=== PATIENT | male | born 1970 | race Caucasian/White ===

== ENCOUNTER 2020-06-21 04:30 | Emergency (ER) | payer BC, OTHER ==
[2020-06-21 05:42] LABS: Absolute Lymphocytes (CBC) 1.5 K/uL (0.7-4.9); Basophils % 0.5 % (0-1.3); Lymphocytes % 28.3 % (15.3-44.8); MPV 9.2 fL (7.6-11.3); RBC Red Blood Cell Count 5.03 M/uL (4.33-5.43)
[2020-06-21 05:43] LABS: Protime INR 0.96
[2020-06-21] MEDS ORDERED: ALBUTEROL INHALER 60 PUFF/8 GM IH ONE (06:00)
[2020-06-21 06:02] LABS: ALT/SGPT 43 U/L (12-78); AST/SGOT 27 U/L (15-37); Albumin 3.6 g/dL (3.4-5.0); Alkaline Phosphatase 93 U/L (45-117); BUN Blood Urea Nitrogen 18 mg/dL (7-18); Bicarbonate 24 mmol/L (21-32); Bilirubin Direct < 0.1 mg/dL (0-0.2); Bilirubin Total 0.3 mg/dL (0.2-1.0); Glucose Level 102 mg/dL (74-106); NT PRO-BNP 8 pg/mL (<125); Potassium 3.9 mmol/L (3.5-5.1); Protein, Total 7.7 g/dL (6.4-8.2); Sodium Level 137 mmol/L (136-145); Troponin (Emerg Dept Use Only) < 0.02 ng/mL (0.0-0.045)
--- NOTE | 2020-06-21 07:05 | ER ---
Nurse's Notes [facility] Name: Josesito Reyna Age: 50 yrs Sex: Male : 1970 Arrival Date: 06/21/2020 Time: 04:31 Bed 6 Private MD: Diagnosis: COVID Pneumonia;Dyspnea Presentation: 06/21 04:34 Chief complaint: Patient states: Reports feeling increased shortness of breath; States lp1 diagnosed COVID + on 06/15/2020 at [facility], symptoms of cough, shortness of breath that began 06/07/20. Coronavirus screen: Client reports previous positive COVID test result. Date of collection: June 15, 2020. Ebola Screen: No symptoms or risks identified at this time. Initial Sepsis Screen: Does the patient meet any 2 criteria? No. Patient's initial sepsis screen is negative. Does the patient have a suspected source of infection? No. Patient's initial sepsis screen is negative. Risk Assessment: Do you want to hurt yourself or someone else? Patient reports no desire to harm self or others. Onset of symptoms was June 21, 2020. 04:34 Method Of Arrival: Ambulatory lp1 04:34 Acuity: ALISON 3 lp1 Triage Assessment: 04:52 General: Appears comfortable. Respiratory: Reports shortness of breath at rest Onset: rv The symptoms/episode began/occurred yesterday, the patient has mild shortness of breath. Historical: - Allergies: 04:42 PENICILLINS; lp1 - Home Meds: 04:42 None [Active]; lp1 - PMHx: 04:42 None; lp1 - PSHx: 04:42 Bladder sx; lp1 - Immunization history:: Adult Immunizations up to date. - Social history:: Smoking status: Patient denies any tobacco usage or history of. Screenin:42 Abuse screen: Denies threats or abuse. Denies injuries from another. Nutritional lp1 screening: No deficits noted. Tuberculosis screening: No symptoms or risk factors identified. Fall Risk None identified. Assessment: 04:51 General: Appears comfortable, Behavior is calm, cooperative. Pain: Denies pain. Neuro: rv Level of Consciousness is awake, alert, obeys commands, Oriented to person, place, time, situation. Cardiovascular: Patient's skin is warm and dry. Rhythm is regular. Respiratory: Airway is patent Respiratory effort is even, unlabored, Breath sounds are clear bilaterally. Derm: Skin is intact. 07:25 Reassessment: Patient appears in no apparent distress at this time. Patient and/or jl7 family updated on plan of care and expected duration. Pain level reassessed. Patient is alert, oriented x 3, equal unlabored respirations, skin warm/dry/pink. Patient states feeling better. Vital Signs: 04:34 BP 120 / 78; Pulse 80; Resp 18; Temp 97.2(TE); Pulse Ox 98% on R/A; Weight 97.52 kg lp1 (R); Height 6 ft. 0 in. (182.88 cm); Pain 0/10; 06:12 BP 106 / 71; Pulse 87; Resp 16; Pulse Ox 97% on R/A; rv 06:44 BP 112 / 82; Pulse 63; Resp 16; Temp 98; Pulse Ox 96% on R/A; rv 04:34 Body Mass Index 29.16 (97.52 kg, 182.88 cm) lp1 06:44 POST AMBULATION rv ED Course: 04:31 Patient arrived in ED. am2 04:37 Mook Francis, RN is Primary Nurse. rv 04:41 Triage completed. lp1 04:41 Arm band placed on. lp1 04:51 Patient has correct armband on for positive identification. conveyor monitor on. Pulse rv ox on. NIBP on. 04:53 Zoran Meier MD is Attending Physician. 7 05:17 Inserted saline lock: 20 gauge in right antecubital area, using aseptic technique. rv Blood collected. 05:17 Initial lab(s) drawn, by sd, sent to lab. rv 05:20 No provider procedures requiring assistance completed. rv 05:34 XRAY Chest (1 view) In Process Unspecified. EDMS 07:25 IV discontinued, intact, bleeding controlled, No redness/swelling at site. Pressure jl7 dressing applied. Administered Medications: 05:43 Not Given (Duplicate Order): Albuterol 1.25 mg Inhalation once rv 05:45 Drug: Albuterol HFA Inhaler 2 puffs Route: Inhalation; ea 06:45 Follow up: Response: No adverse reaction rv 07:24 Drug: predniSONE 60 mg Route: PO; jl7 07:25 Follow up: Response: No adverse reaction jl7 Outcome: 07:05 Discharge ordered by . lizette 07:25 Discharged to home ambulatory. jl7 07:25 Condition: stable 07:25 Discharge instructions given to patient, Instructed on discharge instructions, follow up and referral plans. medication usage, Demonstrated understanding of instructions, follow-up care, medications, Prescriptions given X 3. 07:26 Patient left the ED. jl7 Signatures: Dispatcher [employer] EDMS Adenike Moore RN RN lp1 [address] RN RN jl7 Marimar Cuellar Elena RN Mook Alex ea RN RN Zoarn Medrano MD MD 7
--- NOTE | 2020-06-21 07:06 | EDPHYS ---
Physician Documentation [facility] Name: Josesito Reyna Age: 50 yrs Sex: Male : 1970 Arrival Date: 06/21/2020 Time: 04:31 Bed 6 Private MD: ED Physician Zoran Meier HPI: 06/21 05:43 This 50 yrs old Male presents to ER via Ambulatory with complaints of mh7 Shortness Of Breath - COVID +. 05:43 The patient has shortness of breath at rest. mh7 05:44 Onset: The symptoms/episode began/occurred yesterday. Duration: The symptoms are mh7 intermittent, with no pattern. The patient's shortness of breath is aggravated by coughing, supine position, is alleviated by sitting up. Associated signs and symptoms: Pertinent positives: non-productive cough, Pertinent negatives: chest pain, productive cough, diaphoresis, dizziness, fever, hemoptysis, loss of consciousness, nausea, numbness in extremities, visual changes, vomiting. Severity of symptoms: At their worst the symptoms were moderate yesterday, in the emergency department the symptoms have improved moderately. States that he was diagnosed with COVID 19 on 06/15/20 but has had symptoms for 2 weeks.. Historical: - Allergies: 04:42 PENICILLINS; lp1 - Home Meds: 04:42 None [Active]; lp1 - PMHx: 04:42 None; lp1 - PSHx: 04:42 Bladder sx; lp1 - Immunization history:: Adult Immunizations up to date. - Social history:: Smoking status: Patient denies any tobacco usage or history of. ROS: 05:47 Constitutional: Negative for fever, chills, and weight loss, Eyes: Negative for injury, mh7 pain, redness, and discharge, ENT: Negative for injury, pain, and discharge, Neck: Negative for injury, pain, and swelling, Cardiovascular: Negative for chest pain, palpitations, and edema, Abdomen/GI: Negative for abdominal pain, nausea, vomiting, diarrhea, and constipation, Back: Negative for injury and pain, : Negative for injury, bleeding, discharge, and swelling, MS/Extremity: Negative for injury and deformity, Skin: Negative for injury, rash, and discoloration, Neuro: Negative for headache, weakness, numbness, tingling, and seizure, Psych: Negative for depression, anxiety, suicide ideation, homicidal ideation, and hallucinations, Allergy/Immunology: Negative for hives, rash, and allergies, Endocrine: Negative for neck swelling, polydipsia, polyuria, polyphagia, and marked weight changes, Hematologic/Lymphatic: Negative for swollen nodes, abnormal bleeding, and unusual bruising. Exam: 05:47 Constitutional: This is a well developed, well nourished patient who is awake, alert, mh7 and in no acute distress. Head/Face: Normocephalic, atraumatic. Eyes: Pupils equal round and reactive to light, extra-ocular motions intact. Lids and lashes normal. Conjunctiva and sclera are non-icteric and not injected. Cornea within normal limits. Periorbital areas with no swelling, redness, or edema. Neck: Trachea midline, no thyromegaly or masses palpated, and no cervical lymphadenopathy. Supple, full range of motion without nuchal rigidity, or vertebral point tenderness. No Meningismus. Chest/axilla: Normal chest wall appearance and motion. Nontender with no deformity. No lesions are appreciated. Cardiovascular: Regular rate and rhythm with a normal S1 and S2. No gallops, murmurs, or rubs. Normal PMI, no JVD. No pulse deficits. Respiratory: Lungs have equal breath sounds bilaterally, clear to auscultation and percussion. No rales, rhonchi or wheezes noted. No increased work of breathing, no retractions or nasal flaring. Abdomen/GI: Soft, non-tender, with normal bowel sounds. No distension or tympany. No guarding or rebound. No evidence of tenderness throughout. Back: No spinal tenderness. No costovertebral tenderness. Full range of motion. Skin: Warm, dry with normal turgor. Normal color with no rashes, no lesions, and no evidence of cellulitis. MS/ Extremity: Pulses equal, no cyanosis. Neurovascular intact. Full, normal range of motion. Neuro: Awake and alert, GCS 15, oriented to person, place, time, and situation. Cranial nerves II-XII grossly intact. Motor strength 5/5 in all extremities. Sensory grossly intact. Cerebellar exam normal. Normal gait. Psych: Awake, alert, with orientation to person, place and time. Behavior, mood, and affect are within normal limits. Vital Signs: 04:34 BP 120 / 78; Pulse 80; Resp 18; Temp 97.2(TE); Pulse Ox 98% on R/A; Weight 97.52 kg lp1 (R); Height 6 ft. 0 in. (182.88 cm); Pain 0/10; 06:12 BP 106 / 71; Pulse 87; Resp 16; Pulse Ox 97% on R/A; rv 06:44 BP 112 / 82; Pulse 63; Resp 16; Temp 98; Pulse Ox 96% on R/A; rv 04:34 Body Mass Index 29.16 (97.52 kg, 182.88 cm) lp1 06:44 POST AMBULATION rv MDM: 07:03 Differential diagnosis: Anemia Anxiety Reaction asthma, Bronchitis CHF exacerbation, 7 Chronic Obstructive Pulmonary Disease Myocardial Infarction pneumonia, pulmonary edema, reactive airway disease. Data reviewed: vital signs, nurses notes, lab test result(s), cardiac enzymes, CBC, electrolytes, urinalysis, EKG, radiologic studies, plain films. Data interpreted: Pulse oximetry: on room air is 96 %. Interpretation: normal. Counseling: I had a detailed discussion with the patient and/or guardian regarding: the historical points, exam findings, and any diagnostic results supporting the discharge/admit diagnosis, lab results, radiology results, the need for outpatient follow up, to return to the emergency department if symptoms worsen or persist or if there are any questions or concerns that arise at home. 07:05 Patient medically screened. 06/21 05:05 Order name: Basic Metabolic Panel; Complete Time: 06:06 [facility] 06/21 05:05 Order name: CBC with Diff; Complete Time: 05:49 06/21 05:05 Order name: LFT's; Complete Time: 06:06 [facility] 06/21 05:05 Order name: Magnesium; Complete Time: 06:06 [facility] 06/21 05:05 Order name: NT PRO-BNP; Complete Time: 06:06 06/21 05:05 Order name: PT-INR; Complete Time: 06:06 06/21 05:05 Order name: Troponin (emerg Dept Use Only); Complete Time: 06:06 [facility] 06/21 05:05 Order name: XRAY Chest (1 view) [facility] 06/21 05:05 Order name: EKG; Complete Time: 05:06 [facility] 06/21 05:05 Order name: Cardiac monitoring; Complete Time: 05:19 [facility] 06/21 05:39 Order name: DD; Complete Time: 06:40 06/21 05:05 Order name: EKG - Nurse/Tech; Complete Time: 05:20 [facility] 06/21 05:05 Order name: IV Saline Lock; Complete Time: 05:20 [facility] 06/21 05:05 Order name: Labs collected and sent; Complete Time: 05:20 [facility] 06/21 05:05 Order name: O2 Per Protocol; Complete Time: 05:20 7 06/21 05:05 Order name: O2 Sat Monitoring; Complete Time: 05:20 [facility] Administered Medications: 05:43 Not Given (Duplicate Order): Albuterol 1.25 mg Inhalation once rv 05:45 Drug: Albuterol HFA Inhaler 2 puffs Route: Inhalation; ea 06:45 Follow up: Response: No adverse reaction rv 07:24 Drug: predniSONE 60 mg Route: PO; [facility] 07:25 Follow up: Response: No adverse reaction 7 Disposition: 06/21/20 07:05 Discharged to Home. Impression: COVID Pneumonia, Dyspnea. - Condition is Stable. - Discharge Instructions: Shortness of Breath, [id number], Viral Respiratory Infection, [id number], COVID-19. - Prescriptions for Zithromax Z- Naren 250 mg Oral Tablet - take 1 tablet by ORAL route as directed for 5 days Day 1 - take two (2) tablets one time. Day 2, 3, 4 , 5 take one (1) tablet once daily.; 6 tablet. Prednisone 20 mg Oral Tablet - take 2 tablet by ORAL route once daily for 5 days; 10 tablet. Albuterol Sulfate 90 mcg/actuation - inhale 1-2 puff by INHALATION route every 4-6 hours; 1 Inhaler. - Medication Reconciliation Form, Thank You Letter, Antibiotic Education, Prescription Opioid Use form. - Follow up: Private Physician; When: 1 - 2 days; Reason: If symptoms return, Worsening of condition, Recheck today's complaints, Continuance of care, Re-evaluation by your physician. - Problem is an ongoing problem. - Symptoms have improved. Signatures: Dispatcher [facility]Le[facility] East Norwegian StreetAdenike Colón RN RN lp1 [address] RN RN jl7 Sherlyn Gardner, RN RN Mook Valentine RN Zoran Dubon MD MD 7 Corrections: (The following items were deleted from the chart) 07:26 07:05 06/21/2020 07:05 Discharged to Home. Impression: COVID Pneumonia; Dyspnea. jl7 Condition is Stable. Forms are Medication Reconciliation Form, Thank You Letter, Antibiotic Education, Prescription Opioid Use. Follow up: Private Physician; When: 1 - 2 days; Reason: If symptoms return, Worsening of condition, Recheck today's complaints, Continuance of care, Re-evaluation by your physician. Problem is an ongoing problem. Symptoms have improved. mh7
--- NOTE | 2020-06-21 07:24 | EKG ---
Test Date: 2020-06-21 Test Time: 05:10:36 Manager Client Service: RV MEASUREMENT RESULTS: Intervals: Rate: 73 NC: 142 QRSD: 78 QT: 378 QTc: 416 Hurst: P: 40 NC: 142 QRS: 22 T: 15 INTERPRETIVE STATEMENTS: Normal sinus rhythm Normal ECG Compared to ECG 11/04/2011 06:01:36 Sinus arrhythmia no longer present Electronically Signed On 06-21-20 07:23:51 ELECTRO WINNING OPERATOR by Will Hernández
[2020-06-21] MEDS ORDERED: predniSONE 20 MG TAB ONE (07:31)
[2020-06-21 07:33] VITALS: BP 112/82; TEMP 98; O2SAT 96
--- NOTE | 2020-06-21 12:13 | RAD REPORT ---
EXAM DESCRIPTION: RAD - Chest Single View - 06/21/2020 5:36 am CLINICAL HISTORY: SOB Chest pain. COMPARISON: CHEST SINGLE VIEW dated 11/04/2011 FINDINGS: Portable technique limits examination quality. Mild interstitial opacities are present bilaterally, greater on the right, suggesting viral pneumonia . The heart is normal in size. No displaced fractures.
== END 2020-06-21 07:26 | disposition home or self-care (01) ==
LOC: ER 04:30
DX: U07.1 COVID-19 (principal); J12.82 Pneumonia due to coronavirus disease 2019; Z88.0 Allergy status to penicillin
CPT/HCPCS: 36415; 71045; 80048; 80076; 83735; 83880; 84484; 85025; 85379; 85610; 93005; 99285; J7512

== ENCOUNTER 2021-03-21 20:27 | Emergency (ER) | payer BC ==
--- NOTE | 2021-03-21 22:41 | EDPHYS ---
Physician Documentation [facility] Name: Josesito Reyna Age: 50 yrs Sex: Male : 1970 Arrival Date: 03/21/2021 Time: 20:31 Bed 19 Private MD: ED Physician Vargas Olivera HPI: 03/21 21:00 This 50 yrs old Male presents to ER via Ambulatory with complaints of Pt cp states flu like symptoms. 21:00 The patient or guardian reports cough, that is intermittent, with productive sputum, cp flu symptoms, low-grade fever. Onset: The symptoms/episode began/occurred 2 day(s) ago. 21:00 Associated signs and symptoms: Pertinent positives: shortness of breath with exertion, cp Pertinent negatives: diarrhea, vomiting. Historical: - Allergies: 20:54 PENICILLINS; vg1 - Home Meds: 20:54 None [Active]; vg1 - PMHx: 20:54 None; vg1 - PSHx: 20:54 None; vg1 - Immunization history:: Adult Immunizations up to date, Client reports receiving the 2nd dose of the Covid vaccine. - Social history:: Smoking status: Patient denies any tobacco usage or history of. ROS: 21:05 Constitutional: Positive for body aches, Negative for fever, poor PO intake. cp 21:05 Eyes: Negative for injury, pain, redness, and discharge. cp 21:05 ENT: Negative for drainage from ear(s), ear pain, difficulty swallowing, difficulty handling secretions. 21:05 Cardiovascular: Negative for chest pain. 21:05 Respiratory: Positive for cough, shortness of breath, on exertion. Negative for wheezing. 21:05 Abdomen/GI: Negative for abdominal pain, nausea, vomiting, and diarrhea. 21:05 Skin: Negative for rash. 21:05 Neuro: Positive for headache, Negative for altered mental status, weakness. 21:05 All other systems are negative. Exam: 21:10 Constitutional: The patient appears in no acute distress, alert, awake, cp non-diaphoretic, non-toxic, well developed, well nourished. 21:10 Head/Face: Normocephalic, atraumatic. cp 21:10 Eyes: Periorbital structures: appear normal, Conjunctiva: normal, no exudate, no injection, Sclera: no appreciated abnormality, Lids and lashes: appear normal, bilaterally. 21:10 ENT: External ear(s): are unremarkable, Ear canal(s): are normal, clear, TM's: dullness, bilaterally, Nose: is normal, Mouth: Lips: moist, Oral mucosa: moist, Posterior pharynx: Airway: no evidence of obstruction, patent, Tonsils: no enlargement, no exudate, Uvula: midline, swelling, is not appreciated, erythema, that is mild, exudate, is not appreciated. 21:10 Neck: ROM/movement: is normal, is supple, without pain, no range of motions limitations, no meningismus, Lymph nodes: no appreciated lymphadenopathy. 21:10 Chest/axilla: Inspection: normal. 21:10 Cardiovascular: Rate: tachycardic, Rhythm: regular. 21:10 Respiratory: the patient does not display signs of respiratory distress, Respirations: normal, no use of accessory muscles, no retractions, labored breathing, is not present, Breath sounds: bronchial sounds, that are mild, are heard diffusely, decreased breath sounds, are not appreciated, stridor, is not appreciated, wheezing: is not appreciated. 21:10 Abdomen/GI: Exam negative for discomfort, distension, guarding, Inspection: abdomen appears normal. Vital Signs: 20:52 BP 118 / 90; Pulse 100; Resp 18; Temp 98.1; Pulse Ox 95% on R/A; Weight 97.52 kg; vg1 Height 6 ft. 0 in. (182.88 cm); Pain 0/10; 21:30 BP 124 / 92; Pulse 100; Resp 20; Temp 98.0; Pulse Ox 98% ; Pain 5/10; dc2 22:30 BP 136 / 79; Pulse 88; Resp 18; Temp 97.9; Pulse Ox 99% ; Pain 0/10; dc2 23:00 BP 125 / 80; Pulse 77; Resp 17; Pulse Ox 99% ; Pain 0/10; dc2 20:52 Body Mass Index 29.16 (97.52 kg, 182.88 cm) vg1 MDM: 21:00 Differential Diagnosis: Bronchitis Influenza Upper Respiratory Infection Sinusitis cp Pharyngitis Otitis Media Viral Syndrome Pneumonia. 21:02 Patient medically screened. 22:40 Data reviewed: vital signs, nurses notes, lab test result(s), radiologic studies, plain cp films. 22:40 Test interpretation: by ED physician or midlevel provider: chest xray negative for cp infiltrates. Counseling: I had a detailed discussion with the patient and/or guardian regarding: the historical points, exam findings, and any diagnostic results supporting the discharge/admit diagnosis, lab results, radiology results, to return to the emergency department if symptoms worsen or persist or if there are any questions or concerns that arise at home. ED course: VSS. Patient appears non-toxic and no signs of respiratory distress. Will discharge to home for continued monitoring. 03/21 20:56 Order name: COVID-19 : Document "Date of Symptom Onset" if Symptomatic. vg1 03/21 20:56 Order name: Flu vg1 03/21 20:57 Order name: Influenza Screen (A EDNM 03/21 21:20 Order name: Strep cp 03/21 21:34 Order name: SARS-COV-2 RT PCR EDNM 03/21 21:20 Order name: XRAY Chest Pa And Lat (2 Views) cp 03/21 22:21 Order name: Throat Culture EDNM Administered Medications: No medications were administered Disposition: 03/22 07:02 Co-signature as Attending Physician, Vargas Olivera MD I agree with the assessment and lucy plan of care. Disposition Summary: 03/21/21 22:40 Discharge Ordered Location: Home cp Problem: new cp Symptoms: have improved cp Condition: Stable cp Diagnosis - Acute bronchitis, unspecified cp Followup: cp - With: Private Physician - When: 2 - 3 days - Reason: Worsening of condition Discharge Instructions: - Discharge Summary Sheet cp - Acute Bronchitis, Adult cp Forms: - Medication Reconciliation Form cp - Thank You Letter cp - Antibiotic Education cp - Prescription Opioid Use cp - Work release form cc4 Prescriptions: - albuterol sulfate 90 mcg/actuation Inhalation HFA aerosol inhaler - inhale 1 puff by INHALATION route every 4-6 hours; 1 Inhaler; Refills: 0, cp Product Selection Permitted - Tessalon Perles 100 mg Oral Capsule - take 2 capsule by ORAL route every 8 hours As needed; 30 capsule; Refills: 0, cp Product Selection Permitted - Zithromax Z-Naren 250 mg Oral Tablet - take 1 tablet by ORAL route as directed for 5 days Day 1 - take two (2) tablets cp one time. Day 2, 3, 4 , 5 take one (1) tablet once daily.; 6 tablet; Refills: 0, Product Selection Permitted Signatures: Dispatcher [employer] EDNM Vargas Olivera MD MD cha Page, Corey PA PA Marielle Vazquez, RN RN vg1 Corrections: (The following items were deleted from the chart) 03/21 21:34 20:57 CORONAVIRUS ordered. [facility] 03/22 19:10 03/21 21:00 Associated signs and symptoms: Pertinent negatives: diarrhea, vomiting, cp cp 03/22 19:12 03/21 21:05 Neuro: Negative for altered mental status, headache, weakness, cp cp
--- NOTE | 2021-03-21 22:41 | ER ---
Nurse's Notes [facility] Name: Josesito Reyna Age: 50 yrs Sex: Male : 1970 Arrival Date: 03/21/2021 Time: 20:31 Bed 19 Private MD: Diagnosis: Acute bronchitis, unspecified Presentation: 03/21 20:52 Chief complaint: Patient states: Since Monday night 03/19/21, pt has been coughing, vg1 congested, fever and headache; states at times has difficulty breathing and shortness of breath upon exertion. Denies NV, denies loss of taste and smell. Coronavirus screen: Vaccine status: Patient reports receiving the 2nd dose of the covid vaccine. Client presents with at least one sign or symptom that may indicate coronavirus-19. Standard/surgical mask placed on the client. Ebola Screen: Patient negative for fever greater than or equal to 101.5 degrees Fahrenheit, and additional compatible Ebola Virus Disease symptoms. Initial Sepsis Screen: Does the patient meet any 2 criteria? No. Patient's initial sepsis screen is negative. Does the patient have a suspected source of infection? No. Patient's initial sepsis screen is negative. Risk Assessment: Do you want to hurt yourself or someone else? Patient reports no desire to harm self or others. Onset of symptoms was March 19, 2021. 20:52 Method Of Arrival: Ambulatory vg1 20:52 Acuity: ALISON 3 vg1 Triage Assessment: 20:54 General: Appears in no apparent distress. comfortable, Behavior is calm, cooperative. vg1 Pain: Denies pain. Historical: - Allergies: 20:54 PENICILLINS; vg1 - Home Meds: 20:54 None [Active]; vg1 - PMHx: 20:54 None; vg1 - PSHx: 20:54 None; vg1 - Immunization history:: Adult Immunizations up to date, Client reports receiving the 2nd dose of the Covid vaccine. - Social history:: Smoking status: Patient denies any tobacco usage or history of. Screenin:20 Abuse screen: Denies threats or abuse. Denies injuries from another. Nutritional dc2 screening: No deficits noted. Tuberculosis screening: No symptoms or risk factors identified. Never had TB. Possible symptoms: None Risk factors: None. Fall Risk None identified. No fall in past 12 months (0 pts). No secondary diagnosis (0 pts). No IV (0 pts). Gait- Normal/Bed Rest/Wheelchair (0 pts) Mental Status- Oriented to own ability (0 pts). Total Berrios Fall Scale indicates No Risk (0-24 pts). Assessment: 20:11 General: Appears in no apparent distress. uncomfortable, obese, well groomed, well dc2 developed. Pain: Complains of pain in generalized body aches and chest discomfort when coughing. Reports non productive cough. 20:11 Neuro: No deficits noted. Cardiovascular: No deficits noted. Denies chest pain, dc2 palpitations, shortness of breath. Respiratory: No deficits noted. Reports cough that is non-productive, dry, Breath sounds are clear bilaterally. GI: No signs and/or symptoms were reported involving the gastrointestinal system. : No signs and/or symptoms were reported regarding the genitourinary system. Musculoskeletal: No deficits noted. Vital Signs: 20:52 BP 118 / 90; Pulse 100; Resp 18; Temp 98.1; Pulse Ox 95% on R/A; Weight 97.52 kg; vg1 Height 6 ft. 0 in. (182.88 cm); Pain 0/10; 21:30 BP 124 / 92; Pulse 100; Resp 20; Temp 98.0; Pulse Ox 98% ; Pain 5/10; dc2 22:30 BP 136 / 79; Pulse 88; Resp 18; Temp 97.9; Pulse Ox 99% ; Pain 0/10; dc2 23:00 BP 125 / 80; Pulse 77; Resp 17; Pulse Ox 99% ; Pain 0/10; dc2 20:52 Body Mass Index 29.16 (97.52 kg, 182.88 cm) vg1 ED Course: 20:31 Patient arrived in ED. wm 20:54 Triage completed. vg1 20:54 Arm band placed on. vg1 20:59 COVID swab sent to lab. Flu and/or RSV swab sent to lab. vg1 21:00 Patient has correct armband on for positive identification. Bed in low position. Call dc2 light in reach. Side rails up X 1. equipment monitor phototypesetting on. Pulse ox on. NIBP on. Door closed. Lights dimmed. Warm blanket given. 21:01 Vargas Villalba PA is PHCP. cp 21:01 Vargas Olivera MD is Attending Physician. cp 21:19 Vicki Singh, RN is Primary Nurse. dc2 21:21 No provider procedures requiring assistance completed. dc2 21:29 Flu Sent. dc2 21:32 Patient moved to radiology via wheelchair. dc2 21:40 XRAY Chest Pa And Lat (2 Views) In Process Unspecified. EDMS 21:44 Strep Sent. oe 21:45 Patient moved back from radiology. dc2 22:30 Awaiting lab results, Awaiting disposition. dc2 22:53 Patient did not have IV access during this emergency room visit. dc2 23:00 Awaiting disposition. dc2 23:14 Primary Nurse role handed off by Vicki Singh, TREE dc2 Administered Medications: No medications were administered Outcome: 22:40 Discharge ordered by . cp 22:53 Discharged to home ambulatory. dc2 22:53 Condition: good 22:53 Discharge instructions given to patient, Instructed on discharge instructions, follow up and referral plans. medication usage, Demonstrated understanding of instructions, follow-up care, medications, Prescriptions given X 3. 23:13 Patient left the ED. dc2 23:19 Patient left the ED. dc2 Signatures: Dispatcher [employer] EDMS Vargas Villalba PA PA cp Meng Glaser Victoria, RN RN vg1 Tammy Vallejo Vicki Singh, TREE RN dc2 Corrections: (The following items were deleted from the chart) 21:31 21:26 General: Appears in no apparent distress. uncomfortable, well groomed, well dc2 developed, dc2 23:23 23:22 No apparent distress. Resting quietly. dc2 dc2
[2021-03-21 23:32] VITALS: BP 124/92; TEMP 98; O2SAT 98
--- NOTE | 2021-03-22 07:37 | RAD REPORT ---
EXAM DESCRIPTION: RAD - Chest Pa And Lat (2 Views) - 03/21/2021 9:40 pm CLINICAL HISTORY: Cough;Fever COMPARISON: Portable June 21 TECHNIQUE: Frontal and lateral views of the chest were obtained. FINDINGS: The lungs are clear. Interstitial pattern matches comparison. Heart size is normal and ce ntral vasculature is within normal limits. No pleural effusion or pneumothorax seen. No acute bony finding noted. No aortic abnormality. No significant change from comparison study. IMPRESSION: No acute cardiopulmonary process.
== END 2021-03-21 23:19 | disposition home or self-care (01) ==
LOC: ER 20:27
DX: J20.9 Acute bronchitis, unspecified (principal); Z88.0 Allergy status to penicillin; Z20.822 Contact with and (suspected) exposure to COVID-19
CPT/HCPCS: 87070; 87081; 87804 ×2; 71046; 99284; U0003

== ENCOUNTER 2022-08-08 05:29 | Observation (INO) | payer BC ==
--- OUTSIDE RECORDS SUMMARY | 2022-08-08 05:36 | XMS REPORT | Continuity of Care Document ---
:1970 Author Organization [facility] t Address [address] [place] [address] Care Team Providers Name Role Phone BACILIO HERNANDEZ Primary Care Physician Unavailable ADDIE PIEDRA Attending Clinician Unavailable TERRY LOPEZ Attending Clinician Unavailable MALISSA OCHOA Attending Clinician Unavailable LLUVIA, MARYCRUZ Attending Clinician Unavailable SIRENA JOSEPH Attending Clinician Unavailable IDRIS TAYLOR Attending Clinician Unavailable Davis Benítez Attending Clinician Unavailable BRAEDEN CORCORAN Attending Clinician Unavailable COVID-PFIZER [facility] Attending Clinician Unavaila TA Gustafson Attending Clinician Unavailable ROHAN PETERS Attending Clinician Unavailable MD KOBE Attending Clinician Unavailable [id number] Attending Clinician Unavailable ERNESTO Attending Clinician Unavailable CLIVE MOORE Attending Clinician Unavailable JOHANNA CRESPO Attending Clinician Unavailable Rohan Peters MD Attending Clinician FRAN, ROHAN REGONE Attending Clinician Unavailable SWAB, CK COVID SELF Attending Clinician Unavailable [id number] Attending Clinician Unavailable LAB53 Attending Clinician Unavailable TRED53 Attending Clinician Unavailable MARCOS PARKER Attending Clinician Unavailable TERRY TREVINO Attending Clinician Unavailable JOHANNA DAMON Attending Clinician Unavailable Johanna Damon MD Attending Clinician LAB39 Attending Clinician Unavailable Terry Lopez MD Attending Clinician LAB47 Attending Clinician Unavailable RICHIE PROCTOR Attending Clinician Unavailable Johanna Crespo PA-C Attending Clinician KAM ORDONEZ Attending Clinician Unavailable ESPERANZA AMAYA Attending Clinician Unavailable LINDA VASQUEZ Attending Clinician Unavailable PHUONG MCDANIELS Attending Clinician Unavailable Idris Taylor DO Attending Clinician Jenn Ruano Attending Clinician [phone] Linda Vasquez PA-C Attending Clinician [phone] Physician, Non Associated Attending Clinician Unavailable Amie Jones Attending Clinician Nikole Blunt Attending Clinician EDWIGE ANDRE Admitting Clinician Unavailable ROHAN PETERS Admitting Clinician Unavailable Payers Payer Name Policy Type Policy Number Effective Date Expiration Date [facility] [id number] 2019 [place] (ERS-BC[employer] 00:00:00 CAPITATED) [facility] [id number] 2015 00:00:00 Problems Condition Condition Condition Status Onset Resolution Last Treating Co mments Source Name Details Category Date Date Treatment Clinician Date Chronic Chronic Disease Active Shanna right-side right-side 4-13 Se jeffrey d low back d low back 00:00: - pain pain 00 Externa without without l sciatica sciatica Erectile Erectile Disease Active Kelse y dysfunctio dysfunctio 7-16 Se ybold n n 00:00: - following following 00 Exte rna urethral urethral l surgery surgery IPCS TEST IPCS TEST Diagnosis Active 2017-09-18 Memoria Active 06-12 13:24:00 l 06/12/2017 08:00: Kanu vazquez [facility] 00 [place] Urethral Urethral Disease Active 2015-06 [facility] 00:00: Medical 00 [place] DIZZINESS DIZZINESS Diagnosis Active 2015-08-24 Memoria Active 08-23 12:50:00 l 08/24/2015 00:00: Kanu vazquez 00 [facility] FINGER FINGER Diagnosis Active 2015-02-11 M emoria INJURY INJURY 02-11 19:05:00 l Active 00:00: [place] 02/11/2015 00 [facility] Mixed Mixed Disease Active Shanna hyperlipid hyperlipid 3- Se ybold emia emia 00:00: - 00 Externa l Polyvinyl Polyvinyl Problem Resolve 2018-01-25 Memoria chloride chloride d 13:43:45 l (substance (substance He rmann ) ) Resolved Problem 01/25/2018 [facility], [facility] [place] History of Past Illness Condition Condition Condition Status Onset Resolution Last Treating Co mments Source Name Details Category Date Date Treatment Clinician Date Discharge Discharge Problem 2015-08-27 2015-08-27 [facility] Diagnosis: Diagnosis: 08-23 03:28:02 03:28:02 l Palpitatio Palpitatio 05:00: Efraín salmeron ns ns 00 08/24/2015 08/27/2015 [facility] Discharge Discharge Problem 2015-02-14 2015-02-14 [facility] Diagnosis: Diagnosis: 02-11 11:22:47 11:22:47 l Hematoma, Hematoma, 05:00: Anup lee subungual, subungual, 00 finger finger 02/11/2015 5 [facility] Discharge Discharge Problem 2015-02-14 2015-02-14 [facility] Diagnosis: Diagnosis: 02-11 11:22:47 11:22:47 l Crushed Crushed 05:00: [place] finger finger 00 02/11/2015 5 [facility] Allergies, Adverse Reactions, Alerts Allergy Allergy Status Severity Reaction(s) Onset Inactive Treating Comm ents Source Name Type Date Date Clinician PENICILL Allergy Active Med [facility] 00 [place] Penicill Drug Active Other (See Unknown, [facility] Allergy Comments) 02-18 childhood [facility] 00:00: reaction Medical 00 Center Penicill DA Active MO RASH [facility] 4-26 [place] 00:[facility]: d 00 [facility] Penicill Propensi Active Childhood Dariusz sey ins ty to Reaction 3-21 Seybold adverse 00:00: reaction 00 s Penicill Propensi Active Childhood Dariusz sey ins ty to Reaction 3-21 Seybold adverse 00:00: - reaction 00 Externa s l penicill penicill Active Mem[facility] a ins ins l [place] Family History Family Member Diagnosis Comments Start Date Stop Date Source Natural father Hypertension [facility] Natural mother COPD [facility] Social History Social Habit Start Date Stop Date Quantity Comments Source History SDOH [facility] Frequency [facility] History SDOH [facility] Alcohol Std Drinks [facility] History SDOH [facility] Alcohol Binge Medical Angie ter Alcohol intake 2022-02-16 2022-02-16 .43 /d [facility]00 Medical Center History SDOH 2022-01-27 2022-01-[address] [facility] Alcohol Comment 00:00:00 00:00:00 Medical enter Tobacco use and 2016-02-19 2016-02-[address] [facility] exposure 00:00:00 00:00:00 Medical Center Sex Assigned At [address] [facility] 00:00[facility]00 00[facility]00 [facility] Center Smoking Status Start Date Stop Date Source Social History [facility] Medications Ordered Filled Start Stop Current Ordering Indication Dosage Frequency Signature Comments Components Source Medication Medication Date Date Medication? Clinician (SIG) Name Name ENT 2022- No 1{dose} 1 Dose by Tawny fishman COMPOUND 07-12 nasal Seybold MED 06:57: 00:00 route 2 - 59 :00 times Externa daily CA l Tobramycin 300 mg/5 ml via #56 vials-Empt y 1 vial (300 mg) into nasal irrigation system, add distilled water, irrigate-t wice dailyAND DISPENSECM PD Clindamyci n 100 mg-Budeson ahsan 1 mg cap (1900) #56-Empty 1 capsule into nasal irrigation system, add distilled water, [facility] Tizanidine 0 Yes [id number] TAKE 1 Shanna HCl 4 MG 31 TABLET BY Seybol d oral Tablet 00:00: MOUTH ONCE - 00 at bedtime Externa NEEDED l FOR MUSCLE SPASMS CAUTION SEDATION Naproxen 0 Yes [id number] TAKE 1 Ke lsey 500 MG oral -31 TABLET BY Sey bold Tablet 00:00: MOUTH - 00 TWICE Externa DAILY l NEEDED FOR BACK PAIN Tadalafil 0 Yes [id number] 5mg QD Take 1 K elsey (Cialis) 5 -11 tablet (5 Seyb old MG oral 00:00: mg total) - Tablet 00 by mouth Externa daily as l needed for erectile dysfunctio n Omeprazole 0 Yes [id number] 40mg Take 1 Shanna 40 MG oral -11 capsule Seybol d Delayed 00:00: (40 mg - Release 00 total) by Externa Capsule mouth l daily Gabapentin 0 Yes [id number] 300mg Take 1 Shanna 300 MG oral -11 capsule Seybo ld Capsule 00:00: (300 mg - 00 total) by Externa mouth l every night at bedtime Bupropion 0 2022- No [id number] 150mg Take 1 Shanna HCL XL 150 06-22 tablet Seybol d MG OR TB24 00:00: 00:00 (150 mg - 00 :00 total) by Externa mouth l daily methylPREDN 2021-06 Yes [id number] 1{jae} Take 1 jae Shanna ISolone 4 - by mouth Seybol d MG oral 00:00: See Admin - Tablet 00 Instructio Externa Therapy ns Use as l Pack directed methylPREDN 2021-06- No [id number] 1{jae} Take 1 jae Shanna ISolone 4 207-12 by mouth Seybo ld MG oral 00:00: 00:00 See Admin - Tablet 00 :00 Instructio Externa Therapy ns Use as l Pack directed Azithromyci 2021-06- Yes [id number] Take 2 Shanna n 250 MG 2- 12-15 tablets by Seyb old oral Tablet 00:00: 05:59 mouth on - 00 :00 day 1 then Externa 1 tablet l by mouth daily for 4 days thereafter . ENT 2021-06 Yes 1{dose} 1 Dose by Kelse y COMPOUND 1-23 nasal Seybold MED 08:32: route 2 - 20 times Externa daily CA l Tobramycin 300 mg/5 ml via #56 vials-Empt y 1 vial (300 mg) into nasal irrigation system, add distilled water, irrigate-t wice dailyAND DISPENSECM PD Clindamyci n 100 mg-Budeson ahsan 1 mg cap (1900) #56-Empty 1 capsule into nasal irrigation system, add distilled water, [facility] Bupropion 2021-06 Yes [id number] 150mg Take 1 K elsey HCL XL 150 1-16 tablet Seybold MG OR TB24 00:00: (150 mg - 00 total) by Externa mouth l daily Gabapentin 2021-06 Yes [id number] 300mg Take 1 Shanna 300 MG oral 1-15 capsule Seybo ld Capsule 00:00: (300 mg - 00 total) by Externa mouth l every night at bedtime Gabapentin 2021-06 Yes [id number] 300mg Take 1 Shanna 300 MG oral 1-09 capsule Seybo ld Capsule 00:00: (300 mg - 00 total) by Externa mouth l every night at bedtime Escitalopra 2021-06 Yes [id number] 10mg Take 1 Shanna m Oxalate 1-09 tablet (10 Seyb old 10 MG oral 00:00: mg total) - Tablet 00 by mouth Externa daily l Escitalopra 2021-06- No [id number] 10mg Take 1 Shanna m Oxalate 1-09 12-09 tablet (10 Sey bold 10 MG oral 00:00: 00:00 mg total) - Tablet 00 :00 by mouth Externa daily l Tadalafil 2021-06 Yes [id number] 5mg QD Take 1 K elsey (Cialis) 5 1-08 tablet (5 Seyb old MG oral 00:00: mg total) - Tablet 00 by mouth Externa daily as l needed for erectile dysfunctio n Tadalafil 2021-06 Yes [id number] 5mg QD Take 1 K elsey (Cialis) 5 1-08 tablet (5 Seyb old MG oral 00:00: mg total) - Tablet 00 by mouth Externa daily as l needed for erectile dysfunctio n Azithromyci 2021-06 Yes [id number] Take 2 Shanna n 250 MG 0-14 tablets by Seybo ld oral Tablet 00:00: mouth on - 00 day 1 then Externa 1 tablet l by mouth daily for 4 days thereafter . Azithromyci 2021-06- No [id number] Take 2 Shanna n 250 MG 0-14 12-09 tablets by Seyb old oral Tablet 00:00: 00:00 mouth on - 00 :00 day 1 then Externa 1 tablet l by mouth daily for 4 days thereafter . FLUTICASONE Yes 100ug Use 2 Tawny ey PROPIONATE, 9-29 sprays Seybol d NASAL, 00:00: (100 mcg - (Flonase) 00 total) in Exter na 50 MCG/ACT each l nasal nostril Suspension daily FLUTICASONE Yes 100ug Use 2 Tawny ey PROPIONATE, 9-29 sprays Seybol d NASAL, 00:00: (100 mcg - (Flonase) 00 total) in Exter na 50 MCG/ACT each l nasal nostril Suspension daily FLUTICASONE 2021- No 100ug Use 2 Dariusz sey PROPIONATE, 03-10 10-30 sprays Seybo ld NASAL, 00:00: 04:59 (100 mcg - (Flonase) 00 :00 total) in Exter na 50 MCG/ACT each l nasal nostril Suspension daily Gabapentin Yes [id number] 300mg Take 1 Shanna 300 MG oral 9-22 capsule Seybo ld Capsule 00:00: (300 mg - 00 total) by Externa mouth l every night at bedtime predniSONE Yes Start at Dariusz sey (DELTASONE) 9-15 30 mg qd Seyb old 10 MG oral 00:00: x3 days, - tablet 00 Then 20 mg Externa QD x3 l days, then 10 mg QD x3 days, then stop predniSONE Yes Start at Dariusz sey (DELTASONE) 9-15 30 mg qd Seyb old 10 MG oral 00:00: x3 days, - tablet 00 Then 20 mg Externa QD x3 l days, then 10 mg QD x3 days, then stop predniSONE Yes Start at [facility] juan (DELTASONE) 02-24 30 mg qd Seyb old 10 MG oral 00:00: x3 days, - tablet 00 Then 20 mg Externa QD x3 l days, then 10 mg QD x3 days, then stop predniSONE 2022- No Start at tressa (DELTASONE) 02-24 01-31 30 mg qd Sey bold 10 MG oral 00:00: 00:00 x3 days, - tablet 00 :00 Then 20 mg Externa QD x3 l days, then 10 mg QD x3 days, then stop azelastine Yes 1{spray Q.5D [address] [facility] (ASTELIN) 02-16 } Nasal [facility] 137 mcg 11:42: route 2 Medical (0.1 %) 58 (two) Center nasal spray times daily Use in each nostril as directed . tadalafiL Yes 5mg QD Take [address] (CIALIS) 5 02-16 by mouth [facility] MG tablet 11:42: daily. Medica l 58 Center fluticasone Yes 1{spray QD [address] propionate 02-16 } Nasal [facility] (FLONASE) 11:42: route Medical 50 58 daily. Center mcg/actuati on nasal spray TiZANidine Yes 4mg Q.[id number] Take [address] (ZANAFLEX) 02-16 [id number] by mouth 3 [facility] 4 MG 11:42: 3D (three) Medical capsule 58 times Center daily. gabapentin Yes 300mg Q.[id number] Take [address] (NEURONTIN) 02-16 [id number] mg by L ukes 300 MG 11:42: 3D mouth 3 Medical capsule 58 (three) Center times daily. omeprazole Yes 40mg QD Take [address] (PriLOSEC) 02-16 by mouth [facility] 40 MG 11:42: daily. Medical capsule 58 Center SUMAtriptan Yes 50mg Take [address] (IMITREX) 02-16 by mouth [facility] 50 MG 11:42: once as Medical tablet 58 needed for Center Headaches. Acetaminoph Yes 1{tbl} Q.25D Take 1 K elsey en-Codeine 9-07 tablet by Seyb old 300-30 MG 00:00: mouth - oral Tablet 00 every 6 Exter na hours as l needed for pain Acetaminoph Yes 1{tbl} Q.25D Take 1 K elsey en-Codeine 9-07 tablet by Seyb old 300-30 MG 00:00: mouth - oral Tablet 00 every 6 Exter na hours as l needed for pain Acetaminoph 0 Yes 1{tbl} Q.25D Take 1 K elsey en-Codeine 9-07 tablet by Seyb old 300-30 MG 00:00: mouth - oral Tablet 00 every 6 Exter na hours as l needed for pain Acetaminoph 0 2022- No 1{tbl} Q.25D Take 1 Shanna en-Codeine 9-07 01-31 tablet by Sey bold 300-30 MG 00:00: 00:00 mouth - oral Tablet 00 :00 every 6 Exter na hours as l needed for pain Tadalafil Yes [id number] 5mg QD Take 1 K elsey (Cialis) 5 8-29 tablet (5 Seyb old MG oral 00:00: mg total) - Tablet 00 by mouth Externa daily as l needed for erectile dysfunctio n Omeprazole Yes [id number] 40mg Take 1 Shanna 40 MG oral 8-29 capsule Seybol d Delayed 00:00: (40 mg - Release 00 total) by Externa Capsule mouth l daily Omeprazole 2021-0 Yes [id number] 40mg Take 1 Shanna 40 MG oral 8-29 capsule Seybol d Delayed 00:00: (40 mg - Release 00 total) by Externa Capsule mouth l daily Omeprazole 2021-0 Yes [id number] 40mg Take 1 Shanna 40 MG oral 8-29 capsule Seybol d Delayed 00:00: (40 mg - Release 00 total) by Externa Capsule mouth l daily Missing or 2021-0 2021- No [facility] Non-Formula 8-15 08-15 [facility] ry 15:04: 00:00 Medical Medication 57 :00 Center Missing or 2021-0 2021- No [facility] Non-Formula 8-15 -15 [facility] 15:04: 00:00 Medical Medication 51 :00 [place] Azelastine Yes 1{spray Use 1 Dariusz sey HCl 0.1 % 6-15 } spray in Seybol d nasal 00:00: each - Solution 00 nostril 2 Multiple Wire Sawyer a times l daily Azelastine Yes 1{spray Use 1 Dariusz sey HCl 0.1 % 6-15 } spray in Seybol d nasal 00:00: each - Solution 00 nostril 2 Multiple Wire Sawyer a times l daily Azelastine Yes 1{spray Use 1 Dariusz sey HCl 0.1 % 6-15 } spray in Seybol d nasal 00:00: each - Solution 00 nostril 2 Multiple Wire Sawyer a times l daily Azelastine Yes 1{spray Use 1 Dariusz sey HCl 0.1 % 6-15 } spray in Seybol d nasal 00:00: each - Solution 00 nostril 2 Multiple Wire Sawyer a times l daily Tadalafil Yes [id number] 5mg QD Take 1 K elsey (Cialis) 5 5-26 tablet (5 Seyb old MG oral 00:00: mg total) Tablet 00 by mouth daily as needed for erectile dysfunctio n methylPREDN Yes 1{jae} Take 1 jae Shanna ISolone 5-17 by mouth Seybold (Medrol) 4 00:00: See Admin MG oral 00 Instructio Tablet ns Use as Therapy directed. Pack TRIMETHOPRI 2021- No 1{tbl} Take 1 K elsey M-SULFAMETH 5-17 05-28 tablet by Se ybold OXAZOLE 00:00: 04:59 mouth in 800-160 MG 00 :00 the oral Tablet morning and 1 tablet in the evening. Do all this for 10 days. Azelastine Yes 1{spray Use 1 Dariusz sey HCl 0.1 % 5-04 } spray in Seybol d nasal 00:00: each Solution 00 nostril 2 times daily Azelastine Yes 1{spray Use 1 Dariusz sey HCl 0.1 % 5-04 } spray in Seybol d nasal 00:00: each Solution 00 nostril 2 times daily FLUTICASONE 0 2021- No [id number] 50ug Use 1 Shanna PROPIONATE, 4-27 -29 spray (50 Se ybold NASAL, 00:00: 00:00 mcg total) - (Flonase) 00 :00 in each Externa 50 MCG/ACT nostril l nasal daily Suspension FLUTICASONE 2- No [id number] 50ug Use 1 Shanna PROPIONATE, 4- 05-28 spray (50 Se ybold NASAL, 00:00: 04:59 mcg total) (Flonase) 00 :00 in each 50 MCG/ACT nostril nasal daily Suspension FLUTICASONE 2021- No [id number] 50ug Use 1 Shanna PROPIONATE, 4 05-28 spray (50 Se ybold NASAL, 00:00: 04:59 mcg total) (Flonase) 00 :00 in each 50 MCG/ACT nostril nasal daily Suspension Omeprazole Yes [id number] 40mg Take 1 Shanna 40 MG oral 4-26 capsule Seybol d Delayed 00:00: (40 mg Release 00 total) by Capsule mouth daily Gabapentin Yes [id number] gabapentin Shanna 300 MG oral 4-26 300 mg Seybol d Capsule 00:00: nightly 00 for three days then one by mouth twice a day for three days, then one AM and two at night until follow up with neurology. Tizanidine Yes [id number] TAKE 1 Shanna HCl 4 MG 4-26 TABLET BY Seybol d oral Tablet 00:00: MOUTH ONCE 00 at bedtime NEEDED FOR MUSCLE SPASMS CAUTION SEDATION Omeprazole Yes [id number] 40mg Take 1 Shanna 40 MG oral 4-26 capsule Seybol d Delayed 00:00: (40 mg Release 00 total) by Capsule mouth daily Gabapentin Yes [id number] gabapentin Shanna 300 MG oral 4-26 300 mg Seybol d Capsule 00:00: nightly 00 for three days then one by mouth twice a day for three days, then one AM and two at night until follow up with neurology. Tizanidine Yes [id number] TAKE 1 Shanna HCl 4 MG 4-26 TABLET BY Seybol d oral Tablet 00:00: MOUTH ONCE 00 at bedtime NEEDED FOR MUSCLE SPASMS CAUTION SEDATION Tizanidine Yes TAKE 1 Shanna HCl 4 MG 4-26 TABLET BY Seybol d oral Tablet 00:00: MOUTH ONCE - 00 at bedtime Externa NEEDED l FOR MUSCLE SPASMS CAUTION SEDATION Tizanidine Yes TAKE 1 Shanna HCl 4 MG 4-26 TABLET BY Seybol d oral Tablet 00:00: MOUTH ONCE - 00 at bedtime Externa NEEDED l FOR MUSCLE SPASMS CAUTION SEDATION Tizanidine Yes TAKE 1 Shanna HCl 4 MG 4-26 TABLET BY Seybol d oral Tablet 00:00: MOUTH ONCE - 00 at bedtime Externa NEEDED l FOR MUSCLE SPASMS CAUTION SEDATION Tizanidine 2022- No TAKE 1 Shanna HCl 4 MG 4-26 -31 TABLET BY Seybo ld oral Tablet 00:00: 00:00 MOUTH ONCE - 00 :00 at bedtime Externa NEEDED l FOR MUSCLE SPASMS CAUTION SEDATION methylPREDN Yes [id number] 1{jae} Take 1 jae Shanna ISolone 4 3-24 by mouth Seybol d MG oral 00:00: See Admin Tablet 00 Instructio Therapy ns Use as Pack directed Sumatriptan Yes [id number] Take one Shanna Succinate 3-21 tablet, if Seyb old 50 MG oral 00:00: still Tablet 00 having pain 2 hours later may take one more. No more than 2 pills in a 24 hours period. Sumatriptan Yes [id number] Take one Shanna Succinate 3-21 tablet, if Seyb old 50 MG oral 00:00: still Tablet 00 having pain 2 hours later may take one more. No more than 2 pills in a 24 hours period. Sumatriptan Yes [id number] Take one Shanna Succinate 3-21 tablet, if Seyb old 50 MG oral 00:00: still Tablet 00 having pain 2 hours later may take one more. No more than 2 pills in a 24 hours period. Sumatriptan 2021- No [id number] Take one Shanna Succinate 3-21 -29 tablet, if Sey bold 50 MG oral 00:00: 00:00 still - Tablet 00 :00 having Externa pain 2 l hours later may take one more. No more than 2 pills in a 24 hours period. methylPREDN 2021-0 Yes [id number] Take 1 jae Shanna ISolone 4 2-17 by mouth Seybol d MG oral 00:00: See Admin Tablet 00 Instructio Therapy ns Use as Pack directed FLUTICASONE 2021-0 Yes [id number] 50ug Use 1 K elsey PROPIONATE, 2-17 spray (50 Sey bold NASAL, 00:00: mcg total) (Flonase) 00 in each 50 MCG/ACT nostril nasal daily Suspension methylPREDN 2021-0 Yes [id number] Take 1 jae Shanna ISolone 4 2-17 by mouth Seybol d MG oral 00:00: See Admin Tablet 00 Instructio Therapy ns Use as Pack directed methylPREDN 2021-0 Yes [id number] Take 1 jae Shanna ISolone 4 2-17 by mouth Seybol d MG oral 00:00: See Admin Tablet 00 Instructio Therapy ns Use as Pack directed FLUTICASONE 2021-0 2021- No [id number] 50ug Use 1 Shanna PROPIONATE, 2-17 03-20 spray (50 Se ybold NASAL, 00:00: 04:59 mcg total) (Flonase) 00 :00 in each 50 MCG/ACT nostril nasal daily Suspension Azithromyci 2021-0 2021- No [id number] Take 2 Shanna n 250 MG 2-17 02-23 tablets by Seyb old oral Tablet 00:00: 05:59 mouth on 00 :00 day 1 then 1 tablet by mouth daily for 4 days thereafter . Omeprazole 2021-0 Yes [id number] 40mg Take 1 Shanna 40 MG oral 1-04 capsule Seybol d Delayed 00:00: (40 mg Release 00 total) by Capsule mouth daily Tizanidine 2021-0 Yes [id number] TAKE 1 Shanna HCl 4 MG 1-04 TABLET BY Seybol d oral Tablet 00:00: MOUTH ONCE 00 at bedtime NEEDED FOR MUSCLE SPASMS CAUTION SEDATION Omeprazole 2021-0 Yes [id number] 40mg Take 1 Shanna 40 MG oral 1-04 capsule Seybol d Delayed 00:00: (40 mg Release 00 total) by Capsule mouth daily Tizanidine 2021-0 Yes [id number] TAKE 1 Shanna HCl 4 MG 1-04 TABLET BY Seybol d oral Tablet 00:00: MOUTH ONCE 00 at bedtime NEEDED FOR MUSCLE SPASMS CAUTION SEDATION Omeprazole Yes [id number] 40mg Take 1 Shanna 40 MG oral 1-04 capsule Seybol d Delayed 00:00: (40 mg Release 00 total) by Capsule mouth daily Tizanidine Yes [id number] TAKE 1 Shanna HCl 4 MG 1-04 TABLET BY Seybol d oral Tablet 00:00: MOUTH ONCE 00 at bedtime NEEDED FOR MUSCLE SPASMS CAUTION SEDATION methylPREDN 2020-06 Yes [id number] 1{jae} Take 1 jae Shanna ISolone 4 1-18 by mouth Seybol d MG oral 00:00: See Admin Tablet 00 Instructio Therapy ns Use as Pack directed methylPREDN 2020-06 Yes [id number] 1{jae} Take 1 jae Shanna ISolone 4 1-18 by mouth Seybol d MG oral 00:00: See Admin Tablet 00 Instructio Therapy ns Use as Pack directed methylPREDN 2020-06- No [id number] 1{jae} Take 1 jae Shanna ISolone 4 1-18 02-17 by mouth Seybo ld MG oral 00:00: 00:00 See Admin Tablet 00 :00 Instructio Therapy ns Use as Pack directed Methylpredn 2020-06- No [id number] 40mg Shanna isolone 1-17 -17 Seybold Sodium 17:45: 17:43 (SOLU-MEDRO 00 :00 L) 40 mg Methylpredn 2020-06- No [id number] 40mg 40 mg, Shanna isolone 1-17 -17 intramuscu Seybo ld Sodium 17:45: 17:43 lar, ONCE, (SOLU-MEDRO 00 :00 On Mon) 40 mg 04/28/21 at 1145, For 1 dose Pseudoeph-B 2020-06 Yes [id number] 10mL Q.25D Take 10 mL Shanna romphen-DM 0-11 by mouth 4 Sey bold (Bromfed 00:00: times DM) 30-2-10 00 daily as MG/5ML oral needed Syrup Pseudoeph-B 2020-06 Yes [id number] 10mL Q.25D Take 10 mL Shanna romphen-DM 0-11 by mouth 4 Sey bold (Bromfed 00:00: times DM) 30-2-10 00 daily as MG/5ML oral needed Syrup Pseudoeph-B 2020-06 Yes [id number] 10mL Q.25D Take 10 mL Shanna romphen-DM 0-11 by mouth 4 Sey bold (Bromfed 00:00: times DM) daily as MG/5ML oral needed Syrup Pseudoeph-B 2020-06 Yes [id number] 10mL Q.25D Take 10 mL Shanna romphen-DM 0-11 by mouth 4 Sey bold (Bromfed :00: times DM) daily as MG/5ML oral needed Syrup Pseudoeph-B 2020-06 Yes [id number] 10mL Q.25D Take 10 mL Shanna romphen-DM 0-11 by mouth 4 Sey bold (Bromfed :00: times DM) daily as MG/5ML oral needed Syrup Pseudoeph-B 2020-06 Yes [id number] 10mL Q.25D Take 10 mL Shanna romphen-DM 0-11 by mouth 4 Sey bold (Bromfed :00: times DM) daily as MG/5ML oral needed Syrup Pseudoeph-B 2020-06 Yes [id number] 10mL Q.25D Take 10 mL Shanna romphen-DM 0-11 by mouth 4 Sey bold (Bromfed :00: times - DM) daily as Exte rna MG/5ML oral needed l Syrup Pseudoeph-B 2020-06 Yes [id number] 10mL Q.25D Take 10 mL Shanna romphen-DM 0-11 by mouth 4 Sey bold (Bromfed 00:00: times - DM) daily as Exte rna MG/5ML oral needed l Syrup Pseudoeph-B 2020-06 Yes [id number] 10mL Q.25D Take 10 mL Shanna romphen-DM 0-11 by mouth 4 Sey bold (Bromfed 00:00: times - DM) daily as Exte rna MG/5ML oral needed l Syrup Pseudoeph-B 2020-06 Yes [id number] 10mL Q.25D Take 10 mL Shanna romphen-DM 0-11 by mouth 4 Sey bold (Bromfed 00:00: times - DM) 30-2-10 00 daily as Exte rna MG/5ML oral needed l Syrup Pseudoeph-B 2020-06 Yes [id number] 10mL Q.25D Take 10 mL Shanna romphen-DM 0-11 by mouth 4 Sey bold (Bromfed 00:00: times DM) 30-2-10 00 daily as MG/5ML oral needed Syrup Azithromyci 2020-06- No [id number] Take 2 Shanna n 250 MG 0-11 10-17 tablets by Seyb old oral Tablet 00:00: 04:59 mouth on 00 :00 day 1 then 1 tablet by mouth daily for 4 days thereafter . Cetirizine 2020-06 Yes [id number] 10mg Take 1 Shanna (ZyrTEC 0-10 tablet (10 Seybol d Allergy) 10 00:00: mg total) MG oral 00 by mouth Tablet daily Benzonatate 2020-06 Yes [id number] 100mg Q.[id number] Take 1 Shanna (Tessalon 0-10 [id number] capsule S eybold Perles) 100 00:00: 3D (100 mg MG oral 00 total) by Capsule mouth 3 times daily as needed for cough Cetirizine 2020-06 Yes [id number] 10mg Take 1 Shanna (ZyrTEC 0-10 tablet (10 Seybol d Allergy) 10 00:00: mg total) MG oral 00 by mouth Tablet daily Benzonatate 2020-06 Yes [id number] 100mg Q.[id number] Take 1 Shanna (Tessalon 0-10 [id number] capsule S eybold Perles) 100 00:00: 3D (100 mg MG oral 00 total) by Capsule mouth 3 times daily as needed for cough Benzonatate 2020-06 Yes [id number] 100mg Q.[id number] Take 1 Shanna (Tessalon 0-10 [id number] capsule S eybold Perles) 100 00:00: 3D (100 mg MG oral 00 total) by Capsule mouth 3 times daily as needed for cough Benzonatate 2020-06 Yes [id number] 100mg Q.[id number] Take 1 Shanna (Tessalon 0-10 [id number] capsule S eybold Perles) 100 00:00: 3D (100 mg MG oral 00 total) by Capsule mouth 3 times daily as needed for cough Benzonatate 2020-06 Yes [id number] 100mg Q.[id number] Take 1 Shanna (Tessalon 0-10 [id number] capsule S eybold Perles) 100 00:00: 3D (100 mg MG oral 00 total) by Capsule mouth 3 times daily as needed for cough Benzonatate 2020-06 Yes [id number] 100mg Q.[id number] Take 1 Shanna (Tessalon 0-10 [id number] capsule S eybold Perles) 100 00:00: 3D (100 mg MG oral 00 total) by Capsule mouth 3 times daily as needed for cough Benzonatate 2020-06 Yes [id number] 100mg Q.[id number] Take 1 Shanna (Tessalon 0-10 [id number] capsule S eybold Perles) 100 00:00: 3D (100 mg - MG oral 00 total) by Externa Capsule mouth 3 l times daily as needed for cough Benzonatate 2020-06 Yes [id number] 100mg Q.[id number] Take 1 Shanna (Tessalon 0-10 [id number] capsule S eybold Perles) 100 00:00: 3D (100 mg - MG oral 00 total) by Externa Capsule mouth 3 l times daily as needed for cough Benzonatate 2020-06 Yes [id number] 100mg Q.[id number] Take 1 Shanna (Tessalon 0-10 [id number] capsule S eybold Perles) 100 00:00: 3D (100 mg - MG oral 00 total) by Externa Capsule mouth 3 l times daily as needed for cough Benzonatate 2020-06 Yes [id number] 100mg Q.[id number] Take 1 Shanna (Tessalon 0-10 [id number] capsule S eybold Perles) 100 00:00: 3D (100 mg - MG oral 00 total) by Externa Capsule mouth 3 l times daily as needed for cough Cetirizine 2020-06 Yes [id number] 10mg Take 1 Shanna (ZyrTEC 0-10 tablet (10 Seybol d Allergy) 10 00:00: mg total) MG oral 00 by mouth Tablet daily Benzonatate 2020-06 Yes [id number] 100mg Q.[id number] Take 1 Shanna (Tessalon 0-10 [id number] capsule S eybold Perles) 100 00:00: 3D (100 mg MG oral 00 total) by Capsule mouth 3 times daily as needed for cough Cetirizine 2020-06 Yes [id number] 10mg Take 1 Shanna (ZyrTEC 0-10 tablet (10 Seybol d Allergy) 10 00:00: mg total) MG oral 00 by mouth Tablet daily Benzonatate 2020-06 Yes [id number] 100mg Q.[id number] Take 1 Shanna (Tessalon 0-10 [id number] capsule S eybold Perles) 100 00:00: 3D (100 mg MG oral 00 total) by Capsule mouth 3 times daily as needed for cough Cetirizine 2020-06- No [id number] 10mg Take 1 Shanna (ZyrTEC 0-10 02-17 tablet (10 Seybo ld Allergy) 10 00:00: 00:00 mg total) MG oral 00 :00 by mouth Tablet daily FLUTICASONE 2020-06- No [id number] 100ug Use 2 Shanna PROPIONATE, 0-10 11-10 sprays Seybo ld NASAL, 00:00: 05:59 (100 mcg (Flonase) 00 :00 total) in 50 MCG/ACT each nasal nostril Suspension daily FLUTICASONE 2020-06- No [id number] 100ug Use 2 Shanna PROPIONATE, 0-10 11-10 sprays Seybo ld NASAL, 00:00: 05:59 (100 mcg (Flonase) 00 :00 total) in 50 MCG/ACT each nasal nostril Suspension daily Tizanidine Yes [id number] TAKE 1 Shanna HCl 4 MG 9-20 TABLET BY Seybol d oral Tablet 00:00: MOUTH ONCE 00 at bedtime NEEDED FOR MUSCLE SPASMS CAUTION SEDATION Albuterol Yes [id number] 2{puff} Q6H Inhale 2 Shanna HFA (PROAIR 9-20 [id number] puffs into Seybold HFA) 108 00:00: the lungs (90 Base) 00 every 6 MCG/ACT IN hours as AERS needed Albuterol 2020-0 Yes [id number] 2{puff} Q6H Inhale 2 Shanna HFA (PROAIR 9-20 [id number] puffs into Seybold HFA) 108 00:00: the lungs (90 Base) 00 every 6 MCG/ACT IN hours as AERS needed Albuterol 2020-0 Yes [id number] 2{puff} Q6H Inhale 2 Shanna HFA (PROAIR 9-20 [id number] puffs into Seybold HFA) 108 00:00: the lungs (90 Base) 00 every 6 MCG/ACT IN hours as AERS needed Albuterol 2020-0 Yes [id number] 2{puff} Q.25D Inhale 2 Shanna HFA (PROAIR 9-20 [id number] puffs into Seybold HFA) 108 00:00: the lungs (90 Base) 00 every 6 MCG/ACT IN hours as AERS needed Albuterol 2020-0 Yes [id number] 2{puff} Q.25D Inhale 2 Shanna HFA (PROAIR 9-20 [id number] puffs into Seybold HFA) 108 00:00: the lungs (90 Base) 00 every 6 MCG/ACT IN hours as AERS needed Albuterol 2020-0 Yes [id number] 2{puff} Q.25D Inhale 2 Shanna HFA (PROAIR 9-20 [id number] puffs into Seybold HFA) 108 00:00: the lungs (90 Base) 00 every 6 MCG/ACT IN hours as AERS needed Tizanidine 2020-0 Yes [id number] TAKE 1 Shanna HCl 4 MG 9-20 TABLET BY Seybol d oral Tablet 00:00: MOUTH ONCE 00 at bedtime NEEDED FOR MUSCLE SPASMS CAUTION SEDATION Albuterol 2020-0 Yes [id number] 2{puff} Q.25D Inhale 2 Shanna HFA (PROAIR 9-20 [id number] puffs into Seybold HFA) 108 00:00: the lungs - (90 Base) 00 every 6 Externa MCG/ACT IN hours as l AERS needed Albuterol 2020-0 Yes [id number] 2{puff} Q6H Inhale 2 Shanna HFA (PROAIR 9-20 [id number] puffs into Seybold HFA) 108 00:00: the lungs (90 Base) 00 every 6 MCG/ACT IN hours as AERS needed Albuterol 2020-0 Yes [id number] 2{puff} Q.25D Inhale 2 Shanna HFA (PROAIR 9-20 [id number] puffs into Seybold HFA) 108 00:00: the lungs - (90 Base) 00 every 6 Externa MCG/ACT IN hours as l AERS needed Albuterol 2020-0 Yes [id number] 2{puff} Q.25D Inhale 2 Shanna HFA (PROAIR 9-20 [id number] puffs into Seybold HFA) 108 00:00: the lungs - (90 Base) 00 every 6 Externa MCG/ACT IN hours as l AERS needed Albuterol 2020-0 Yes [id number] 2{puff} Q.25D Inhale 2 Shanna HFA (PROAIR 9-20 [id number] puffs into Seybold HFA) 108 00:00: the lungs - (90 Base) 00 every 6 Externa MCG/ACT IN hours as l AERS needed Tizanidine 2020-0 Yes [id number] TAKE 1 Shanna HCl 4 MG 9-20 TABLET BY Seybol d oral Tablet 00:00: MOUTH ONCE 00 at bedtime NEEDED FOR MUSCLE SPASMS CAUTION SEDATION Albuterol 2020-0 Yes [id number] 2{puff} Q6H Inhale 2 Shanna HFA (PROAIR 9-20 [id number] puffs into Seybold HFA) 108 00:00: the lungs (90 Base) 00 every 6 MCG/ACT IN hours as AERS needed Tizanidine 202-0 Yes [id number] TAKE 1 Shanna HCl 4 MG 9-20 TABLET BY Seybol d oral Tablet 00:00: MOUTH ONCE 00 at bedtime NEEDED FOR MUSCLE SPASMS CAUTION SEDATION Albuterol 2021-0 Yes [id number] 2{puff} Q6H Inhale 2 Shanna HFA (PROAIR 9-20 [id number] puffs into Seybold HFA) 108 00:00: the lungs (90 Base) 00 every 6 MCG/ACT IN hours as AERS needed Naproxen 2021-0 Yes [id number] TAKE 1 Ke lsey 500 MG oral 9-09 TABLET BY Sey bold Tablet 00:00: MOUTH 00 TWICE DAILY NEEDED FOR BACK PAIN Naproxen 2020-0 Yes [id number] TAKE 1 Ke lsey 500 MG oral 9-09 TABLET BY Sey bold Tablet 00:00: MOUTH 00 TWICE DAILY NEEDED FOR BACK PAIN Naproxen 2020-0 Yes [id number] TAKE 1 Ke lsey 500 MG oral 9-09 TABLET BY Sey bold Tablet 00:00: MOUTH 00 TWICE DAILY NEEDED FOR BACK PAIN Naproxen 2020-0 Yes [id number] TAKE 1 Ke lsey 500 MG oral 9-09 TABLET BY Sey bold Tablet 00:00: MOUTH 00 TWICE DAILY NEEDED FOR BACK PAIN Naproxen 2020-0 Yes [id number] TAKE 1 Ke lsey 500 MG oral 9-09 TABLET BY Sey bold Tablet 00:00: MOUTH 00 TWICE DAILY NEEDED FOR BACK PAIN Naproxen 2020-0 Yes [id number] TAKE 1 Ke lsey 500 MG oral 9-09 TABLET BY Sey bold Tablet 00:00: MOUTH 00 TWICE DAILY NEEDED FOR BACK PAIN Naproxen 2020-0 Yes [id number] TAKE 1 Ke lsey 500 MG oral 9-09 TABLET BY Sey bold Tablet 00:00: MOUTH 00 TWICE DAILY NEEDED FOR BACK PAIN Naproxen 2020-0 Yes [id number] TAKE 1 Ke lsey 500 MG oral 9-09 TABLET BY Sey bold Tablet 00:00: MOUTH - 00 TWICE Externa DAILY l NEEDED FOR BACK PAIN Naproxen 2020-0 Yes [id number] TAKE 1 Ke lsey 500 MG oral 9-09 TABLET BY Sey bold Tablet 00:00: MOUTH - 00 TWICE Externa DAILY l NEEDED FOR BACK PAIN Naproxen 2020-0 Yes [id number] TAKE 1 Ke lsey 500 MG oral 9-09 TABLET BY Sey bold Tablet 00:00: MOUTH - 00 TWICE Externa DAILY l NEEDED FOR BACK PAIN Naproxen 2020-0 Yes [id number] TAKE 1 Ke lsey 500 MG oral 9-09 TABLET BY Sey bold Tablet 00:00: MOUTH 00 TWICE DAILY NEEDED FOR BACK PAIN Naproxen 2020-0 Yes [id number] TAKE 1 Ke lsey 500 MG oral 9-09 TABLET BY Sey bold Tablet 00:00: MOUTH 00 TWICE DAILY NEEDED FOR BACK PAIN Naproxen 2022- No [id number] TAKE 1 K elsey 500 MG oral 02-18 TABLET BY Se ybold Tablet 00:00: 00:00 MOUTH - 00 :00 TWICE Externa DAILY l NEEDED FOR BACK PAIN Tizanidine 0 2020- No [id number] TAKE 1 Shanna HCl 4 MG 09-18 TABLET BY Seybo ld oral Tablet 00:00: 00:00 MOUTH ONCE 00 :00 at bedtime NEEDED FOR MUSCLE SPASMS CAUTION SEDATION Tadalafil 2020-0 Yes [id number] 5mg Q24H Take 1 K elsey (Cialis) 5 2-08 tablet (5 Seyb old MG oral Tab 00:00: mg total) 00 by mouth daily as needed for erectile dysfunctio n Tadalafil 2020- Yes [id number] 5mg Q24H Take 1 K elsey (Cialis) 5 2-08 tablet (5 Seyb old MG oral Tab 00:00: mg total) 00 by mouth daily as needed for erectile dysfunctio n Tadalafil 2020- Yes [id number] 5mg QD Take 1 K elsey (Cialis) 5 2-08 tablet (5 Seyb old MG oral Tab 00:00: mg total) 00 by mouth daily as needed for erectile dysfunctio n Tadalafil 2020- Yes [id number] 5mg QD Take 1 K elsey (Cialis) 5 2-08 tablet (5 Seyb old MG oral Tab 00:00: mg total) 00 by mouth daily as needed for erectile dysfunctio n Tadalafil 2020-0 Yes [id number] 5mg Q24H Take 1 K elsey (Cialis) 5 2-08 tablet (5 Seyb old MG oral Tab 00:00: mg total) 00 by mouth daily as needed for erectile dysfunctio n Tadalafil 2020-0 Yes [id number] 5mg Q24H Take 1 K elsey (Cialis) 5 2-08 tablet (5 Seyb old MG oral Tab 00:00: mg total) 00 by mouth daily as needed for erectile dysfunctio n Tadalafil 2021-0 Yes [id number] 5mg Q24H Take 1 K elsey (Cialis) 5 2-08 tablet (5 Seyb old MG oral Tab 00:00: mg total) 00 by mouth daily as needed for erectile dysfunctio n Tadalafil Yes [id number] 5mg Q24H Take 1 K elsey (Cialis) 5 2-08 tablet (5 Seyb old MG oral Tab 00:00: mg total) 00 by mouth daily as needed for erectile dysfunctio n Tadalafil 2021- No [id number] 5mg QD Take 1 Shanna (Cialis) 5 2-08 05-26 tablet (5 Sey bold MG oral Tab 00:00: 00:00 mg total) 00 :00 by mouth daily as needed for erectile dysfunctio n busPIRone 2020- No [id number] 10mg Take 1 K elsey HCl 10 MG 2-08 09-20 tablet (10 Sey bold oral Tab 00:00: 00:00 mg total) 00 :00 by mouth 2 times daily Albuterol 2019-06- No [id number] 2{puff} Q6H Inhale 2 Shanna HFA (PROAIR 2-28 09-20 puffs into S eybold HFA) 108 00:00: 00:00 the lungs (90 Base) 00 :00 every 6 MCG/ACT IN hours as AERS needed Omeprazole Yes [id number] 40mg Take 1 Shanna 40 MG oral 5-17 capsule Seybol d CAPSULE 00:00: (40 mg DELAYED 00 total) by RELEASE mouth daily Omeprazole 0 Yes [id number] 40mg Take 1 Shanna 40 MG oral 5-17 capsule Seybol d CAPSULE 00:00: (40 mg DELAYED 00 total) by RELEASE mouth daily Omeprazole 0 Yes [id number] 40mg Take 1 Shanna 40 MG oral 5-17 capsule Seybol d CAPSULE 00:00: (40 mg DELAYED 00 total) by RELEASE mouth daily Omeprazole Yes [id number] 40mg Take 1 Shanna 40 MG oral 5-17 capsule Seybol d CAPSULE 00:00: (40 mg DELAYED 00 total) by RELEASE mouth daily Saline No 10 mL, Memoria Flush 0.9% 3-14 Route: l 17:19: IVP, Drug Avella Form: INJ, Dosing Weight 102.273, kg, PRN, PRN Line Flush, Start date: 08/24/15 12:19:00, Duration: 30 day, Stop date: 09/23/15 12:18:00 Saline 2016-0 No 10 mL, Memoria Flush 0.9% 3-14 Route: l 17:19: IVP, Drug Avella Form: INJ, Dosing Weight 102.273, kg, PRN, PRN Line Flush, Start date: 08/24/15 12:19:00, Duration: 30 day, Stop date: 09/23/15 12:18:00 tramadol 2014-0 Yes 50 mg = 1 Nicholas olegario hydrochlori 9-03 tab, PO, l de 50 MG 01:04: Q4H, PRN Celia nn Oral Tablet 00 pain, X 5 [Ultram] day, # 30 tab, 0 Refill(s) tramadol 0 Yes 50 mg = 1 Nicholas olegario hydrochlori 9-03 tab, PO, l de 50 MG 01:04: Q4H, PRN Celia nn Oral Tablet 00 pain, X 5 [Ultram] day, # 30 tab, 0 Refill(s) Immunizations Ordered Immunization Filled Immunization Date Status Commen ts Source Name Name Influenza Virus 2022-03-25 Completed Shanna Se ybold Vaccine, age 6 00:00:00 - External months and up Influenza Virus 2022-03-25 Completed Shanna Se ybold Vaccine, age 6 00:00:00 - External months and up Influenza Virus 2022-03-25 Completed Shanna Se ybold Vaccine, age 6 00:00:00 - External months and up Influenza Virus 2021-03-01 Completed Shanna Se ybold Vaccine, age 6 00:00:00 months and up Influenza Virus 2021-03-01 Completed Shanna Se ybold Vaccine, age 6 00:00:00 months and up Influenza Virus 2021-03-01 Completed Shanna Se ybold Vaccine, age 6 00:00:00 months and up Influenza Virus 2021-03-01 Completed Shanna Se ybold Vaccine, age 6 00:00:00 months and up Influenza Virus 2021-03-01 Completed Shanna Se ybold Vaccine, age 6 00:00:00 months and up Influenza Virus 2021-03-01 Completed Shanna Se ybold Vaccine, age 6 00:00:00 months and up Influenza Virus 2021-03-01 Completed Shanna Se ybold Vaccine, age 6 00:00:00 - External months and up Influenza Virus 2021-03-01 Completed Shanna Se ybold Vaccine, age 6 00:00:00 - External months and up Influenza Virus 2021-03-01 Completed Shanna Se ybold Vaccine, age 6 00:00:00 - External months and up Influenza Virus 2021-03-01 Completed Shanna Se ybold Vaccine, age 6 00:00:00 months and up Influenza Virus 2021-03-01 Completed Shanna Se ybold Vaccine, age 6 00:00:00 - External months and up Influenza Virus 2021-03-01 Completed Shanna Se ybold Vaccine, age 6 00:00:00 months and up Influenza Virus 2021-03-01 Completed Shanna Se ybold Vaccine, age 6 00:00:00 months and up Covid-19 Vaccine 2020-09-08 Completed Shanna S eybold (Abhijeet) 00:00:00 Covid-19 Vaccine 2020-09-08 Completed Shanna S eybold (Abhijeet) 00:00:00 Covid-19 Vaccine 2020-09-08 Completed Shanna S eybold (Abhijeet) 00:00:00 Covid-19 Vaccine 2020-09-08 Completed Shanna S eybold (Abhijeet) 00:00:00 Covid-19 Vaccine 2020-09-08 Completed Shanna S eybold (Abhijeet) 00:00:00 Covid-19 Vaccine 2020-09-08 Completed Shanna S eybold (Abhijeet) 00:00:00 Covid-19 Vaccine 2020-09-08 Completed Shanna S eybold (Abhijeet) 00:00:00 - External Covid-19 Vaccine 2020-09-08 Completed Shanna S eybold (Abhijeet) 00:00:00 - External Covid-19 Vaccine 2020-09-08 Completed Shanna S eybold (Abhijeet) 00:00:00 Covid-19 Vaccine 2020-09-08 Completed Shanna S eybold (Abhijeet) 00:00:00 - External Covid-19 Vaccine 2020-09-08 Completed Shanna S eybold ([employer]) 00:00:00 - External Covid-19 Vaccine 2020-09-08 Completed Shanna S eybold ([employer]) 00:00:00 Covid-19 Vaccine 2020-09-08 Completed Shanna S eybold ([employer]) 00:00:00 Influenza Virus 2020-03-20 Completed Shanna Se ybold Vaccine, Unspecified 00:00:00 Formulation Influenza Virus 2020-03-20 Completed Shanna Se ybold Vaccine, Unspecified 00:00:00 Formulation Influenza Virus 2020-03-20 Completed Shanna Se ybold Vaccine, Unspecified 00:00:00 Formulation Influenza Virus 2020-03-20 Completed Shanna Se ybold Vaccine, Unspecified 00:00:00 Formulation Influenza Virus 2020-03-20 Completed Shanna Se ybold Vaccine, Unspecified 00:00:00 Formulation Influenza Virus 2020-03-20 Completed Shanna Se ybold Vaccine, Unspecified 00:00:00 Formulation Influenza Virus 2020-03-20 Completed Shanna Se ybold Vaccine, Unspecified 00:00:00 - Ex ternal Formulation Influenza Virus 2020-03-20 Completed Shanna Se ybold Vaccine, Unspecified 00:00:00 - Ex ternal Formulation Influenza Virus 2020-03-20 Completed Shanna Se ybold Vaccine, Unspecified 00:00:00 Formulation Influenza Virus 2020-03-20 Completed Shanna Se ybold Vaccine, Unspecified 00:00:00 - Ex ternal Formulation Influenza Virus 2020-03-20 Completed Shanna Se ybold Vaccine, Unspecified 00:00:00 - Ex ternal Formulation Influenza Virus 2020-03-20 Completed Shanna Se ybold Vaccine, Unspecified 00:00:00 Formulation Influenza Virus 2020-03-20 Completed Shanna Se ybold Vaccine, Unspecified 00:00:00 Formulation Influenza Virus 2019-05-06 Completed Shanna Se ybold Vaccine, Unspecified 00:00:00 Formulation Influenza Virus 2019-05-06 Completed Shanna Se ybold Vaccine, Unspecified 00:00:00 Formulation Influenza Virus 2019-05-06 Completed Shanna Se ybold Vaccine, Unspecified 00:00:00 Formulation Influenza Virus 2019-05-06 Completed Shanna Se ybold Vaccine, Unspecified 00:00:00 Formulation Influenza Virus 2019-05-06 Completed Shanna Se ybold Vaccine, Unspecified 00:00:00 Formulation Influenza Virus 2019-05-06 Completed Shanna Se ybold Vaccine, Unspecified 00:00:00 Formulation Influenza Virus 2019-05-06 Completed Shanna Se ybold Vaccine, Unspecified 00:00:00 - Ex ternal Formulation Influenza Virus 2019-05-06 Completed Shanna Se ybold Vaccine, Unspecified 00:00:00 - Ex ternal Formulation Influenza Virus 2019-05-06 Completed Shanna Se ybold Vaccine, Unspecified 00:00:00 Formulation Influenza Virus 2019-05-06 Completed Shanna Se ybold Vaccine, Unspecified 00:00:00 - Ex ternal Formulation Influenza Virus 2019-05-06 Completed Shanna Se ybold Vaccine, Unspecified 00:00:00 - Ex ternal Formulation Influenza Virus 2019-05-06 Completed Shanna Se ybold Vaccine, Unspecified 00:00:00 Formulation Influenza Virus 2019-05-06 Completed Shanna Se ybold Vaccine, Unspecified 00:00:00 Formulation Influenza Virus 2019-04-17 Completed Shanna Se ybold Vaccine, Quad, Egg 00:00:00 Free Influenza Virus 2019-04-17 Completed Shanna Se ybold Vaccine, Quad, Egg 00:00:00 Free Influenza Virus 2019-04-17 Completed Shanna Se ybold Vaccine, Quad, Egg 00:00:00 Free Influenza Virus 2019-04-17 Completed Shanna Se ybold Vaccine, Quad, Egg 00:00:00 Free Influenza Virus 2019-04-17 Completed Shanna Se ybold Vaccine, Quad, Egg 00:00:00 Free Influenza Virus 2019-04-17 Completed Shanna Se ybold Vaccine, Quad, Egg 00:00:00 Free Influenza Virus 2019-04-17 Completed Shanna Se ybold Vaccine, Quad, Egg 00:00:00 - Exte rnal Free Influenza Virus 2019-04-17 Completed Shanna Se ybold Vaccine, Quad, Egg 00:00:00 - Exte rnal Free Influenza Virus 2019-04-17 Completed Shanna Se ybold Vaccine, Quad, Egg 00:00:00 Free Influenza Virus 2019-04-17 Completed Shanna Se ybold Vaccine, Quad, Egg 00:00:00 - Exte rnal Free Influenza Virus 2019-04-17 Completed Shanna Se ybold Vaccine, Quad, Egg 00:00:00 - Exte rnal Free Influenza Virus 2019-04-17 Completed Shanna Se ybold Vaccine, Quad, Egg 00:00:00 Free Influenza Virus 2019-04-17 Completed Shanna Se ybold Vaccine, Quad, Egg 00:00:00 Free Influenza Virus 2017-02-20 Completed Shanna Se ybold Vaccine, age 6 00:00:00 months and up Influenza Virus 2017-02-20 Completed Shanna Se ybold Vaccine, age 6 00:00:00 months and up Influenza Virus 2017-02-20 Completed Shanna Se ybold Vaccine, age 6 00:00:00 months and up Influenza Virus 2017-02-20 Completed Shanna Se ybold Vaccine, age 6 00:00:00 months and up Influenza Virus 2017-02-20 Completed Shanna Se ybold Vaccine, age 6 00:00:00 months and up Influenza Virus 2017-02-20 Completed Shanna Se ybold Vaccine, age 6 00:00:00 months and up Influenza Virus 2017-02-20 Completed Shanna Se ybold Vaccine, age 6 00:00:00 - External months and up Influenza Virus 2017-02-20 Completed Shanna Se ybold Vaccine, age 6 00:00:00 months and up Influenza Virus 2017-02-20 Completed Shanna Se ybold Vaccine, age 6 00:00:00 - External months and up Influenza Virus 2017-02-20 Completed Shanna Se ybold Vaccine, age 6 00:00:00 - External months and up Influenza Virus 2017-02-20 Completed Shanna Se ybold Vaccine, age 6 00:00:00 - External months and up Influenza Virus 2017-02-20 Completed Shanna Se ybold Vaccine, age 6 00:00:00 months and up Influenza Virus 2017-02-20 Completed Shanna Se ybold Vaccine, age 6 00:00:00 months and up Influenza Virus 2016-03-18 Completed Shanna Se ybold Vaccine, age 6 00:00:00 months and up Influenza Virus 2016-03-18 Completed Shanna Se ybold Vaccine, age 6 00:00:00 months and up Influenza Virus 2016-03-18 Completed Shanna Se ybold Vaccine, age 6 00:00:00 months and up Influenza Virus 2016-03-18 Completed Shanna Se ybold Vaccine, age 6 00:00:00 months and up Influenza Virus 2016-03-18 Completed Shanna Se ybold Vaccine, age 6 00:00:00 months and up Influenza Virus 2016-03-18 Completed Shanna Se ybold Vaccine, age 6 00:00:00 months and up Influenza Virus 2016-03-18 Completed Shanna Se ybold Vaccine, age 6 00:00:00 - External months and up Influenza Virus 2016-03-18 Completed Shanna Se ybold Vaccine, age 6 00:00:00 - External months and up Influenza Virus 2016-03-18 Completed Shanna Se ybold Vaccine, age 6 00:00:00 months and up Influenza Virus 2016-03-18 Completed Shanna Se ybold Vaccine, age 6 00:00:00 - External months and up Influenza Virus 2016-03-18 Completed Shanna Se ybold Vaccine, age 6 00:00:00 - External months and up Influenza Virus 2016-03-18 Completed Shanna Se ybold Vaccine, age 6 00:00:00 months and up Influenza Virus 2016-03-18 Completed Shanna Se ybold Vaccine, age 6 00:00:00 months and up Influenza Three-TIV 2016-03-18 Completed NADYA Cop[place] PF 5+ YR 00:00:00 [facility] Influenza Virus 2015-03-20 Completed Shanna Se ybold Vaccine, age 6 00:00:00 months and up Influenza Virus 2015-03-20 Completed Shanna Se ybold Vaccine, age 6 00:00:00 months and up Influenza Virus 2015-03-20 Completed Shanna Se ybold Vaccine, age 6 00:00:00 months and up Influenza Virus 2015-03-20 Completed Shanna Se ybold Vaccine, age 6 00:00:00 months and up Influenza Virus 2015-03-20 Completed Shanna Se ybold Vaccine, age 6 00:00:00 months and up Influenza Virus 2015-03-20 Completed Shanna Se ybold Vaccine, age 6 00:00:00 months and up Influenza Virus 2015-03-20 Completed Shanna Se ybold Vaccine, age 6 00:00:00 - External months and up Influenza Virus 2015-03-20 Completed Shanna Se ybold Vaccine, age 6 00:00:00 months and up Influenza Virus 2015-03-20 Completed Shanna Se ybold Vaccine, age 6 00:00:00 - External months and up Influenza Virus 2015-03-20 Completed Shanna Se ybold Vaccine, age 6 00:00:00 - External months and up Influenza Virus 2015-03-20 Completed Shanna Se ybold Vaccine, age 6 00:00:00 - External months and up Influenza Virus 2015-03-20 Completed Shanna Se ybold Vaccine, age 6 00:00:00 months and up Influenza Virus 2015-03-20 Completed Shanna Se ybold Vaccine, age 6 00:00:00 months and up Influenza Virus 2014-03-14 Completed Shanna Se ybold Vaccine, age 6 00:00:00 months and up Influenza Virus 2014-03-14 Completed Shanna Se ybold Vaccine, age 6 00:00:00 months and up Influenza Virus 2014-03-14 Completed Shanna Se ybold Vaccine, age 6 00:00:00 months and up Influenza Virus 2014-03-14 Completed Shanna Se ybold Vaccine, age 6 00:00:00 months and up Influenza Virus 2014-03-14 Completed Shanna Se ybold Vaccine, age 6 00:00:00 months and up Influenza Virus 2014-03-14 Completed Shanna Se ybold Vaccine, age 6 00:00:00 months and up Influenza Virus 2014-03-14 Completed Shanna Se ybold Vaccine, age 6 00:00:00 - External months and up Influenza Virus 2014-03-14 Completed Shanna Se ybold Vaccine, age 6 00:00:00 months and up Influenza Virus 2014-03-14 Completed Shanna Se ybold Vaccine, age 6 00:00:00 - External months and up Influenza Virus 2014-03-14 Completed Shanna Se ybold Vaccine, age 6 00:00:00 - External months and up Influenza Virus 2014-03-14 Completed Shanna Se ybold Vaccine, age 6 00:00:00 - External months and up Influenza Virus 2014-03-14 Completed Shanna Se ybold Vaccine, age 6 00:00:00 months and up Influenza Virus 2014-03-14 Completed Shanna Se ybold Vaccine, age 6 00:00:00 months and up Tdap- (Boostrix, 2013-06-12 Completed Shanna S eybold Adacel) 00:00:00 Tdap- (Boostrix, 2013-06-12 Completed Shanna S eybold Adacel) 00:00:00 Tdap- (Boostrix, 2013-06-12 Completed Shanna S eybold Adacel) 00:00:00 Tdap- (Boostrix, 2013-06-12 Completed Shanna S eybold Adacel) 00:00:00 Tdap- (Boostrix, 2013-06-12 Completed Shanna Conroy eybold Adacel) 00:00:00 Tdap- (Boostrix, 2013-06-12 Completed Shanna Conroy eybold Adacel) 00:00:00 Tdap- (Boostrix, 2013-06-12 Completed Shanna Conroy eybold Adacel) 00:00:00 - External Tdap- (Boostrix, 2013-06-12 Completed Shanna Conroy eybold Adacel) 00:00:00 Tdap- (Boostrix, 2013-06-12 Completed Shanna S eybold Adacel) 00:00:00 - External Tdap- (Boostrix, 2013-06-12 Completed Shanna Conroy eybold Adacel) 00:00:00 - External Tdap- (Boostrix, 2013-06-12 Completed Shanna Conroy eybold Adacel) 00:00:00 - External Tdap- (Boostrix, 2013-06-12 Completed Shanna Conroy eybold Adacel) 00:00:00 Tdap- (Boostrix, 2013-06-12 Completed Shanna S eybold Adacel) 00:00:00 Vital Signs Vital Name Observation Time Observation Value Comments Source Systolic blood 2022-05-20 19:02:00 108 mm[Hg] Shanna Alexanderybold - pressure External Diastolic blood 2022-05-20 19:02:00 70 mm[Hg] Chris sawant Seybold - pressure External Heart rate 2022-05-20 19:02:00 64 /min Shanna montero - External Body temperature 2022-05-20 19:02:00 36.72 Josiane Tawny fishman Seybold - External Respiratory rate 2022-05-20 19:02:00 20 /min Tawny Gibbons - External Body height 2022-05-20 19:02:00 182.9 cm Shanna montero - External Body weight 2022-05-20 19:02:00 104.146 kg Shanna montero - External BMI 2022-05-20 19:02:00 31.14 kg/m2 Shanna montero - External Oxygen saturation in 2022-05-20 19:02:00 97 /min Shanna Gibbons - Arterial blood by External Pulse oximetry Body weight 2022-04-26 17:28:00 103.511 kg Shanna S eybold - External BMI 2022-04-26 17:28:00 30.11 kg/m2 Shanna S eybold - External Body weight 2022-03-10 14:46:00 102.059 kg Shanna S eybold - External BMI 2022-03-10 14:46:00 29.69 kg/m2 Shanna S eybold - External HEIGHT 2022-02-16 06:27:00 182.9 cm WEIGHT 2022-02-16 06:27:00 99.791 kg HEIGHT 2022-02-09 08:06:00 182.9 cm WEIGHT 2022-02-09 08:06:00 99.791 kg HEIGHT 2022-01-27 14:20:00 182.9 cm WEIGHT 2022-01-27 14:20:00 99.791 kg HEIGHT 2022-02-16 06:27:00 182.9 cm WEIGHT 2022-02-16 06:27:00 99.791 kg HEIGHT 2022-02-09 08:06:00 182.9 cm WEIGHT 2022-02-09 08:06:00 99.791 kg HEIGHT 2022-01-27 14:20:00 182.9 cm WEIGHT 2022-01-27 14:20:00 99.791 kg Systolic blood 2021-11-04 16:09:00 138 mm[Hg] Shanna Seybold pressure Diastolic blood 2021-11-04 16:09:00 74 mm[Hg] Kelse y Seybold pressure Heart rate 2021-11-04 16:09:00 74 /min Shanna S eybold Body temperature 2021-11-04 16:09:00 36.44 Josiane Tawny ey Seybold Respiratory rate 2021-11-04 16:09:00 18 /min Tawny ey Seybold Body height 2021-11-04 16:09:00 185.4 cm Shanna S eybold Body weight 2021-11-04 16:09:00 99.791 kg Shanna S eybold BMI 2021-11-04 16:09:00 29.03 kg/m2 Shanna S eybold Respiratory rate 2021-10-13 19:22:00 16 /min Tawny ey Seybold Body height 2021-10-13 19:22:00 182.9 cm Shanna S eybold Body weight 2021-10-13 19:22:00 99.791 kg Shanna S eybold BMI 2021-10-13 19:22:00 29.84 kg/m2 Shanna S eybold Systolic blood 2021-08-30 15:17:00 120 mm[Hg] Shanna Seybold pressure Diastolic blood 2021-08-30 15:17:00 80 mm[Hg] Kelse y Seybold pressure Heart rate 2021-08-30 15:17:00 80 /min Shanna S eybold Body temperature 2021-08-30 15:17:00 36.22 Josiane Tawny ey Seybold Respiratory rate 2021-08-30 15:17:00 18 /min Tawny ey Seybold Body height 2021-08-30 15:17:00 177.8 cm Shanna S eybold Body weight 2021-08-30 15:17:00 100.699 kg Shanna S eybold BMI 2021-08-30 15:17:00 31.85 kg/m2 Shanna S eybold Body temperature 2021-04-28 17:18:00 36.17 Josiane Tawny ey Seybold Body height 2021-04-28 17:18:00 177.8 cm Shanna S eybold Body weight 2021-04-28 17:18:00 99.338 kg Shanna S eybold BMI 2021-04-28 17:18:00 31.42 kg/m2 Shanna S eybold Systolic blood 2021-03-01 17:45:00 126 mm[Hg] Shanna Seybold pressure Diastolic blood 2021-03-01 17:45:00 68 mm[Hg] Kelse y Seybold pressure Heart rate 2021-03-01 17:45:00 74 /min Shanna S eybold Body temperature 2021-03-01 17:45:00 36.39 Josiane Tawny ey Seybold Respiratory rate 2021-03-01 17:45:00 15 /min Tawny ey Seybold Body weight 2021-03-01 17:45:00 97.523 kg Shanna S sravanthibold BMI 2021-03-01 17:45:00 30.85 kg/m2 Shanna S sravanthibold Oxygen saturation in 2021-03-01 17:45:00 98 /min Shanna Alexanderybold Arterial blood by Pulse oximetry Systolic blood 2021-03-01 17:45:00 126 mm[Hg] Shanna Seybold pressure Diastolic blood 2021-03-01 17:45:00 68 mm[Hg] Kelse y Seybold pressure Heart rate 2021-03-01 17:45:00 74 /min Sahnna S eybold Body temperature 2021-03-01 17:45:00 36.39 Josiane Tawny ey Seybold Respiratory rate 2021-03-01 17:45:00 15 /min Tawny ey Seybold Body weight 2021-03-01 17:45:00 97.523 kg Shanna S sravanthibold BMI 2021-03-01 17:45:00 30.85 kg/m2 Shanna S eybold Oxygen saturation in 2021-03-01 17:45:00 98 /min Shanna Seybold Arterial blood by Pulse oximetry Systolic blood 2022-02-16 11:10:00 136 mm[Hg] [facility] Diastolic blood 2022-02-16 11:10:00 71 mm[Hg] [facility] Heart rate 2022-02-16 11:10:00 98 /min [facility] Respiratory rate 2022-02-16 11:10:00 17 /min [facility] Oxygen saturation in 2022-02-16 11:10:00 96 /min [facility] Arterial blood by Medical Ce nter Pulse oximetry Body temperature 2022-02-16 10:28:00 36.11 Josiane [facility] Body height 2022-02-16 06:27:00 182.9 cm [facility] Body weight 2022-02-16 06:27:00 99.791 kg [facility] BMI 2022-02-16 06:27:00 29.84 kg/m2 [facility] Temperature Oral (F) 2015-08-24 18:13:00 98.2 F [facility] Systolic (mm Hg) 2015-08-24 18:13:00 [facility] Diastolic (mm Hg) 2015-08-24 18:13:00 [facility] Respitory Rate 2015-08-24 18:13:00 [facility] Heart Rate 2015-08-24 18:13:00 [facility] BMI Calculated 2015-08-24 17:17:00 [facility] Weight 2015-08-24 17:17:00 [facility] Height 2015-08-24 17:17:00 180.34 cm [facility] Temperature Oral (F) 2015-08-24 17:17:00 98.1 F [facility] Heart Rate 2015-08-24 17:17:00 [facility] Respitory Rate 2015-08-24 17:17:00 [facility] Systolic (mm Hg) 2015-08-24 17:17:00 [facility] Diastolic (mm Hg) 2015-08-24 17:17:00 [facility] Systolic (mm Hg) 2015-02-12 01:09:00 [facility] Diastolic (mm Hg) 2015-02-12 01:09:00 [facility] Heart Rate 2015-02-12 01:09:00 [facility] Respitory Rate 2015-02-12 01:09:00 [facility] Temperature Oral (F) 2015-02-12 01:09:00 98.5 F [facility] Diastolic (mm Hg) 2015-02-11 23:27:00 [facility] Weight 2015-02-11 23:27:00 [facility] BMI Calculated 2015-02-11 23:27:00 [facility] Height 2015-02-11 23:27:00 182.88 cm [facility] Temperature Oral (F) 2015-02-11 23:27:00 98.2 F [facility] Respitory Rate 2015-02-11 23:27:00 [facility] Heart Rate 2015-02-11 23:27:00 [facility] Systolic (mm Hg) 2015-02-11 23:27:00 [facility] Procedures Procedure Date / Time Performed Performing Clinician [facility] ENDOSCOPIC SINUS 2022-02-16 07:26:[address] [facility],SEPTOPLASTY Medical Cent er MAXILLARY ANTROSTOMY, 2022-02-16 07:26:00 Fran Rohan Steve [facility] ENDOSCOPIC [facility] Center ENDOSCOPIC SINUS 2022-02-16 07:26:00 Fran, Rohan Steve [facility] SUR[facility]ERY,ETHMOIDECTOMY Medical Ce nter ENDOSCOPY, PARANASAL 2022-02-16 07:26:00 Fran, [facility]an [facility], WITH SPHENOID Medical Angie ter SINUSOTOMY EXPLORATION, FRONTAL 2022-02-16 07:26:00 Fran, Rohan Steve [facility] SINUS, ENDOSCOPIC [facility] Center EXCISION, NASAL 2022-02-16 07:26:00 Fran, Rohan Steve [facility] TURBINATE [facility] Plan of Care Planned Activity Planned Date Details Comments Source Future Scheduled 2023-06-12 DTAP/TDAP/TD VACCINES [facility] 00:00:00 (2 - Td or Tdap) [code Medic al Center = DTAP/TDAP/TD VACCINES (2 - Td or Tdap)] Future Scheduled 2023-02-[address] [facility] Test 00:00:00 Counseling and Medical Cente r Screening (12+) [code = Tobacco Cessation Counseling and Screening (12+)] Future Scheduled 2022-06-[address] [facility] Test 00:00:00 (12+) [code = Medical Center DEPRESSION SCREENING (12+)] Future Scheduled 2022-02-10 INFLUENZA VACCINE (#1) [facility] 00:00:00 [code = INFLUENZA Medical nter VACCINE (#1)] Future Scheduled 2021 SHINGLES VACCINES ([address] [facility] Test 00:00:00 2) [code = SHINGLES [facility] VACCINES (1 of 2)] Future Scheduled 2020-11-03 COVID-19 VACCINE (2 - [facility] 00:00:00 Booster for [facility] series) [code = COVID-19 VACCINE (2 - Booster for Abhijeet series)] Future Scheduled 2006 Lipid panel (procedure) [facility] Test 00:00:00 [code = 97170961] Medical Ce nter Future Scheduled 1989 HEPATITIS C SCREENING [facility] 00:00:00 [code = HEPATITIS C Medical Center SCREENING] Future Scheduled 1971 CT Colonography (combo) [facility] Test 00:00:00 [code = CT Colonography [facility] (combo)] Future Scheduled 1971 Screening for malignant [facility] Test 00:00:00 neoplasm of colon Medical Ce nter (procedure) [code = 824176746] Future Scheduled 1971 Screening for malignant [facility] Test 00:00:00 neoplasm of colon Medical Ce nter (procedure) [code = 391404495] Future Scheduled 1971 Screening for malignant [facility] Test 00:00:00 neoplasm of colon Medical Ce nter (procedure) [code = 270570898] Future Scheduled 1971 Screening for malignant [facility] Test 00:00:00 neoplasm of colon Medical Ce nter (procedure) [code = 144168888] Future Scheduled 1971 Sigmoidoscopy [code = [facility] 00:[facility]00 Sigmoidoscopy] Medical Cente Encounters Start End Encounter Admission Attending Care Care Encounter Source Date/Time Date/Time Type Type Clinicians Facility Department ID 2022-08-11 2022-08-11 Outpatient SHANNA PIEDRA [id number] Shanna 10:20:00 10:20:00 ADDIE Seybo ld 2022-07-28 2022-07-28 Outpatient TERRY LOPEZ [id number] Shanna 00:00:00 00:00:00 Seybol d 2022-07-11 2022-07-11 Outpatient MALISSA OCHOA [id number] Shanna 21:25:00 21:25:00 Seybol d 2022-07-11 2022-07-11 Outpatient SHANNA TEIXEIRA [id number] Shanna 21:20:00 21:20:00 EVISIT Seybol d 2022-06-22 2022-06-22 Outpatient SHANNA JOSEPH [id number] Shanna 14:15:00 14:15:00 SIRENA Seybol d 2022-06-22 2022-06-22 Outpatient SHANNA TAYLOR [id number] Shanna 00:00:00 00:00:00 IDRIS Seybol d 2022-06-21 2022-06-21 Outpatient SAMSHANNA ROJAS [id number] Shanna 00:00:00 00:00:00 IDRIS Seybol d 2022-06-21 2022-06-21 Outpatient TERRY LOPEZ SHANNA ANRDE [id number] Shanna 00:00:00 00:00:00 Seybol d 2022-06-17 2022-06-17 Emergency EM Jeyson, HCAPM JAMAL [id number] [facility] 19:09:00 21:55:00 Davis 27 [facility] 2022-06-02 2022-06-02 Outpatient SHANNA CORCORAN [id number] Shanna 00:00:00 00:00:00 BRAEDEN Seybol d 2022-06-02 2022-06-02 Outpatient SHANNA TAYLOR [id number] Shanna 00:00:00 00:00:00 IDRIS Seybol d 2022-05-20 2022-05-20 Outpatient SHANNA CORCORAN [id number] Shanna 13:00:00 13:00:00 BRAEDEN Seybol d 2022-05-20 2022-05-20 Outpatient COVID-PFIZE SHANNA ANDRE [id number] Shanna 10:00:00 10:00:00 R MICHAEL Seybol rebecca URIOSTEGUI 2022-05-19 2022-05-19 Outpatient TA MCCRAY [id number] Shanna 10:15:00 10:15:00 Seybol d 2022-05-03 2022-05-03 Outpatient ROHAN PETERS [id number] Shanna 00:00:00 00:00:00 Seybol d 2022-04-28 2022-04-28 Outpatient DEMETRICE ANDRE [id number] Shanna 00:00:00 00:00:00 MD LUIS Seybol d 2022-04-27 2022-04-27 Outpatient ROHAN PETERS [id number] Shanna 00:00:00 00:00:00 Seybol d 2022-04-26 2022-04-26 Outpatient SBI44-UZI SHANNA ANDRE [id number] Shanna 15:05:00 15:05:00 Seybol d 2022-04-26 2022-04-26 Outpatient FRAN, ROHAN ANDRE [id number] Shanna 11:45:00 11:45:00 Seybol d 2022-04-25 2022-04-25 Outpatient FRAN ROHAN ANDRE [id number] Shanna 00:00:00 00:00:00 Seybol d 2022-04-13 2022-04-13 Outpatient DEMETRICE SHANNA ANDRE [id number] Shanna 00:00:00 00:00:00 MD LUIS Seybol d 2022-04-13 2022-04-13 Outpatient ERNESTO ANDRE [id number] Shanna 00:00:00 00:00:00 Seybol d 2022-04-06 2022-04-06 Outpatient SHANNA TAYLOR [id number] Shanna 00:00:00 00:00:00 IDRIS Seybol d 2022-03-25 2022-03-25 Outpatient SHANNA TAYLOR [id number] Shanna 14:00:00 14:00:00 IDRIS Seybol d 2022-03-25 2022-03-25 Outpatient FRAN, ROHAN ANDRE [id number] Shanna 13:30:00 13:30:00 Seybol d 2022-03-16 2022-03-16 Outpatient FRANROHAN Orozco [id number] Shanna 00:00:00 00:00:00 Seybol d 2022-03-14 2022-03-14 Outpatient MOORECLIVE Lombardo [id number] Shanna 16:45:00 16:45:00 Seybol d 2022-03-10 2022-03-10 Outpatient FRANROHAN Orozco [id number] Shanna 09:45:00 09:45:00 Seybol d 2022-03-10 2022-03-10 Outpatient SHANNA CRESPO [id number] Shanna 00:00:00 00:00:00 JOHANNA Seybol d 2022-02-26 2022-02-26 Outpatient REDFEARN, SHANNA ANDRE [id number] Shanna 00:00:00 00:00:00 IDRIS Seybol d 2022-02-25 2022-02-25 Outpatient FRAN, ROHAN ANDRE SHANNA [id number] Shanna 00:00:00 00:00:00 Seybol d 2022-02-24 2022-02-24 Outpatient FRAN, ROHAN SHANNA ANDRE [id number] Shanna 14:00:00 14:00:00 Seybol d 2022-02-16 2022-02-16 Outpatient FRAN, ROHAN SHANNA ANDRE [id number] Shanna 12:00:00 12:00:00 Seybol d 2022-02-16 2022-02-16 [facility] FranRohan [facility] [id number] 06:04:00 11:27:00 Encounter [facility] 2022-02-16 2022-02-16 Outpatient FRANROHAN [facility] [id number] [facility] 06:04:00 11:27:00 2022-02-16 2022-02-16 Surgery Fran [facility] [id number] 07:30:00 11:00:00 [facility] 2022-02-16 2022-02-16 Outpatient FRAN, ROHAN SHANNA ANDRE [id number] Shanna 00:00:00 00:00:00 Seybol d 2022-02-16 2022-02-16 [facility] [id number] [facility] 00[facility]00 [facility] 2022-02-11 2022-02-11 Outpatient SWAB, CK SHANNA ANDRE [id number] Shanna 16:10:00 16:10:00 Seybol d 2022-02-11 2022-02-11 Outpatient BFL94-PHQ SHANNA ANDRE [id number] Shanna 14:40:00 14:40:00 Seybol d 2022-02-11 2022-02-11 Outpatient LAB53 SHANNA ANDRE [id number] Shanna 14:15:00 14:15:00 Seybol d 2022-02-11 2022-02-11 Outpatient ADEOLA SHANNA ANDRE [id number] Shanna 13:45:00 13:45:00 Seybol d 2022-02-08 2022-02-08 Outpatient GABEADAMSaturnino ANDRE [id number] Shanna 00:00:00 00:00:00 MD LUIS Seybol d 2022-02-07 2022-02-07 Outpatient ROHAN PETERS [id number] Shanna 10:15:00 10:15:00 Seybol d 2022-02-06 2022-02-06 Outpatient ROHAN PETERS [id number] Shanna 00:00:00 00:00:00 Seybol d 2022-01-27 2022-01-27 [facility] [id number] [facility] 14:23:39 23:59:00 [facility] 2022-01-27 2022-01-27 Outpatient [facility] [id number] [facility] 14:23:39 23:59:00 2022-01-27 2022-01-27 Outpatient ROHAN PETERS [id number] Shanna 08:00:00 08:00:00 Seybol d 2021-12-29 2021-12-29 Outpatient SHANNA PARKER [id number] Shanna 10:15:00 10:15:00 MARCOS Seybol d 2021-12-08 2021-12-08 Outpatient DEMETRICE ANDRE [id number] Shanna 00:00:00 00:00:00 MD LUIS Seybol d 2021-12-07 2021-12-07 Outpatient ROHAN PETERS [id number] Shanna 10:30:00 10:30:00 Seybol d 2021-12-02 2021-12-02 Outpatient SHANNA TREVINO [id number] Shanna 00:00:00 00:00:00 TERRY Seybol d 2021-12-02 2021-12-02 Outpatient SHANNA DAMON [id number] Shanna 00:00:00 00:00:00 JOHANNA Seybol d 2021-11-23 2021-11-23 [facility] [id number] Shanna 15:00:00 15:02:20 ne Johanna ENRIQUEZ [id number] Seybold Cater [id number] [id number] 2021-11-23 2021-11-23 Outpatient DEMETRICE ANDRE [id number] Shanna 00:00:00 00:00:00 MD LUIS Seybol d 2021-11-23 2021-11-23 Outpatient SHANNA DAMON [id number] Shanna 00:00:00 00:00:00 JOHANNA Seybol d 2021-11-10 2021-11-10 Outpatient SHANNA CRESPO [id number] Shanna 00:00:00 00:00:00 JOHANNA Seybol d 2021-11-05 2021-11-05 Outpatient SHANNA ANDRE [id number] Shanna 11:00:00 11:00:00 Seybol d 2021-11-05 2021-11-05 Outpatient SHANNA DAMON [id number] Shanna 00:00:00 00:00:00 JOHANNA Seybol d 2021-11-04 2021-11-04 Outpatient SHANNA ANDRE [id number] Shanna 13:00:00 13:00:00 Seybol d 2021-11-04 2021-11-04 Outpatient LAB39 SHANNA ANDRE [id number] Shanna 12:00:00 12:00:00 Seybol d 2021-11-04 2021-11-04 Office Terry Lopez [id number] Shanna 11:30:00 11:45:00 Visit [facility] [id number] Se ybold [id number] [id number] 2021-11-03 2021-11-03 Outpatient SHANNA TAYLOR [id number] Shanna 00:00:00 00:00:00 IDRIS Seybol d 2021-11-02 2021-11-02 Outpatient SHANNA DAMON [id number] Shanna 15:45:00 15:45:00 JOHANNA Seybol d 2021-10-25 2021-10-25 Outpatient SHANNA PIEDRA [id number] Shanna 13:00:00 13:00:00 ADDIE Seybo ld 2021-10-25 2021-10-25 Outpatient MARISOL SHANNA ANDRE [id number] Shanna 00:00:00 00:00:00 JOHANNA Seybol d 2021-10-13 2021-10-13 Office TABBY Damon [id number] Shanna 14:15:00 14:30:00 Visit Johanna ENRIQUEZ [id number] Edwige Alford [id number] [id number] 2021-10-13 2021-10-13 Outpatient DEMETRICE ANDRE [id number] Shanna 00:00:00 00:00:00 MD LUIS Seybol d 2021-10-08 2021-10-08 Outpatient TERRY LOPEZ [id number] Shanna 11:30:00 11:30:00 Seybol d 2021-09-17 2021-09-17 Outpatient SHANNA CRESPO [id number] Shanna 00:00:00 00:00:00 JOHANNA Seybol d 2021-09-16 2021-09-16 Outpatient SHANNA CRESPO [id number] Shanna 00:00:00 00:00:00 JOHANNA Seybol d 2021-09-06 2021-09-06 Outpatient SHANNA CRESPO [id number] Shanna 00:00:00 00:00:00 JOHANNA Seybol d 2021-09-03 2021-09-03 Outpatient SHANNA ANDRE [id number] Shanna 10:15:00 10:15:00 Seybol d 2021-09-03 2021-09-03 Outpatient SAMMI ANDRE [id number] Shanna 09:25:00 09:25:00 Seybol d 2021-09-02 2021-09-02 Outpatient SHANNA ANDRE [id number] Shanna 15:45:00 15:45:00 Seybol d 2021-09-02 2021-09-02 Outpatient CHERIE SHANNA ANDRE [id number] Shanna 00:00:00 00:00:00 JOHANNA Seybol d 2021-09-02 2021-09-02 Outpatient CRESPO, SHANNA ANDRE [id number] Shanna 00:00:00 00:00:00 JOHANNA Seybol d 2021-09-02 2021-09-02 Outpatient HITESH SHANNA ANDRE [id number] Shanna 00:00:00 00:00:00 RICHIE Alexanderybo ld 2021-08-30 2021-08-30 Office LELAND Crespo [id number] Shanna 10:30:00 11:00:00 Visit Johanna HUGO [id number] Se ybold [id number] [id number] 2021-08-12 2021-08-12 Outpatient TERRY LOPEZ [id number] Shanna 00:00:00 00:00:00 Seybol d 2021-08-11 2021-08-11 Outpatient SHANNA ORDONEZ [id number] Shanna 00:00:00 00:00:00 KAM Seybol d 2021-08-01 2021-08-01 Outpatient SHANNA ORDONEZ [id number] Shanna 00:00:00 00:00:00 KAM Seybol d 2021-07-29 2021-07-29 E-Visit RAQUEL AMAYA [id number] Shanna 10:15:00 10:15:00 ESPERANZA RODRÍGUEZ 350.1.13.13 Se ybold [id number] [id number] 2021-07-02 2021-07-02 Telemedici TAYLOR TREVINO 1.2.840.114 [id number] Shanna 11:30:00 11:30:00 brad CASILLAS [id number] Se ybold [id number] [id number] 2021-07-02 2021-07-02 Outpatient BELINDA SHANNA SHANNA [id number] Shanna 00:00:00 00:00:00 TERRY Seybol d 2021-07-01 2021-07-01 Outpatient TUNDE SHANNA ANDRE [id number] Shanna 00:00:00 00:00:00 IDRIS Seybol d 2021-06-14 2021-06-14 Outpatient TUNDE SHANNA ANDRE [id number] Shanna 00:00:00 00:00:00 IDRIS Seybol d 2021-06-14 2021-06-14 Outpatient CHRISTINA SHANNA ANDRE [id number] Shanna 00:00:00 00:00:00 LINDA Seybol d 2021-06-14 2021-06-14 Outpatient JOSÉ LUIS SHANNA ANDRE [id number] Shanna 00:00:00 00:00:00 KAM Seybol d 2021-06-03 2021-06-03 Outpatient ARSLAN SHANNA ANDRE [id number] Shanna 14:45:00 14:45:00 PHUONG Seybol d 2021-04-28 2021-04-28 Office TAYLOR Taylor 1.2.840.114 [id number] Shanna 11:06:32 11:21:32 Visit Idris Wood 350.1.13.13 S eybold 1.2.7.2.686 [id number] 2021-03-22 2021-03-22 E-Visit LELAND Crespo [id number] Shanna 12:53:49 12:55:37 [facility] 350.1.13.13 Se ybold 1.2.7.2.686 [id number] 2021-03-22 2021-03-22 E-Visit LELAND Crespo [id number] 12:53:49 12:55:37 [facility] [id number] [id number] 2021-03-21 2021-03-21 E-Visit LELAND Toscano [id number] Shanna 11:50:08 11:54:28 [facility] [id number] Se ybold 1.2.7.2.686 [id number] 2021-03-21 2021-03-21 E-Visit LELAND Toscano [id number] 11:50:08 11:54:28 [facility] [id number] [id number] 2021-03-18 2021-03-18 Outpatient SHANNA ANDRE [id number] Shanna 15:15:00 15:15:00 Seybol d 2021-03-18 2021-03-18 Outpatient SHANNA ANDRE [id number] Shanna 14:30:00 14:30:00 Seybol d 2021-03-18 2021-03-18 Outpatient SHANNA VASQUEZ [id number] Shanna 00:00:00 00:00:00 LINDA Seybol d 2021-03-01 2021-03-01 Outpatient [facility] SHANNA ANDRE [id number] Shanna 13:45:00 13:45:00 Seybol d 2021-03-01 2021-03-01 Office TAYLOR Vasquez [id number] Shanna 12:40:17 13:10:17 Visit Linda [id number] Se jeffrey Lindsay [id number] [id number] 2021-03-01 2021-03-01 Office TAYLOR Vasquez [id number] 12:40:17 13:10:17 Visit Linda [id number] Lindsay [id number] [id number] 2021-01-13 2021-01-13 Outpatient SHANNA TAYLOR [id number] Shanna 00:00:00 00:00:00 IDRIS Seybol d 2020-12-23 2020-12-23 Outpatient SHANNA TAYLOR [id number] Shanna 00:00:00 00:00:00 IDRIS Seybol d 2017-09-18 2017-09-19 [facility] Sugar [id number] Memoria 18:22:00 04:59:00 n Patient r Connor 99 saturnino Avella 2017-09-18 2017-09-19 [facility] Sugar [id number] Memoria 18:22:00 04:59:00 n Patient r Connor 99 l Avella 2017-09-18 2017-09-18 Outpatient Physician, [id number]. [id number] . [id number] 13:22:00 23:59:00 Non [id number] Associated [id number] 5.54 2017-09-18 2017-09-18 Outpatient Physician, [id number]. [id number] . [id number] 13:22:00 23:59:00 Non [id number] Associated [id number] 5.54 2015-08-24 2015-08-24 EC nullFlavo [facility] [id number] Memoria 17:03:00 18:43:00 Emergency r Titi 01 l [facility] 2015-08-24 2015-08-24 EC nullFlavo [facility] [id number] Memoria 17:03:00 18:43:00 Emergency r Titi 01 l [facility] 2015-08-24 2015-08-24 Outpatient DORI Jones MHSE [id number] 12:03:00 13:43:00 Mayura 01 [facility] 2015-02-11 2015-02-12 EC nullFlavo [facility] [id number] Memoria 23:18:00 01:15:00 Emergency r Avella 00 l [facility] 2015-02-11 2015-02-12 EC nullFlavo [facility] [id number] Memoria 23:18:00 01:15:00 Emergency r Avella 00 l [facility] 2015-02-11 2015-02-11 Outpatient Merlene Nikole MHSE MHSE [id number] 18:18:00 20:15:00 Jaleel 00 Results Test Description Test Time Test Comments Results Result Comments Source CARDIAC ENZYMES 2015-08-24 17:39:00 Test Item Value Reference Range Interpretation Comme nts CK MB Index (test code = CK 0.4 See_Comment [Automated message] The system which MB Index) generated this result transmitted reference range : <=2.5. The reference range was not u sed to interpret this result as missy l/abnormal. [facility] [id number] 17:39:00 Test Item Value Reference Range Interpretation Comments Total CK (test code = Total CK) 141 12-191 [facility] [id number] 17:39:00 Test Item Value Reference Range Interpretation Comments CK MB (test code = CK MB) 0.6 0.5-3.6 [facility] [id number] 17:39:00 Test Item Value Reference Range Interpretation Comments Troponin-I (test code no gt See_Comment [Auto mated message] The = Troponin-I) system which g enerated this result transmit hudson reference range : <=0.40. The reference r ania was not used to interpr et this result as missy l/abnormal. [facility] [id number] 17:39:00 Test Item Value Reference Range Interpretation Comments A/G Ratio (test code = A/G Ratio) 0.9 0.7-1.6 [facility] [id number] 17:39:00 Test Item Value Reference Range Interpretation Comments eGFR (test code = eGFR) 64 [facility] [id number] 17:39:00 Test Item Value Reference Range Interpretation Comments B/C Ratio (test code = B/C Ratio) 11 6-25 [facility] [id number] 17:39:00 Test Item Value Reference Range Interpretation Comments AGAP (test code = AGAP) 9.0 10.0-20.0 [facility] [id number] 17:39:00 Test Item Value Reference Range Interpretation Comments Globulin (test code = Globulin) 4.1 2.0-4.0 [facility]2016-03-14 17:39:00 Test Item Value Reference Range Interpretation Comments Bili Total (test code = Bili Total) 0.5 0.2-1.3 [employer] [id number] 17:39:00 Test Item Value Reference Range Interpretation Comments CO2 (test code = CO2) 29 24-32 [place] [id number] 17:39:00 Test Item Value Reference Range Interpretation Comments Calcium Lvl (test code = Calcium Lvl) 8.3 8.5-10.5 [place] [id number] 17:39:00 Test Item Value Reference Range Interpretation Comments Total Protein (test code = Total 7.9 6.4-8.4 Protein) [place] [id number] 17:39:00 Test Item Value Reference Range Interpretation Comments Creatinine Lvl (test code = Creatinine 1.34 0.50-1.40 Lvl) [place] [address]-03-14 17:39:00 Test Item Value Reference Range Interpretation Comments BUN (test code = BUN) 15 7-22 [place] [id number] 17:39:00 Test Item Value Reference Range Interpretation Comments Chloride Lvl (test code = Chloride Lvl) 104 95-109 [place] [id number] 17:39:00 Test Item Value Reference Range Interpretation Comments Sodium Lvl (test code = Sodium Lvl) 138 135-145 [place] [id number] 17:39:00 Test Item Value Reference Range Interpretation Comments Potassium Lvl (test code = Potassium 4.0 3.5-5.1 Lvl) [facility]2016-03-14 17:39:00 Test Item Value Reference Range Interpretation Comments Albumin Lvl (test code = Albumin Lvl) 3.8 3.5-5.0 [facility]2016-03-14 17:39:00 Test Item Value Reference Range Interpretation Comments Glucose Lvl (test code = Glucose Lvl) 97 70-99 [facility]2016-03-14 17:39:00 Test Item Value Reference Range Interpretation Comments AST (test code = AST) 28 See_Comment [Auto mated message] The system which ge nerated this result transmit hudson reference range : <=37. The reference range was not used to interpr et this result as missy l/abnormal. [place] 358896-03-14 17:39:00 Test Item Value Reference Range Interpretation Comments Alk Phos (test code = Alk Phos) 94 39-136 [facility]2016-03-14 17:39:00 Test Item Value Reference Range Interpretation Comments ALT (test code = ALT) 56 See_Comment [Auto mated message] The system which ge nerated this result transmit hudson reference range : <=65. The reference range was not used to interpr et this result as missy l/abnormal. [facility]2016-03-14 17:39:00 Test Item Value Reference Range Interpretation Comments Magnesium Lvl (test code = Magnesium 2.1 1.8-2.4 Lvl) [id number] 17:39:00 Test Item Value Reference Range Interpretation Comments Segs-Bands # (test code = Segs-Bands #) 7.4 1.5-8.1 [facility]burgLhzjljoSVLWAMFFQC8234-33-79 17:39:00 Test Item Value Reference Range Interpretation Comments Monocytes (test code = Monocytes) 5.8 2.0-12.0 [facility]burgRvyjgpqJPIHOGWXFV2537-35-80 17:39:00 Test Item Value Reference Range Interpretation Comments Lymphocytes # (test code = Lymphocytes 1.4 1.0-5.5 #) [facility]burgYlipdveURRZCBABJR0647-55-86 17:39:00 Test Item Value Reference Range Interpretation Comments Eosinophils (test code = 2.1 See_Comment [A utomated message] The Eosinophils) system which ge nerated this result tra nsmitted reference range : <=4.0. The reference r ania was not used to int erpret this result as normal/abnormal . [facility]burgDpmuvlgQIDHNXJPZJ9804-74-29 17:39:00 Test Item Value Reference Range Interpretation Comments Basophils (test code = 0.6 See_Comment [Aut omated message] The Basophils) system which ge nerated this result tra nsmitted reference range : <=1.0. The reference r ania was not used to int erpret this result as normal/abnormal . [facility]burgIggvqxkOUIHKBACYV0802-60-46 17:39:00 Test Item Value Reference Range Interpretation Comments Segs (test code = Segs) 76.6 45.0-75.0 [facility]burgWeyufxuDDCHDKXWYA0235-80-21 17:39:00 Test Item Value Reference Range Interpretation Comments Lymphocytes (test code = Lymphocytes) 14.9 20.0-40.0 [facility]burgHruhwkuTOLVQONTWT0302-59-83 17:39:00 Test Item Value Reference Range Interpretation Comments Monocytes # (test code 0.6 See_Comment [Aut omated message] The = Monocytes #) system which generated this result tra nsmitted reference range : <=0.8. The reference r ania was not used to int erpret this result as normal/abnormal . [facility]NdnrfykKLNZQNBNRJ1491-39-42 17:39:00 Test Item Value Reference Range Interpretation Comments Basophils # (test code 0.1 See_Comment [Aut omated message] The = Basophils #) system which generated this result tra nsmitted reference range : <=0.2. The reference r ania was not used to int erpret this result as normal/abnormal . [facility] CenterannCARDIAC [id number] 17:39:00 Test Item Value Reference Range Interpretation Comments CK MB Index (test 0.4 See_Comment [Automate d message] The code = CK MB Index) [facility] generated this result transmit hudson reference range : <=2.5. The reference range was not used to interpr et this result as missy l/abnormal. [facility] CenterEcoSynthCARDIAC [id number] 17:39:00 Test Item Value Reference Range Interpretation Comments Total CK (test code = Total CK) 141 12-191 [facility]annCARDIAC [id number] 17:39:00 Test Item Value Reference Range Interpretation Comments CK MB (test code = CK MB) 0.6 0.5-3.6 [facility] CenterannCARDIAC [id number] 17:39:00 Test Item Value Reference Range Interpretation Comments Troponin-I (test code no gt See_Comment [Auto mated message] The = Troponin-I) system which g enerated this result transmit hudson reference range : <=0.40. The reference r ania was not used to interpr et this result as missy l/abnormal. [facility] [id number] 17:39:00 Test Item Value Reference Range Interpretation Comments Eosinophils # (test code 0.2 See_Comment [A utomated message] The = Eosinophils #) system whic h generated this result tra nsmitted reference range : <=0.5. The reference r ania was not used to int erpret this result as normal/abnormal . [facility] sarvaMAILCHEM [id number] 17:39:00 Test Item Value Reference Range Interpretation Comments A/G Ratio (test code = A/G Ratio) 0.9 0.7-1.6 [facility]2016-03-14 17:39:00 Test Item Value Reference Range Interpretation Comments eGFR (test code = eGFR) 64 [facility]2016-03-14 17:39:00 Test Item Value Reference Range Interpretation Comments B/C Ratio (test code = B/C Ratio) 11 6-25 [facility]2016-03-14 17:39:00 Test Item Value Reference Range Interpretation Comments AGAP (test code = AGAP) 9.0 10.0-20.0 [facility]2016-03-14 17:39:00 Test Item Value Reference Range Interpretation Comments Globulin (test code = Globulin) 4.1 2.0-4.0 [facility]2016-03-14 17:39:00 Test Item Value Reference Range Interpretation Comments Bili Total (test code = Bili Total) 0.5 0.2-1.3 [facility]2016-03-14 17:39:00 Test Item Value Reference Range Interpretation Comments CO2 (test code = CO2) 29 24-32 [facility]2016-03-14 17:39:00 Test Item Value Reference Range Interpretation Comments Calcium Lvl (test code = Calcium Lvl) 8.3 8.5-10.5 [facility]2016-03-14 17:39:00 Test Item Value Reference Range Interpretation Comments Total Protein (test code = Total 7.9 6.4-8.4 Protein) [facility]2016-03-14 17:39:00 Test Item Value Reference Range Interpretation Comments Creatinine Lvl (test code = Creatinine 1.34 0.50-1.40 Lvl) [facility]QL[facility]CM6887[facility] 17:39:00 Test Item Value Reference Range Interpretation Comments WBC (test code = WBC) 9.7 3.7-10.4 [facility]2016-03-14 17:39:00 Test Item Value Reference Range Interpretation Comments BUN (test code = BUN) 15 7-22 [facility]2016-03-14 17:39:00 Test Item Value Reference Range Interpretation Comments Chloride Lvl (test code = Chloride Lvl) 104 95-109 [facility]2016-03-14 17:39:00 Test Item Value Reference Range Interpretation Comments Sodium Lvl (test code = Sodium Lvl) 138 135-145 [place] 358896-03-14 17:39:00 Test Item Value Reference Range Interpretation Comments Potassium Lvl (test code = Potassium 4.0 3.5-5.1 Lvl) [facility]2016-03-14 17:39:00 Test Item Value Reference Range Interpretation Comments Albumin Lvl (test code = Albumin Lvl) 3.8 3.5-5.0 [place] 358896-03-14 17:39:00 Test Item Value Reference Range Interpretation Comments Glucose Lvl (test code = Glucose Lvl) 97 70-99 [place] 358896-03-14 17:39:00 Test Item Value Reference Range Interpretation Comments AST (test code = AST) 28 See_Comment [Auto mated message] The system which ge nerated this result transmit hudson reference range : <=37. The reference range was not used to interpr et this result as missy l/abnormal. [place] 358896-03-14 17:39:00 Test Item Value Reference Range Interpretation Comments Alk Phos (test code = Alk Phos) 94 39-136 [place] 358896-03-14 17:39:00 Test Item Value Reference Range Interpretation Comments ALT (test code = ALT) 56 See_Comment [Auto mated message] The system which ge nerated this result transmit hudson reference range : <=65. The reference range was not used to interpr et this result as missy l/abnormal. [facility]2016-03-14 17:39:00 Test Item Value Reference Range Interpretation Comments Magnesium Lvl (test code = Magnesium 2.1 1.8-2.4 Lvl) [id number] 17:39:00 Test Item Value Reference Range Interpretation Comments RBC (test code = RBC) 5.02 4.70-6.10 [place] 577856-03-14 17:39:00 Test Item Value Reference Range Interpretation Comments Segs-Bands # (test code = Segs-Bands #) 7.4 1.5-8.1 [place] 577856-03-14 17:39:00 Test Item Value Reference Range Interpretation Comments Monocytes (test code = Monocytes) 5.8 2.0-12.0 [facility]inburgJhcqipyLSXFEWDRKF7707-04-89 17:39:00 Test Item Value Reference Range Interpretation Comments Lymphocytes # (test code = Lymphocytes 1.4 1.0-5.5 #) [facility]inburgXbyglfqBUBLTWNFIP8302-21-74 17:39:00 Test Item Value Reference Range Interpretation Comments Eosinophils (test code = 2.1 See_Comment [A utomated message] The Eosinophils) system which ge nerated this result tra nsmitted reference range : <=4.0. The reference r ania was not used to int erpret this result as normal/abnormal . [facility]inburgDkdjihfVRKMULFNYR2078-57-42 17:39:00 Test Item Value Reference Range Interpretation Comments Basophils (test code = 0.6 See_Comment [Aut omated message] The Basophils) system which ge nerated this result tra nsmitted reference range : <=1.0. The reference r ania was not used to int erpret this result as normal/abnormal . [facility]inburgFrzeekyZCIDNFDBEJ7081-99-06 17:39:00 Test Item Value Reference Range Interpretation Comments Segs (test code = Segs) 76.6 45.0-75.0 [facility]inburgTdwxfhqXFXCJDTVWC6931-92-21 17:39:00 Test Item Value Reference Range Interpretation Comments Lymphocytes (test code = Lymphocytes) 14.9 20.0-40.0 [facility]inburgWlkuborLQWLRKPJZW3388-48-60 17:39:00 Test Item Value Reference Range Interpretation Comments Monocytes # (test code 0.6 See_Comment [Aut omated message] The = Monocytes #) system which generated this result tra nsmitted reference range : <=0.8. The reference r ania was not used to int erpret this result as normal/abnormal . [facility] EdinburgUskrbwiFVFXUHIYEE6188-14-72 17:39:00 Test Item Value Reference Range Interpretation Comments Basophils # (test code 0.1 See_Comment [Aut omated message] The = Basophils #) system which generated this result tra nsmitted reference range : <=0.2. The reference r ania was not used to int erpret this result as normal/abnormal . [facility]burgKfktrssQMYBABIROF3434-35-25 17:39:00 Test Item Value Reference Range Interpretation Comments Eosinophils # (test code 0.2 See_Comment [A utomated message] The = Eosinophils #) system whic h generated this result tra nsmitted reference range : <=0.5. The reference r ania was not used to int erpret this result as normal/abnormal . [facility]inburgYcsyyaoELVBQORWVN6887-46-45 17:39:00 Test Item Value Reference Range Interpretation Comments WBC (test code = WBC) 9.7 3.7-10.4 [facility]inburgJwishbqMMSTARZLLU6951-13-55 17:39:00 Test Item Value Reference Range Interpretation Comments RBC (test code = RBC) 5.02 4.70-6.10 [facility]burgDqfgsfwXZKOQZUFUK7447-75-95 17:39:00 Test Item Value Reference Range Interpretation Comments RDW (test code = RDW) 13.6 11.5-14.5 [facility]burgEuorqgmGWLMMHVDXK6607-04-68 17:39:00 Test Item Value Reference Range Interpretation Comments Platelet (test code = Platelet) 162 133-450 [facility] EdinburgWzcambkJVLOVHRGVK2152-59-88 17:39:00 Test Item Value Reference Range Interpretation Comments MPV (test code = MPV) 8.2 7.4-10.4 [facility]inburgGuomealJHZIHUDBKG2669-11-77 17:39:00 Test Item Value Reference Range Interpretation Comments Hgb (test code = Hgb) 15.0 14.0-18.0 [facility] EdinburgVkqbmiiYDMCLWNYDO9787-12-15 17:39:00 Test Item Value Reference Range Interpretation Comments Hct (test code = Hct) 44.0 42.0-54.0 [facility]inburgCfzemydPBNDAFQRAH2200-77-43 17:39:00 Test Item Value Reference Range Interpretation Comments MCV (test code = MCV) 87.7 80.0-94.0 [facility] EdinburgVpklrbbSFETSIVAVY6789-12-05 17:39:00 Test Item Value Reference Range Interpretation Comments MCH (test code = MCH) 29.9 pg 27.0-31.0 [facility] EdinburgKlcaimgBLCTKOMGNA2742-35-23 17:39:00 Test Item Value Reference Range Interpretation Comments MCHC (test code = MCHC) 34.1 32.0-36.0 [facility] EdinburgBjxpywlWACKPYVNQK5464-55-98 17:39:00 Test Item Value Reference Range Interpretation Comments RDW (test code = RDW) 13.6 11.5-14.5 [facility]inburgMpcikbhKLXRPICEZU7476-11-23 17:39:00 Test Item Value Reference Range Interpretation Comments Platelet (test code = Platelet) 162 133-450 [facility] EdinburgFkqiuznCGOPUCRWIP6724-86-12 17:39:00 Test Item Value Reference Range Interpretation Comments MPV (test code = MPV) 8.2 7.4-10.4 [facility]inburgJgvveapIRMVHYWGJY9987-43-90 17:39:00 Test Item Value Reference Range Interpretation Comments Hgb (test code = Hgb) 15.0 14.0-18.0 [facility]inburgJyxbbitZCVHVOOYSW6213-10-47 17:39:00 Test Item Value Reference Range Interpretation Comments Hct (test code = Hct) 44.0 42.0-54.0 [facility]inburgVakzvapFRRITMLSRZ2963-34-60 17:39:00 Test Item Value Reference Range Interpretation Comments MCV (test code = MCV) 87.7 80.0-94.0 [facility]inburgHtlgyznWAZKZLRNTS5892-02-77 17:39:00 Test Item Value Reference Range Interpretation Comments MCH (test code = MCH) 29.9 pg 27.0-31.0 [facility] EdinburgAmkrqgqRLVBTYQRMI4701-86-41 17:39:00 Test Item Value Reference Range Interpretation Comments MCHC (test code = MCHC) 34.1 32.0-36.0 [facility]
[2022-08-08 06:01] LABS: Absolute Lymphocytes (CBC) 2.3 K/uL (0.7-4.9); Hematocrit 46.1 % (39.6-49.0); Lymphocytes % 32.2 % (15.3-44.8); MPV 8.2 fL (7.6-11.3); RBC Red Blood Cell Count 5.36 M/uL (4.33-5.43)
[2022-08-08 06:03] LABS: Protime INR 0.91
[2022-08-08] MEDS ORDERED: METOPROLOL TARTRATE 5 MG/5 ML INJ IV ONE (06:13)
[2022-08-08] MEDS ORDERED: ASPIRIN 325 MG TAB ONE (06:13)
[2022-08-08 06:24] LABS: ALT/SGPT 42 U/L (16-61); AST/SGOT 29 U/L (15-37); Albumin 3.8 g/dL (3.4-5.0); Alkaline Phosphatase 99 U/L (45-117); BUN Blood Urea Nitrogen 25 mg/dL (7-18); Bicarbonate 26 mmol/L (21-32); Bilirubin Direct < 0.1 mg/dL (0-0.2); Bilirubin Total 0.2 mg/dL (0.2-1.0); Glomerular Filtration Rate 59 ml/min (=/>90); Glucose Level 119 mg/dL (74-106); Magnesium 2.3 mg/dL (1.6-2.4); NT PRO-BNP 27 pg/mL (<125); Potassium 3.6 mmol/L (3.5-5.1); Sodium Level 135 mmol/L (136-145); Troponin High Sensitivity 4.4 pg/mL (<58.9)
--- NOTE | 2022-08-08 06:56 | EDPHYS ---
Physician Documentation [facility] Name: Josesito Reyna Age: 52 yrs Sex: Male : 1970 Arrival Date: 08/08/2022 Time: 05:31 Bed 13 Private MD: ED Physician Willa Howard HPI: 08/08 06:00 This 52 yrs old Male presents to ER via Ambulatory with complaints of palpitatins and sp3 shortness of breath. 06:00 52-year-old male with no significant past medical history presents to the ED with chief sp3 complaint shortness of breath and palpitations which awoke him at 4:30 AM today. Patient is on gabapentin and as needed Cialis with none taken recently. No other medical history reported. Patient denies chest pain, back pain, abdominal pain, nausea, vomiting, diarrhea, headache, neck pain, left arm pain syncope, near syncope, focal neurodeficit, travel history, known sick contacts, or any other aspect of ROS at this time. Patient symptoms are paroxysmal and currently he just feels generally fatigued. Family history positive for atrial fibrillation in father.. Historical: - Allergies: 05:56 PENICILLINS; ll3 - Home Meds: 05:56 gabapentin oral [Active]; Cialis oral [Active]; ll3 - PMHx: 05:56 None; ll3 - PSHx: 05:56 None; ll3 - Immunization history:: Client reports receiving the 2nd dose of the Covid vaccine. - Social history:: Smoking status: Patient denies any tobacco usage or history of. ROS: 06:02 Constitutional: Negative for fever, chills, and weight loss, Eyes: Negative for injury, sp3 pain, redness, and discharge, ENT: Negative for injury, pain, and discharge, Neck: Negative for injury, pain, and swelling, Abdomen/GI: Negative for abdominal pain, nausea, vomiting, diarrhea, and constipation, Back: Negative for injury and pain, MS/Extremity: Negative for injury and deformity, Skin: Negative for injury, rash, and discoloration, Neuro: Negative for headache, weakness, numbness, tingling, and seizure, Psych: Negative for depression, anxiety, suicide ideation, homicidal ideation, and hallucinations, Allergy/Immunology: Negative for hives, rash, and allergies, Endocrine: Negative for neck swelling, polydipsia, polyuria, polyphagia, and marked weight changes. 06:02 All other systems are negative. Exam: 06:02 Constitutional: This is a well developed, well nourished patient who is awake, alert, sp3 and in no acute distress. Head/Face: Normocephalic, atraumatic. Eyes: Pupils equal round and reactive to light, extra-ocular motions intact. Lids and lashes normal. Conjunctiva and sclera are non-icteric and not injected. Cornea within normal limits. Periorbital areas with no swelling, redness, or edema. ENT: Nares patent. No nasal discharge, no septal abnormalities noted. External auditory canals are clear. Oropharynx with no redness, swelling, or masses, exudates, or evidence of obstruction, uvula midline. Mucous membranes moist. Neck: Trachea midline, no thyromegaly or masses palpated, and no cervical lymphadenopathy. Supple, full range of motion without nuchal rigidity, or vertebral point tenderness. No Meningismus. Chest/axilla: Normal chest wall appearance and motion. Nontender with no deformity. No lesions are appreciated. Cardiovascular: Regular rate and rhythm with a normal S1 and S2. No gallops, murmurs, or rubs. Normal PMI, no JVD. No pulse deficits. Respiratory: Lungs have equal breath sounds bilaterally, clear to auscultation and percussion. No rales, rhonchi or wheezes noted. No increased work of breathing, no retractions or nasal flaring. Abdomen/GI: Soft, non-tender, with normal bowel sounds. No distension or tympany. No guarding or rebound. No evidence of tenderness throughout. Skin: Warm, dry with normal turgor. Normal color with no rashes, no lesions, and no evidence of cellulitis. MS/ Extremity: Pulses equal, no cyanosis. Neurovascular intact. Full, normal range of motion. Neuro: Awake and alert, GCS 15, oriented to person, place, time, and situation. Cranial nerves II-XII grossly intact. Motor strength 5/5 in all extremities. Sensory grossly intact. Cerebellar exam normal. Normal gait. Psych: Awake, alert, with orientation to person, place and time. Behavior, mood, and affect are within normal limits. 06:02 ECG was reviewed by the Attending Physician. EKG demonstrates sinus tachycardia at 116 sp3 bpm with seconds of SVT somewhat regular in nature, normal axis, normal QRS, nonspecific diffuse ST/T-segment area of sinus rhythm. No evidence of acute ischemia on EKG #1 timed at 0536. Vital Signs: 05:42 BP 164 / 110; Pulse 114; Resp 20; Temp 98.7(O); Pulse Ox 97% on R/A; Weight 99.79 kg ll3 (R); Height 6 ft. 0 in. (182.88 cm) (R); Pain 0/10; 06:01 BP 129 / 95; Pulse 103; Resp 17; Pulse Ox 95% on R/A; ll3 06:47 BP 116 / 84; Pulse 75; Resp 13; Pulse Ox 98% on R/A; ll3 07:15 BP 110 / 88; Pulse 74; Resp 16; Pulse Ox 97% on R/A; ll1 09:45 Pulse 61; Resp 17; Pulse Ox 99% on R/A; Pain 0/10; ll1 10:35 BP 104 / 76; Pulse 60; Resp 16; Temp 97.9; Pulse Ox 100% ; Pain 0/10; ll1 05:42 Body Mass Index 29.84 (99.79 kg, 182.88 cm) ll3 MDM: 05:36 Patient medically screened. sp3 06:03 Data reviewed: vital signs, nurses notes, lab test result(s), EKG, radiologic studies. sp3 ED course: 52-year-old male with dyspnea and palpitations without chest pain. I believe patient is having runs of paroxysmal atrial fibrillation as evident on manager monitoring and EKG. Differential diagnosis includes acute coronary syndrome, SVT including atrial fibrillation, angina, specific chest pain, among others. I am not highly suspicious for CVA, aortic pathology including dissection and aneurysm, pulmonary embolism, metabolic disturbance, sepsis, shock, or any other critical findings at this time. Administer Lopressor 5 mg IV and aspirin p.o. and place patient in observation status with cardiology consult for further intervention and/or medical management.. 06:53 ED course: Laboratory values and work-up reviewed and demonstrates no significant sp3 abnormality. Will admit to hospitalist service for cardiology consultation and further work-up as needed. Currently in sinus rhythm and has not had any further episodes of A-fib since beta-deborah was given.. 08/08 05:37 Order name: Basic Metabolic Panel 3 08/08 05:37 Order name: CBC with Diff 3 08/08 05:37 Order name: LFT's 08/08 05:37 Order name: Magnesium 3 08/08 05:37 Order name: NT PRO-BNP 3 08/08 05:37 Order name: PT-INR 3 08/08 05:37 Order name: Troponin HS 3 08/08 06:02 Order name: CBC with Automated Diff; Complete Time: 06:06 EDMS 08/08 06:03 Order name: Protime (+INR); Complete Time: 06:06 EDMS 08/08 06:25 Order name: Basic Metabolic Panel; Complete Time: 06:50 EDMS 08/08 06:25 Order name: Liver (Hepatic) Function; Complete Time: 06:50 EDMS 08/08 06:25 Order name: Troponin High Sensitivity; Complete Time: 06:50 EDMS 08/08 06:25 Order name: NT PRO-BNP; Complete Time: 06:50 EDMS 08/08 06:25 Order name: Magnesium; Complete Time: 06:50 EDMS 08/08 05:37 Order name: XRAY Chest (1 view) 3 08/08 05:37 Order name: EKG; Complete Time: 05:39 08/08 05:37 Order name: Cardiac monitoring; Complete Time: 06:01 08/08 05:37 Order name: EKG - Nurse/Tech; Complete Time: 05:45 08/08 05:37 Order name: IV Saline Lock; Complete Time: 06:05 08/08 05:37 Order name: Labs collected and sent; Complete Time: 06:01 08/08 05:37 Order name: O2 Per Protocol; Complete Time: 06:01 08/08 05:37 Order name: O2 Sat Monitoring; Complete Time: 06:01 08/08 07:18 Order name: SARS RAPID 08/08 07:42 Order name: SARS-COV-2 Antigen Rapid; Complete Time: 07:57 EDMS 08/08 08:02 Order name: RAD EDMS Administered Medications: 06:10 Drug: Lopressor (metoprolol) 5 mg Route: IVP; Site: left forearm; ll3 06:47 Follow up: BP 116 / 84; Pulse 75 bpm; Resp 13 bpm; Pulse Ox 98% RA; Response: No ll3 adverse reaction; Marked relief of symptoms 06:16 Drug: Aspirin 325 mg Route: PO; ll3 06:47 Follow up: Response: No adverse reaction ll3 Disposition Summary: 08/08/22 06:55 Hospitalization Ordered Hospitalization Status: Observation sp3 Provider: George Sarmiento sp3 Location: Telemetry/MedSurg (observation) sp3 Condition: Stable sp3 Problem: new sp3 Symptoms: have worsened sp3 Bed/Room Type: Standard sp3 Room Assignment: 215(08/08/22 09:39) dw Diagnosis - Paroxysmal atrial fibrillation sp3 Forms: - Medication Reconciliation Form sp3 - SBAR form sp3 Signatures: Dispatcher [employer] Roberta Maurice RN RN dw Willa Howard MD MD sp3 Sergey Marcos RN RN 3 Stephie Maya FNP [employer]PER[employer] 7 Corrections: (The following items were deleted from the chart) 09:39 06:55 sp3 dw
--- NOTE | 2022-08-08 06:56 | ER ---
Nurse's Notes [facility] Name: Josesito Reyna Age: 52 yrs Sex: Male : 1970 Arrival Date: 08/08/2022 Time: 05:31 Bed 13 Private MD: Diagnosis: Paroxysmal atrial fibrillation Presentation: 08/08 05:42 Chief complaint: Patient states: States "I woke up all sweaty and my heart was ll3 pounding", c/o diaphoresis, SOB, dizziness, and nausea since 0430, denies any chest pain. Coronavirus screen: Vaccine status: Patient reports receiving the 2nd dose of the covid vaccine. At this time, the client does not indicate any symptoms associated with coronavirus-19. Ebola Screen: No symptoms or risks identified at this time. Initial Sepsis Screen: Does the patient meet any 2 criteria? No. Patient's initial sepsis screen is negative. Does the patient have a suspected source of infection? No. Patient's initial sepsis screen is negative. Risk Assessment: Do you want to hurt yourself or someone else? Patient reports no desire to harm self or others. Onset of symptoms was August 08, 2022 at 04:30. 05:42 Acuity: ALISON 2 ll3 05:42 Method Of Arrival: Ambulatory ll3 Triage Assessment: 05:42 General: Appears uncomfortable, Behavior is calm, cooperative. Pain: Denies pain. ll3 Neuro: Level of Consciousness is awake, alert, obeys commands, Oriented to person, place, time, situation. Cardiovascular: Reports diaphoresis, nausea, shortness of breath, dizziness since 0430 Rhythm is irregular Chest pain is denied. Respiratory: Respiratory effort is even, unlabored, Respiratory pattern is regular, symmetrical. Derm: Skin is clammy. Historical: - Allergies: 05:56 PENICILLINS; ll3 - Home Meds: 05:56 gabapentin oral [Active]; Cialis oral [Active]; ll3 - PMHx: 05:56 None; ll3 - PSHx: 05:56 None; ll3 - Immunization history:: Client reports receiving the 2nd dose of the Covid vaccine. - Social history:: Smoking status: Patient denies any tobacco usage or history of. Screenin:01 [facility] ED Fall Risk Assessment (Adult) History of falling in the last 3 months, ll3 including since admission No falls in past 3 months (0 pts) Confusion or Disorientation No (0 pts) Intoxicated or Sedated No (0 pts) Impaired Gait No (0 pts) Mobility Assist Device Used No (0 pt) Altered Elimination No (0 pt) Score/Fall Risk Level 0 - 2 = Low Risk Oriented to surroundings, Maintained a safe environment. Abuse screen: Denies threats or abuse. Denies injuries from another. Nutritional screening: No deficits noted. Tuberculosis screening: No symptoms or risk factors identified. Assessment: 05:42 General: See triage assessment. 3 07:00 Reassessment: No changes from previously documented assessment. Report received from [facility] retail shift leader RN. 07:35 Reassessment: gait steady to restroom. 1 09:54 Reassessment: No changes from previously documented assessment. Patient and/or family [facility] updated on plan of care and expected duration. Pain level reassessed. Patient is alert, oriented x 3, equal unlabored respirations, skin warm/dry/pink. Patient states feeling better. 09:54 Pain: Pain does not radiate. Pain began 2-3 days ago. ll1 10:55 Reassessment: No changes from previously documented assessment. to 2nd floor via 1 wheelchair. Vital Signs: 05:42 BP 164 / 110; Pulse 114; Resp 20; Temp 98.7(O); Pulse Ox 97% on R/A; Weight 99.79 kg ll3 (R); Height 6 ft. 0 in. (182.88 cm) (R); Pain 0/10; 06:01 BP 129 / 95; Pulse 103; Resp 17; Pulse Ox 95% on R/A; ll3 06:47 BP 116 / 84; Pulse 75; Resp 13; Pulse Ox 98% on R/A; ll3 07:15 BP 110 / 88; Pulse 74; Resp 16; Pulse Ox 97% on R/A; ll1 09:45 Pulse 61; Resp 17; Pulse Ox 99% on R/A; Pain 0/10; ll1 10:35 BP 104 / 76; Pulse 60; Resp 16; Temp 97.9; Pulse Ox 100% ; Pain 0/10; ll1 05:42 Body Mass Index 29.84 (99.79 kg, 182.88 cm) 3 ED Course: 05:31 Patient arrived in ED. ag3 05:36 Willa Howard MD is Attending Physician. sp3 05:42 Arm band placed on Patient placed in an exam room, on a stretcher, on pulse oximetry. ll3 EKG completed in triage. Results shown to MD. 05:56 Triage completed. ll3 06:02 Patient has correct armband on for positive identification. Placed in gown. Bed in low ll3 position. Call light in reach. Side rails up X 1. Adult w/ patient. Client placed on continuous cardiac and pulse oximetry monitoring. NIBP monitoring applied. 06:02 Initial lab(s) drawn, by me, sent to lab. Inserted saline lock: 20 gauge in left ll3 antecubital area, using aseptic technique. Blood collected. Patient maintains SpO2 saturation greater than 95% on room air. 06:05 Inserted saline lock: 22 gauge in left forearm, using aseptic technique. ll3 06:23 Basic Metabolic Panel Sent. rv1 06:23 CBC with Diff Sent. rv1 06:23 LFT's Sent. rv1 06:23 Magnesium Sent. rv1 06:23 NT PRO-BNP Sent. rv1 06:23 PT-INR Sent. rv1 06:23 Troponin HS Sent. rv1 06:55 George Sarmiento MD is Hospitalizing Provider. sp3 06:59 Jose Pereira RN is Primary Nurse. ll1 07:26 SARS RAPID Sent. ll1 09:54 No provider procedures requiring assistance completed. Patient admitted, IV remains in ll1 place. Administered Medications: 06:10 Drug: Lopressor (metoprolol) 5 mg Route: IVP; Site: left forearm; ll3 06:47 Follow up: BP 116 / 84; Pulse 75 bpm; Resp 13 bpm; Pulse Ox 98% RA; Response: No ll3 adverse reaction; Marked relief of symptoms 06:16 Drug: Aspirin 325 mg Route: PO; ll3 06:47 Follow up: Response: No adverse reaction ll3 Medication: 09:54 VIS not applicable for this client. ll1 Outcome: 06:55 Decision to Hospitalize by Provider. sp3 09:54 Admitted to Tele accompanied by tech, via wheelchair, room 215. ll1 09:54 Condition: stable 09:54 Instructed on the need for admit. 10:35 Admitted to Tele Report called to Danna Valentine RN on 2nd ll1 10:55 Patient left the ED. ll1 Signatures: Thalia Pineda ag3 Jose Pereira RN RN ll1 Willa Howard MD MD 3 Sergey Marcos RN RN ll3 Gretel Narayanan rv1 Corrections: (The following items were deleted from the chart) 05:59 05:56 General: Appears uncomfortable, Behavior is calm, cooperative, 3 ll3 05:59 05:56 Pain: Denies pain. 3 3 05:59 05:56 Neuro: Level of Consciousness is awake, alert, obeys commands, Oriented to 3 person, place, time, situation, 3 05:59 05:56 Cardiovascular: Reports diaphoresis, nausea, shortness of breath, dizziness since 3 0430 Rhythm is irregular Chest pain is denied 3 05:59 05:56 Derm: Skin is clammy, 3 3 05:59 05:56 Respiratory: Respiratory effort is even, unlabored, Respiratory pattern is ll3 regular, symmetrical, 3 06:01 05:54 Chief complaint: Patient states: States "I woke up all sweaty and my heart was ll3 pounding", c/o diaphoresis, SOB, dizziness, and nausea since 0430, denies any chest pain 3 06:01 05:54 Ebola Screen: No symptoms or risks identified at this time. 3 3 06:01 05:54 Coronavirus screen: Vaccine status: Patient reports receiving the 2nd dose of the 3 covid vaccine. At this time, the client does not indicate any symptoms associated with coronavirus-19. 3 06:01 05:54 Initial Sepsis Screen: Does the patient meet any 2 criteria? No. Patient's 3 initial sepsis screen is negative. Does the patient have a suspected source of infection? No. Patient's initial sepsis screen is negative. 3 06:01 05:54 Risk Assessment: Do you want to hurt yourself or someone else? Patient reports no 3 desire to harm self or others. 3 06:01 05:54 Onset of symptoms was August 08, 2022 at 04:30 3 3 06:01 05:54 Method Of Arrival: Ambulatory [facility] 06:01 05:54 BP 164 / 110; Pulse 114bpm; Resp 20bpm; Pulse Ox 97% RA; Temp 98.7F Oral; 99.79 ll3 kg Reported; Height 6 ft. 0 in. Reported; BMI: 29.8; Pain 0/10; ll3 06:01 05:54 Acuity: ALISON 2 ll3 ll3 06:16 06:16 Inserted saline lock: 22 gauge in left forearm, using aseptic technique. ll3 ll3 10:35 09:54 Instructed on the need for admit, ll1 ll1
[2022-08-08 07:42] LABS: SARS-CoV-2 Antigen Rapid Res Negative (Negative)
--- NOTE | 2022-08-08 08:02 | RAD REPORT ---
EXAM DESCRIPTION: RAD - Chest Single View - 08/08/2022 5:57 am CLINICAL HISTORY: CHEST PAIN COMPARISON: Chest Single View dated 03/29/2022; Chest Single View dated 11/20/2021hest Pa And Lat (2 Views) dated 03/21/2021; Chest Single View dated 06/21/2020; CHEST SINGLE VIEW dated 11/04/2011 FINDINGS: Lines: None. Lungs: No evidence of edema or pneumonia. Pleural: No significant pleural effusions or pneumothorax. Cardiac: The heart size is within normal limits. Mediastinum: Within normal limits. Bones: No acute fractures. Other: None IMPRESSION: No acute cardiopulmonary disease.
[2022-08-08] MEDS ORDERED: HYDROCODONE/APAP 5/325 MG TAB PO PRN (09:12)
[2022-08-08] MEDS ORDERED: ACETAMINOPHEN 325 MG TABLET PO PRN (09:12)
[2022-08-08] MEDS ORDERED: ONDANSETRON 4 MG/2 ML VIAL IV PRN (10:01)
[2022-08-08] MEDS ORDERED: LABETALOL 20 MG/4ML SYRINGE IV PRN (10:06)
--- NOTE | 2022-08-08 10:07 | P.HP ---
Certification for Inpatient Patient admitted to: Observation With expected LOS: <2 Midnights Patient will require the following post-hospital care: None Practitioner: I am a practitioner with admitting privileges, knowledge of patient current condition, hospital course, and medical plan of care. Services: Services provided to patient in accordance with Admission requirements found in Title 42 Section 412.3 of the Code of Federal Regulations <Munira Hahn - Last Filed: 08/08/22 11:12> Patient History Date of Service: 08/08/22 Reason for admission: Palpitations and shortness of breath. History of Present Illness: Patient is a 52-year-old male with a past medical history significant for muscle spasm and ED who presents with complaint of palpitations. Patient reported that he has been having intermittent palpitation for the past 1 year but this morning he was awoken by palpitations that was more intense and persistent than what he experienced in the past. Patient reported associated signs and symptoms of shortness of breath. Patient denies any other signs and symptoms. Symptoms are aggravated or relieved by nothing. Patient decided to present to the hospital for medical evaluation.he - Past Medical/Surgical History -: Muscle spasms -: Erectile dysfunction -: Nasal surgery - Family History Mother -: Heart disease Father -: Heart disease - Social History Smoking Status: Never smoker Alcohol use: Yes CD- Drugs: No Caffeine use: Yes Place of Residence: Home <Munira Hahn - Last Filed: 08/08/22 11:12> Date of Service: 08/08/22 <George Sarmiento - Last Filed: 08/08/22 16:27> Allergies No Known Allergies Allergy (Unverified 11/04/11 07:08) Review of Systems General: Unremarkable Eyes: Unremarkable ENT: Unremarkable Respiratory: Shortness of Breath Cardiovascular: Palpitations Gastrointestinal: Unremarkable Genitourinary: Unremarkable Musculoskeletal: Unremarkable Integumentary: Unremarkable Neurological: Unremarkable Lymphatics: Unremarkable <Munira Hahn - Last Filed: 08/08/22 11:12> Physical Examination - Physical Exam General: Alert, Oriented x3, Cooperative HEENT: Atraumatic, PERRLA, Mucous membr. moist/pink, EOMI, Sclerae nonicteric Neck: Supple, 2+ carotid pulse no bruit, No LAD, Without JVD or thyroid abnormality Respiratory: Clear to auscultation bilaterally, Normal air movement Cardiovascular: No edema, Regular rate/rhythm, Normal S1 S2 Capillary refill: <2 Seconds Gastrointestinal: Normal bowel sounds, Soft and benign, Non-distended, No tenderness Musculoskeletal: No clubbing, No swelling, No contractures, No tenderness Integumentary: No rashes, No breakdown, No significant lesion Neurological: Normal speech, Normal tone, Normal affect Lymphatics: No axilla or inguinal lymphadenopathy - Studies Laboratory Data (last 24 hrs) 08/08/22 05:50: PT 10.0, INR 0.91 08/08/22 05:50: WBC 7.10, Hgb 15.9, Hct 46.1, Plt Count 175 08/08/22 05:50: Sodium 135 L, Potassium 3.6, BUN 25 H, Creatinine 1.44 H, Glucose 119 H, Magnesium 2.3, Total Bilirubin 0.2, AST 29, ALT 42, Alkaline Phosphatase 99 <Munira Hahn - Last Filed: 08/08/22 11:12> - Studies Laboratory Data (last 24 hrs) 08/08/22 05:50: Triglycerides 484 H, Cholesterol 215 H, LDL Cholesterol Direct 138 H, HDL Cholesterol 30 L, Cholesterol/HDL Ratio 7.17 08/08/22 05:50: PT 10.0, INR 0.91 08/08/22 05:50: WBC 7.10, Hgb 15.9, Hct 46.1, Plt Count 175 08/08/22 05:50: Sodium 135 L, Potassium 3.6, BUN 25 H, Creatinine 1.44 H, Glucose 119 H, Magnesium 2.3, Total Bilirubin 0.2, AST 29, ALT 42, Alkaline Phosphatase 99 <George Sarmiento - Last Filed: 08/08/22 16:27> Assessment and Plan - Plan -- A-fib with RVR. Patient given metoprolol in the ER. Patient converted to normal sinus rhythm. Echocardiogram pending to assess cardiac structures and functions. Cardiology consulted. Telemetry to monitor for any malignant arrhythmia. Will await further recommendation from pipe smoking machine offbearer. --CKD 3A. Baseline functions unknown. We will continue to monitor renal functi ons. --History of muscle spasms. Continue home medications. --Shortness of breath. Likely secondary to atrial fibrillation. Patient's O2 sat within normal limits on room air. Continue supportive care. --Erectile dysfunction. Patient reported that he has not taken his home medication recently but takes medication as needed. Continue supportive care. --Hyperlipidemia. Patient placed on statin. --Elevated blood pressure without a diagnosis of hypertension. Patient placed on metoprolol and hydralazine as needed. --DVT prophylaxis with Lovenox subQ. Discharge Plan: Home Plan to discharge in: 48 Hours - Advance Directives Does patient have a Living Will: No Does patient have a Durable POA for Healthcare: No - Code Status/Comfort Care Code Status Assessed: Yes Physician Review: Patient Assessed, Agree with Above Assessment and Plan Critical Care: No <Munira Hahn - Last Filed: 08/08/22 11:12> Physician Review: Patient Assessed, Agree with Above Assessment and Plan Physician Review Additional Text: - His ASCVD score stratifies him at a 5.5 % risk of a cardiovascular event within 10 years, will start on moderate-intensity statin - His [id number] score is 0, no need for anticoagulation, will start baby aspirin <George Sarmiento - Last Filed: 08/08/22 16:27>
[2022-08-08 11:09] LABS: HDL Cholesterol 30 mg/dL (40-60)
[2022-08-08 11:31] LABS: LDL, Direct 138 mg/dL (100-129)
[2022-08-08] MEDS: METOPROLOL TAR 25 MG TAB PO SCH ×2 (13:22→21:30)
[2022-08-08 13:44] LABS: Magnesium 2.2 mg/dL (1.6-2.4); Phosphorus 2.9 mg/dL (2.5-4.9); Thyroid Stimulating Hormone 0.9 uIU/mL (0.358-3.740)
[2022-08-08 15:08] VITALS: BMI 29.8
--- NOTE | 2022-08-08 18:39 | EKG ---
Test Date: 2022-08-08 Test Time: 05:36:59 Customer Relations Consultant: RV MEASUREMENT RESULTS: Intervals: Rate: 116 [place]: 162 QRSD: 80 QT: 314 QTc: 436 [place]: P: 34 IL: 162 QRS: 52 T: 5 INTERPRETIVE STATEMENTS: Sinus tachycardia Nonspecific ST abnormality Abnormal ECG Compared to ECG 06/21/2020 05:10:36 ST (T wave) deviation now present Sinus rhythm no longer present Electronically Signed On 08-08-22 18:37:59 TRIGONOMETRY TUTOR by Dex Zambrano
[2022-08-08] MEDS ORDERED: ROSUVASTATIN 10 MG TAB PO SCH (21:00)
[2022-08-08 21:50] VITALS: O2SAT 98
--- NOTE | 2022-08-09 00:35 | CON ---
Date of Consultation: 08/08/2022 Reason For Consultation: Atrial fibrillation. History Of Present Illness: A 52-year-old male, no significant medical history, [facility]. Has been having palpitations for some time now, but this morning h e woke up, was more intense and persistent and felt short of breath, so he presented to the emergency room. Denies having any chest pain. Past Medical History: None. Medications: Refer to reconciliation sheet for detailed list. Allergies: NO KNOWN DRUG ALLERGIES. Family History: No premature coronary artery disease or cancer. Social History: Does not smoke or drink. Does not use any drugs. Review of Systems: All systems reviewed and they were negative except for mentioned in HPI. Physical Examination: Vital signs: Reviewed. Head and Neck: Pupils are equal, reactive to light. Intact eye movements. No JVD. No cervical lym phadenopathy. Neck is supple. Thyroid is not enlarged. Lungs: Clear to auscultation bilaterally. No rhonchi, wheezing, or crackles. No accessory muscle u se. Heart: Regular rate and rhythm. No extra sounds. Abdomen: Soft, nontender. Bowel sounds positive. No organomegaly. No masses or hernia. No rigidi ty or rebound. Extremities: No edema, clubbing, or cyanosis. Intact pulses. Skin: No rash. Neuro: Alert, awake, oriented x3. No acute focal deficits appreciated. Investigations: BUN 25, creatinine 1.44. LDL cholesterol is 138. TSH is 0.9. Troponins are negati ve. Assessment And Recommendation: 1.Atrial fibrillation with rapid ventricular response, now back into sinus rhythm. Continue metopro lol and the baby aspirin 81 mg. From cardiology standpoint, this patient can be released. Follow up as an outpatient where we will obtain an echocardiogram on him. 2.Dyslipidemia. Start Crestor 10 mg at bedtime. 3.Hypertension. Blood pressure is controlled. Thank you for the consult. /RANDOLPH Voice ID: [id number] Report ID: [id number]
[2022-08-09 05:13] VITALS: BP 102/56; TEMP 97.3
[2022-08-09 05:50] LABS: Potassium 4.3 mmol/L (3.5-5.1)
--- NOTE | 2022-08-09 06:48 | ECHO ---
HEIGHT: 6 ft 0 in WEIGHT: 219 lb 15.989 oz DATE OF STUDY: 08/08/[address]: George Sarmiento MD 2-DIMENSIONAL: YES M.MODE: YES DOPPLER: YES COLOR FLOW: YES TDS: PORTABLE: YES DEFINITY: BUBBLE STUDY: DIAGNOSIS: ATRIAL FIBRILLATION CARDIAC HISTORY: CATHERIZATION: SURGERY: PROSTHETIC VALVE: PACEMAKER: MEASUREMENTS (cm) DIASTOLIC (NORMALS) SYSTOLIC (NORMALS) IVSd 1.1 (0.6-1.2) LA Diam 3.5 (1.9-4.0) LVEF 58% LVIDd 3.7 (3.5-5.7) LVIDs 2.6 (2.0-3.5) %FS 30% LVPWd 1.3 (0.6-1.2) Ao Diam 2.6 (2.0-3.7) 2 DIMENSIONAL ASSESSMENT: RIGHT ATRIUM: NORMAL LEFT ATRIUM: NORMAL RIGHT VENTRICLE: NORMAL LEFT VENTRICLE: NORMAL TRICUSPID VALVE: TRACE TRICUSPID REGURGITATION MITRAL VALVE: TRACE MITRAL REGURGITATION PULMONIC VALVE: NORMAL AORTIC VALVE: NORMAL PERICARDIAL EFFUSION: NONE AORTIC ROOT: NORMAL LEFT VENTRICULAR WALL MOTION: NORMAL DOPPLER/COLOR FLOW: SEE BELOW COMMENTS: 1. NORMAL LEFT VENTRICULAR EJECTION FRACTION 55-60% 2. NORMAL WALL MOTION 3. NORMAL DIASTOLIC FUNCTION 4. TRACE MITRAL REGURGITATION, TRICUSPID REGURGITATION TECHNOLOGIST: MARCIE TERRELL
--- NOTE | 2022-08-09 07:08 | P.DS ---
Admission Date: 08/08/22 Discharge Date: 08/09/22 Disposition: ROUTINE DISCHARGE Discharge Condition: GOOD Reason for Admission: Palpitations and shortness of breath. Consultations: 1. Cardiology Hospital Course: DIAGNOSES: # Atrial Fibrillation with Rapid Ventricular Response, resolved # Hyperlipidemia # Suspect Chronic Kidney Disease Stage III HOSPITAL COURSE: Mr. Josesito Reyna is a pleasant 52-year-old male with a past medical history significant for hyperlipidemia and chronic kidney disease stage III who was [facility]22 for palpitations and shortness of breath. He was admitted to the Medicine service. Upon further evaluation, he was found to be in atrial fibrillation with rapid ventricular response. His serial troponin trend was within normal limits. His chest x-ray revealed, "no acute cardiopulmonary disease." His transthoracic echocardiogram revealed, "1. Normal left ventricular ejection fraction 55-60% 2. normal wall motion 3. normal diastolic function 4. trace mitral regurgitation, tricuspid regurgitation." Cardiology was consulted and he was evaluated by Dr. Zambrano. His rhythm reverted to normal sinus rhythm and Dr. Zambrano has cleared him for discharge home with metoprolol 25 mg twice daily. His [id number] score is 0, so anticoagulation was not initiated. Instead, he was started on baby aspirin daily per Dr. Zambrano. Additionally, he was noted to have dyslipidemia on his lipid panel. He was started on rosuvastatin and advised to schedule a follow-up appointment for rep eat liver enzymes in about 1 month prior to further refills. He states that he follows at [facility], and plans to establish care with Dr. Morocho. I spoke with Dr. Morocho and updated him on this plan. On 08/09/2022, he was seen on morning rounds and deemed medically stable for discharge. He was discharged with instructions to schedule follow-up appointments with his PCP (Dr. Morocho) and with Cardiology (Dr. Zambrano). He was provided prescriptions for rosuvastatin and metoprolol. He was given the opportunity to ask questions and reported no further questions. Furthermore, all questions were answered to the best of my ability. A copy of this discharge summary will be sent to the above providers to facilitate continuity of care. Today, I personally spent 25 minutes on his case, of which greater than 50% of the time was spent in patient education, counseling, and coordination of care as described above. Vital Signs/Physical Exam: Temp Pulse Resp BP Pulse Ox 97.3 F 55 15 102/56 L 96 08/09/22 04:00 08/09/22 04:00 08/09/22 04:00 08/09/22 04:00 08/09/22 04:00 General: Alert, In no apparent distress, Oriented x3 HEENT: Atraumatic, Mucous membr. moist/pink, EOMI, Sclerae nonicteric Neck: JVD not distended Respiratory: Clear to auscultation bilaterally, Normal air movement Cardiovascular: No edema, Regular rate/rhythm, Normal S1 S2, No gallops, No rubs, No murmurs Gastrointestinal: Normal bowel sounds, Soft and benign, Non-distended Musculoskeletal: No clubbing Integumentary: No rashes Neurological: Normal speech, Normal affect Laboratory Data at Discharge: WBC 7.10 K/uL (4.3-10.9) 08/08/22 05:50 Hgb 15.9 g/dL (13.6-17.9) 08/08/22 05:50 Hct 46.1 % (39.6-49.0) 08/08/22 05:50 Plt Count 175 K/uL (152-406) 08/08/22 05:50 PT 10.0 SECONDS (9.5-12.5) 08/08/22 05:50 INR 0.91 08/08/22 05:50 Sodium 136 mmol/L (136-145) 08/09/22 05:26 Potassium 4.3 mmol/L (3.5-5.1) D 08/09/22 05:26 BUN 17 mg/dL (7-18) 08/09/22 05:26 Creatinine 1.20 mg/dL (0.70-1.30) 08/09/22 05:26 Glucose 98 mg/dL (74-106) 08/09/22 05:26 Phosphorus 2.9 mg/dL (2.5-4.9) 08/08/22 13:04 Magnesium 2.2 mg/dL (1.6-2.4) 08/08/22 13:04 Total Bilirubin 0.2 mg/dL (0.2-1.0) 08/08/22 05:50 AST 29 U/L (15-37) 08/08/22 05:50 ALT 42 U/L (16-61) 08/08/22 05:50 Alkaline Phosphatase 99 U/L (45-117) 08/08/22 05:50 Triglycerides 484 mg/dL (<150) H 08/08/22 05:50 Cholesterol 215 mg/dL (<200) H 08/08/22 05:50 LDL Cholesterol Direct 138 mg/dL (100-129) H 08/08/22 05:50 HDL Cholesterol 30 mg/dL (40-60) L 08/08/22 05:50 Cholesterol/HDL Ratio 7.17 08/08/22 05:50 Home Medications: Aspirin Chewable [Aspirin Chewable*] 81 mg PO DAILY tab.chew 08/09/22 Metoprolol Tartrate [Lopressor*] 25 mg PO BID #60 tab 08/09/22 Rosuvastatin [Crestor*] 10 mg PO BEDTIME #30 tab 08/09/22 New Medications: Rosuvastatin [Crestor*] 10 mg PO BEDTIME #30 tab Metoprolol Tartrate [Lopressor*] 25 mg PO BID #60 tab Physician Discharge Instructions: 1. Please call and schedule a follow-up appointment with your PCP (Dr. Morocho) in 3-5 days - You have been started on a cholesterol medication (rosuvastatin) and a heart rate medication (metoprolol) - Please monitor your heart rate at home and hold the metoprolol dose if your heart rate is less than 70 - Please have your PCP check your liver enzyme levels in about 4 weeks to monitor for any side effects of the rosuvastatin - Please obtain medication refills through your PCP 2. Please call and schedule a follow-up appointment with Cardiology (Dr. Zambrano) in 5-7 days Diet: AHA Activity: Ad emerita Followup: Dex Zambrano MD [ACTIVE - CAN ADMIT] - Maged Morocho DO [ACTIVE - CAN ADMIT] - Time spent managing pt's care (in minutes): 25
[2022-08-09] MEDS ORDERED: ASPIRIN 81 MG CHEWABLE TABLET PO SCH (09:00)
[2022-08-09] MEDS ORDERED: ENOXAPARIN 40 MG/0.4 ML SQ SCH (09:00)
--- NOTE | 2022-08-09 12:52 | EKG ---
Test Date: 2022-08-08 Test Time: 05:38:17 Account Receivable Clerk: RV MEASUREMENT RESULTS: Intervals: Rate: 130 [place]: 146 QRSD: 80 QT: 342 QTc: 503 [place]: P: 58 NE: 146 QRS: 61 T: 30 INTERPRETIVE STATEMENTS: Sinus tachycardia Nonspecific ST and T wave abnormality Abnormal ECG Electronically Signed On 08-09-22 12:49:51 STORM SASH MAKER by Dex Zambrano
== END 2022-08-09 08:43 | disposition home or self-care (01) ==
LOC: ER 05:29 → ERHOLD 09:09 → 2ND 10:46
PROVIDERS: ADMIT Internal Medicine; ATTEND Internal Medicine
DX: I48.20 Chronic atrial fibrillation, unspecified (principal); R06.02 Shortness of breath; N52.9 Male erectile dysfunction, unspecified; E78.5 Hyperlipidemia, unspecified; R03.0 Elevated blood-pressure reading, without diagnosis of hypertension; Z20.822 Contact with and (suspected) exposure to COVID-19
CPT/HCPCS: 36415; 71045; 80048; 80061; 80076; 83036; 83735; 83880; 84100; 84439; 84443; 84484; 85025; 85610; 87811; 93005; 93306; 96374; 99285; G0378

== ENCOUNTER 2023-01-30 00:28 | Observation (INO) | payer BC ==
--- OUTSIDE RECORDS SUMMARY | 2023-01-30 00:35 | XMS REPORT | Continuity of Care Document ---
:[address] [facility] t Address [address] [place] [address] Care Team Providers Name Role Phone BACILIO HERNANDEZ Primary Care Physician Unavailable OTONIEL SIFUENTES Attending Clinician Unavailable JOHANNA DAMON Attending Clinician Unavailable ADDIE PIEDRA Attending Clinician Unavailable MD KOBE Attending Clinician Unavailable RUBEN CASILLAS Attending Clinician Unavailable JOHN GARCIA Attending Clinician Unavailable DALIA BASHIR Attending Clinician Unavailable LINDA VASQUEZ Attending Clinician Unavailable MALISSA OCHOA Attending Clinician Unavailable LAB47 Attending Clinician Unavailable SHADY COLEMAN Attending Clinician Unavailable BAKARI CLAROS Attending Clinician Unavailable ALEJANDRA JONES Attending Clinician Unavailable [id number] Attending Clinician Unavailable TERRY LOPEZ Attending Clinician Unavailable MARYCRUZ TEIXEIRA Attending Clinician Unavailable SIRENA JOSEPH Attending Clinician Unavailable IDRIS TAYLOR Attending Clinician Unavailable Davis Benítez Attending Clinician Unavailable BRAEDEN CORCORAN Attending Clinician Unavailable COVID-PFIZER [facility] Attending Clinician Unavaila ble MCCRAY, TA CHANDUBHAI Attending Clinician Unavailable ROHAN PETERS Attending Clinician Unavailable [id number] Attending Clinician Unavailable ERNESTO Attending Clinician Unavailable CLIVE MOORE Attending Clinician Unavailable JOHANNA CRESPO Attending Clinician Unavailable Rohan Peters MD Attending Clinician ROHAN PETERS Attending Clinician Unavailable SWAB, CK COVID SELF Attending Clinician Unavailable [id number] Attending Clinician Unavailable LAB53 Attending Clinician Unavailable [id number] Attending Clinician Unavailable MARCOS PARKER Attending Clinician Unavailable TERRY TREVINO Attending Clinician Unavailable Johanna Damon MD Attending Clinician LAB39 Attending Clinician Unavailable Terry Lopez MD Attending Clinician RICHIE PROCTOR Attending Clinician Unavailable Johanna Crespo PA-C Attending Clinician KAM ORDONEZ Attending Clinician Unavailable ESPERANZA AMAYA Attending Clinician Unavailable PHUONG MCDANIELS Attending Clinician Unavailable Idris Taylor DO Attending Clinician Jenn Ruano Attending Clinician [phone] Linda Vasquez PA-C Attending Clinician [phone] Physician, Non Associated Attending Clinician Unavailable Amie Jones Attending Clinician Nikole Blunt Attending Clinician EDWIGE OTERO Admitting Clinician Unavailable ROHAN PETERS Admitting Clinician Unavailable Payers Payer Name Policy Type Policy Number Effective Date Expiration Date [facility] [id number] 2019 [place] ([place]-BC[place] 00:00:00 CAPITATED) [facility] [id number] 2015 00:00:00 Problems Condition Condition Condition Status Onset Resolution Last Treating Co mments Source Name Details Category Date Date Treatment Clinician Date Hypercoagu Hypercoagu Disease Active K elsey lability lability 3-28 Seybol d due to due to 00:00: - atrial atrial 00 Externa fibrillati fibrillati l on on Paroxysmal Paroxysmal Disease Active Eusebia eddy atrial atrial 3- Seybold fibrillati fibrillati 00:00: - on on 00 Externa l Gastroesop Gastroesop Disease Active Eusebia eddy hageal hageal 3-02 Seybold reflux reflux 00:00: - disease disease 00 Externa without without l esophagiti esophagiti s s Class 1 Class 1 Disease Active Shanna obesity obesity 3 Seybold due to due to 00:00: - excess excess 00 Externa calories calories l with with serious serious comorbidit comorbidit y and body y and body mass index mass index (BMI) of (BMI) of 30.0 to 30.0 to 30.9 in 30.9 in adult adult Chronic Chronic Disease Active Shanna right-side right-side 4-13 Se ybold d low back d low back 00:00: - pain pain 00 Externa without without l sciatica sciatica Erectile Erectile Disease Active Kelse y dysfunctio dysfunctio 7-16 Se ybold n n 00:00: - following following 00 Exte rna urethral urethral l surgery surgery IPCS TEST IPCS TEST Diagnosis Active 2017-09-18 Memoria Active 06-12 13:24:00 l 06/12/2017 08:00: Kanu vazquez [facility] 00 [place] Urethral Urethral Disease Active [facility] DIZZINESS DIZZINESS Diagnosis Active 2015-08-24 Memoria Active 08-23 12:50:00 l 08/24/2015 00:00: Kanu vazquez [address] FINGER FINGER Diagnosis Active 2015-02-11 M emoria INJURY INJURY 02-11 19:05:00 l Active 00:00: Titi 02/11/2015 00 [facility] Mixed Mixed Disease Active Shanna hyperlipid hyperlipid 3-21 Se jeffrey emia emia 00:00: - 00 Externa l Polyvinyl Polyvinyl Problem Resolve 2018-01-25 Memoria chloride chloride d 13:43:45 l (substance (substance He rmann ) ) Resolved Problem 01/25/2018 [facility], [facility] [place] History of Past Illness Condition Condition Condition Status Onset Resolution Last Treating Co mments Source Name Details Category Date Date Treatment Clinician Date Discharge Discharge Problem 2015-08-27 2015-08-27 Memoria Diagnosis: Diagnosis: 08-23 03:28:02 03:28:02 l Palpitatio Palpitatio 05:00: He rmann ns ns 00 08/24/2015 08/27/2015 [place] Discharge Problem 2015-02-14 2015-02-14 Memoria Diagnosis: Discharge 02-11 11:22:47 11:22:47 l Hematoma, Diagnosis: 05:00: Her [place] subungual, Hematoma, 00 finger subungual, finger 02/11/2015 02/14/2015 [facility] Discharge Discharge Problem 2015-02-14 2015-02-14 Memoria Diagnosis: Diagnosis: 02-11 11:22:47 11:22:47 l Crushed Crushed 05:00: [place] finger finger 00 02/11/2015 02/14/2015 [facility] Allergies, Adverse Reactions, Alerts Allergy Allergy Status Severity Reaction(s) Onset Inactive Treating Comm ents Source Name Type Date Date Clinician PENICILL Allergy Active Med [facility] Penicill Drug Active Other (See Unknown, CH [...] Date Stop Date Source Natural father Hypertension [facility] Natural mother COPD [facility] Social History Social Habit Start Date Stop Date Quantity Comments Source Gender identity Shanna murphy - External Sexual orientation Shanna Gibbons - External History SDOH Alcohol [facility] Frequency [facility] History SDOH Alcohol [facility] History SDOH Alcohol [facility] Binge [facility] Education 2022-08-11 2022-08-11 16 Shanna Seybold - 00:00:00 00:00:00 External Alcohol intake 2022-02-16 2022-02-16 .43 /d [facility]00:00 [facility] Alcohol Comment 2022-01-27 2022-01-[address] 00:[facility]00 00:00:00 [facility] History of Social 2020-07-20 2020-07-20 Shanna Seybold - function 00:00:00 00:00:00 External Tobacco use and 2016-02-19 2016-02-[address] [facility] exposure 00:00:00 00:00:00 [facility] Sex Assigned At [address] [facility] 00:00:00 00:00:00 [facility] Smoking Status Start Date Stop Date Source Social History [facility] Medications Ordered Filled Start Stop Current Ordering Indication Dosage Frequency Signature Comments Components Source Medication Medication Date Date Medication? Clinician (SIG) Name Name Aspirin 81 Yes 81mg Take 1 Kelse y MG oral 7-25 tablet (81 Seybol d Tablet 13:22: mg total) - Delayed 43 by mouth Externa Response daily l Gabapentin Yes [id number] 100mg QD Take 1 Shanna 100 MG oral 6-29 capsule Seybo ld Capsule 00:00: (100 mg - 00 total) by Externa mouth l nightly as needed TRIMETHOPRI 0 2022- No [id number] 1{tbl} Take 1 Shanna M-SULFAMETH 6-22 07-25 tablet by Se ybold OXAZOLE 00:00: 00:00 mouth 2 - (Bactrim 00 :00 times Externa DS) 800-160 daily for l MG oral 7 days Tablet TRIMETHOPRI 0 2022- Yes [id number] 1{tbl} Take 1 Shanna M-SULFAMETH 6-22 06-30 tablet by Se ybold OXAZOLE 00:00: 04:59 mouth 2 - (Bactrim 00 :00 times Externa DS) 800-160 daily for l MG oral 7 days Tablet methylPREDN 0 Yes [id number] Take 1 jae Shanna ISolone 4 6-11 by mouth Seybol d MG oral 00:00: See Admin - Tablet 00 Instructio Externa Therapy ns Use as l Pack directed Pseudoeph-B 0 Yes [id number] 10mL Take 10 mL Shanna romphen-DM 6-11 by mouth 4 Sey bold 00:00: times - MG/5ML oral 00 daily Externa Syrup l Albuterol 2022-0 Yes [id number] 2{puff} Q.25D Inhale 2 Shanna HFA 108 (90 6-11 puffs into Se ybold Base) 00:00: the lungs - MCG/ACT IN 00 every 6 [employer] AERS hours as l needed for wheezing FLUTICASONE 2022-0 Yes [id number] 50ug QD Use 1 K elsey PROPIONATE, 6-11 spray (50 Sey bold NASAL, 00:00: mcg total) - (Flonase) 00 in each Externa 50 MCG/ACT nostril l nasal daily as Suspension needed for rhinitis methylPREDN 0 Yes [id number] Take 1 jae Shanna ISolone 4 6-11 by mouth Seybol d MG oral 00:00: See Admin - Tablet 00 Instructio Externa Therapy ns Use as l Pack directed Pseudoeph-B 0 Yes [id number] 10mL Take 10 mL Shanna romphen-DM 6-11 by mouth 4 Sey bold 00:00: times - MG/5ML oral 00 daily Externa Syrup l Albuterol 2022-0 Yes [id number] 2{puff} Q.25D Inhale 2 Shanna HFA 108 (90 6-11 puffs into Se ybold Base) 00:00: the lungs - MCG/ACT IN 00 every 6 [employer] a AERS hours as l needed for wheezing FLUTICASONE 2022-0 Yes [id number] 50ug QD Use 1 K elsey PROPIONATE, 6-11 spray (50 Sey bold NASAL, 00:00: mcg total) - (Flonase) 00 in each Externa 50 MCG/ACT nostril l nasal daily as Suspension needed for rhinitis Pseudoeph-B 2022-0 Yes [id number] 10mL Take 10 mL Shanna romphen-DM 6-11 by mouth 4 Sey bold 00:00: times - MG/5ML oral 00 daily Externa Syrup l Albuterol 2022-0 Yes [id number] 2{puff} Q.25D Inhale 2 Shanna HFA 108 (90 6-11 puffs into Se ybold Base) 00:00: the lungs - MCG/ACT IN 00 every 6 [employer] AERS hours as l needed for wheezing FLUTICASONE Yes [id number] 50ug QD Use 1 K elsey PROPIONATE, 6-11 spray (50 Sey bold NASAL, 00:00: mcg total) - (Flonase) 00 in each Externa 50 MCG/ACT nostril l nasal daily as Suspension needed for rhinitis methylPREDN 2022- No [id number] Take 1 jae Shanna ISolone 4 6-11 07-25 by mouth Seybo ld MG oral 00:00: 00:00 See Admin - Tablet 00 :00 Instructio Externa Therapy ns Use as l Pack directed Rosuvastati Yes [id number] 10mg Take 1 Shanna n Calcium 6-05 tablet (10 Seyb old 10 MG oral 00:00: mg total) - Tablet 00 by mouth Externa nightly l Rosuvastati Yes [id number] 10mg Take 1 Shanna n Calcium 6-05 tablet (10 Seyb old 10 MG oral 00:00: mg total) - Tablet 00 by mouth Externa nightly l Rosuvastati Yes [id number] 10mg Take 1 Shanna n Calcium 6-05 tablet (10 Seyb old 10 MG oral 00:00: mg total) - Tablet 00 by mouth Externa nightly l Aspirin 81 0 Yes 81mg Take 1 Kelse y MG oral 5-25 tablet (81 Seybol d Tablet 13:13: mg total) - Delayed 40 by mouth Externa Response daily l Aspirin 81 0 Yes 81mg Take 1 Kelse y MG oral 5-25 tablet (81 Seybol d Tablet 13:13: mg total) - Delayed 40 by mouth Externa Response daily l Aspirin 81 0 Yes 81mg Take 1 Kelse y MG oral 5-25 tablet (81 Seybol d Tablet 13:13: mg total) - Delayed 40 by mouth Externa Response daily l Gabapentin 0 Yes [id number] 100mg QD Take 1 Shanna 100 MG oral 5-25 capsule Seybo ld Capsule 00:00: (100 mg - 00 total) by Externa mouth l nightly as needed Gabapentin 2022-0 Yes [id number] 100mg QD Take 1 Shanna 100 MG oral 5-25 capsule Seybo ld Capsule 00:00: (100 mg - 00 total) by Externa mouth l nightly as needed Gabapentin 2022-0 Yes [id number] 100mg QD Take 1 Shanna 100 MG oral 5-25 capsule Seybo ld Capsule 00:00: (100 mg - 00 total) by Externa mouth l nightly as needed Nitrofurant 2022-0 2023- No [id number] 100mg Take 1 Shanna oin Monohyd 4-17 05-25 capsule Seyb old Macro 100 00:00: 00:00 (100 mg - MG oral 00 :00 total) by Externa Capsule mouth 2 l times daily for 5 days Nitrofurant 2022-0 202- No [id number] 100mg Take 1 Shanna oin Monohyd 4-17 04-23 capsule Seyb old Macro 100 00:00: 04:59 (100 mg - MG oral 00 :00 total) by Externa Capsule mouth 2 l times daily for 5 days Aspirin 81 2022-0 Yes 81mg Take 81 mg K elsey MG oral 3-28 by mouth Seybold Tablet 13:18: daily - Delayed 25 Externa Response l Rosuvastati 2022-0 Yes [id number] 10mg Take 1 Shanna n Calcium 3-28 tablet (10 Seyb old 10 MG oral 00:00: mg total) - Tablet 00 by mouth Externa nightly l Metoprolol 2022-0 Yes 25mg Take 1 Kelse y Succinate 3-28 tablet (25 Seyb old 25 MG oral 00:00: mg total) - TABLET SR 00 by mouth [employer] T[employer] a 24 HR daily l Rosuvastati 2022-0 Yes [id number] 10mg Take 1 Shanna n Calcium 3-28 tablet (10 Seyb old 10 MG oral 00:00: mg total) - Tablet 00 by mouth Externa nightly l Metoprolol 2022-0 Yes 25mg Take 1 Kelse y Succinate 3-28 tablet (25 Seyb old 25 MG oral 00:00: mg total) - TABLET SR 00 by mouth [employer] Tender a 24 HR daily l Metoprolol 2022-0 Yes 25mg Take 1 Kelse y Succinate 3-28 tablet (25 Seyb old 25 MG oral 00:00: mg total) - TABLET SR 00 by mouth [employer] T[employer] a 24 HR daily l Metoprolol 2022-0 Yes 25mg Take 1 Kelse y Succinate 3-28 tablet (25 Seyb old 25 MG oral 00:00: mg total) - TABLET SR 00 by mouth [employer] T[employer] a 24 HR daily l Metoprolol 2022-0 Yes 25mg Take 1 Kelse y Succinate 3-28 tablet (25 Seyb old 25 MG oral 00:00: mg total) - TABLET SR 00 by mouth [employer] a 24 HR daily l Aspirin 81 2022-0 Yes 81mg Take 81 mg K elsey MG oral 3-02 by mouth Seybold Tablet 09:41: daily - Delayed 14 Externa Response l Rosuvastati 2022-0 Yes [id number] 10mg Take 1 Shanna n Calcium 3-02 tablet (10 Seyb old 10 MG oral 00:00: mg total) - Tablet 00 by mouth Externa nightly l Gabapentin 2022-0 Yes [id number] 300mg QD Take 1 Shanna 300 MG oral 3-02 capsule Seybo ld Capsule 00:00: (300 mg - 00 total) by Externa mouth l nightly as needed FLUTICASONE 2022-0 Yes [id number] 100ug QD Use 2 Shanna PROPIONATE, 3-02 sprays Seybol d NASAL, 00:00: (100 mcg - (Flonase) 00 total) in Exter na 50 MCG/ACT each l nasal nostril Suspension daily as needed for rhinitis Gabapentin 0 Yes [id number] 300mg QD Take 1 Shanna 300 MG oral 3-02 capsule Seybo ld Capsule 00:00: (300 mg - 00 total) by Externa mouth l nightly as needed FLUTICASONE 2022-0 Yes [id number] 100ug QD Use 2 Shanna PROPIONATE, 3-02 sprays Seybol d NASAL, 00:00: (100 mcg - (Flonase) 00 total) in Exter na 50 MCG/ACT each l nasal nostril Suspension daily as needed for rhinitis FLUTICASONE 2022-0 Yes [id number] 100ug QD Use 2 Shanna PROPIONATE, 3-02 sprays Seybol d NASAL, 00:00: (100 mcg - (Flonase) 00 total) in Exter na 50 MCG/ACT each l nasal nostril Suspension daily as needed for rhinitis FLUTICASONE 0 Yes [id number] 100ug QD Use 2 Shanna PROPIONATE, 3-02 sprays Seybol d NASAL, 00:00: (100 mcg - (Flonase) 00 total) in Exter na 50 MCG/ACT each l nasal nostril Suspension daily as needed for rhinitis FLUTICASONE 2022-0 Yes [id number] 100ug QD Use 2 Shanna PROPIONATE, 3-02 sprays Seybol d NASAL, 00:00: (100 mcg - (Flonase) 00 total) in Exter na 50 MCG/ACT each l nasal nostril Suspension daily as needed for rhinitis FLUTICASONE 0 Yes [id number] 100ug QD Use 2 Shanna PROPIONATE, 3-02 sprays Seybol d NASAL, 00:00: (100 mcg - (Flonase) 00 total) in Exter na 50 MCG/ACT each l nasal nostril Suspension daily as needed for rhinitis Gabapentin 0 2022- No [id number] 300mg QD Take 1 Shanna 300 MG oral 08-11 05-25 capsule Seyb old Capsule 00:00: 00:00 (300 mg - 00 :00 total) by Externa mouth l nightly as needed Metoprolol 0 Yes 25mg Take 25 mg K elsey Succinate 228 by mouth Seybol d 25 MG oral 00:00: daily - TABLET SR 00 Externa 24 HR l Rosuvastati 2022- No Dariuszse y n Calcium 2-06 09- Seybold 10 MG oral 00:00: 00:00 - Tablet 00 :00 Externa l Tadalafil 0 Yes [id number] 5mg QD Take 1 K elsey (Cialis) 5 2-17 tablet (5 Seyb old MG oral 00:00: mg total) - Tablet 00 by mouth Externa daily as l needed for erectile dysfunctio n Tadalafil 2022-0 Yes [id number] 5mg QD Take 1 K elsey (Cialis) 5 2-17 tablet (5 Seyb old MG oral 00:00: mg total) - Tablet 00 by mouth Externa daily as l needed for erectile dysfunctio n Tadalafil 0 Yes [id number] 5mg QD Take 1 K elsey (Cialis) 5 2-17 tablet (5 Seyb old MG oral 00:00: mg total) - Tablet 00 by mouth Externa daily as l needed for erectile dysfunctio n Tadalafil Yes [id number] 5mg QD Take 1 K elsey (Cialis) 5 2-17 tablet (5 Seyb old MG oral 00:00: mg total) - Tablet 00 by mouth Externa daily as l needed for erectile dysfunctio n Tadalafil Yes [id number] 5mg QD Take 1 K elsey (Cialis) 5 2-17 tablet (5 Seyb old MG oral 00:00: mg total) - Tablet 00 by mouth Externa daily as l needed for erectile dysfunctio n Tadalafil Yes [id number] 5mg QD Take 1 K elsey (Cialis) 5 2-17 tablet (5 Seyb old MG oral 00:00: mg total) - Tablet 00 by mouth Externa daily as l needed for erectile dysfunctio n ENT 2022- No 1{dose} 1 Dose by [...] irrigation system, add distilled water, [facility] Tizanidine Yes [id number] TAKE 1 Shanna HCl 4 MG -31 TABLET BY Seybol d oral Tablet 00:00: MOUTH ONCE - 00 at bedtime Externa NEEDED l FOR MUSCLE SPASMS CAUTION SEDATION Naproxen Yes [id number] TAKE 1 Ke lsey 500 MG oral -31 TABLET BY Sey bold Tablet 00:00: MOUTH - 00 TWICE Externa DAILY l NEEDED FOR BACK PAIN Naproxen 0 Yes [id number] TAKE 1 Ke lsey 500 MG oral -31 TABLET BY Sey bold Tablet 00:00: MOUTH - 00 TWICE Externa DAILY l NEEDED FOR BACK PAIN Naproxen 2022-0 Yes [id number] TAKE 1 Ke lsey 500 MG oral 1-31 TABLET BY Sey bold Tablet 00:00: MOUTH - 00 TWICE Externa DAILY l NEEDED FOR BACK PAIN Naproxen 2022-0 Yes [id number] TAKE 1 Ke lsey 500 MG oral 1-31 TABLET BY Sey bold Tablet 00:00: MOUTH - 00 TWICE Externa DAILY l NEEDED FOR BACK PAIN Naproxen 2022-0 Yes [id number] TAKE 1 Ke lsey 500 MG oral 1-31 TABLET BY Sey bold Tablet 00:00: MOUTH - 00 TWICE Externa DAILY l NEEDED FOR BACK PAIN Naproxen 2022-0 Yes [id number] TAKE 1 Ke lsey 500 MG oral 1-31 TABLET BY Sey bold Tablet 00:00: MOUTH - 00 TWICE Externa DAILY l NEEDED FOR BACK PAIN Naproxen 2022-0 Yes [id number] TAKE 1 Ke lsey 500 MG oral 1-31 TABLET BY Sey bold Tablet 00:00: MOUTH - 00 TWICE Externa DAILY l NEEDED FOR BACK PAIN Tizanidine 2022-0 2023- No [id number] TAKE 1 Shanna HCl 4 MG -31 -02 TABLET BY Seybo ld oral Tablet 00:00: 00:00 MOUTH ONCE - 00 :00 at bedtime Externa NEEDED l FOR MUSCLE SPASMS CAUTION SEDATION Tadalafil 2022-0 Yes [id number] 5mg QD Take 1 K elsey (Cialis) 5 1-11 tablet (5 Seyb old MG oral 00:00: mg total) - Tablet 00 by mouth Externa daily as l needed for erectile dysfunctio n Omeprazole 2022-0 Yes [id number] 40mg Take 1 Shanna 40 MG oral 1-11 capsule Seybol d Delayed 00:00: (40 mg - Release 00 total) by Externa Capsule mouth l daily Gabapentin 2022-0 Yes [id number] 300mg Take 1 Shanna 300 MG oral 1-11 capsule Seybo ld Capsule 00:00: (300 mg - 00 total) by Externa mouth l every night at bedtime Omeprazole 3-0 Yes [id number] 40mg Take 1 Shanna 40 MG oral 1-11 capsule Seybol d Delayed 00:00: (40 mg - Release 00 total) by Externa Capsule mouth l daily Omeprazole 2022-0 Yes [id number] 40mg Take 1 Shanna 40 MG oral 1-11 capsule Seybol d Delayed 00:00: (40 mg - Release 00 total) by Externa Capsule mouth l daily Omeprazole 2022-0 Yes [id number] 40mg Take 1 Shanna 40 MG oral 1-11 capsule Seybol d Delayed 00:00: (40 mg - Release total) by Externa Capsule mouth l daily Omeprazole 2022-0 Yes [id number] 40mg Take 1 Shanna 40 MG oral 1-11 capsule Seybol d Delayed 00:00: (40 mg - Release 00 total) by Externa Capsule mouth l daily Omeprazole 2022-0 Yes [id number] 40mg Take 1 Shanna 40 MG oral 1-11 capsule Seybol d Delayed 00:00: (40 mg - Release total) by Externa Capsule mouth l daily Omeprazole 2022-0 Yes [id number] 40mg Take 1 Shanna 40 MG oral 1-11 capsule Seybol d Delayed 00:00: (40 mg - Release total) by Externa Capsule mouth l daily Gabapentin 2022-0 2022- No [id number] 300mg Take 1 Shanna 300 MG oral 06-22 capsule Seyb old Capsule 00:00: 00:00 (300 mg - 00 :00 total) by Externa mouth l every night at bedtime Bupropion 2022-0 2022- No [id number] 150mg Take 1 Shanna HCL XL 150 06-22 tablet Seybol d MG OR TB24 00:00: 00:00 (150 mg - 00 :00 total) by Externa mouth l daily methylPREDN 2021-06 Yes [id number] 1{jae} Take 1 jae Shanna ISolone 4 2-09 by mouth Seybol d MG oral 00:00: See Admin - Tablet 00 Instructio Externa Therapy ns Use as l Pack directed Azithromyci 2021-06- No [id number] Take 2 Shanna n 250 MG 2-02 12- tablets by Seyb old oral Tablet 00:00: 00:00 mouth on - 00 :00 day 1 then Externa 1 tablet l by mouth daily for 4 days thereafter . methylPREDN 2021-06- No [id number] 1{jae} Take 1 jae Otero ISolone 4 2-02 10-31 by mouth Seybo ld MG oral 00:00: 00:00 See Admin - Tablet 00 :00 Instructio Externa Therapy ns Use as l Pack directed Azithromyci 2021-06- No [id number] Take 2 Shanna n 250 MG 2-09 12-15 tablets by Seyb old oral Tablet [...] irrigation system, add distilled water, irrigate-t w[facility] TRIMETHOPRI 2021-06- No 1{tbl} Take 1 K elsey M-SULFAMETH 1-17 03-02 tablet by Se ybold OXAZOLE 00:00: 00:00 mouth 2 - 800-160 MG 00 :00 times Externa oral Tablet daily for l 10 days Bupropion 2021-06 Yes [id number] 150mg Take 1 K elsey HCL XL 150 1-16 tablet Seybold MG OR TB24 00:00: (150 mg - 00 total) by Externa mouth l daily Gabapentin 2021-06 Yes [id number] 300mg Take 1 Shanna 300 MG oral 1-15 capsule Seybo ld Capsule 00:00: (300 mg - 00 total) by Externa mouth l every night at bedtime Gabapentin 2021-06 Yes [id number] 300mg Take 1 Shanna 300 MG oral 1-09 capsule Seybo ld Capsule 00:00: (300 mg - 00 total) by Externa mouth l every night at bedtime Escitalopra 2021-06 Yes [id number] 10mg Take 1 Shanna m Oxalate 1-09 tablet (10 Seyb old 10 MG oral 00:00: mg total) - Tablet 00 by mouth Externa daily l Escitalopra 2021-06- No [id number] 10mg Take 1 Shanna m Oxalate 06-20 12-09 tablet (10 Sey bold 10 MG oral 00:00: 00:00 mg total) - Tablet 00 :00 by mouth Externa daily l Tadalafil 2021-06 Yes [id number] 5mg QD Take 1 K elsey (Cialis) 5 1-08 tablet (5 Seyb old MG oral 00:00: mg total) - Tablet 00 by mouth Externa daily as l needed for erectile dysfunctio n Tadalafil 2021-06 Yes [id number] 5mg QD Take 1 K elsey (Cialis) 5 1-08 tablet (5 Seyb old MG oral 00:00: mg total) - Tablet 00 by mouth Externa daily as l needed for erectile dysfunctio n Azithromyci 2021-06 Yes [id number] Take 2 Shanna n 250 MG 0-14 tablets by Seybo ld oral Tablet 00:00: mouth on - day 1 then Externa 1 tablet l by mouth daily for 4 days thereafter . Azithromyci 2021-06- No [id number] Take 2 Shanna n 250 MG 0-14 - tablets by Seyb old oral Tablet 00:00: 00:00 mouth on - 00 : day 1 then Externa 1 tablet l by mouth daily for 4 days thereafter . FLUTICASONE Yes 100ug Use 2 Tawny ey PROPIONATE, 03-10 sprays Seybol d NASAL, 00:00: (100 mcg - (Flonase) 00 total) in Exter na 50 MCG/ACT each l nasal nostril Suspension daily FLUTICASONE Yes 100ug Use 2 Tawny ey PROPIONATE, 03-10 sprays Seybol d NASAL, 00:00: (100 mcg - (Flonase) 00 total) in Exter na 50 MCG/ACT each l nasal nostril Suspension daily FLUTICASONE 2022- No 100ug Use 2 Dariusz sey PROPIONATE, 03-10 03- sprays Seybo ld NASAL, 00:00: 00:00 (100 mcg - (Flonase) 00 :00 total) in Exter na 50 MCG/ACT each l nasal nostril Suspension daily FLUTICASONE 2021- No 100ug Use 2 Dariusz juan PROPIONATE, -29 10-30 sprays Seybo ld NASAL, 00:00: 04:59 (100 mcg - (Flonase) 00 :00 total) in Exter na 50 MCG/ACT each l nasal nostril Suspension daily Gabapentin Yes [id number] 300mg Take 1 Shanna 300 MG oral 9-22 capsule Seybo ld Capsule 00:00: (300 mg - 00 total) by Externa mouth l every night at bedtime predniSONE Yes Start at [facility] (DELTASONE) 9-15 30 mg qd Seyb old 10 MG oral 00:00: x3 days, - tablet 00 Then 20 mg Externa QD x3 l days, then 10 mg QD x3 days, then stop predniSONE Yes Start at [facility] (DELTASONE) 9-15 30 mg qd Seyb old 10 MG oral 00:00: x3 days, - tablet 00 Then 20 mg Externa QD x3 l days, then 10 mg QD x3 days, then stop predniSONE Yes Start at [facility] (DELTASONE) 9-15 30 mg qd Seyb old 10 MG oral 00:00: x3 days, - tablet 00 Then 20 mg Externa QD x3 l days, then 10 mg QD x3 days, then stop predniSONE 2022- No Start at [facility] (DELTASONE) 9-15 01-31 30 mg qd Sey bold 10 [...] Take [address] [facility] (CIALIS) 5 - by mouth [facility] tablet 11:42: daily. Medica l 58 Center fluticasone Yes 1{spray QD [address] [facility] propionate 02-16 } Nasal [facility] (FLONASE) 11:42: route Medical 50 58 daily. Center mcg/actuati on nasal spray TiZANidine 0 Yes 4mg Q.[id number] Take [address] [facility] (ZANAFLEX) 02-16 [id number] by mouth 3 [facility] 4 MG 11:42: 3D (three) Medical capsule 58 times Center daily. gabapentin 2021-0 Yes 300mg Q.[id number] Take [address] [facility] (NEURONTIN) 02-16 [id number] mg by [facility] 300 MG 11:42: 3D mouth 3 Medical capsule 58 (three) Center times daily. omeprazole 0 Yes 40mg QD Take [address] [facility] (PriLOSEC) 02-16 by mouth [facility] 40 MG 11:42: daily. Medical capsule 58 Center SUMAtriptan 0 Yes 50mg Take [address] [facility] (IMITREX) 02-16 by mouth [facility] 50 MG 11:42: once as Medical tablet 58 needed for Center Headaches. Acetaminoph 0 Yes 1{tbl} Q.25D Take 1 K elsey en-Codeine -07 tablet by [employer] old 300-30 MG 00:00: mouth - oral Tablet 00 every 6 Exter na hours as l needed for pain Acetaminoph 2021-0 Yes 1{tbl} Q.25D Take 1 K elsey en-Codeine 9-07 tablet by [employer] old 300-30 MG 00:00: mouth - oral Tablet 00 every 6 Exter na hours as l needed for pain Acetaminoph 0 Yes 1{tbl} Q.25D Take 1 K elsey en-Codeine 9-07 tablet by Seyb old 300-30 MG 00:00: mouth - oral Tablet 00 every 6 Exter na hours as l needed for pain Acetaminoph 2021-0 3- No 1{tbl} Q.25D Take 1 Shanna en-Codeine 9- 01-31 tablet by [employer] bold 300-30 MG 00:00: 00:00 mouth - oral Tablet 00 :00 every 6 Exter na hours as l needed for pain Tadalafil 2021-0 Yes [id number] 5mg QD Take 1 K elsey (Cialis) 5 8-29 tablet (5 Seyb old MG oral 00:00: mg total) - Tablet 00 by mouth Externa daily as l needed for erectile dysfunctio n Omeprazole 0 Yes [id number] 40mg Take 1 Shanna 40 MG oral 8-29 capsule Seybol d Delayed 00:00: (40 mg - Release 00 total) by Externa Capsule mouth l daily Omeprazole 2021-0 Yes [id number] 40mg Take 1 Shanna 40 MG oral 8-29 capsule Seybol d Delayed 00:00: (40 mg - Release total) by Externa Capsule mouth l daily Omeprazole 2021-0 Yes [id number] 40mg Take 1 Shanna 40 MG oral 8-29 capsule Seybol d Delayed 00:00: (40 mg - Release 00 total) by Externa Capsule mouth l daily Missing or 2021- No [facility] Non-Formula 8-15 08-15 [facility] 15:04: 00:00 Medical Medication 57 :00 Center Missing or 2021- No [facility] Non-Formula 8-15 08-15 [facility] 15:04: 00:00 Medical Medication 51 :00 Center Azelastine 0 Yes 1{spray Use 1 Dariusz sey HCl 0.1 % 6-15 } spray in Seybol d nasal 00:00: each - Solution 00 nostril 2 [employer] a times l daily Azelastine 0 Yes 1{spray Use 1 Dariusz sey HCl 0.1 % 6-15 } spray in Seybol d nasal 00:00: each - Solution 00 nostril 2 [employer] a times l daily Azelastine 2021-0 Yes 1{spray Use 1 Dariusz sey HCl 0.1 % 6-15 } spray in Seybol d nasal 00:00: each - Solution 00 nostril 2 [employer] a times l daily Azelastine 2021-0 Yes 1{spray Use 1 Dariusz sey HCl 0.1 % 6-15 } spray in Seybol d nasal 00:00: each - Solution 00 nostril 2 [employer] a times l daily Azelastine 2021-0 Yes 1{spray Use 1 Dariusz sey HCl 0.1 % 6-15 } spray in Seybol d nasal 00:00: each - Solution 00 nostril 2 [employer] a times l daily Azelastine 0 Yes 1{spray Use 1 Dariusz sey HCl 0.1 % 6-15 } spray in Seybol d nasal 00:00: each - Solution 00 nostril 2 [employer] a times l daily Azelastine 0 Yes 1{spray Use 1 Dariusz sey HCl 0.1 % 6-15 } spray in Seybol d nasal 00:00: each - Solution 00 nostril 2 [employer] a times l daily Azelastine 0 Yes 1{spray Use 1 Dariusz sey HCl 0.1 % 6-15 } spray in Seybol d nasal 00:00: each - Solution 00 nostril 2 [employer] a times l daily Azelastine 0 Yes 1{spray Use 1 Dariusz sey HCl 0.1 % 6-15 } spray in Seybol d nasal 00:00: each - Solution 00 nostril 2 [employer] a times l daily Azelastine 0 2022- No 1{spray Use 1 Ke lsey HCl 0.1 % 6-15 07-25 } spray in Seybo ld nasal 00:00: 00:00 each - Solution 00 :00 nostril 2 [employer] a times l daily Tadalafil 0 Yes [id number] 5mg QD Take 1 K elsey (Cialis) 5 5-26 tablet (5 Seyb old MG oral 00:00: mg total) Tablet 00 by mouth daily as needed for erectile dysfunctio n methylPREDN 0 Yes 1{jae} Take 1 jae Otero ISolone 5-17 by mouth Seybold (Medrol) 4 00:00: See Admin MG oral 00 Instructio Tablet ns Use as Therapy directed. Pack TRIMETHOPRI 0 2021- No 1{tbl} Take 1 K elsey M-SULFAMETH 5-17 05-28 tablet by Se ybold OXAZOLE 00:00: 04:59 mouth in 800-160 MG 00 :00 the oral Tablet morning and 1 tablet in the evening. Do all this for 10 days. Azelastine 0 Yes 1{spray Use 1 Dariusz sey HCl 0.1 % 5-04 } spray in Seybol d nasal 00:00: each Solution 00 nostril 2 times daily Azelastine 2022-0 Yes 1{spray Use 1 Dariusz sey HCl 0.1 % 5-04 } spray in Seybol d nasal 00:00: each Solution 00 nostril 2 times daily FLUTICASONE 2- No [id number] 50ug Use 1 Shanna PROPIONATE, 4-27 09-29 spray (50 Se ybold NASAL, 00:00: 00:00 mcg total) - (Flonase) 00 :00 in each Externa 50 MCG/ACT nostril l nasal daily Suspension FLUTICASONE 2021- No [id number] 50ug Use 1 Shanna PROPIONATE, 427 05-28 spray (50 Se ybold NASAL, 00:00: 04:59 mcg total) (Flonase) 00 :00 in each 50 MCG/ACT nostril nasal daily Suspension FLUTICASONE 2021- No [id number] 50ug Use 1 Shanna PROPIONATE, 4-27 05-28 spray (50 Se ybold NASAL, 00:00: 04:59 mcg total) (Flonase) 00 :00 in each 50 MCG/ACT nostril nasal daily Suspension Omeprazole Yes [id number] 40mg Take 1 Shanna 40 MG oral 4-26 capsule Seybol d Delayed 00:00: (40 mg Release 00 total) by Capsule mouth daily Gabapentin Yes [id number] gabapentin Shanna 300 MG oral 4-26 300 mg Seybol d Capsule 00:00: nightly 00 for three days then one by mouth twice a day for three days, then one AM and two at night until follow up with neurology. Tizanidine Yes [id number] TAKE 1 Shanna HCl 4 MG 4-26 TABLET BY Seybol d oral Tablet 00:00: MOUTH ONCE 00 at bedtime NEEDED FOR MUSCLE SPASMS CAUTION SEDATION Omeprazole Yes [id number] 40mg Take 1 Shanna 40 MG oral 4-26 capsule Seybol d Delayed 00:00: (40 mg Release 00 total) by Capsule mouth daily Gabapentin Yes [id number] gabapentin Shanna 300 MG oral 4-26 300 mg Seybol d Capsule 00:00: nightly 00 for three days then one by mouth twice a day for three days, then one AM and two at night until follow up with neurology. Tizanidine Yes TAKE 1 Shanna HCl 4 MG 4-26 TABLET BY Seybol d oral Tablet 00:00: MOUTH ONCE 00 at bedtime NEEDED FOR MUSCLE SPASMS CAUTION SEDATION Tizanidine 0 Yes TAKE 1 Shanna HCl 4 MG [...] FOR MUSCLE SPASMS CAUTION SEDATION methylPREDN Yes [id number] 1{jae} Take 1 jae Shanna ISolone 4 3-24 by mouth Seybol d MG oral 00:00: See Admin Tablet 00 Instructio Therapy ns Use as Pack directed Sumatriptan Yes [id number] Take one Shanna Succinate 3-21 tablet, if Seyb old 50 MG oral 00:00: still Tablet 00 having pain 2 hours later may take one more. No more than 2 pills in a 24 hours period. Sumatriptan Yes [id number] Take one Shanna Succinate 3-21 tablet, if Seyb old 50 MG oral 00:00: still Tablet 00 having pain 2 hours later may take one more. No more than 2 pills in a 24 hours period. Sumatriptan Yes [id number] Take one Shanna Succinate 3-21 tablet, if Seyb old 50 MG oral 00:00: still Tablet 00 having pain 2 hours later may take one more. No more than 2 pills in a 24 hours period. Sumatriptan 2021- No [id number] Take one Shanna Succinate 3-21 -29 tablet, if Sey bold 50 MG oral 00:00: 00:00 still - Tablet 00 :00 having Externa pain 2 l hours later may take one more. No more than 2 pills in a 24 hours period. methylPREDN 2021-0 Yes [id number] Take 1 jae Shanna ISolone 4 2-17 by mouth Seybol d MG oral 00:00: See Admin Tablet 00 Instructio Therapy ns Use as Pack directed FLUTICASONE 2021-0 Yes [id number] 50ug Use 1 K elsey PROPIONATE, 2-17 spray (50 Sey bold NASAL, 00:00: mcg total) (Flonase) 00 in each 50 MCG/ACT nostril nasal daily Suspension methylPREDN 2021-0 Yes [id number] Take 1 jae Shanna ISolone 4 2-17 by mouth Seybol d MG oral 00:00: See Admin Tablet 00 Instructio Therapy ns Use as Pack directed methylPREDN 2021-0 Yes [id number] Take 1 jae Shanna ISolone 4 2-17 by mouth Seybol d MG oral 00:00: See Admin Tablet 00 Instructio Therapy ns Use as Pack directed FLUTICASONE 2021-0 2021- No [id number] 50ug Use 1 Shanna PROPIONATE, 2-17 03-20 spray (50 Se ybold NASAL, 00:00: 04:59 mcg total) (Flonase) 00 :00 in each 50 MCG/ACT nostril nasal daily Suspension Azithromyci 2021-0 2021- No [id number] Take 2 Shanna n 250 MG 2-17 02-23 tablets by Seyb old oral Tablet 00:00: 05:59 mouth on 00 :00 day 1 then 1 tablet by mouth daily for 4 days thereafter . Omeprazole 2021-0 Yes [id number] 40mg Take 1 Shanna 40 MG oral 1-04 capsule Seybol d Delayed 00:00: (40 mg Release 00 total) by Capsule mouth daily Tizanidine 2021-0 Yes [id number] TAKE 1 Shanna HCl 4 MG 1-04 TABLET BY Seybol d oral Tablet 00:00: MOUTH ONCE 00 at bedtime NEEDED FOR MUSCLE SPASMS CAUTION SEDATION Omeprazole 2021-0 Yes [id number] 40mg Take 1 Shanna 40 MG oral 1-04 capsule Seybol d Delayed 00:00: (40 mg Release 00 total) by Capsule mouth daily Tizanidine Yes [id number] TAKE 1 Shanna HCl 4 MG 1-04 TABLET BY Seybol d oral Tablet 00:00: MOUTH ONCE 00 at bedtime NEEDED FOR MUSCLE SPASMS CAUTION SEDATION Omeprazole Yes [id number] 40mg Take 1 Shanna 40 MG oral 1-04 capsule Seybol d Delayed 00:00: (40 mg Release 00 total) by Capsule mouth daily Tizanidine Yes [id number] TAKE 1 Shanna HCl 4 MG 1-04 TABLET BY Seybol d oral Tablet 00:00: MOUTH ONCE 00 at bedtime NEEDED FOR MUSCLE SPASMS CAUTION SEDATION methylPREDN 2020-06 Yes [id number] 1{jae} Take 1 jae Shanna ISolone 4 1-18 by mouth Seybol d MG oral 00:00: See Admin Tablet 00 Instructio Therapy ns Use as Pack directed methylPREDN 2020-06 Yes [id number] 1{jae} Take 1 jae Shanna ISolone 4 1-18 by mouth Seybol d MG oral 00:00: See Admin Tablet 00 Instructio Therapy ns Use as Pack directed methylPREDN 2020-06- No [id number] 1{jae} Take 1 jae Shanna ISolone 4 1-18 02-17 by mouth Seybo ld MG oral 00:00: 00:00 See Admin Tablet 00 :00 Instructio Therapy ns Use as Pack directed Methylpredn 2020-06- No [id number] 40mg Shanna isolone 1-17 11-17 Seybold Sodium 17:45: 17:43 (SOLU-MEDRO 00 :00 L) 40 mg Methylpredn 2020-06- No [id number] 40mg 40 mg, Shanna isolone 1-17 11-17 intramuscu Seybo ld Sodium 17:45: 17:43 lar, ONCE, (SOLU-MEDRO 00 :00 On Mon) 40 mg 04/28/21 at 1145, For 1 dose Pseudoeph-B 2020-06 Yes [id number] 10mL Q.25D Take 10 mL Shanna romphen-DM 0-11 by mouth 4 Sey bold (Bromfed 00:00: times DM) 30-2-10 00 daily as MG/5ML oral needed Syrup Pseudoeph-B 2020-06 Yes [id number] 10mL Q.25D Take 10 mL Shanna romphen-DM 0-11 by mouth 4 Sey bold (Bromfed 00:00: times DM) daily as MG/5ML oral needed Syrup Pseudoeph-B 2020-06 Yes [id number] 10mL Q.25D Take 10 mL Shanna romphen-DM 0-11 by mouth 4 Sey bold (Bromfed 00:00: times DM) daily as MG/5ML oral needed Syrup Pseudoeph-B 2020-06 Yes [id number] 10mL Q.25D Take 10 mL Shanna romphen-DM 0-11 by mouth 4 Sey bold (Bromfed 00:00: times DM) daily as MG/5ML oral needed Syrup Pseudoeph-B 2020-06 Yes [id number] 10mL Q.25D Take 10 mL Shanna romphen-DM 0-11 by mouth 4 Sey bold (Bromfed 00:00: times DM) daily as MG/5ML oral needed Syrup Pseudoeph-B 2020-06 Yes [id number] 10mL Q.25D Take 10 mL Shanna romphen-DM 0-11 by mouth 4 Sey bold (Bromfed 00:00: times DM) daily as MG/5ML oral needed Syrup Pseudoeph-B 2020-06 Yes [id number] 10mL Q.25D Take 10 mL Shanna romphen-DM 0-11 by mouth 4 Sey bold (Bromfed 00:00: times - DM) daily as Exte rna MG/5ML oral needed l Syrup Pseudoeph-B 2020-06 Yes [id number] 10mL Q.25D Take 10 mL Shanna romphen-DM 0-11 by mouth 4 Sey bold (Bromfed 00:00: times - DM) daily as Exte rna MG/5ML oral needed l Syrup Pseudoeph-B 2020-06 Yes [id number] 10mL Q.25D Take 10 mL Shanna romphen-DM 0-11 by mouth 4 Sey bold (Bromfed 00:00: times - DM) - 00 daily as Exte rna MG/5ML oral needed l Syrup Pseudoeph-B 2020-06 Yes [id number] 10mL Q.25D Take 10 mL Shanna romphen-DM 0-11 by mouth 4 Sey bold (Bromfed 00:00: times - DM) - 00 daily as Exte rna MG/5ML oral needed l Syrup Pseudoeph-B 2020-06 Yes [id number] 10mL Q.25D Take 10 mL Shanna romphen-DM 0-11 by mouth 4 Sey bold (Bromfed 00:00: times DM) - 00 daily as MG/5ML oral needed Syrup Pseudoeph-B 2020-06- No [id number] 10mL Q.25D Take 10 mL Shanna romphen-DM 0-11 03-02 by mouth 4 Se ybold (Bromfed 00:00: 00:00 times - DM) - 00 :00 daily as Exte rna MG/5ML oral needed l Syrup Azithromyci 2020-06- No [id number] Take 2 Shanna n 250 MG 0-11 10-17 tablets by Seyb old oral Tablet 00:00: 04:59 mouth on 00 :00 day 1 then 1 tablet by mouth daily for 4 days thereafter . Cetirizine 2020-06 Yes [id number] 10mg Take 1 Shanna (ZyrTEC 0-10 tablet (10 Seybol d Allergy) 10 00:00: mg total) MG oral 00 by mouth Tablet daily Benzonatate 2020-06 Yes [id number] 100mg Q.[id number] Take 1 Shanna (Tessalon 0-10 [id number] capsule S winston Vo) 100 00:00: 3D (100 mg MG oral 00 total) by Capsule mouth 3 times daily as needed for cough Cetirizine 2020-06 Yes [id number] 10mg Take 1 Shanna (ZyrTEC 0-10 tablet (10 Seybol d Allergy) 10 00:00: mg total) MG oral 00 by mouth Tablet daily Benzonatate 2020-06 Yes [id number] 100mg Q.[id number] Take 1 Shanna (Tessalon 0-10 [id number] capsule S eybold Perles) 100 00:00: 3D (100 mg MG oral 00 total) by Capsule mouth 3 times daily as needed for cough Benzonatate 2020-06 Yes [id number] 100mg Q.[id number] Take 1 Shanna (Tessalon 0-10 [id number] capsule S eybold Perles) 100 00:00: 3D (100 mg MG oral 00 total) by Capsule mouth 3 times daily as needed for cough Benzonatate 2020-06 Yes [id number] 100mg Q.[id number] Take 1 Shanna (Tessalon 0-10 [id number] capsule S eybold Perles) 100 00:00: 3D (100 mg MG oral 00 total) by Capsule mouth 3 times daily as needed for cough Benzonatate 2020-06 Yes [id number] 100mg Q.[id number] Take 1 Shanna (Tessalon 0-10 [id number] capsule S eybold Perles) 100 00:00: 3D (100 mg MG oral 00 total) by Capsule mouth 3 times daily as needed for cough Benzonatate 2020-06 Yes [id number] 100mg Q.[id number] Take 1 Shanna (Tessalon 0-10 [id number] capsule S eybold Perles) 100 00:00: 3D (100 mg MG oral 00 total) by Capsule mouth 3 times daily as needed for cough Benzonatate 2020-06 Yes [id number] 100mg Q.[id number] Take 1 Shanna (Tessalon 0-10 [id number] capsule S eybold Perles) 100 00:00: 3D (100 mg - MG oral 00 total) by Externa Capsule mouth 3 l times daily as needed for cough Benzonatate 2020-06 Yes [id number] 100mg Q.[id number] Take 1 Shanna (Tessalon 0-10 [id number] capsule S eybold Perles) 100 00:00: 3D (100 mg - MG oral 00 total) by Externa Capsule mouth 3 l times daily as needed for cough Benzonatate 2020-06 Yes [id number] 100mg Q.[id number] Take 1 Shanna (Tessalon 0-10 [id number] capsule S eybold Perles) 100 00:00: 3D (100 mg - MG oral 00 total) by Externa Capsule mouth 3 l times daily as needed for cough Benzonatate 2020-06 Yes [id number] 100mg Q.[id number] Take 1 Shanna (Tessalon 0-10 [id number] capsule S eybold Perles) 100 00:00: 3D (100 mg - MG oral 00 total) by Externa Capsule mouth 3 l times daily as needed for cough Cetirizine 2020-06 Yes [id number] 10mg Take 1 Shanna (ZyrTEC 0-10 tablet (10 Seybol d Allergy) 10 00:00: mg total) MG oral 00 by mouth Tablet daily Benzonatate 2020-06 Yes [id number] 100mg Q.[id number] Take 1 Shanna (Tessalon 0-10 [id number] capsule S eybold Perles) 100 00:00: 3D (100 mg MG oral 00 total) by Capsule mouth 3 times daily as needed for cough Cetirizine 2020-06 Yes [id number] 10mg Take 1 Shanna (ZyrTEC 0-10 tablet (10 Seybol d Allergy) 10 00:00: mg total) MG oral 00 by mouth Tablet daily Benzonatate 2020-06 Yes [id number] 100mg Q.[id number] Take 1 Shanna (Tessalon 0-10 [id number] capsule S eybold Perles) 100 00:00: 3D (100 mg MG oral 00 total) by Capsule mouth 3 times daily as needed for cough Benzonatate 2020-06- No [id number] 100mg Q.[id number] Take 1 Shanna (Tessalon 0-10 03-02 [id number] capsule Seybold Perles) 100 00:00: 00:00 3D (100 mg - MG oral 00 :00 total) by Externa Capsule mouth 3 l times daily as needed for cough Cetirizine 2020-06- No [id number] 10mg Take 1 Shanna (ZyrTEC 0-10 02-17 tablet (10 Seybo ld Allergy) 10 00:00: 00:00 mg total) MG oral 00 :00 by mouth Tablet daily FLUTICASONE 2020-06- No [id number] 100ug Use 2 Shanna PROPIONATE, 0-10 11-10 sprays Seybo ld NASAL, 00:00: 05:59 (100 mcg (Flonase) 00 :00 total) in 50 MCG/ACT each nasal nostril Suspension daily FLUTICASONE 2020-06- No [id number] 100ug Use 2 Shanna PROPIONATE, 0-10 11-10 sprays Seybo ld NASAL, 00:00: 05:59 (100 mcg (Flonase) 00 :00 total) in 50 MCG/ACT each nasal nostril Suspension daily Tizanidine Yes [id number] TAKE 1 Shanna HCl 4 MG 9-20 TABLET BY Seybol d oral Tablet 00:00: MOUTH ONCE 00 at bedtime NEEDED FOR MUSCLE SPASMS CAUTION SEDATION Albuterol Yes [id number] 2{puff} Q6H Inhale 2 Shanna HFA (PROAIR 9-20 [id number] puffs into Seybold HFA) 108 00:00: the lungs (90 Base) 00 every 6 MCG/ACT IN hours as AERS needed Albuterol Yes [id number] 2{puff} Q6H Inhale 2 Shanna HFA (PROAIR 9-20 [id number] puffs into Seybold HFA) 108 00:00: the lungs (90 Base) 00 every 6 MCG/ACT IN hours as AERS needed Albuterol Yes [id number] 2{puff} Q6H Inhale 2 Shanna HFA (PROAIR 9-20 [id number] puffs into Seybold HFA) 108 00:00: the lungs (90 Base) 00 every 6 MCG/ACT IN hours as AERS needed Albuterol Yes [id number] 2{puff} Q.25D Inhale 2 Shanna HFA (PROAIR 9-20 [id number] puffs into Seybold HFA) 108 00:00: the lungs (90 Base) 00 every 6 MCG/ACT IN hours as AERS needed Albuterol Yes [id number] 2{puff} Q.25D Inhale 2 Shanna HFA (PROAIR 9-20 [id number] puffs into Seybold HFA) 108 00:00: the lungs (90 Base) 00 every 6 MCG/ACT IN hours as AERS needed Albuterol 0 Yes [id number] 2{puff} Q.25D Inhale 2 Shanna HFA (PROAIR 9-20 [id number] puffs into Seybold HFA) 108 00:00: the lungs (90 Base) 00 every 6 MCG/ACT IN hours as AERS needed Tizanidine 2020-0 Yes [id number] TAKE 1 Shanna HCl 4 MG 9-20 TABLET BY Seybol d oral Tablet 00:00: MOUTH ONCE 00 at bedtime NEEDED FOR MUSCLE SPASMS CAUTION SEDATION Albuterol 2020-0 Yes [id number] 2{puff} Q.25D Inhale 2 Shanna HFA (PROAIR 9-20 [id number] puffs into Seybold HFA) 108 00:00: the lungs - (90 Base) 00 every 6 Externa MCG/ACT IN hours as l AERS needed Albuterol 2020-0 Yes [id number] 2{puff} Q6H Inhale 2 Shanna HFA (PROAIR 9-20 [id number] puffs into Seybold HFA) 108 00:00: the lungs (90 Base) 00 every 6 MCG/ACT IN hours as AERS needed Albuterol 2020-0 Yes [id number] 2{puff} Q.25D Inhale 2 Shanna HFA (PROAIR 9-20 [id number] puffs into Seybold HFA) 108 00:00: the lungs - (90 Base) 00 every 6 Externa MCG/ACT IN hours as l AERS needed Albuterol 2020-0 Yes [id number] 2{puff} Q.25D Inhale 2 Shanna HFA (PROAIR 9-20 [id number] puffs into Seybold HFA) 108 00:00: the lungs - (90 Base) 00 every 6 Externa MCG/ACT IN hours as l AERS needed Albuterol 2020-0 Yes [id number] 2{puff} Q.25D Inhale 2 Shanna HFA (PROAIR 9-20 [id number] puffs into Seybold HFA) 108 00:00: the lungs - (90 Base) 00 every 6 Externa MCG/ACT IN hours as l AERS needed Albuterol 2021-0 Yes [id number] 2{puff} Q.25D Inhale 2 Shanna HFA (PROAIR 9-20 [id number] puffs into Seybold HFA) 108 00:00: the lungs - (90 Base) 00 every 6 Externa MCG/ACT IN hours as l AERS needed Albuterol 0 Yes [id number] 2{puff} Q.25D Inhale 2 Shanna HFA (PROAIR 9-20 [id number] puffs into Seybold HFA) 108 00:00: the lungs - (90 Base) 00 every 6 Externa MCG/ACT IN hours as l AERS needed Tizanidine 0 Yes [id number] TAKE 1 Shanna HCl 4 MG 9-20 TABLET BY Seybol d oral Tablet 00:00: MOUTH ONCE 00 at bedtime NEEDED FOR MUSCLE SPASMS CAUTION SEDATION Albuterol Yes [id number] 2{puff} Q.25D Inhale 2 Shanna HFA (PROAIR 9-20 [id number] puffs into Seybold HFA) 108 00:00: the lungs - (90 Base) 00 every 6 Externa MCG/ACT IN hours as l AERS needed Albuterol 0 Yes [id number] 2{puff} Q6H Inhale 2 Shanna HFA (PROAIR 9-20 [id number] puffs into Seybold HFA) 108 00:00: the lungs (90 Base) 00 every 6 MCG/ACT IN hours as AERS needed Albuterol 0 Yes [id number] 2{puff} Q.25D Inhale 2 Shanna HFA (PROAIR 9-20 [id number] puffs into Seybold HFA) 108 00:00: the lungs - (90 Base) 00 every 6 Externa MCG/ACT IN hours as l AERS needed Albuterol 0 Yes [id number] 2{puff} Q.25D Inhale 2 Shanna HFA (PROAIR 9-20 [id number] puffs into Seybold HFA) 108 00:00: the lungs - (90 Base) 00 every 6 Externa MCG/ACT IN hours as l AERS needed Albuterol 0 Yes [id number] 2{puff} Q.25D Inhale 2 Shanna HFA (PROAIR 9-20 [id number] puffs into Seybold HFA) 108 00:00: the lungs - (90 Base) 00 every 6 Externa MCG/ACT IN hours as l AERS needed Tizanidine Yes [id number] TAKE 1 Shanna HCl 4 MG 9-20 TABLET BY Seybol d oral Tablet 00:00: MOUTH ONCE 00 at bedtime NEEDED FOR MUSCLE SPASMS CAUTION SEDATION Albuterol Yes [id number] 2{puff} Q6H Inhale 2 Shanna HFA (PROAIR 9-20 [id number] puffs into Seybold HFA) 108 00:00: the lungs (90 Base) 00 every 6 MCG/ACT IN hours as AERS needed Naproxen 0 Yes [id number] TAKE 1 Ke lsey 500 MG oral 9-09 TABLET BY Sey bold Tablet 00:00: MOUTH 00 TWICE DAILY NEEDED FOR BACK PAIN Naproxen 2020-0 Yes [id number] TAKE 1 Ke lsey 500 MG oral 9-09 TABLET BY Sey bold Tablet 00:00: MOUTH 00 TWICE DAILY NEEDED FOR BACK PAIN Naproxen 2020-0 Yes [id number] TAKE 1 Ke lsey 500 MG oral 9-09 TABLET BY Sey bold Tablet 00:00: MOUTH 00 TWICE DAILY NEEDED FOR BACK PAIN Naproxen 2020-0 Yes [id number] TAKE 1 Ke lsey 500 MG oral 9-09 TABLET BY Sey bold Tablet 00:00: MOUTH 00 TWICE DAILY NEEDED FOR BACK PAIN Naproxen 2020-0 Yes [id number] TAKE 1 Ke lsey 500 MG oral 9-09 TABLET BY Sey bold Tablet 00:00: MOUTH 00 TWICE DAILY NEEDED FOR BACK PAIN Naproxen 2020-0 Yes [id number] TAKE 1 Ke lsey 500 MG oral 9-09 TABLET BY Sey bold Tablet 00:00: MOUTH 00 TWICE DAILY NEEDED FOR BACK PAIN Naproxen 2020-0 Yes [id number] TAKE 1 Ke lsey 500 MG oral 9-09 TABLET BY Sey bold Tablet 00:00: MOUTH 00 TWICE DAILY NEEDED FOR BACK PAIN Naproxen 2020-0 Yes [id number] TAKE 1 Ke lsey 500 MG oral 9-09 TABLET BY Sey bold Tablet 00:00: MOUTH - 00 TWICE Externa DAILY l NEEDED FOR BACK PAIN Naproxen 0 Yes [id number] TAKE 1 Ke lsey 500 MG oral 02-18 TABLET BY Sey bold Tablet 00:00: MOUTH - 00 TWICE Externa DAILY l NEEDED FOR BACK PAIN Naproxen 2020-0 Yes [id number] TAKE 1 Ke lsey 500 MG oral 02-18 TABLET BY Sey bold Tablet 00:00: MOUTH - 00 TWICE Externa DAILY l NEEDED FOR BACK PAIN Naproxen 2020-0 Yes [id number] TAKE 1 Ke lsey 500 MG oral 02-18 TABLET BY Sey bold Tablet 00:00: MOUTH 00 TWICE DAILY NEEDED FOR BACK PAIN Naproxen 0 Yes [id number] TAKE 1 Ke lsey 500 MG oral 02-18 TABLET BY Sey bold Tablet 00:00: MOUTH 00 TWICE DAILY NEEDED FOR BACK PAIN Naproxen 0 3- No [id number] TAKE 1 K elsey 500 MG oral 02-18 TABLET BY Se ybold Tablet 00:00: 00:00 MOUTH - 00 :00 TWICE Externa DAILY l NEEDED FOR BACK PAIN Tizanidine 0 1- No [id number] TAKE 1 Shanna HCl 4 MG 09-18-20 TABLET BY Seybo ld oral Tablet 00:00: 00:00 MOUTH ONCE 00 :00 at bedtime NEEDED FOR MUSCLE SPASMS CAUTION SEDATION Tadalafil Yes [id number] 5mg Q24H Take 1 K elsey (Cialis) 5 2-08 tablet (5 Seyb old MG oral Tab 00:00: mg total) 00 by mouth daily as needed for erectile dysfunctio n Tadalafil 0 Yes [id number] 5mg Q24H Take 1 K elsey (Cialis) 5 2-08 tablet (5 Seyb old MG oral Tab 00:00: mg total) 00 by mouth daily as needed for erectile dysfunctio n Tadalafil 2020-0 Yes [id number] 5mg QD Take 1 K elsey (Cialis) 5 2-08 tablet (5 Seyb old MG oral Tab 00:00: mg total) 00 by mouth daily as needed for erectile dysfunctio n Tadalafil Yes [id number] 5mg QD Take 1 K elsey (Cialis) 5 2-08 tablet (5 Seyb old MG oral Tab 00:00: mg total) 00 by mouth daily as needed for erectile dysfunctio n Tadalafil Yes [id number] 5mg Q24H Take 1 K elsey (Cialis) 5 2-08 tablet (5 Seyb old MG oral Tab 00:00: mg total) 00 by mouth daily as needed for erectile dysfunctio n Tadalafil Yes [id number] 5mg Q24H Take 1 K elsey (Cialis) 5 2-08 tablet (5 Seyb old MG oral Tab 00:00: mg total) 00 by mouth daily as needed for erectile dysfunctio n Tadalafil Yes [id number] 5mg Q24H Take 1 K elsey (Cialis) 5 2-08 tablet (5 Seyb old MG oral Tab 00:00: mg total) 00 by mouth daily as needed for erectile dysfunctio n Tadalafil Yes [id number] 5mg Q24H Take 1 K elsey (Cialis) 5 2-08 tablet (5 Seyb old MG oral Tab 00:00: mg total) 00 by mouth daily as needed for erectile dysfunctio n Tadalafil 2021- No [id number] 5mg QD Take 1 Shanna (Cialis) 5 2-08 05-26 tablet (5 Sey bold MG oral Tab 00:00: 00:00 mg total) 00 :00 by mouth daily as needed for erectile dysfunctio n busPIRone 2020- No [id number] 10mg Take 1 K elsey HCl 10 MG 2-08 09-20 tablet (10 Sey bold oral Tab 00:00: 00:00 mg total) 00 :00 by mouth 2 times daily Albuterol 2019-06- No [id number] 2{puff} Q6H Inhale 2 Shanna HFA (PROAIR 2-28 09-20 puffs into S eybold HFA) 108 00:00: 00:00 the lungs (90 Base) 00 :00 every 6 MCG/ACT IN hours as AERS needed Omeprazole 2019- Yes [id number] 40mg Take 1 Shanna 40 MG oral 5-17 capsule Seybol d CAPSULE 00:00: (40 mg DELAYED 00 total) by RELEASE mouth daily Omeprazole 2020-0 Yes [id number] 40mg Take 1 Shanna 40 MG oral 5-17 capsule Seybol d CAPSULE 00:00: (40 mg DELAYED 00 total) by RELEASE mouth daily Omeprazole 2020-0 Yes [id number] 40mg Take 1 Shanna 40 MG oral 5-17 capsule Seybol d CAPSULE 00:00: (40 mg DELAYED 00 total) by RELEASE mouth daily Omeprazole 2020-0 Yes [id number] 40mg Take 1 Shanna 40 MG oral 5-17 capsule Seybol d CAPSULE 00:00: (40 mg DELAYED 00 total) by RELEASE mouth daily Saline 2015-0 No 10 mL, Memoria Flush 0.9% 3-14 Route: l 17:19: IVP, Drug [place] Form: INJ, Dosing Weight 102.273, kg, PRN, PRN Line Flush, Start date: 08/24/15 12:19:00, Duration: 30 day, Stop date: 09/23/15 12:18:00 Saline 2015-0 No 10 mL, Memoria Flush 0.9% 3-14 Route: l 17:19: IVP, Drug [place] Form: INJ, Dosing Weight 102.273, kg, PRN, PRN Line Flush, Start date: 08/24/15 12:19:00, Duration: 30 day, Stop date: 09/23/15 12:18:00 Saline 2015-0 No 10 mL, Memoria Flush 0.9% 3-14 Route: l 17:19: IVP, Drug [place] Form: INJ, Dosing Weight 102.273, kg, PRN, PRN Line Flush, Start date: 08/24/15 12:19:00, Duration: 30 day, Stop date: 09/23/15 12:18:00 tramadol 2014- Yes 50 mg = 1 Nicholas olegario [...] day, # 30 tab, 0 Refill(s) tramadol 2015- Yes 50 mg = 1 Nicholas olegario [...] 6 00:00:00 months and up Covid-19 Vaccine 2020-09-14 Completed Shanna S eybold (Abhijeet) 00:00:00 - External Covid-19 Vaccine 2020-09-14 Completed Shanna S eybold (Abhijeet) 00:00:00 - External Covid-19 Vaccine 2020-09-14 Completed Shanna S eybold (Abhijeet) 00:00:00 - External Covid-19 Vaccine 2020-09-14 Completed Shanna S eybold (Abhijeet) 00:00:00 - External Covid-19 Vaccine 2020-09-14 Completed Shanna S eybold (Abhijeet) 00:00:00 - External Covid-19 Vaccine 2020-09-14 Completed Shanna S eybold (Abhijeet) 00:00:00 - [...] 2020-09-08 Completed Shanna S eybold (Abhijeet) 00:00:00 Influenza Virus 2020-03-20 Completed Shanna Se [...] Completed NADYA Copeland PF 5+ YR 00:00:00 [facility] Influenza Virus 2016-03-18 Completed Shanna Se ybold [...] and up Influenza Virus 2014-03-14 Completed Shanna murphy Vaccine, age 6 00:00:00 months and up [...] - External Tdap- (Boostrix, 2013-06-12 Completed Shanna S eybold Adacel) 00:00:00 Tdap- (Boostrix, 2013-06-12 Completed Shanna S eybold Adacel) 00:00:00 - External Tdap- (Boostrix, 2013-06-12 Completed Shanna S eybold Adacel) 00:00:00 - External Tdap- (Boostrix, 2013-06-12 Completed Shanna S eybold Adacel) 00:00:00 - External Tdap- (Boostrix, 2013-06-12 Completed Shanna S eybold Adacel) 00:00:00 - External Tdap- (Boostrix, 2013-06-12 Completed Shanna S eybold Adacel) 00:00:00 - External Tdap- (Boostrix, 2013-06-12 Completed Shanna S eybold Adacel) 00:00:00 - External Tdap- (Boostrix, 2013-06-12 Completed Shanna S eybold Adacel) 00:00:00 - External Tdap- (Boostrix, 2013-06-12 Completed Shanna S eybold Adacel) 00:00:00 Tdap- (Boostrix, 2013-06-12 Completed Shanna S eybold Adacel) 00:00:00 - External Tdap- (Boostrix, 2013-06-12 Completed Shanna Conroy eybold Adacel) 00:00:00 - External Tdap- (Boostrix, 2013-06-12 Completed Shanna Conroy eybold Adacel) 00:00:00 Vital Signs Vital Name Observation Time Observation Value Comments Source Body height 2023-01-03 18:20:00 182.9 cm Shanna fishmanbold - External Body weight 2023-01-03 18:20:00 100.699 kg Shanna Conroy eybold - External BMI 2023-01-03 18:20:00 30.11 kg/m2 Shanna Conroy eybold - External Systolic blood 2022-11-03 18:12:00 106 mm[Hg] Shanna Seybold - pressure External Diastolic blood 2022-11-03 18:12:00 68 mm[Hg] Dariuszse y Seybold - pressure External Heart rate 2022-11-03 18:12:00 75 /min Shanna Conroy eybold - External Body temperature 2022-11-03 18:12:00 35.89 Josiane Tawny ey Seybold - External Respiratory rate 2022-11-03 18:12:00 16 /min Tawny fishman Seybold - External Body height 2022-11-03 18:12:00 182.9 cm Shanna fishmanbold - External Body weight 2022-11-03 18:12:00 100.789 kg Shanna Conroy eybold - External BMI 2022-11-03 18:12:00 30.14 kg/m2 Shanna Conroy eybold - External Systolic blood 2022-08-11 15:07:00 112 mm[Hg] Shanna Seybold - pressure External Diastolic blood 2022-08-11 15:07:00 74 mm[Hg] Kelse y Seybold - pressure External Heart rate 2022-08-11 15:07:00 78 /min Shanna Conroy eybold - External Body temperature 2022-08-11 15:07:00 35.89 Josiane Tawny ey Seybold - External Respiratory rate 2022-08-11 15:07:00 15 /min Tawny ey Seybold - External Body height 2022-08-11 15:07:00 182.9 cm Shanna Conroy eybold - External Body weight 2022-08-11 15:07:00 102.967 kg Shanna Conroy eybold - External BMI 2022-08-11 15:07:00 30.79 kg/m2 Shanna Conroy eybold - External Systolic blood 2022-05-20 19:02:00 108 mm[Hg] Shanna Seybold - pressure External Diastolic blood 2022-05-20 19:02:00 70 mm[Hg] Chris sawant Seybold - pressure External Heart rate 2022-05-20 19:02:00 64 /min Shanna Conroy eybold - External Body temperature 2022-05-20 19:02:00 36.72 Josiane Tawny fishman Seybold - External Respiratory rate 2022-05-20 19:02:00 20 /min Tawny fishman Seybold - External Body height 2022-05-20 19:02:00 182.9 cm Shanna Conroy eybold - External Body weight 2022-05-20 19:02:00 104.146 kg Shanna Conroy eybold - External BMI 2022-05-20 19:02:00 31.14 kg/m2 Shanna Conroy eybold - External Oxygen saturation in 2022-05-20 19:02:00 97 /min Shanna Gibbons - Arterial blood by External Pulse oximetry Body weight 2022-04-26 17:28:00 103.511 kg Shanna Conroy eybold - External BMI 2022-04-26 17:28:00 30.11 kg/m2 Shanna Conroy eybold - External Body weight 2022-03-10 14:46:00 102.059 kg Shanna Conroy eybold - External BMI 2022-03-10 14:46:00 29.69 kg/m2 Shanna Conroy eybold - External HEIGHT 2022-02-16 06:27:00 182.9 [...] weight 2021-03-01 17:45:00 97.523 kg Shanna S eybold BMI 2021-03-01 17:45:00 30.85 kg/m2 Shanna S [...] weight 2021-03-01 17:45:00 97.523 kg Shanna S eybold BMI 2021-03-01 17:45:00 30.85 kg/m2 Shanna montero Oxygen saturation in 2021-03-01 17:45:00 98 /min Shanna Gibbons Arterial blood by Pulse oximetry Systolic blood 2022-02-16 11:10:00 136 mm[Hg] [facility] Diastolic blood 2022-02-16 11:10:00 71 mm[Hg] [facility] Heart rate 2022-02-16 11:10:00 98 /min [facility] Respiratory rate 2022-02-16 11:10:00 17 /min [facility] Oxygen saturation in 2022-02-16 11:10:00 96 /min [facility] Arterial blood by Medical Ce nter Pulse oximetry Body temperature 2022-02-16 10:28:00 36.11 Josiane [facility] Body height 2022-02-16 06:27:[address] [facility] Body weight 2022-02-16 06:27:[address] [facility] BMI 2022-02-16 06:27:00 29.84 kg/m2 [facility] Temperature Oral (F) 2015-08-24 18:13:00 98.2 F [facility] Systolic (mm Hg) 2015-08-24 18:13:00 Nicholas rial [place] Diastolic (mm Hg) 2015-08-24 18:13:00 Mem orial [place] Respitory Rate 2015-08-24 18:13:00 [facility] Heart Rate 2015-08-24 18:13:00 [facility] BMI Calculated 2015-08-24 17:17:00 [facility] Weight 2015-08-24 17:17:00 [facility] [place] Height 2015-08-24 17:17:00 180.34 cm [facility] Titi Temperature Oral (F) 2015-08-24 17:17:00 98.1 F [facility] [place] Heart Rate 2015-08-24 17:17:00 [facility] Respitory Rate 2015-08-24 17:17:00 Memori al [place] Systolic (mm Hg) 2015-08-24 17:17:00 Nicholas rial [facility] Diastolic (mm Hg) 2015-08-24 17:17:00 Mem orial [place] Systolic (mm Hg) 2015-02-12 01:09:00 Nicholas rial [place] Diastolic (mm Hg) 2015-02-12 01:09:00 Mem orial [place] Heart Rate 2015-02-12 01:09:00 [facility] Respitory Rate 2015-02-12 01:09:00 Mem[facility] Temperature Oral (F) 2015-02-12 01:09:00 98.5 F [facility] Weight 2015-02-11 23:27:00 [facility] [place] BMI Calculated 2015-02-11 23:27:00 Memori al [facility] Height 2015-02-11 23:27:00 182.88 cm [facility] [place] Temperature Oral (F) 2015-02-11 23:27:00 98.2 F [facility] Respitory Rate 2015-02-11 23:27:00 Memori al [place] Heart Rate 2015-02-11 23:27:00 [facility] [place] Systolic (mm Hg) 2015-02-11 23:27:00 Nicholas rial [place] Diastolic (mm Hg) 2015-02-11 23:27:00 Mem orial [place] Procedures Procedure Date / Time Performed Performing Clinician [facility] e ENDOSCOPIC SINUS 2022-02-16 07:26:00 FranRohan orozco [facility] SURGERY,SEPTOPLASTY Medical [facility] er MAXILLARY ANTROSTOMY, 2022-02-16 07:26:00 FranRohan [facility] ENDOSCOPIC SINUS 2022-02-16 07:26:00 Rohan Peters [facility] SURGERY,ETHMOIDECTOMY Medical nter ENDOSCOPY, PARANASAL 2022-02-16 07:26:00 FranRohan [facility] SINUS, WITH SPHENOID Medical Angie ter SINUSOTOMY EXPLORATION, FRONTAL 2022-02-16 07:26:00 Fran, Rohan [facility] SINUS, ENDOSCOPIC [facility] EXCISION, NASAL 2022-02-16 07:26:00 [facility] Plan of Care Planned Activity Planned [...] [facility] 00:[facility] [code = INFLUENZA Medical Ce nter VACCINE (#1)] Future Scheduled 2021 SHINGLES VACCINES ([address] [facility] 00:00:00 2) [code = SHINGLES [facility] VACCINES (1 of 2)] Future Scheduled 2020-11-03 COVID-19 VACCINE (2 - [facility] 00:[facility]:00 Booster for [facility] series) [code = COVID-19 VACCINE (2 - Booster for Abhijeet series)] Future Scheduled 2006 Lipid panel (procedure) [facility] 00:00:00 [code = 63205544] Medical Ce nter Future Scheduled 1989 HEPATITIS C SCRE[facility]ING [facility] 00:00:00 [code = HEPATITIS C Medical Center SCREENING] Future Scheduled 1971 CT Colonography (combo) [facility] 00:00:00 [code = CT Colonography [facility] (combo)] Future Scheduled 1971 Screening for malignant [facility] 00:00:00 neoplasm of colon Medical Ce nter (procedure) [code = 118665263] Future Scheduled 1971 Screening for malignant [facility] Test 00:00:00 neoplasm of colon Medical Ce nter (procedure) [code = 280107025] Future Scheduled 1971 Screening for malignant [facility] Test 00:00:00 neoplasm of colon Medical Ce nter (procedure) [code = 177391283] Future Scheduled 1971 Screening for malignant [facility] 00:00:00 neoplasm of colon Medical Ce nter (procedure) [code = 383962917] Future Scheduled 1971 Sigmoidoscopy [code = [facility] 00:[facility]00 Sigmoidoscopy] Medical Cente r Encounters Start End Encounter Admission Attending Care Care Encounter Source Date/Time Date/Time Type Type Clinicians Facility Department ID 2023-08-25 2023-08-25 Outpatient SHANNA SIFUENTES [id number] Shanna 13:30:00 13:30:00 OTONIEL Seybol d 2023-04-07 2023-04-07 Outpatient SHANNA DAMON [id number] Shanna 14:15:00 14:15:00 JOHANNA Seybol d 2023-03-24 2023-03-24 Outpatient SHANNA DAMON [id number] Shanna 14:15:00 14:15:00 JOHANNA Seybol d 2023-03-02 2023-03-02 Outpatient SHANNA PIEDRA [id number] Shanna 11:00:00 11:00:00 ADDIE Seybo ld 2023-01-17 2023-01-17 Outpatient SHANNA DAMON [id number] Shanna 00:00:00 00:00:00 JOHANNA Seybol d 2023-01-06 2023-01-06 Outpatient SHANNA OTERO [id number] Shanna 00:00:00 00:00:00 Seybol d 2023-01-03 2023-01-03 Outpatient SHANNA DAMON [id number] Shanna 13:30:00 13:30:00 JOHANNA Seybol d 2023-01-03 2023-01-03 Outpatient DEMETRICE OTERO [id number] Shanna 00:00:00 00:00:00 MD LUIS Seybol d 2022-12-07 2022-12-07 Outpatient SHANNA CASILLAS [id number] Shanna 00:00:00 00:00:00 RUBEN Seybol d 2022-12-01 2022-12-01 Outpatient JOHN GARCIA [id number] Shanna 13:30:00 13:30:00 Seybol d 2022-11-20 2022-11-20 Outpatient SHANNA BASHIR [id number] Shanna 18:05:00 18:05:00 MILINDA Seybol d 2022-11-14 2022-11-14 Outpatient SHANNA SIFUENTES [id number] Shanna 00:00:00 00:00:00 OTONIEL Seybol d 2022-11-07 2022-11-07 Outpatient CHRISTINASHANNA [id number] Shanna 00:00:00 00:00:00 LINDA Seybol d 2022-11-07 2022-11-07 Outpatient OCHOADIANNEIA SHANNA OTERO [id number] Shanna 00:00:00 00:00:00 Seybol d 2022-11-03 2022-11-03 Outpatient SHANNA CASILLAS [id number] Shanna 13:45:00 13:45:00 RUBEN Seybol d 2022-11-03 2022-11-03 Outpatient LAB47 SHANNA OTERO [id number] Shanna 13:00:00 13:00:00 Seybol d 2022-10-30 2022-10-30 Outpatient SHANNA SIFUENTES [id number] Shanna 00:00:00 00:00:00 OTONIEL Seybol d 2022-10-21 2022-10-21 Outpatient PREZASHANNA Conroy [id number] Shanna 00:00:00 00:00:00 SHADY Seybol d 2022-09-25 2022-09-25 Outpatient DON MALISSA SHANNA OTERO [id number] Shanna 21:30:00 21:30:00 Seybol d 2022-09-13 2022-09-13 Outpatient SHANNA CLAROS [id number] Shanna 13:30:00 13:30:00 BAKARI Seybol d 2022-09-12 2022-09-12 Outpatient SHANNA JONES [id number] Shanna 11:15:00 11:15:00 ALEJANDRA Seybo ld 2022-09-06 2022-09-06 Outpatient TRED76 SHANNA OTERO [id number] Shanna 13:45:00 13:45:00 Seybol d 2022-09-06 2022-09-06 Outpatient SHANNA SIFUENTES [id number] Shanna 13:30:00 13:30:00 OTONIEL Seybol d 2022-08-23 2022-08-23 Outpatient PREJIMENA, SHANNA OTERO [id number] Shanna 00:00:00 00:00:00 SHADY Seybol d 2022-08-11 2022-08-11 Outpatient SHANNA PIEDRA [id number] Shanna 10:20:00 10:20:00 ADDIE Seybo ld 2022-08-11 2022-08-11 Outpatient PRESHANNA HESS [id number] Shanna 09:15:00 09:15:00 SHADY Seybol d 2022-08-11 2022-08-11 Outpatient PRESHANNA HESS [id number] Shanna 09:15:00 09:15:00 SHADY Seybol d 2022-07-28 2022-07-28 Outpatient TERRY LOPEZ [id number] Shanna 00:00:00 00:00:00 Seybol d 2022-07-11 2022-07-11 Outpatient DIANNE OCHOAIA SHANNA OTERO [id number] Shanna 21:25:00 21:25:00 Seybol d 2022-07-11 2022-07-11 Outpatient SHANNA TEIXEIRA [id number] Shanna 21:20:00 21:20:00 EVISIT Seybol d 2022-06-22 2022-06-22 Outpatient SHANNA JOSEPH [id number] Shanna 14:15:00 14:15:00 SIRENA Seybol d 2022-06-22 2022-06-22 Outpatient SHANNA TAYLOR [id number] Shanna 00:00:00 00:00:00 IDRIS Seybol d 2022-06-21 2022-06-21 Outpatient SHANNA TAYLOR [id number] Shanna 00:00:00 00:00:00 IDRIS Seybol d 2022-06-21 2022-06-21 Outpatient TERRY LOPEZ [id number] Shanna 00:00:00 00:00:00 Seybol d 2022-06-17 2022-06-17 Emergency EM Jeyson, [facility] JAMAL [id number] [facility] 19:09:00 21:55:00 [facility] 2022-06-02 2022-06-02 Outpatient SHANNA CORCORAN [id number] Shanna 00:00:00 00:00:00 BRAEDEN Seybol d 2022-06-02 2022-06-02 Outpatient MAYRAEVETTEUshaSHANNA [id number] Shanna 00:00:00 00:00:00 IDRIS Seybol d 2022-05-20 2022-05-20 Outpatient SHANNA CORCORAN [id number] Shanna 13:00:00 13:00:00 BRAEDEN Seybol d 2022-05-20 2022-05-20 Outpatient COVID-PFIZE SHANNA OTERO [id number] Shanna 10:00:00 10:00:00 R MICHAEL Seybol d [place] 2022-05-19 2022-05-19 Outpatient TA MCCRAY [id number] Shanna 10:15:00 10:15:00 Seybol d 2022-05-03 2022-05-03 Outpatient FRANROHAN Orozco [id number] Shanna 00:00:00 00:00:00 Seybol d 2022-04-28 2022-04-28 Outpatient GABEADAMMica OTERO [id number] Shanna 00:00:00 00:00:00 MD LUIS Seybol d 2022-04-27 2022-04-27 Outpatient ROHAN PETERS [id number] Shanna 00:00:00 00:00:00 Seybol d 2022-04-26 2022-04-26 Outpatient AAD13-WII SHANNA OTERO [id number] Shanna 15:05:00 15:05:00 Seybol d 2022-04-26 2022-04-26 Outpatient ROHAN PETERS [id number] Shanna 11:45:00 11:45:00 Seybol d 2022-04-25 2022-04-25 Outpatient FRANROHAN Orozco [id number] Shanna 00:00:00 00:00:00 Seybol d 2022-04-13 2022-04-13 Outpatient DEMETRICE SHANNA OTERO [id number] Shanna 00:00:00 00:00:00 MD LUIS Seybol d 2022-04-13 2022-04-13 Outpatient ERNESTO SHANNA OTERO [id number] Shanna 00:00:00 00:00:00 Seybol d 2022-04-06 2022-04-06 Outpatient SHANNA TAYLOR [id number] Shanna 00:00:00 00:00:00 IDRIS Seybol d 2022-03-25 2022-03-25 Outpatient SHANNA TAYLOR [id number] Shanna 14:00:00 14:00:00 IDRIS Seybol d 2022-03-25 2022-03-25 Outpatient FRANROHAN Orozco [id number] Shanna 13:30:00 13:30:00 Seybol d 2022-03-16 2022-03-16 Outpatient FRANROHAN [id number] Shanna 00:00:00 00:00:00 Seybol d 2022-03-14 2022-03-14 Outpatient MOORECLIVE Lombardo [id number] Shanna 16:45:00 16:45:00 Seybol d 2022-03-10 2022-03-10 Outpatient ROHAN PETERS [id number] Shanna 09:45:00 09:45:00 Seybol d 2022-03-10 2022-03-10 Outpatient SHANNA CRESPO [id number] Shanna 00:00:00 00:00:00 JOHANNA Seybol d 2022-02-26 2022-02-26 Outpatient SHANNA TAYLOR [id number] Shanna 00:00:00 00:00:00 IDRIS Seybol d 2022-02-25 2022-02-25 Outpatient FRANROHAN Orozco [id number] Shanna 00:00:00 00:00:00 Seybol d 2022-02-24 2022-02-24 Outpatient FRANROHAN [id number] Shanna 14:00:00 14:00:00 Seybol d 2022-02-16 2022-02-16 Outpatient ROHAN PETERS SHANNA OTERO [id number] Shanna 12:00:00 12:00:00 Seybol d 2022-02-16 2022-02-16 [facility] Rohan Peters [facility] [id number] 06:04:00 11:27:00 Encounter [facility] 2022-02-16 2022-02-16 Outpatient ROHAN PETERS [facility] Surgery [id number] [facility] 06:04:00 11:27:00 2022-02-16 2022-02-16 Surgery Rohan Peters [facility] [id number] 07:30:00 11:00:00 [facility] 2022-02-16 2022-02-16 Outpatient FRAN ROHAN SHANNA OTERO [id number] Shanna 00:00:00 00:00:00 Seybol d 2022-02-16 [id number]00 [facility] 2022-02-11 2022-02-11 Outpatient SWABKIRSTEN [id number] Shanna 16:10:00 16:10:00 Seybol d 2022-02-11 2022-02-11 Outpatient YOO87-RNY SHANNA OTERO [id number] Shanna 14:40:00 14:40:00 Seybol d 2022-02-11 2022-02-11 Outpatient LAB53 SHANNA OTERO [id number] Shanna 14:15:00 14:15:00 Seybol d 2022-02-11 2022-02-11 Outpatient TRED53 SHANNA OTERO [id number] Shanna 13:45:00 13:45:00 Seybol d 2022-02-08 2022-02-08 Outpatient MYKELSEYONL SHANNA OTERO [id number] Shanna 00:00:00 00:00:00 MD LUIS Seybol d 2022-02-07 2022-02-07 Outpatient ROHAN PETERS [id number] Shanna 10:15:00 10:15:00 Seybol d 2022-02-06 2022-02-06 Outpatient ROHAN PETERS [id number] Shanna 00:00:00 00:00:00 Seybol d 2022-01-27 2022-01-27 [facility] [id number] [facility] 14:23:39 23:59:00 [facility] 2022-01-27 2022-01-27 Outpatient [facility] [id number] [facility] 14:23:39 23:59:00 2022-01-27 2022-01-27 Outpatient ROHAN PETERS [id number] Shanna 08:00:00 08:00:00 Seybol d 2021-12-29 2021-12-29 Outpatient SHANNA PARKER [id number] Shanna 10:15:00 10:15:00 MARCOS Seybol d 2021-12-08 2021-12-08 Outpatient DEMETRICE OTERO [id number] Shanna 00:00:00 00:00:00 MD LUIS Seybol d 2021-12-07 2021-12-07 Outpatient ROHAN PETERS [id number] Shanna 10:30:00 10:30:00 Seybol d 2021-12-02 2021-12-02 Outpatient SHANNA TREVINO [id number] Shanna 00:00:00 00:00:00 TERRY Seybol d 2021-12-02 2021-12-02 Outpatient SHANNA DAMON [id number] Shanna 00:00:00 00:00:00 JOHANNA Seybol d 2021-11-23 2021-11-23 [facility] TABBY Damon [id number] Shanna 15:00:00 15:02:20 ny Johanna [facility] [id number] Seybold Ektanotamiko [id number] 2021-11-23 2021-11-23 Outpatient DEMETRICE OTERO [id number] Shanna 00:00:00 00:00:00 MD LUIS Seybol d 2021-11-23 2021-11-23 Outpatient SHANNA DAMON [id number] Shanna 00:00:00 00:00:00 JOHANNA Seybol d 2021-11-10 2021-11-10 Outpatient SHANNA CRESPO [id number] Shanna 00:00:00 00:00:00 JOHANNA Seybol d 2021-11-05 2021-11-05 Outpatient SHANNA OTERO [id number] Shanna 11:00:00 11:00:00 Seybol d 2021-11-05 2021-11-05 Outpatient SHANNA DAMON [id number] Shanna 00:00:00 00:00:00 JOHANNA Seybol d 2021-11-04 2021-11-04 Outpatient SHANNA OTERO [id number] Shanna 13:00:00 13:00:00 Seybol d 2021-11-04 2021-11-04 Outpatient LAB39 SHANNA OTERO [id number] Shanna 12:00:00 12:00:00 Seybol d 2021-11-04 2021-11-04 Office Terry Lopez [id number] Shanna 11:30:00 11:45:00 Visit [facility] [id number] Se ybold [id number] 2021-11-03 2021-11-03 Outpatient SHANNA TAYLOR [id number] Shanna 00:00:00 00:00:00 IDRIS Seybol d 2021-11-02 2021-11-02 Outpatient SHANNA DAMON [id number] Shanna 15:45:00 15:45:00 JOHANNA Seybol d 2021-10-25 2021-10-25 Outpatient SHANNA PIEDRA [id number] Shanna 13:00:00 13:00:00 ADDIE Seybo ld 2021-10-25 2021-10-25 Outpatient SHANNA DAMON [id number] Shanna 00:00:00 00:00:00 JOHANNA Seybol d 2021-10-13 2021-10-13 Office TABBY Damon [id number] Shanna 14:15:00 14:30:00 Visit Johanna ENRIQUEZ [id number] Edwige Alford [id number] 2021-10-13 2021-10-13 Outpatient GABEADAMMica OTERO [id number] Shanna 00:00:00 00:00:00 MD LUIS Seybol d 2021-10-08 2021-10-08 Outpatient TERRY LOPEZ [id number] Shanna 11:30:00 11:30:00 Seybol d 2021-09-17 2021-09-17 Outpatient SHANNA CRESPO [id number] Shanna 00:00:00 00:00:00 JOHANNA Seybol d 2021-09-16 2021-09-16 Outpatient SHANNA CRESPO [id number] Shanna 00:00:00 00:00:00 JOHANNA Seybol d 2021-09-06 2021-09-06 Outpatient SHANNA CRESPO [id number] Shanna 00:00:00 00:00:00 JOHANNA Seybol d 2021-09-03 2021-09-03 Outpatient SHANNA OTERO [id number] Shanna 10:15:00 10:15:00 Seybol d 2021-09-03 2021-09-03 Outpatient [facility] SHANNA OTERO [id number] Shanna 09:25:00 09:25:00 Seybol d 2021-09-02 2021-09-02 Outpatient SHANNA OTERO [id number] Shanna 15:45:00 15:45:00 Seybol d 2021-09-02 2021-09-02 Outpatient SHANNA CRESPO [id number] Shanna 00:00:00 00:00:00 JOHANNA Seybol d 2021-09-02 2021-09-02 Outpatient SHANNA CRESPO [id number] Shanna 00:00:00 00:00:00 JOHANNA Seybol d 2021-09-02 2021-09-02 Outpatient HITESHSHANNA [id number] Shanna 00:00:00 00:00:00 RICHIE Hamptonyaakov fink 2021-08-30 2021-08-30 Office [place] [id number] Shanna 10:30:00 11:00:00 Visit Johanna ARIAS 350.1.13.13 Se ybold [id number] [id number] 2021-08-12 2021-08-12 Outpatient TERRY LOPEZ [id number] Shanna 00:00:00 00:00:00 Seybol d 2021-08-11 2021-08-11 Outpatient SHANNA ORDONEZ [id number] Shanna 00:00:00 00:00:00 KAM Seybol d 2021-08-01 2021-08-01 Outpatient SHANNA ORDONEZ [id number] Shanna 00:00:00 00:00:00 KAM Seybol rebecca 2021-07-29 2021-07-29 E-Visit CEASARRAQUEL HERNANDES [id number] Shanna 10:15:00 10:15:00 ESPERANZA MARCOS 350.1.13.13 Se ybold [id number] [id number] 2021-07-02 2021-07-02 Telemedici TAYLOR TREVINO [id number] Shanna 11:30:00 11:30:00 ne TERRY 350.1.13.13 Se ybold 1.2.7.2.686 [id number] 2021-07-02 2021-07-02 Outpatient SHANNA TREVINO [id number] Shanna 00:00:00 00:00:00 TERRY Hamptonol d 2021-07-01 2021-07-01 Outpatient SHANNA TAYLOR [id number] Shanna 00:00:00 00:00:00 IDRIS Seybol rebecca 2021-06-14 2021-06-14 Outpatient SHANNA TAYLOR [id number] Shanna 00:00:00 00:00:00 IDRIS Seybol d 2021-06-14 2021-06-14 Outpatient CHRISTINA SHANNA OTERO [id number] Shanna 00:00:00 00:00:00 LINDA Seybol d 2021-06-14 2021-06-14 Outpatient JOSÉ LUIS SHANNA OTERO [id number] Shanna 00:00:00 00:00:00 KAM Seybol d 2021-06-03 2021-06-03 Outpatient ARSLAN SHANNA OTERO [id number] Shanna 14:45:00 14:45:00 PHUONG Seybol d 2021-04-28 2021-04-28 Office TAYLOR Taylor [id number] Shanna 11:06:32 11:21:32 Visit Idris Wood 350.1.13.13 S sravanthibodanae 1.2.7.2.686 [id number] 2021-03-22 2021-03-22 E-Visit John MAIN [id number] [id number] 12:53:49 12:55:37 [facility] 350.1.13.13 1.2.7.2.686 [id number] 2021-03-22 2021-03-22 E-Visit John MAIN [id number] Shanna 12:53:49 12:55:37 [facility] 350.1.13.13 Se ybold [id number] [id number] 2021-03-21 2021-03-21 E-Visit Dorcas MAIN 1.2.840.114 [id number] 11:50:08 11:54:28 [facility] [id number] 1.2.7.2.686 [id number] 2021-03-21 2021-03-21 E-Visit Racheldanielneris MAIN 1.2.840.114 [id number] Shanna 11:50:08 11:54:28 [facility] [id number] Se ybold 1.2.7.2.686 [id number] 2021-03-18 2021-03-18 Outpatient SHANNA SHANNA [id number] Shanna 15:15:00 15:15:00 Seybol d 2021-03-18 2021-03-18 Outpatient SHANNA SHANNA [id number] Shanna 14:30:00 14:30:00 Seybol d 2021-03-18 2021-03-18 Outpatient CHRISTINA SHANNA OTERO [id number] Shanna 00:00:00 00:00:00 LINDA Seybol d 2021-03-01 2021-03-01 Outpatient LAB SHANNA SHANNA [id number] Shanna 13:45:00 13:45:00 Seybol d 2021-03-01 2021-03-01 Office TAYLOR Vasquez 1.2.840.114 [id number] 12:40:17 13:10:17 Visit Linda 350.1.13.13 Lindsay 1.2.7.2.686 [id number] 2021-03-01 2021-03-01 Office TAYLOR Vasquez 1.2.840.114 [id number] Shanna 12:40:17 13:10:17 Visit Linda 350.1.13.13 Se ybold Lindsay 1.2.7.2.686 [id number] 2021-01-13 2021-01-13 Outpatient SHANNA TAYLOR [id number] Shanna 00:00:00 00:00:00 IDRIS Seybol d 2020-12-23 2020-12-23 Outpatient SHANNA TAYLOR [id number] Shanna 00:00:00 00:00:00 IDRIS Seybol d 2017-09-18 2017-09-19 [facility] nullFlavo [facility] 069 [id number] Memoria 18:22:00 04:59:00 n Patient r Connor matamoros Titi 2017-09-18 2017-09-19 [facility] nullFlavo [facility] [id number] Memoria 18:22:00 04:59:00 n Patient r Connor matamoros Titi 2017-09-18 2017-09-18 Outpatient Physician, 2.16.840. 2.16.840.1 . [id number] 13:22:00 23:59:00 Non [id number] Associated 3.615.54 5.54 2017-09-18 2017-09-18 Outpatient Physician, 2.16.840. 2.16.840.1 . [id number] 13:22:00 23:59:00 Non [id number] Associated 3.615.54 5.54 2015-08-24 2015-08-24 EC nullFlavo [facility] [id number] Memoria 17:03:00 18:43:00 Emergency r [place] 01 l [facility] 2015-08-24 2015-08-24 EC nullFlavo [facility] [id number] Memoria 17:03:00 18:43:00 Emergency r [place] 01 l [facility] 2015-08-24 2015-08-24 Outpatient Jones, MHSE MHSE [id number] 12:03:00 13:43:00 May [facility] 2015-02-11 2015-02-12 EC nullFlavo [facility] [id number] Memoria 23:18:00 01:15:00 Emergency r [place] 00 l [facility] 2015-02-11 2015-02-12 EC nullFlavo [facility] [id number] Memoria 23:18:00 01:15:00 Emergency r [place] 00 l [facility] 2015-02-11 2015-02-11 Outpatient Blunt, Cat MHSE MHSE [id number] 18:18:00 20:15:00 Jaleel 00 Results Test Description Test Time Test Comments Results Result Comments Source CHEM PANEL 2015-08-24 17:39:00 Test Item Value Reference Range Interpretation Comme nts Total Protein (test code = Total Protein) 7.9 6.4-8.4 [facility] [id number] 17:39:00 Test Item Value Reference Range Interpretation Comments Creatinine Lvl (test code = Creatinine 1.34 0.50-1.40 Lvl) [facility] [id number] 17:39:00 Test Item Value Reference Range Interpretation Comments BUN (test code = BUN) 15 7- [facility] [id number] 17:39:00 Test Item Value Reference Range Interpretation Comments Chloride Lvl (test code = Chloride Lvl) 104 95-[address] [facility]2016-03-14 17:39:00 Test Item Value Reference Range Interpretation Comments Sodium Lvl (test code = Sodium Lvl) 138 135-[address] [facility]2016-03-14 17:39:00 Test Item Value Reference Range Interpretation Comments Potassium Lvl (test code = Potassium 4.0 3.5-5.1 Lvl) [facility]2016-03-14 17:39:00 Test Item Value Reference Range Interpretation Comments Albumin Lvl (test code = Albumin Lvl) 3.8 3.5-5.[address] [facility]2016-03-14 17:39:00 Test Item Value Reference Range Interpretation Comments Glucose Lvl (test code = Glucose Lvl) 97 70-[address] [facility]2016-03-14 17:39:00 Test Item Value Reference Range Interpretation Comments AST (test code = AST) 28 See_Comment [Auto mated message] The system which ge nerated this result transmit hudson reference range : <=37. The reference range was not used to interpr et this result as missy l/abnormal. [facility]2016-03-14 17:39:00 Test Item Value Reference Range Interpretation Comments Alk Phos (test code = Alk Phos) 94 39-[address] [facility]2016-03-14 17:39:00 Test Item Value Reference Range Interpretation Comments ALT (test code = ALT) 56 See_Comment [Auto mated message] The system which ge nerated this result transmit hudson reference range : <=65. The reference range was not used to interpr et this result as missy l/abnormal. [facility]2016-03-14 17:39:00 Test Item Value Reference Range Interpretation Comments Magnesium Lvl (test code = Magnesium 2.1 1.8-2.4 Lvl) [facility]dtdqsuMWWPJDIZJE5751-04-44 17:39:00 Test Item Value Reference Range Interpretation Comments Segs-Bands # (test code = Segs-Bands #) 7.4 1.5-8.1 [facility]roeZshcpplKNVYRRYZHY9912-98-10 17:39:00 Test Item Value Reference Range Interpretation Comments Monocytes (test code = Monocytes) 5.8 2.0-12.0 [facility]roeAnvebqmSPRXFDVXTB6965-14-34 17:39:00 Test Item Value Reference Range Interpretation Comments Lymphocytes # (test code = Lymphocytes 1.4 1.0-5.5 #) [facility]roeSjywjzePKEYCHNRSA4566-17-86 17:39:00 Test Item Value Reference Range Interpretation Comments Eosinophils (test code = 2.1 See_Comment [A utomated message] The Eosinophils) system which ge nerated this result tra nsmitted reference range : <=4.0. The reference r ania was not used to int erpret this result as normal/abnormal . [facility]roeJcogalkRTIVHTNZYG9524-22-54 17:39:00 Test Item Value Reference Range Interpretation Comments Basophils (test code = 0.6 See_Comment [Aut omated message] The Basophils) system which ge nerated this result tra nsmitted reference range : <=1.0. The reference r ania was not used to int erpret this result as normal/abnormal . [facility]roeLunmqyaZTCCXFADZJ3145-57-14 17:39:00 Test Item Value Reference Range Interpretation Comments Segs (test code = Segs) 76.6 45.0-75.0 [facility]roeRdkpgcyOVCOPOUKHC4924-76-02 17:39:00 Test Item Value Reference Range Interpretation Comments Lymphocytes (test code = Lymphocytes) 14.9 20.0-40.0 [facility]roeCiukmauVVMCTJFEFY4146-22-84 17:39:00 Test Item Value Reference Range Interpretation Comments Monocytes # (test code 0.6 See_Comment [Aut omated message] The = Monocytes #) system which generated this result tra nsmitted reference range : <=0.8. The reference r ania was not used to int erpret this result as normal/abnormal . [facility]roeGhslupkKYJDNOPSOD3521-45-44 17:39:00 Test Item Value Reference Range Interpretation Comments Basophils # (test code 0.1 See_Comment [Aut omated message] The = Basophils #) system which generated this result tra nsmitted reference range : <=0.2. The reference r ania was not used to int erpret this result as normal/abnormal . [facility]roeAehqhphHOIPEDOITS2879-06-27 17:39:00 Test Item Value Reference Range Interpretation Comments Eosinophils # (test code 0.2 See_Comment [A utomated message] The = Eosinophils #) system whic h generated this result tra nsmitted reference range : <=0.5. The reference r ania was not used to int erpret this result as normal/abnormal . [facility]roeZvybkdxWNLCBTMQWX0760-87-73 17:39:00 Test Item Value Reference Range Interpretation Comments WBC (test code = WBC) 9.7 3.7-10.4 [facility]roeYwwpogwUGRKRIYZHV5829-18-74 17:39:00 Test Item Value Reference Range Interpretation Comments RBC (test code = RBC) 5.02 4.70-6.10 [facility]hhy[facility]udMXOYGWIJRO7153-64-11 17:39:00 Test Item Value Reference Range Interpretation Comments RDW (test code = RDW) 13.6 11.5-14.5 [facility]roeMtcdgloXZZAPDKQYY9297-34-08 17:39:00 Test Item Value Reference Range Interpretation Comments Platelet (test code = Platelet) 162 133-450 [facility]roeEmfmnxwCRYWAUYZIR6865-45-18 17:39:00 Test Item Value Reference Range Interpretation Comments MPV (test code = MPV) 8.2 7.4-10.4 [facility] HospitalUaavqlpZFEMMOFBSG6182-58-02 17:39:00 Test Item Value Reference Range Interpretation Comments Hgb (test code = Hgb) 15.0 14.0-18.0 [facility] HospitalDvptqrdKAOLBZXTWZ9987-70-80 17:39:00 Test Item Value Reference Range Interpretation Comments Hct (test code = Hct) 44.0 42.0-54.0 [facility] HospitalBbfyaouKZPXRXOVFN1569-94-07 17:39:00 Test Item Value Reference Range Interpretation Comments MCV (test code = MCV) 87.7 80.0-94.0 [facility] HospitalXyjaeulFTRPYSDTHG0356-97-42 17:39:00 Test Item Value Reference Range Interpretation Comments MCH (test code = MCH) 29.9 pg 27.0-31.0 [facility] HospitalKvfczjyWXUHRIJCND0040-13-44 17:39:00 Test Item Value Reference Range Interpretation Comments MCHC (test code = MCHC) 34.1 32.0-36.0 [facility] [id number] 17:39:00 Test Item Value Reference Range Interpretation Comments CK MB Index (test 0.4 See_Comment [Automate d message] The code = CK MB Index) system w [facility] generated this result transmit hudson reference range : <=2.5. The reference range was not used to interpr et this result as missy l/abnormal. [facility] AlmondNetannCAREZDOCTORAC [id number] 17:39:00 Test Item Value Reference Range Interpretation Comments Total CK (test code = Total CK) 141 12-191 [facility] AlmondNetannCAREZDOCTORAC PNEIGLN5485-07-16 17:39:00 Test Item Value Reference Range Interpretation Comments CK MB (test code = CK MB) 0.6 0.5-3.6 [facility]mondNetannCARDIAC [id number] 17:39:00 Test Item Value Reference Range Interpretation Comments Troponin-I (test code no gt See_Comment [Auto mated message] The = Troponin-I) system which g enerated this result transmit hudson reference range : <=0.40. The reference r ania was not used to interpr et this result as missy l/abnormal. [facility] [employer] [id number] 17:39:00 Test Item Value Reference Range Interpretation Comments A/G Ratio (test code = A/G Ratio) 0.9 0.7-1.6 [facility] [employer] [id number] 17:39:00 Test Item Value Reference Range Interpretation Comments eGFR (test code = eGFR) 64 [facility] [employer] [id number] 17:39:00 Test Item Value Reference Range Interpretation Comments B/C Ratio (test code = B/C Ratio) 11 6-25 [facility] [employer] [id number] 17:39:00 Test Item Value Reference Range Interpretation Comments AGAP (test code = AGAP) 9.0 10.0-20.0 [facility] [employer] [id number] 17:39:00 Test Item Value Reference Range Interpretation Comments Globulin (test code = Globulin) 4.1 2.0-4.0 [facility] [employer] [id number] 17:39:00 Test Item Value Reference Range Interpretation Comments Bili Total (test code = Bili Total) 0.5 0.2-1.3 [facility] [employer] [id number] 17:39:00 Test Item Value Reference Range Interpretation Comments CO2 (test code = CO2) 29 24-32 [facility] [employer] [id number] 17:39:00 Test Item Value Reference Range Interpretation Comments Calcium Lvl (test code = Calcium Lvl) 8.3 8.5-10.[address] [facility]2016-03-14 17:39:00 Test Item Value Reference Range Interpretation Comments Total Protein (test code = Total 7.9 6.4-8.4 Protein) [place] [id number] 17:39:00 Test Item Value Reference Range Interpretation Comments Creatinine Lvl (test code = Creatinine 1.34 0.50-1.40 Lvl) [place] [id number] 17:39:00 Test Item Value Reference Range Interpretation Comments BUN (test code = BUN) 15 7-22 [place] [id number] 17:39:00 Test Item Value Reference Range Interpretation Comments Chloride Lvl (test code = Chloride Lvl) 104 95-[address] [facility]2016-03-14 17:39:00 Test Item Value Reference Range Interpretation Comments Sodium Lvl (test code = Sodium Lvl) 138 135-[address] [facility]2016-03-14 17:39:00 Test Item Value Reference Range Interpretation Comments Potassium Lvl (test code = Potassium 4.0 3.5-5.1 Lvl) [facility]2016-03-14 17:39:00 Test Item Value Reference Range Interpretation Comments Albumin Lvl (test code = Albumin Lvl) 3.8 3.5-5.[address] [facility]2016-03-14 17:39:00 Test Item Value Reference Range Interpretation Comments Glucose Lvl (test code = Glucose Lvl) 97 70-99 [place] 984516-03-14 17:39:00 Test Item Value Reference Range Interpretation Comments AST (test code = AST) 28 See_Comment [Auto mated message] The system which ge nerated this result transmit hudson reference range : <=37. The reference range was not used to interpr et this result as missy l/abnormal. [facility]2016-03-14 17:39:00 Test Item Value Reference Range Interpretation Comments Alk Phos (test code = Alk Phos) 94 39-136 [place] 984516-03-14 17:39:00 Test Item Value Reference Range Interpretation Comments ALT (test code = ALT) 56 See_Comment [Auto mated message] The system which ge nerated this result transmit hudson reference range : <=65. The reference range was not used to interpr et this result as missy l/abnormal. [facility]2016-03-14 17:39:00 Test Item Value Reference Range Interpretation Comments Magnesium Lvl (test code = Magnesium 2.1 1.8-2.4 Lvl) [facility]HbdmfsfHIRSNPQPNW8414-07-79 17:39:00 Test Item Value Reference Range Interpretation Comments Segs-Bands # (test code = Segs-Bands #) 7.4 1.5-8.1 [facility]roeBdwlgezTZFLDDQHDD0766-73-94 17:39:00 Test Item Value Reference Range Interpretation Comments Monocytes (test code = Monocytes) 5.8 2.0-12.0 [facility]roeNrlmtgxXNXOQJLDPR7172-08-18 17:39:00 Test Item Value Reference Range Interpretation Comments Lymphocytes # (test code = Lymphocytes 1.4 1.0-5.5 #) [facility]roeDjujbyeXJTLTYTPOQ9533-83-30 17:39:00 Test Item Value Reference Range Interpretation Comments Eosinophils (test code = 2.1 See_Comment [A utomated message] The Eosinophils) system which ge nerated this result tra nsmitted reference range : <=4.0. The reference r ania was not used to int erpret this result as normal/abnormal . [facility]roeKgqrwzyAETBLLUTMX1121-47-43 17:39:00 Test Item Value Reference Range Interpretation Comments Basophils (test code = 0.6 See_Comment [Aut omated message] The Basophils) system which ge nerated this result tra nsmitted reference range : <=1.0. The reference r ania was not used to int erpret this result as normal/abnormal . [facility]roeFkecdguZJRMRWMFUX9174-11-22 17:39:00 Test Item Value Reference Range Interpretation Comments Segs (test code = Segs) 76.6 45.0-75.0 [facility]roeYezdwnqPCAXNPSMFE7082-98-84 17:39:00 Test Item Value Reference Range Interpretation Comments Lymphocytes (test code = Lymphocytes) 14.9 20.0-40.0 [facility]roeYaxrnyrTADDYLNRIA5634-15-60 17:39:00 Test Item Value Reference Range Interpretation Comments Monocytes # (test code 0.6 See_Comment [Aut omated message] The = Monocytes #) system which generated this result tra nsmitted reference range : <=0.8. The reference r ania was not used to int erpret this result as normal/abnormal . [facility]roeJjglmkaESKNFTSOZE9971-51-59 17:39:00 Test Item Value Reference Range Interpretation Comments Basophils # (test code 0.1 See_Comment [Aut omated message] The = Basophils #) system which generated this result tra nsmitted reference range : <=0.2. The reference r ania was not used to int erpret this result as normal/abnormal . [facility]roeWtqomslTTBCPBKKHU9234-47-83 17:39:00 Test Item Value Reference Range Interpretation Comments Eosinophils # (test code 0.2 See_Comment [A utomated message] The = Eosinophils #) system whic h generated this result tra nsmitted reference range : <=0.5. The reference r ania was not used to int erpret this result as normal/abnormal . [facility]roeGhdcbivPMIRHXUWGP3582-99-04 17:39:00 Test Item Value Reference Range Interpretation Comments WBC (test code = WBC) 9.7 3.7-10.4 [facility]roeHprlmcsHWBRXWTPVN3026-55-70 17:39:00 Test Item Value Reference Range Interpretation Comments RBC (test code = RBC) 5.02 4.70-6.10 [facility]roeTgmtprlHZAWMNIJOD2829-83-85 17:39:00 Test Item Value Reference Range Interpretation Comments RDW (test code = RDW) 13.6 11.5-14.5 [facility]roeWlohmvaGIYWBLVHJQ7343-93-39 17:39:00 Test Item Value Reference Range Interpretation Comments Platelet (test code = Platelet) 162 133-450 [facility]roeWkprjymCPMLKNOXTG8806-36-40 17:39:00 Test Item Value Reference Range Interpretation Comments MPV (test code = MPV) 8.2 7.4-10.4 [facility]roePsrmuneHNNNCBYSFG5823-91-91 17:39:00 Test Item Value Reference Range Interpretation Comments Hgb (test code = Hgb) 15.0 14.0-18.0 [facility]roeSgfkrixLBGMJARDOI9450-55-60 17:39:00 Test Item Value Reference Range Interpretation Comments Hct (test code = Hct) 44.0 42.0-54.0 [facility]roeWqkqdhpFKACWDSAJT7993-77-21 17:39:00 Test Item Value Reference Range Interpretation Comments MCV (test code = MCV) 87.7 80.0-94.0 [facility] XcfohrtDBUABISUET5714-51-53 17:39:00 Test Item Value Reference Range Interpretation Comments MCH (test code = MCH) 29.9 pg 27.0-31.0 [facility] UtivjqlJLKSCQMOCV5252-74-18 17:39:00 Test Item Value Reference Range Interpretation Comments MCHC (test code = MCHC) 34.1 32.0-36.0 [facility] AlmondNetannAudioSnapsAC CONSVCC8401-27-93 17:39:00 Test Item Value Reference Range Interpretation Comments CK MB Index (test 0.4 See_Comment [Automate d message] The code = CK MB Index) system w [employer] generated this result transmit hudson reference range : <=2.5. The reference range was not used to interpr et this result as missy l/abnormal. [facility] BERDAC [id number] 17:39:00 Test Item Value Reference Range Interpretation Comments Total CK (test code = Total CK) 141 12-191 [facility] BERDAC [id number] 17:39:00 Test Item Value Reference Range Interpretation Comments CK MB (test code = CK MB) 0.6 0.5-3.6 [facility] AlmondNetannCAREZDOCTORAC [id number] 17:39:00 Test Item Value Reference Range Interpretation Comments Troponin-I (test code no gt See_Comment [Auto mated message] The = Troponin-I) system which g enerated this result transmit hudson reference range : <=0.40. The reference r ania was not used to interpr et this result as missy l/abnormal. [facility] TaodangpuCHEM [id number] 17:39:00 Test Item Value Reference Range Interpretation Comments A/G Ratio (test code = A/G Ratio) 0.9 0.7-1.6 [facility] AlmondNetannCHEM [id number] 17:39:00 Test Item Value Reference Range Interpretation Comments eGFR (test code = eGFR) 64 [facility] AlmondNetannCAREZDOCTORAC [id number] 17:39:00 Test Item Value Reference Range Interpretation Comments CK MB Index (test 0.4 See_Comment [Automate d message] The code = CK MB Index) system w [employer] generated this result transmit hudson reference range : <=2.5. The reference range was not used to interpr et this result as missy l/abnormal. [facility] AlmondNetannCARDIAC [id number] 17:39:00 Test Item Value Reference Range Interpretation Comments Total CK (test code = Total CK) 141 12-191 [facility]mondNetannDem[employer] [id number] 17:39:00 Test Item Value Reference Range Interpretation Comments B/C Ratio (test code = B/C Ratio) 11 6-25 [facility] [id number] 17:39:00 Test Item Value Reference Range Interpretation Comments CK MB (test code = CK MB) 0.6 0.5-3.6 [facility] [id number] 17:39:00 Test Item Value Reference Range Interpretation Comments Troponin-I (test code no gt See_Comment [Auto mated message] The = Troponin-I) system which g enerated this result transmit hudson reference range : <=0.40. The reference r ania was not used to interpr et this result as missy l/abnormal. [facility] [employer] [id number] 17:39:00 Test Item Value Reference Range Interpretation Comments A/G Ratio (test code = A/G Ratio) 0.9 0.7-1.6 [facility] [id number] 17:39:00 Test Item Value Reference Range Interpretation Comments eGFR (test code = eGFR) 64 [facility] [id number] 17:39:00 Test Item Value Reference Range Interpretation Comments B/C Ratio (test code = B/C Ratio) 11 6-25 [facility] [employer] [id number] 17:39:00 Test Item Value Reference Range Interpretation Comments AGAP (test code = AGAP) 9.0 10.0-20.0 [facility] [employer] [id number] 17:39:00 Test Item Value Reference Range Interpretation Comments Globulin (test code = Globulin) 4.1 2.0-4.0 [facility] [id number] 17:39:00 Test Item Value Reference Range Interpretation Comments Bili Total (test code = Bili Total) 0.5 0.2-1.3 [facility] [employer] [id number] 17:39:00 Test Item Value Reference Range Interpretation Comments CO2 (test code = CO2) 29 24-32 [place] 984516-03-14 17:39:00 Test Item Value Reference Range Interpretation Comments Calcium Lvl (test code = Calcium Lvl) 8.3 8.5-10.5 [place] 984516-03-14 17:39:00 Test Item Value Reference Range Interpretation Comments AGAP (test code = AGAP) 9.0 10.0-20.0 [place] 984516-03-14 17:39:00 Test Item Value Reference Range Interpretation Comments Total Protein (test code = Total 7.9 6.4-8.4 Protein) [facility]2016-03-14 17:39:00 Test Item Value Reference Range Interpretation Comments Creatinine Lvl (test code = Creatinine 1.34 0.50-1.40 Lvl) [place] 984516-03-14 17:39:00 Test Item Value Reference Range Interpretation Comments BUN (test code = BUN) 15 7-[address] [facility]2016-03-14 17:39:00 Test Item Value Reference Range Interpretation Comments Chloride Lvl (test code = Chloride Lvl) 104 95-[address] [facility]2016-03-14 17:39:00 Test Item Value Reference Range Interpretation Comments Sodium Lvl (test code = Sodium Lvl) 138 135-[address] [facility]2016-03-14 17:39:00 Test Item Value Reference Range Interpretation Comments Potassium Lvl (test code = Potassium 4.0 3.5-5.1 Lvl) [facility]2016-03-14 17:39:00 Test Item Value Reference Range Interpretation Comments Albumin Lvl (test code = Albumin Lvl) 3.8 3.5-5.0 [place] 984516-03-14 17:39:00 Test Item Value Reference Range Interpretation Comments Glucose Lvl (test code = Glucose Lvl) 97 70-[address] [facility]2016-03-14 17:39:00 Test Item Value Reference Range Interpretation Comments AST (test code = AST) 28 See_Comment [Auto mated message] The system which ge nerated this result transmit hudson reference range : <=37. The reference range was not used to interpr et this result as missy l/abnormal. [place] 984516-03-14 17:39:00 Test Item Value Reference Range Interpretation Comments Alk Phos (test code = Alk Phos) 94 39-[address] [facility]2016-03-14 17:39:00 Test Item Value Reference Range Interpretation Comments Globulin (test code = Globulin) 4.1 2.0-4.0 [place] [id number] 17:39:00 Test Item Value Reference Range Interpretation Comments ALT (test code = ALT) 56 See_Comment [Auto mated message] The system which ge nerated this result transmit hudson reference range : <=65. The reference range was not used to interpr et this result as missy l/abnormal. [facility]2016-03-14 17:39:00 Test Item Value Reference Range Interpretation Comments Magnesium Lvl (test code = Magnesium 2.1 1.8-2.4 Lvl) [place] [id number] 17:39:00 Test Item Value Reference Range Interpretation Comments Segs-Bands # (test code = Segs-Bands #) 7.4 1.5-8.1 [id number] 17:39:00 Test Item Value Reference Range Interpretation Comments Monocytes (test code = Monocytes) 5.8 2.0-12.0 [id number] 17:39:00 Test Item Value Reference Range Interpretation Comments Lymphocytes # (test code = Lymphocytes 1.4 1.0-5.5 #) [id number] 17:39:00 Test Item Value Reference Range Interpretation Comments Eosinophils (test code = 2.1 See_Comment [A utomated message] The Eosinophils) system which ge nerated this result tra nsmitted reference range : <=4.0. The reference r ania was not used to int erpret this result as normal/abnormal . [id number] 17:39:00 Test Item Value Reference Range Interpretation Comments Basophils (test code = 0.6 See_Comment [Aut omated message] The Basophils) system which ge nerated this result tra nsmitted reference range : <=1.0. The reference r ania was not used to int erpret this result as normal/abnormal . [facility]r[id number] 17:39:00 Test Item Value Reference Range Interpretation Comments Segs (test code = Segs) 76.6 45.0-75.0 [id number] 17:39:00 Test Item Value Reference Range Interpretation Comments Lymphocytes (test code = Lymphocytes) 14.9 20.0-40.0 [id number] 17:39:00 Test Item Value Reference Range Interpretation Comments Monocytes # (test code 0.6 See_Comment [Aut omated message] The = Monocytes #) system which generated this result tra nsmitted reference range : <=0.8. The reference r ania was not used to int erpret this result as normal/abnormal . [facility]2016-03-14 17:39:00 Test Item Value Reference Range Interpretation Comments Bili Total (test code = Bili Total) 0.5 0.2-1.3 [facility]r[id number] 17:39:00 Test Item Value Reference Range Interpretation Comments Basophils # (test code 0.1 See_Comment [Aut omated message] The = Basophils #) system which generated this result tra nsmitted reference range : <=0.2. The reference r ania was not used to int erpret this result as normal/abnormal . [id number] 17:39:00 Test Item Value Reference Range Interpretation Comments Eosinophils # (test code 0.2 See_Comment [A utomated message] The = Eosinophils #) system whic h generated this result tra nsmitted reference range : <=0.5. The reference r ania was not used to int erpret this result as normal/abnormal . [id number] 17:39:00 Test Item Value Reference Range Interpretation Comments WBC (test code = WBC) 9.7 3.7-10.4 [id number] 17:39:00 Test Item Value Reference Range Interpretation Comments RBC (test code = RBC) 5.02 4.70-6.10 [id number] 17:39:00 Test Item Value Reference Range Interpretation Comments RDW (test code = RDW) 13.6 11.5-14.5 [facility]roeEaplcrcQDSWTGXHMU6475-05-05 17:39:00 Test Item Value Reference Range Interpretation Comments Platelet (test code = Platelet) 162 133-450 [facility]r[id number] 17:39:00 Test Item Value Reference Range Interpretation Comments MPV (test code = MPV) 8.2 7.4-10.4 [id number] 17:39:00 Test Item Value Reference Range Interpretation Comments Hgb (test code = Hgb) 15.0 14.0-18.0 [id number] 17:39:00 Test Item Value Reference Range Interpretation Comments Hct (test code = Hct) 44.0 42.0-54.0 [facility]roeKmemstmDRABZUWPVC8366-02-00 17:39:00 Test Item Value Reference Range Interpretation Comments MCV (test code = MCV) 87.7 80.0-94.[address] [facility]2016-03-14 17:39:00 Test Item Value Reference Range Interpretation Comments CO2 (test code = CO2) 29 24-32 [id number] 17:39:00 Test Item Value Reference Range Interpretation Comments MCH (test code = MCH) 29.9 pg 27.0-31.0 [id number] 17:39:00 Test Item Value Reference Range Interpretation Comments MCHC (test code = MCHC) 34.1 32.0-36.[address] [facility]2016-03-14 17:39:00 Test Item Value Reference Range Interpretation Comments Calcium Lvl (test code = Calcium Lvl) 8.3 8.5-10.5 [facility] Notes Date/Time Note Provider Source 2023-01-03 13:20:55-00:00 Formatting of this note is d ifferent from the original. [facility] Chief Complaint Patient presents with Nose Problem 52 year old male here for n deon congested. Pt states he had polyp removal surgery a year ago. Eula Daily 2022-06-17 19:57:00-00:00 [facility] ([facility]) EMERGENCY PROVIDER REPORT REPORT#:[id number] REPORT STATUS: Signed DATE:06/17/22 TIME:1956 PATIENT: KAYLEE REYNA UNIT #: [id number] ROOM/BED: : 71 AGE: 52 SEX: M PCP PHYS: Undefined Provider SERVICE AUTHOR: Debbie Irizarry SILK WEAVER * ALL edits or amendments must be made on the el ectronic/computer document * Juan CDebbie 06/17/221956: HPI-Should/Arm Prob/Inj Free Text HPI Notes Free Text HPI Notes 52-year-old male with no significant medical his tory presents emergency department with complaints o f right bicep pain. Patient states he was lifting a log, when he heard a pop and felt a sharp pain i n his bicep. Patient reports weakness of the right arm denies numbness or tin gling. General Confirmed Patient Yes Initial Greet Date/Time 06/17/221909 Presentation Chief Complaint Arm pain R Hx Obtained From Patient Onset Occurred Today Exacerbated by Movement, Palpation Relieved by Nothing Review of Systems ROS Statements All systems rev neg except as marked. Past Medical History - Adult Stated Complaint R BICEP INJURY Allergies Coded Allergies: Penicillins (Intermediate, RASH 10/06/15) Home Medications Active Scripts PANTOPRAZOLE DR (PROTONIX) 40 MG PO DAILY@0600 Reported Medications SIMVASTATIN (ZOCOR) Calculated Suicide Risk (nurs) No risk Smoking status for patients 13 years old or olde r: Unknown,if ever smoked Physical Exam Vital Signs Review of Vital Signs Reviewed Focused PE General/Const General/Const Awake, Alert, Well appearing, Wel l developed, Well hydrated, Cooperative MS Neck Neck Atraumatic, Supple Resp/Chest Respiratory/Chest Atraumatic, Breath sounds NL, No respiratory distress Cardiovascular Cardiovascular Heart rate NL, Regular r hythm, Heart sounds NL, Cap refill not delayed, Peripheral circulation NL MS Upper Extrem Right Upper Arm Tenderness present, Ecchymosis present. Negativ e: Erythema present, Open fracture present, Pulses distal absent, Pulses distal decreased, Neuro deficit present. Skin Skin Atraumatic, Warm, Dry, Intact Neurologic Neurologic Oriented X3, Speech NL, Cerebellar N L, Memory NL, Gait NL Re-Evaluation MDM Re-Evaluation/Progress Tissue Perfusion Reassessment Patient tissue perfusion reassessment completed. ED Course Medication(s) Ordered Medication(s) Ordered: Central Nervous System Agents Sig/Eddie Start time Last Medication Dose Route Stop Time Status Admin Hydrocodone Bitart/ 1 TAB X1ED STA 01/06 1957 D C 06/17 Acetaminophen PO 06/17 Patient Discharge Departure Clinical Impression Clinical Impression Primary Impression: Biceps tendon rupture Disposition Decision Discharge )( Discharged to Home Yes )( Time 2050 )( Date 06/17/22 Discharge/Care Plan Referrals Provider Referral: Lloyd Jimenez MD Follow-Up: Call for appointment Notes: medication specialist Address: [address] [place] [address] Davis Vallejo 06/17/222051: Physical Exam Vital Signs Vital Signs First Documented: Result Date Time Pulse Ox 97 06/17 1944 B/P 147/83 06/17 1944 B/P Mean 104 06/17 1944 O2 Delivery Room air 06/17 1944 Temp 37.0 06/17 1944 Pulse 86 06/17 1944 Resp 18 06/17 1944 Last Documented: Result Date Time Pulse Ox 99 06/17 2152 B/P 139/82 06/17 2152 B/P Mean 101 06/17 2152 O2 Delivery Room air 06/17 2152 Temp 37.1 06/17 2152 Pulse 81 06/17 2152 Resp 17 06/17 2152 Review of Vital Signs Reviewed Focused PE MS Upper Extrem Text/Dict Notes Right upper extremity -there is tenderness along the anterior aspect of the biceps tendon and biceps muscle belly with some mild overlying ecchymosis. There is anterior bulge of the biceps muscle bel ly. Limited range of motion secondary to pain. No bony tenderness over the e lbow itself. Distally sensation cap refill intact. Right shoulder with full range of motion, no ten derness, no deformity. Findings consistent with bicep tendon rupture Re-Evaluation MDM Free Text MDM Notes Free Text MDM Notes Patient arrives with right arm injury. History a nd physical exam clinically consistent with biceps tendon rupture. D iscussed case with orthopedic surgeon, appreciate input. Sling applied Rx meds, referra l given, return precautions given. Patient understands and agrees to plan. Consultation Consultation Referral/Consult Name Lloyd Jimenez MD [employer] Technology Instructor Called Orthopedic Requested Call Time 1999 Requested Call Date 06/17/22 Call Returned Call returned Call Returned Time 2004 Call Returned Date 06/17/22 Patient Discharge Departure Vital Signs/Condition Vital Signs First Documented: Result Date Time Pulse Ox 97 01/06 1945 B/P 147/83 06/17 1944 B/P Mean 104 06/17 1944 O2 Delivery Room air 06/17 1944 Temp 37.0 06/17 1944 Pulse 86 06/17 1944 Resp 18 06/17 1944 Last Documented: Result Date Time Pulse Ox 99 06/17 2152 B/P 139/82 06/17 2152 B/P Mean 101 06/17 2152 O2 Delivery Room air 06/17 2152 Temp 37.1 06/17 2152 Pulse 81 06/17 2152 Resp 17 06/17 2152 All vital signs available at the time of this en try have been reviewed. Condition Stable Discharge/Care Plan Counseled Regarding Diagnosi s, Prescriptions, Need for follow-up, When to return to ED (Auto) Prescriptions Current Visit Scripts ACETAMINOPHEN/CODEINE (TYLENOL WITH CODE INE #3 300/30 MG) 1 TAB PO Q4H PRN PRN ACUTE PAIN ACETAMINOPHEN/CODEINE (TYLENOL WITH CODEINE #3 300/30 MG) 1 TAB PO Q4H PRN PRN ACUTE PAIN #15 TABS Extremity Inj Discharge Note The patient is discharged home with supportive c are, a plan for pain control, and follow-up instructions t hat detail what to expect over the next 48 hours and what symptoms should prompt immediate re turn to the ED, including the symptoms of compartment syndrome. Fol low-up instructions have been explained in detail to the patient, and the instructions have been prov ided in written format. The patient is comfortable with the plan of care and has expressed an understanding of the discharge instruction s. The patient is aware that any significant change in condition or worsening of symptoms should pro mpt an immediate call to the primary or designated physician. If that is not successful the patient should call or return to this or the closest emergency department or call 911. Supervising Physician Note MidLv/Doc Saw Pt 1 I have personally seen the patient and I evaluat ed the patient along with involvement of the PA/SILK WEAVER. I agree with the PA/SILK WEAVER s findings and plan. I have performed all aspects of MDM as documented including: evaluation of the patient/ patient's condition(s), revi ew and analysis of available data, and determination of risk of patient management decisions. Electronically Signed by Davis Benítez MD on 01/01 at 2029 Electronically Signed by Debbie Irizarry NP on at 1057 RPT #: [id number] END OF REPORT 2015-08-24 12:23:00-00:00 CHEST RADIOGRAPH SINGLE VIEW [facility] INDICATION: Shortness of breath COMPARISON: None IMPRESSION: The lungs are underinflated. Grossly, no acute intrathoracic abnormalities are visible. SL:16 2015-02-11 18:32:00-00:00 Examination: Left finger, 3 views [facility] History: Pain, injury Comparison: None. Findings: Multiple views of the left index finger show no acute bony fracture or joint dislocation. Mild diffuse soft tissue swelling is present. IMPRESSION: No acute bony abnormality of the lef t index finger. SL: 16
[2023-01-30] MEDS ORDERED: ASPIRIN 81 MG CHEWABLE TABLET ONE (01:31)
[2023-01-30] MEDS ORDERED: ACETAMINOPHEN 500 MG TAB ONE (01:31)
[2023-01-30 01:42] LABS: Absolute Lymphocytes (CBC) 2.4 K/uL (0.7-4.9); Hematocrit 42.4 % (39.6-49.0); Lymphocytes % 35.7 % (15.3-44.8); MCV 86.9 fL (80-100); MPV 9.4 fL (7.6-11.3); Platelets 142 thou/uL (152-406); RBC Red Blood Cell Count 4.88 M/uL (4.33-5.43)
[2023-01-30 01:48] LABS: Protime INR 0.91
[2023-01-30 02:02] LABS: ALT/SGPT 42 U/L (16-61); AST/SGOT 25 U/L (15-37); Albumin 3.6 g/dL (3.4-5.0); Alkaline Phosphatase 76 U/L (45-117); BUN Blood Urea Nitrogen 15 mg/dL (7-18); Bicarbonate 26 mEq/L (21-32); Bilirubin Total 0.2 mg/dL (0.2-1.0); Glomerular Filtration Rate 71 ml/min (=/>90); Glucose Level 96 mg/dL (74-106); Magnesium 2.1 mg/dL (1.6-2.4); NT PRO-BNP 63 pg/mL (<125); Potassium 3.6 mEq/L (3.5-5.1); Protein, Total 7.3 g/dL (6.4-8.2); Sodium Level 139 mEq/L (136-145)
[2023-01-30 02:20] LABS: Bilirubin Direct < 0.1 mg/dL (0-0.2); Bilirubin Indirect, Calculated ND mg/dL (0.2-0.8)
--- NOTE | 2023-01-30 03:25 | ER ---
Nurse's Notes [facility] Name: Josesito Reyna Age: 52 yrs Sex: Male : 1970 Arrival Date: 01/30/2023 Time: 00:28 Bed 7 Private MD: Diagnosis: Palpitations;Chest pain, unspecified Presentation: 01/30 00:42 Chief complaint: Patient states: SOB with elevated BP 166/102 and HR 147 with headache pf1 of 5,onset 1 hour ago while laying in bed. 00:42 Coronavirus screen: Vaccine status: Patient reports receiving the 1st dose of the Covid pf1 vaccine. J\T\J Client denies travel out of the [place] in the last 14 days. At this time, the client does not indicate any symptoms associated with coronavirus-19. Ebola Screen: Patient negative for fever greater than or equal to 101.5 degrees Fahrenheit, and additional compatible Ebola Virus Disease symptoms. Initial Sepsis Screen: Does the patient meet any 2 criteria? No. Patient's initial sepsis screen is negative. Does the patient have a suspected source of infection? No. Patient's initial sepsis screen is negative. Risk Assessment: Do you want to hurt yourself or someone else? Patient reports no desire to harm self or others. 00:42 Method Of Arrival: Ambulatory pf1 00:42 Acuity: ALISON 3 pf1 00:59 Onset of symptoms was January 30, 2023. as6 Historical: - Allergies: 00:55 PENICILLINS; pf1 - Home Meds: 00:55 metoprolol [Active]; rosuvastatin 10 mg oral tablet 1 tab daily [Active]; aspirin 81 mg pf1 Oral tablet,chewable 1 tab daily [Active]; - PMHx: 00:55 AFIB; pf1 - PSHx: 00:55 rhinoplasty; pf1 - Immunization history:: Adult Immunizations up to date, Client reports receiving the Esrge \T\ Serge single-dose vaccine. Last tetanus immunization: < 5 years ago Flu vaccine is up to date. - Social history:: Smoking status: Patient denies any tobacco usage or history of. Patient uses alcohol, occasionally. Patient/guardian denies using street drugs. Screenin:59 [facility] ED Fall Risk Assessment (Adult) Score/Fall Risk Level 0 - 2 = Low Risk. Abuse as6 screen: Denies threats or abuse. Denies injuries from another. Nutritional screening: No deficits noted. Tuberculosis screening: No symptoms or risk factors identified. Assessment: 00:57 General: Appears in no apparent distress. Behavior is calm, cooperative, quiet. Pain: as6 Complains of pain in head Quality of pain is described as aching. Neuro: Level of Consciousness is awake, alert, obeys commands, Reports headache. Cardiovascular: Capillary refill < 3 seconds Patient's skin is warm and dry. Cardiovascular: Reports palpitations, shortness of breath. Respiratory: Respiratory effort is even, unlabored, Respiratory pattern is regular, symmetrical. Respiratory: Reports shortness of breath Breath sounds are clear bilaterally. Derm: Skin is intact, is healthy with good turgor. Musculoskeletal: Circulation, motion, and sensation intact. 02:14 General: pt still c/o headache . as6 Vital Signs: 00:42 BP 126 / 94; Pulse 81; Resp 18; Temp 98; Pulse Ox 96% on R/A; Weight 101.15 kg; Height pf1 6 ft. 0 in. ; Pain 5/10; 02:14 BP 115 / 83; Pulse 66; Resp 17 S; Pulse Ox 94% on R/A; as6 00:42 Body Mass Index 30.24 (101.15 kg, 182.88 cm) pf1 00:42 Pain Scale: Adult pf1 ED Course: 00:32 Patient arrived in ED. es 00:47 Cain Almonte MD is Attending Physician. rt 00:47 Vargas Villalba PA is PHCP. cp 00:55 Triage completed. pf1 00:57 Kushal Campbell, TREE is Primary Nurse. as6 00:59 Arm band placed on. as6 00:59 Placed in gown. Bed in low position. Call light in reach. Side rails up X 1. Client as6 placed on continuous cardiac and pulse oximetry monitoring. NIBP monitoring applied. 01:05 Inserted saline lock: 18 gauge in left antecubital area, using aseptic technique. Blood as6 collected. 01:19 XRAY Chest (1 view) In Process Unspecified. EDMS 03:03 CT Head Brain wo Cont In Process Unspecified. EDMS 03:22 Noah Zuniga MD is Hospitalizing Provider. cp 05:15 Provided Education on: . kd3 05:15 No provider procedures requiring assistance completed. Patient admitted, IV remains in kd3 place. Administered Medications: 01:23 Drug: Acetaminophen PO 1000 mg Route: PO; kd3 05:15 Follow up: Response: No adverse reaction kd3 01:23 Drug: Aspirin PO Chewable Tablet 162 mg Route: PO; kd3 05:15 Follow up: Response: No adverse reaction kd3 Medication: 00:59 VIS not applicable for this client. as6 Outcome: 03:24 Decision to Hospitalize by Provider. cp 05:15 Admitted to Med/surg room 215. kd3 05:15 Condition: stable 05:15 Discharge instructions given to patient, Instructed on the need for admit, Demonstrated understanding of instructions. 05:26 Patient left the ED. kd3 Signatures: Dispatcher [employer] Lisy Iglesias Corey, PA PA cp Slawson, Ashby, TREE RN as6 Lyndsay Conrad RN RN kd3 Cain Almonte MD MD rt Kathy Gill RN RN pf1
--- NOTE | 2023-01-30 03:25 | EDPHYS ---
Physician Documentation [facility] Name: Josesito Reyna Age: 52 yrs Sex: Male : 1970 Arrival Date: 01/30/2023 Time: 00:28 Bed 7 Private MD: ED Physician Cain Almonte HPI: 01/30 01:10 This 52 yrs old Male presents to ER via Ambulatory with complaints of AFIB, sob, cp headache, high blood pressure. Historical: - Allergies: 00:55 PENICILLINS; pf1 - Home Meds: 00:55 metoprolol [Active]; rosuvastatin 10 mg oral tablet 1 tab daily [Active]; aspirin 81 mg pf1 Oral tablet,chewable 1 tab daily [Active]; - PMHx: 00:55 AFIB; pf1 - PSHx: 00:55 rhinoplasty; pf1 - Immunization history:: Adult Immunizations up to date, Client reports receiving the Serge \T\ Serge single-dose vaccine. Last tetanus immunization: < 5 years ago Flu vaccine is up to date. - Social history:: Smoking status: Patient denies any tobacco usage or history of. Patient uses alcohol, occasionally. Patient/guardian denies using street drugs. ROS: 01:15 Constitutional: Negative for body aches, chills, fever, poor PO intake. cp 01:15 Cardiovascular: Positive for chest pain, palpitations, Negative for edema. cp 01:15 Neuro: Positive for headache. 01:15 Respiratory: Negative for cough, shortness of breath, wheezing. cp 01:15 Eyes: Negative for injury, pain, redness, and discharge. cp 01:15 ENT: Negative for drainage from ear(s), ear pain, sore throat, difficulty swallowing, difficulty handling secretions. 01:15 Abdomen/GI: Negative for abdominal pain, vomiting, diarrhea, constipation. 01:15 Back: Negative for injury or acute deformity, decreased range of motion, radiated pain. 01:15 All other systems are negative. Exam: 00:58 ECG was reviewed by the Attending Physician. cp 01:20 Constitutional: The patient appears in no acute distress, alert, awake, cp non-diaphoretic, non-toxic, well developed, well nourished, uncomfortable. 01:20 Head/Face: Normocephalic, atraumatic. cp 01:20 Eyes: Periorbital structures: appear normal, Pupils: equal, round, and reactive to light and accomodation, Extraocular movements: intact throughout, Conjunctiva: normal, no exudate, no injection, Sclera: no appreciated abnormality, Lids and lashes: appear normal, bilaterally. 01:20 ENT: External ear(s): are unremarkable, Nose: is normal, Mouth: Lips: moist, Oral mucosa: pink and intact, moist, Posterior pharynx: is normal, airway is patent, no erythema, no exudate. 01:20 Neck: ROM/movement: is normal, is supple, without pain, no range of motions limitations. 01:20 Chest/axilla: Inspection: normal, Palpation: is normal, no crepitus, no tenderness. 01:20 Cardiovascular: Rate: normal, Rhythm: regular, Pulses: Pulses are 2+ in right radial artery and left radial artery. Edema: is not appreciated, JVD: is not appreciated. 01:20 Respiratory: the patient does not display signs of respiratory distress, Respirations: normal, no use of accessory muscles, no retractions, labored breathing, is not present, Breath sounds: are clear throughout, no decreased breath sounds, no stridor, no wheezing. 01:20 Abdomen/GI: Inspection: abdomen appears normal, Palpation: abdomen is soft and non-tender, in all quadrants. 01:20 Back: pain, is absent, ROM is normal. 01:20 Neuro: Orientation: to person, place \T\ time. Mentation: is normal, Motor: moves all fours, strength is normal, Sensation: is normal. Vital Signs: 00:42 BP 126 / 94; Pulse 81; Resp 18; Temp 98; Pulse Ox 96% on R/A; Weight 101.15 kg; Height pf1 6 ft. 0 in. ; Pain 5/10; 02:14 BP 115 / 83; Pulse 66; Resp 17 S; Pulse Ox 94% on R/A; as6 00:42 Body Mass Index 30.24 (101.15 kg, 182.88 cm) pf1 00:42 Pain Scale: Adult pf1 MDM: 00:47 Patient medically screened. cp 01:00 Differential diagnosis: acute KS, angina, dissection. cp 03:00 Data reviewed: vital signs, nurses notes, lab test result(s), EKG, radiologic studies, cp plain films, I have discussed the patient's presentation/case with the attending Emergency Department Physician;. 03:00 Management of patient was discussed with the following: Hospitalist: Thomas Drake NP, cp will admit for cardiac r/o after discussion. I considered the following discharge prescriptions or medication management in the emergency department Medications were administered in the Emergency Department. See MAR. Test considered but Not performed: CT: chest. Counseling: I had a detailed discussion with the patient and/or guardian regarding the historical points, exam findings, and any diagnostic results supporting the discharge/admit diagnosis, lab results, radiology results. Response to treatment: the patient's symptoms have markedly improved after treatment. 01/30 01:07 Order name: Basic Metabolic Panel; Complete Time: 02:28 cp 01/30 02:28 Interpretation: Normal except: CL 110; GFR 71; CA 8.3. cp 01/30 01:07 Order name: CBC with Diff; Complete Time: 02:10 cp 01/30 02:10 Interpretation: Normal except: PLT 142. cp 01/30 01:07 Order name: D-Dimer; Complete Time: 02:10 cp 01/30 02:10 Interpretation: Normal except: D-DIMER 325. cp 01/30 01:07 Order name: LFT's; Complete Time: 02:28 cp 01/30 02:28 Interpretation: Normal except: GLOB 3.7; A/G 1.0. cp 01/30 01:07 Order name: Magnesium; Complete Time: 02:28 cp 01/30 01:07 Order name: NT PRO-BNP; Complete Time: 02:28 cp 01/30 01:07 Order name: PT-INR; Complete Time: 02:10 cp 01/30 01:07 Order name: Troponin HS; Complete Time: 02:28 cp 01/30 02:28 Interpretation: Troponin HS 8.0; Reviewed. cp 01/30 01:07 Order name: XRAY Chest (1 view) cp 01/30 02:10 Order name: CT Head Brain wo Cont cp 01/30 01:07 Order name: EKG; Complete Time: 01:08 cp 01/30 01:07 Order name: Cardiac monitoring; Complete Time: 01:08 cp 01/30 01:07 Order name: EKG - Nurse/Tech; Complete Time: 01:08 cp 01/30 01:07 Order name: IV Saline Lock; Complete Time: 01:08 cp 01/30 01:07 Order name: Labs collected and sent; Complete Time: 01:17 cp 01/30 01:07 Order name: O2 Per Protocol; Complete Time: 01:08 cp 01/30 01:07 Order name: O2 Sat Monitoring; Complete Time: : cp EC:58 Rate is 72 beats/min. Rhythm is regular. HI interval is normal. QRS interval is normal. cp QT interval is normal. T waves are Inverted in lead aVR. Interpreted by me. Reviewed by me. Administered Medications: : Drug: Acetaminophen PO 1000 mg Route: PO; kd3 05:15 Follow up: Response: No adverse reaction kd3 :23 Drug: Aspirin PO Chewable Tablet 162 mg Route: PO; kd3 05:15 Follow up: Response: No adverse reaction kd3 Disposition: 05:42 Co-signature as Attending Physician, Cain Almonte MD I reviewed the patient's care rt provided by the Advanced Practice Provider and agree with the diagnosis and treatment plan. Disposition Summary: 01/30/23 03:24 Hospitalization Ordered Hospitalization Status: Observation cp Provider: Noah Zuniga cp Location: Telemetry/MedSurg (observation) cp Condition: Stable cp Problem: new cp Symptoms: have improved cp Bed/Room Type: Standard Room Assignment: 215(01/30/23 04:37) cg Diagnosis - Palpitations cp - Chest pain, unspecified cp Forms: - Medication Reconciliation Form cp - SBAR form cp - Leadership Thank You Letter cp Signatures: Dispatcher [employer] Vargas Flores PA PA cp Garcia, Cindy, RN RN cg Lyndsay Conrad RN RN kd3 Cain Almonte MD MD rt Kathy Gill RN RN pf1 Corrections: (The following items were deleted from the chart) 04:37 03:24 cp cg
--- NOTE | 2023-01-30 03:54 | P.HP ---
Certification for Inpatient Patient admitted to: Observation With expected LOS: <2 Midnights Patient will require the following post-hospital care: None Practitioner: I am a practitioner with admitting privileges, knowledge of patient current condition, hospital course, and medical plan of care. Services: Services provided to patient in accordance with Admission requirements found in Title 42 Section 412.3 of the Code of Federal Regulations Patient History Date of Service: 01/30/23 Reason for admission: Chest pain History of Present Illness: 52-year-old male with history of paroxysmal atrial fibrillation presents emergency department chief complaint of chest pain. He reports he was lying in bed when he had onset of palpitations followed by chest pain and shortness of breath, the pain is described as a tightness it lasted for the duration of the time he was experiencing the palpitations which was about an hour and a half, there resolved shortly after arriving to the emergency department without intervention. He was evaluated in the emergency department his initial high- sensitivity troponin was 8.0 EKG without STEMI criteria currently normal sinus rhythm. His chest pain had resolved. ED provider wishes to admit under observation for chest pain, suspected paroxysmal A-fib. Allergies No Known Allergies Allergy (Unverified 11/04/11 07:08) Home Medications: Aspirin Chewable [Aspirin Chewable*] 81 mg PO DAILY tab.chew 08/09/22 Metoprolol Tartrate [Lopressor*] 25 mg PO BID #60 tab 08/09/22 Rosuvastatin [Crestor*] 10 mg PO BEDTIME #30 tab 08/09/22 - Past Medical/Surgical History -: Muscle spasms -: Erectile dysfunction -: Paroxysmal A-fib -: Nasal surgery Psychosocial/ Personal History: Lives at home with family - Family History Mother -: Heart disease Father -: Heart disease - Social History Smoking Status: Never smoker Alcohol use: Yes CD- Drugs: No Caffeine use: Yes Place of Residence: Home Review of Systems 10-point ROS is otherwise unremarkable Respiratory: Shortness of Breath Cardiovascular: Chest Pain Physical Examination - Physical Exam General: Alert, In no apparent distress, Oriented x3 HEENT: Atraumatic, PERRLA, Mucous membr. moist/pink, EOMI, Sclerae nonicteric Neck: Supple, 2+ carotid pulse no bruit, No LAD, Without JVD or thyroid abnormality Respiratory: Clear to auscultation bilaterally, Normal air movement Cardiovascular: Regular rate/rhythm, Normal S1 S2 Gastrointestinal: Normal bowel sounds, No tenderness Musculoskeletal: No tenderness Integumentary: No rashes Neurological: Normal gait, Normal speech, Normal strength at 5/5 x4 extr, Normal tone, Normal affect Lymphatics: No axilla or inguinal lymphadenopathy - Studies Laboratory Data (last 24 hrs) 01/30/23 01/30/23 01/30/23 01:18 01:18 01:18 WBC 6.70 Hgb 14.6 Hct 42.4 Plt Count 142 L PT 10.0 INR 0.91 Sodium 139 Potassium 3.6 BUN 15 Creatinine 1.23 Glucose 96 Magnesium 2.1 Total Bilirubin 0.2 AST 25 ALT 42 Alkaline Phosphatase 76 Assessment and Plan - Plan Assessment: Chest pain Paroxysmal atrial fibrillation Plan: Chest pain Paroxysmal atrial fibrillation Patient describes an episode of palpitations, he checked his blood pressure and noted it was around 200 systolic and his heart rate was 157. He reports his heart was irregular at that time this episode lasted for about an hour and a half and was associated with chest pain and shortness of breath. When the episode resolved his pain did as well. I suspect his chest pain is related to paroxysmal atrial fibrillation. Will trend troponins, monitor on telemetry and consult cardiology. He denies previous stress test or heart catheterizations. Continue metoprolol, aspirin. DVT PPX: Lovenox Code status: Full Discharge Plan: Home Plan to discharge in: 24 Hours - Advance Directives Does patient have a Living Will: No Does patient have a Durable POA for Healthcare: No - Code Status/Comfort Care Code Status Assessed: Yes (Full code) Critical Care: No Time Spent Managing Pts Care (In Minutes): 55
[2023-01-30 05:32] VITALS: O2SAT 94
[2023-01-30] MEDS ORDERED: ACETAMINOPHEN 500 MG TAB PO PRN (05:43)
[2023-01-30] MEDS ORDERED: ONDANSETRON 4 MG/2 ML VIAL IV PRN (05:43)
[2023-01-30] MEDS ORDERED: METOPROLOL XL 25 MG TAB PO SCH (06:00)
[2023-01-30 06:32] VITALS: BMI 30.2
[2023-01-30] MEDS ORDERED: ENOXAPARIN 40 MG/0.4 ML SQ SCH (09:00)
[2023-01-30] MEDS ORDERED: ASPIRIN EC 81 MG TAB PO SCH (09:00)
[2023-01-30] MEDS ORDERED: POTASSIUM CL SA 10 MEQ TAB PO ONE (09:00)
[2023-01-30 11:58] VITALS: BP 109/63; TEMP 96.8
--- NOTE | 2023-01-30 13:42 | P.DS ---
Admission Date: 01/30/23 Discharge Date: 01/30/23 Disposition: ROUTINE DISCHARGE Reason for Admission: Chest pain Consultations: Cardiology - Dr. Zambrano Brief History of Present Illness: 52yo M, PMH: paroxysmal atrial fibrillation Patient presents emergency department chief complaint of chest pain. He reports he was lying in bed when he had onset of palpitations followed by chest pain and shortness of breath, the pain is described as a tightness it lasted for the duration of the time he was experiencing the palpitations which was about an hour and a half, there resolved shortly after arriving to the emergency department without intervention. He was evaluated in the emergency department his initial high-sensitivity troponin was 8.0 EKG without STEMI criteria currently normal sinus rhythm. His chest pain had resolved. ED provider wishes to admit under observation for chest pain, suspected paroxysmal A-fib. Hospital Course: Problem List Chest pain Paroxysmal atrial fibrillation Patient presented with chest pain. Symptoms resolved shortly after arriving to the emergency department without intervention. Troponins were negative. EKG, normal, BNP normal, chest x-ray negative for any acute findings. Acute coronary syndrome was ruled out. Cardiology was consulted. Patient was noted to be in sinus rhythm, HR: 60s. Dr. Zambrano recommended follow up as outpatient with his orthopedic surgeon. No acute findings to necessitate further inpatient evaluation. Continue home meds as previously prescribed Follow up: PCP 3-5 days Cardiology in a few weeks Physical Exam: GEN: Alert, oriented, NAD HEENT: Normal conjunctiva, sclera anicteric CV: Regular rate and rhythm, no edema Pulm: Nonlabored respirations on room air ABD: Soft, nontender, nondistended Neuro: Normal speech, normal affect Vital Signs/Physical Exam: Temp Pulse Resp BP Pulse Ox 96.8 F 53 16 109/63 96 01/30/23 11:57 01/30/23 11:57 01/30/23 11:57 01/30/23 11:57 01/30/23 11:57 Laboratory Data at Discharge: WBC 6.70 thou/uL (4.3-10.9) 01/30/23 01:18 Hgb 14.6 g/dL (13.6-17.9) 01/30/23 01:18 Hct 42.4 % (39.6-49.0) 01/30/23 01:18 Plt Count 142 thou/uL (152-406) L 01/30/23 01:18 PT 10.0 SECONDS (9.5-12.5) 01/30/23 01:18 INR 0.91 01/30/23 01:18 Sodium 139 mEq/L (136-145) 01/30/23 01:18 Potassium 3.6 mEq/L (3.5-5.1) 01/30/23 01:18 BUN 15 mg/dL (7-18) 01/30/23 01:18 Creatinine 1.23 mg/dL (0.70-1.30) 01/30/23 01:18 Glucose 96 mg/dL (74-106) 01/30/23 01:18 Magnesium 2.1 mg/dL (1.6-2.4) 01/30/23 01:18 Total Bilirubin 0.2 mg/dL (0.2-1.0) 01/30/23 01:18 AST 25 U/L (15-37) 01/30/23 01:18 ALT 42 U/L (16-61) 01/30/23 01:18 Alkaline Phosphatase 76 U/L (45-117) 01/30/23 01:18 Home Medications: Aspirin Chewable [Aspirin Chewable*] 81 mg PO DAILY tab.chew 08/09/22 Metoprolol Tartrate [Lopressor*] 25 mg PO BID #60 tab 08/09/22 Rosuvastatin [Crestor*] 10 mg PO BEDTIME #30 tab 08/09/22 Physician Discharge Instructions: PROBLEM: Chest Pain GOAL: Clear understanding of disease process INSTRUCTIONS: Diet: Heart Healthy Activity: As tolerated DME DME: Date Ordered: Name of Company: [employer] Services Needed: None Name of Company: Date or Referral: IMMUNIZATION Influenza Vaccine Indicated: Influenza Vaccine Given: Date Given: Pneumonia Vaccine Indicated: No Pneumonia Vaccine Given: Date Given: Patient presented with chest pain. Symptoms resolved shortly after arriving to the emergency department without intervention. Troponins were negative. EKG, normal, BNP normal, chest x-ray negative for any acute findings. Acute coronary syndrome was ruled out. Cardiology was consulted. Dr. Zambrano recommended follow up as outpatient with his orthopedic surgeon. No acute findings to necessitate further inpatient evaluation. Continue home meds as previously prescribed Follow up: PCP 3-5 days Cardiology in a few weeks1 Followup: NONE,NONE [Primary Care Provider] - Time spent managing pt's care (in minutes): 45
--- NOTE | 2023-01-30 14:55 | RAD REPORT ---
EXAM DESCRIPTION: CT - Head Brain Wo Cont - 01/30/2023 6:42 am CLINICAL HISTORY: 52 years, Male, DIZZINESS COMPARISON: None FINDINGS: Multiple transaxial tomograms of the brain were obtained from the base of the skull to the vertex without contrast. 2-D multiplanar reformats and the coronal and sagittal plane were performed and reviewed. This exam was performed according to our departmental dose-optimization protocol, which includes auto mated exposure control, adjustment of the mA and/or kV according to patient size and/or use of iterat aleshia reconstruction technique. Brain parenchyma as well as the campo and white matter differentiation demonstrate to be unremarkable. There is no midline shift and/or mass effect. There is no evidence for acute hemorrhage. There are n o focal areas of hypodensities. Lateral ventricles and cisterns displace normal appearance. No intr a or extra axial fluid collections were seen. The calvarium is intact with no evidence for fracture. The visualized portions of the paranasal sinuses and orbits demonstrate to be clear. IMPRESSION: No acute intracranial hemorrhage identified. Unremarkable CT scan of the head without contrast. Electronically signed by: Hadley Shahid MD 01/30/2023 3:14 AM CDT Due to temporary technical issues with the PACS/Fluency reporting system, reports are being signed by the in house radiologist without review as a courtesy to ensure prompt reporting. The interpreting r adiologist is fully responsible for the content of the report.
--- NOTE | 2023-01-30 14:56 | RAD REPORT ---
EXAM DESCRIPTION: RAD - Chest Single View - 01/30/2023 1:17 am CLINICAL HISTORY: 52 years, Male, Chest pain;SOB COMPARISON: 08/08/2022 FINDINGS: Single view of the chest was obtained portable. Prior films were compared. External EKG le ads within the [id number] limits diagnosis. The lung volume is slightly decreased. The cardiomedia stinal silhouette demonstrate to be unremarkable. The heart is not enlarged. The thoracic aorta is un remarkable. The pulmonary vasculature is normal distribution. Costophrenic angles are sharp. No are as of consolidation or masses are seen. The rest of the soft tissue and bony structures demonstrate to be unremarkable. IMPRESSION: NO ACUTE CARDIOPULMONARY DISEASE SEEN. Electronically signed by: Hadley Shahid MD 01/30/2023 1:42 AM CDT Due to temporary technical issues with the PACS/Fluency reporting system, reports are being signed by the in house radiologist without review as a courtesy to ensure prompt reporting. The interpreting r adiologist is fully responsible for the content of the report.
--- NOTE | 2023-01-30 18:08 | EKG ---
Test Date: 2023-01-30 Test Time: 00:53:47 Cab Supervisor: MEASUREMENT RESULTS: Intervals: Rate: 72 [place]: 152 QRSD: 86 QT: 388 QTc: 424 [place]: P: 11 [place]: 152 QRS: 50 T: 19 INTERPRETIVE STATEMENTS: Normal sinus rhythm Normal ECG Compared to ECG 08/08/2022 05:38:17 Sinus tachycardia no longer present ST (T wave) deviation no longer present Electronically Signed On 01-30-23 18:00:20 CDT by Dex Zambrano
--- NOTE | 2023-01-30 21:17 | CON ---
Date of Consultation: 01/30/2023 Reason For Consultation: Chest pain. History Of Present Illness: 52-year-old male, history of paroxysmal atrial fibrillation and dyslipid emia, presented to the emergency room with chest pain, happened at rest, followed by both palpitation and shortness of breath and described as tightness and lasted for close to 2 hours and resolved. Felix s no further episodes. He does have a lab director that he already contacted to do further evaluatio n as an outpatient. He wants to go home. Past Medical History: As outlined above in the HPI. Medications: Per consult sheet for detailed list. Allergies: NO KNOWN DRUG ALLERGIES. Family History: No premature coronary disease or cancer. Social History: Does not smoke or drink. Does not use any drugs. Review of Systems: All systems reviewed are negative except as mentioned in HPI. Physical Examination: Vital Signs: Reviewed. Head and Neck: Pupils are equal, reactive to light. Intact eye movements. No JVD. No cervical edgar nopathy. Neck: Supple. Thyroid is not enlarged. Lungs: Clear to auscultation bilaterally. No rhonchi, wheezing, or crackles. No accessory muscle u se. Heart: Regular rate and rhythm. No extra sounds. Abdomen: Soft, nontender. Bowel sounds positive. No organomegaly. No masses or hernia. No rigidi ty or rebound. Extremities: No edema, clubbing, cyanosis. Intact pulses. Skin: No rashes. Neurologic: Alert, awake, oriented x3. No acute process appreciated. Investigations: Hemoglobin 14.6. BUN 15, creatinine 1.23. Cardiac enzymes x3 are negative and D-di deshawn is negative. Assessment And Recommendations: 1.Chest pain that is atypical with negative troponins. The patient can be released from cardiology standpoint and he will follow up with his lab director, obtain a stress test. 2.Paroxysmal atrial fibrillation. He is in sinus rhythm and on telemetry, he continued to be in sin us rhythm. Continue metoprolol and aspirin. 3.Dyslipidemia. Recommend to continue statin and follow up with his lab director post discharge. SR/MODL Voice ID: [id number] Report ID: [id number]
== END 2023-01-30 15:30 | disposition home or self-care (01) ==
LOC: ER 00:28 → ERHOLD 03:48 → 2ND 04:58
PROVIDERS: ADMIT Hospitalist; ATTEND Hospitalist
DX: R07.9 Chest pain, unspecified (principal); I48.0 Paroxysmal atrial fibrillation; E78.5 Hyperlipidemia, unspecified
CPT/HCPCS: 93005; 85025; 80048; 36415; 83735; 85610; 85379; 80076; 84484 ×3; 83880; 70450; 71045; J1650; 99285; G0378

== ENCOUNTER 2023-02-28 14:54 | Emergency (ER) | payer BC ==
--- OUTSIDE RECORDS SUMMARY | 2023-02-28 15:01 | XMS REPORT | Continuity of Care Document ---
:1970 Author Organization [facility] t Address [address] [facility]. [address] [place] [address] Care Team Providers Name Role Phone Idris Taylor DO [place] Primary Care Physician OTONIEL SIFUENTES Attending Clinician Unavailable JOHANNA MATOS Attending Clinician Unavailable ADDIE PIEDRA Attending Clinician Unavailable YOSELYN SANTOS Attending Clinician Unavailable Bernard, STELLA Attending Clinician Unavailable ARABELLA CORNELL Attending Clinician Unavailable MEGAN LY Attending Clinician Unavailable Mitra Royal MD Attending Clinician MITRA ROYAL Attending Clinician Unavailable Abhay Perry MD Attending Clinician Sukhwinder Mora MD Attending Clinician LAB90 Attending Clinician Unavailable LAB47 Attending Clinician Unavailable LINDA NICKERSON Attending Clinician Unavailable TRED47 Attending Clinician Unavailable MD KOBE Attending Clinician Unavailable RUBEN CASILLAS Attending Clinician Unavailable JOHN GARCIA Attending Clinician Unavailable DALIA BASHIR Attending Clinician Unavailable MALISSA OCHOA Attending Clinician Unavailable SHADY COLEMAN Attending Clinician Unavailable BAKARI CLAROS Attending Clinician Unavailable ALEJANDRA JONES Attending Clinician Unavailable TRED76 Attending Clinician Unavailable TERRY MULLINS Attending Clinician Unavailable PROVIDER, MARYCRUZ Attending Clinician Unavailable SIRENA JOSEPH Attending Clinician Unavailable IDRIS TAYLOR Attending Clinician Unavailable Davis Benítez Attending Clinician Unavailable BRAEDEN CORCORAN Attending Clinician Unavailable COVID-PFIZER MICHAEL BOISE Attending Clinician UnavailTA Umaña Attending Clinician Unavailable ROHAN PETERS Attending Clinician Unavailable [id number] Attending Clinician Unavailable ERNESTO Attending Clinician Unavailable CLIVE MOORE Attending Clinician Unavailable JOHANNA CRESPO Attending Clinician Unavailable ROHAN PETERS Attending Clinician Unavailable Rohan Peters MD Attending Clinician SWAB, CK COVID SELF Attending Clinician Unavailable [id number] Attending Clinician Unavailable LAB53 Attending Clinician Unavailable TRED53 Attending Clinician Unavailable AMRCOS PARKER Attending Clinician Unavailable TERRY TREVINO Attending Clinician Unavailable Johanna Matos MD Attending Clinician LAB39 Attending Clinician Unavailable Terry Mullins MD Attending Clinician RICHIE PROCTOR Attending Clinician Unavailable Johanna Crespo PA-C Attending Clinician KAM ORDONEZ Attending Clinician Unavailable ESPERANZA AMAYA Attending Clinician Unavailable PHUONG MCDANIELS Attending Clinician Unavailable Idris Taylor DO Attending Clinician Jenn Ruano Attending Clinician [phone] Linda Nickerson PA-C Attending Clinician [phone] Physician, Non Associated Attending Clinician Unavailable RobertRadhaluda León Attending Clinician Merlene Nikole Marmolejo Attending Clinician MITRA ROYAL Admitting Clinician Unavailable ELLEN OTERO Admitting Clinician Unavailable ROHAN PETERS Admitting Clinician Unavailable Payers Payer Name Policy Type Policy Number Effective Date Expiration Date Marycarmen vaca [facility] [id number] 2019 [place] ([place]-BC[employer] 00:00:00 CAPITATED) [facility] [id number] 2015 00:00:00 Problems Condition Condition Condition Status Onset Resolution Last Treating Co mments Source Name Details Category Date Date Treatment Clinician Date Atrial Atrial Disease Recurre [facility] fibrill[facility] nce 02-20 Mitra kes on on 00:00: Medical [facility] Center Hypercoagu Hypercoagu Disease Active K surjit lability lability 3-28 Seybol d due to due to 00:00: - atrial atrial 00 Externa fibrillati fibrillati l on on Paroxysmal Paroxysmal Disease Active K elsey atrial atrial 3-02 Seybold fibrillati fibrillati 00:00: - on on 00 Externa l Gastroesop Gastroesop Disease Active K surjit hageal hageal 3-02 Seybold reflux reflux 00:00: - disease disease 00 Externa without without l esophagiti esophagiti s s Class 1 Class 1 Disease Active Shanna obesity obesity 3-02 Seybold due to due to 00:00: - [...] 06-12 13:24:00 l 06/12/2017 08:00: Kanu vazquez [facility] 00 [place] Urethral Urethral Disease Active 2015-06 [facility] strict[facility] stricture 0-06 Luke s 00:00: Medical 00 [place] DIZZINESS DIZZINESS Diagnosis Active 2015-08-24 Memoria Active 08-23 12:50:00 l 08/24/2015 00:00: Kanu vazquez 00 [facility] FINGER FINGER Diagnosis Active 2015-02-11 Me moria INJURY INJURY 02-11 19:05:00 l Active 00:00: Titi 02/11/2015 00 [facility] Mixed Mixed Disease Active Shanna hyperlipid hyperlipid 3- Se ybold emia emia 00:00: - 00 Externa l Polyvinyl Polyvinyl Problem Resolve 2018-01-25 Memoria chloride chloride d 13:43:45 l (substance (substance He rmann ) ) Resolved Problem 01/25/2018 [facility], [facility] [place] History of Past Illness Condition Condition Condition Status Onset Resolution Last Treating Co mments Source Name Details Category Date Date Treatment Clinician Date Discharge Discharge Problem 2015-08-27 2015-08-27 [facility] Diagnosis: Diagnosis: 08-23 03:28:02 03:28:02 l Palpitatio Palpitatio 05:00: Efraín salmeron ns ns 00 08/24/201508/26/ 6 [facility] Discharge Discharge Problem 2015-02-14 2015-02-14 [facility] Diagnosis: Diagnosis: 02-11 11:22:47 11:22:47 l Hematoma, Hematoma, 05:00: Herm lee subungual, subungual, 00 finger finger 02/11/2015 02/14/2015 [facility] Discharge Discharge Problem 2015-02-14 2015-02-14 Memoria Diagnosis: Diagnosis: 02-11 11:22:47 11:22:47 l Crushed Crushed 05:00: Titi finger finger 00 02/11/2015 02/14/2015 [facility] Allergies, Adverse Reactions, Alerts Allergy Allergy Status Severity Reaction(s) Onset Inactive Treating Comm ents Source Name Type Date Date Clinician Penicill Drug Active Other (See Unknown[facility] Allergy Comments) 02-18 childhood Yolanda es 00:00: reaction Medical 00 Center PENICILL Allergy Active Med Other [facility] 02-18 00:00: 00 Penicill DA Active MO RASH 2015- [facility] 4-26 [place] 00:00: d 00 [...] Stop Date Source Natural father Hypertension [facility] Natural mother COPD [facility] Center Social History Social Habit Start Date Stop Date Quantity Comments Source History SDOH [facility] Alcohol Frequency Medical Center History SDOH [facility] Alcohol Std Drinks Medica l Center History SDMS [facility] Alcohol Binge Medical Angie ter History [facility] Transport Non-Med Medical Center Gender identity Shanna murphy - External Sexual orientation Shanna Gibbons - External Exposure to 2023-02-10 2023-02-[address] [facility] SARS-CoV-2 (event) 00:00:00 05:54:00 Medica Center Alcohol intake 2023-02-20 2023-02-20 [facility]00 of alcohol Medical Center (finding) History [facility] 2023-02-20 2023-02-[address] [facility] Transport Med 00:00:00 00:00:[address] [facility] 2023-02-20 2023-02-[address] [facility] Housing Unable to 00:00:00 00:00:00 Medical Center Pay History [facility] 2023-02-20 2023-02-[address] [facility] Housing Places 00:00:00 00:00:00 Medical Ce nter Lived History [facility] 2023-02-20 2023-02-[address] [facility] Housing Homeless 00:00:00 00:00:00 Medical Center Last Year Tobacco use and 2023-02-20 2023-02-[address] [facility] exposure 00:00:00 00:00:00 non-user Medical Center Education 2022-08-11 2022-08-11 16 Shanna Gibbons 00:00:00 00:00:00 - External Alcohol Comment 2022-01-27 2022-01-[address] [facility] 00:00:00 00:00:00 Medical Center History of Social 2020-07-20 2020-07-20 Shanna Gibbons function 00:00:00 00:00:00 - External Sex [birth year] At [birth year] M NADYA Chisholm 00:00:00 00:00:00 Medical Center Smoking Status Start Date Stop Date Source Social History [facility] Medications Ordered Filled Start Stop Current Ordering Indication Dosage Frequency Signature Comments Components Source Medication Medication Date Date Medication? Clinician (SIG) Name Name azelastine Yes 1{spray [address] (ASTELIN) -11 } Nasal [facility]ukes 137 mcg 15:36: route 2 Medical (0.1 %) 29 (two) Center nasal spray times daily as needed Use in each nostril as directed . tadalafiL Yes 5mg QD Take [address] (CIALIS) 5 9-11 tablet (5 Luke s MG tablet 15:36: mg total) Med ical 29 by mouth Center daily. fluticasone Yes 1{spray [address] propionate -11 } Nasal [facility]ukes (FLONASE) 15:36: route as Medi francis 50 29 needed. Center mcg/actuati on nasal spray gabapentin Yes 300mg Take [address] [facility] [facility] (NEURONTIN) 9-11 capsule [facility]ukes 300 MG 15:36: (300 mg Medical capsule 29 total) by Center mouth 3 (three) times daily as needed. omeprazole Yes 40mg QD Take 1 [facility] (PriLOSEC) 9-11 capsule [facility]ukes 40 MG 15:36: (40 mg Medical capsule 29 total) by Center mouth daily. rosuvastati Yes 10mg QD Take [address] n (CRESTOR) 9-11 tablet (10 Mitra kes 10 MG 15:36: mg total) Medical tablet 29 by mouth Center nightly. flecainide Yes 50mg Q.5D Take 1 [facility] (TAMBOCOR) 9-11 tablet (50 Yolanda es 50 MG 15:36: mg total) Medical tablet 29 by mouth 2 Center (two) times daily. aspirin 81 0 Yes 81mg QD Take 1 [facility] MG EC 9-11 tablet (81 [facility]ukes tablet 15:36: mg total) Medica l 29 by mouth Center nightly. TiZANidine 2022- No 4mg Q.[id number] Take [address] (ZANAFLEX) 02-20 [id number] capsule (4 Lukes 4 MG 10:34: 00:00 3D mg total) Medical capsule 03 :00 by mouth 3 Center (three) times daily. SUMAtriptan 2022- No 50mg Take [address] [facility] (IMITREX) 02-20 tablet (50 Yolanda es 50 MG 10:34: 00:00 mg total) Medica l tablet 03 :00 by mouth Center once as needed for Headaches. apixaban Yes 5mg Q.5D Take [address] (ELIQUIS) 5 -11 tablet (5 Yolanda es mg Tab 00:00: mg total) Medica l tablet 00 by mouth 2 Center (two) times daily. Aspirin 81 0 Yes 81mg Take 1 Kelse y MG oral 7-25 tablet (81 Seybol d Tablet 13:22: mg total) - Delayed 43 by mouth Externa Response daily l Gabapentin Yes [id number] 100mg QD Take 1 Shanna 100 MG oral 6-29 capsule Seybo ld Capsule 00:00: (100 mg - 00 total) by Externa mouth l nightly as needed TRIMETHOPRI 0 2022- No [id number] 1{tbl} Take 1 Shanna M-SULFAMETH 6-22 07-25 tablet by Se ybold OXAZOLE 00:00: 00:00 mouth 2 - (Bactrim 00 :00 times Externa DS) 800-160 daily for l MG oral 7 days Tablet TRIMETHOPRI 2022-0 2022- Yes [id number] 1{tbl} Take 1 Shanna M-SULFAMETH 6-22 06-30 tablet by Se ybold OXAZOLE 00:00: 04:59 mouth 2 - (Bactrim 00 :00 times Externa DS) 800-160 daily for l MG oral 7 days Tablet methylPREDN Yes [id number] Take 1 jae Shanna ISolone 4 6-11 by mouth Seybol d MG oral 00:00: See Admin - Tablet 00 Instructio Externa Therapy ns Use as l Pack directed Pseudoeph-B 0 Yes [id number] 10mL Take 10 mL Shanna romphen-DM 6-11 by mouth 4 Sey bold 00:00: times - MG/5ML oral 00 daily Externa Syrup l Albuterol 2022-0 Yes [id number] 2{puff} Q.25D Inhale 2 Shanna HFA 108 (90 6-11 puffs into Se ybold Base) 00:00: the lungs - MCG/ACT IN 00 every 6 Entertainment Manager a AERS hours as l needed for wheezing FLUTICASONE 0 Yes [id number] 50ug QD Use 1 K elsey PROPIONATE, 6-11 spray (50 Sey bold NASAL, 00:00: mcg total) - (Flonase) 00 in each Externa 50 MCG/ACT nostril l nasal daily as Suspension needed for rhinitis methylPREDN 0 Yes [id number] Take 1 jae Shanna ISolone 4 6-11 by mouth Seybol d MG oral 00:00: See Admin - Tablet 00 Instructio Externa Therapy ns Use as l Pack directed Pseudoeph-B 0 Yes [id number] 10mL Take 10 mL Shanna romphen-DM 6-11 by mouth 4 Sey bold 00:00: times - MG/5ML oral 00 daily Externa Syrup l Albuterol 2022-0 Yes [id number] 2{puff} Q.25D Inhale 2 Shanna HFA 108 (90 6-11 puffs into Se ybold Base) 00:00: the lungs - MCG/ACT IN 00 every 6 Entertainment Manager a AERS hours as l needed for wheezing FLUTICASONE 2022-0 Yes [id number] 50ug QD Use 1 K elsey PROPIONATE, 6-11 spray (50 Sey bold NASAL, 00:00: mcg total) - (Flonase) 00 in each Externa 50 MCG/ACT nostril l nasal daily as Suspension needed for rhinitis Pseudoeph-B 2022-0 Yes [id number] 10mL Take 10 mL Shanna romphen-DM 6-11 by mouth 4 Sey bold 30-2-10 00:00: times - MG/5ML oral 00 daily Externa Syrup l Albuterol Yes [id number] 2{puff} Q.25D Inhale 2 Shanna HFA 108 (90 6-11 puffs into Se ybold Base) 00:00: the lungs - MCG/ACT IN 00 every 6 Entertainment Manager a AERS hours as l needed for wheezing FLUTICASONE Yes [id number] 50ug QD Use 1 K elsey PROPIONATE, 6-11 spray (50 Sey bold NASAL, 00:00: mcg total) - (Flonase) 00 in each Externa 50 MCG/ACT nostril l nasal daily as Suspension needed for rhinitis methylPREDN 2022- No [id number] Take 1 jae Shanna ISolone 4 6-11 07-25 by mouth Seybo ld MG oral 00:00: 00:00 See Admin - Tablet 00 :00 Instructio Externa Therapy ns Use as l Pack directed Rosuvastati Yes [id number] 10mg Take 1 Shanna n Calcium 6-05 tablet (10 Seyb old 10 MG oral 00:00: mg total) - Tablet 00 by mouth Externa nightly l Rosuvastati Yes [id number] 10mg Take 1 Shanna n Calcium 6-05 tablet (10 Seyb old 10 MG oral 00:00: mg total) - Tablet 00 by mouth Externa nightly l Rosuvastati Yes [id number] 10mg Take 1 Shanna n Calcium 6-05 [...] by mouth Externa Response daily l Gabapentin 2023-0 Yes [id number] 100mg QD Take 1 Shanna 100 MG oral 5-25 capsule Seybo ld Capsule 00:00: (100 mg - 00 total) by Externa mouth l nightly as needed Gabapentin 2022-0 Yes [id number] 100mg QD Take 1 Shanna 100 MG oral 5-25 capsule Seybo ld Capsule 00:00: (100 mg - 00 total) by Externa mouth l nightly as needed Gabapentin 2022-0 Yes [id number] 100mg QD Take 1 Shanna 100 MG oral 5-25 capsule Seybo ld Capsule 00:00: (100 mg - 00 total) by Externa mouth l nightly as needed Nitrofurant 2022-0 2023- No [id number] 100mg Take 1 Shanna oin Monohyd 4-17 05-25 capsule Seyb old Macro 100 00:00: 00:00 (100 mg - MG oral 00 :00 total) by Externa Capsule mouth 2 l times daily for 5 days Nitrofurant 2022-0 2023- No [id number] 100mg Take 1 Shanna oin Monohyd 4-17 04-23 capsule Seyb old Macro 100 00:00: 04:59 (100 mg - MG oral 00 :00 total) by Externa Capsule mouth 2 l times daily for 5 days Aspirin 81 2022-0 Yes 81mg Take 81 mg K elsey MG oral 3-28 by mouth Seybold Tablet 13:18: daily - Delayed 25 Externa Response l Rosuvastati 2022-0 Yes [id number] 10mg Take 1 Shanna n Calcium 3-28 tablet (10 Seyb old 10 MG oral 00:00: mg total) - Tablet 00 by mouth Externa nightly l Metoprolol 2022-0 Yes 25mg Take 1 Kelse y Succinate 3-28 tablet (25 Seyb old 25 MG oral 00:00: mg total) - TABLET SR 00 by mouth Entertainment Manager a 24 HR daily l Rosuvastati 2022-0 Yes [id number] 10mg Take 1 Shanna n Calcium 3-28 tablet (10 Seyb old 10 MG oral 00:00: mg total) - Tablet 00 by mouth Externa nightly l Metoprolol 3-0 Yes 25mg Take 1 Kelse y Succinate 3-28 tablet (25 Seyb old 25 MG oral 00:00: mg total) - TABLET SR 00 by mouth Entertainment Manager a 24 HR daily l Metoprolol 2022-0 Yes 25mg Take 1 Kelse y Succinate 3-28 tablet (25 Seyb old 25 MG oral 00:00: mg total) - TABLET SR 00 by mouth Entertainment Manager a 24 HR daily l Metoprolol 2022-0 Yes 25mg Take 1 Kelse y Succinate 3-28 tablet (25 Seyb old 25 MG oral 00:00: mg total) - TABLET SR 00 by mouth Entertainment Manager a 24 HR daily l Metoprolol 2022-0 Yes 25mg Take 1 Kelse y Succinate 3-28 tablet (25 Seyb old 25 MG oral 00:00: mg total) - TABLET SR 00 by mouth Entertainment Manager a 24 HR daily l Aspirin 81 2022-0 Yes 81mg Take 81 mg K elsey MG oral 3-02 by mouth Seybold Tablet 09:41: daily - Delayed 14 Externa Response l Rosuvastati 2022-0 Yes [id number] 10mg Take 1 Shanna n Calcium 3-02 tablet (10 Seyb old 10 MG oral 00:00: mg total) - Tablet 00 by mouth Externa nightly l Gabapentin 2022-0 Yes [id number] 300mg QD Take 1 Shanna 300 MG oral 3-02 capsule Seybo ld Capsule 00:00: (300 mg - 00 total) by Externa mouth l nightly as needed FLUTICASONE 2022-0 Yes [id number] 100ug QD Use 2 Shanna PROPIONATE, 3-02 sprays Seybol d NASAL, 00:00: (100 mcg - (Flonase) 00 total) in Exter na 50 MCG/ACT each l nasal nostril Suspension daily as needed for rhinitis Gabapentin 2022-0 Yes [id number] 300mg QD Take 1 Shanna 300 MG oral 3-02 capsule Seybo ld Capsule 00:00: (300 mg - 00 total) by Externa mouth l nightly as needed FLUTICASONE 2022-0 Yes [id number] 100ug QD Use 2 Shanna PROPIONATE, 3-02 sprays Seybol d NASAL, 00:00: (100 mcg - (Flonase) 00 total) in Exter na 50 MCG/ACT each l nasal nostril Suspension daily as needed for rhinitis FLUTICASONE 2022-0 Yes [id number] 100ug QD Use 2 Shanna PROPIONATE, 3-02 sprays Seybol d NASAL, 00:00: (100 mcg - (Flonase) 00 total) in Exter na 50 MCG/ACT each l nasal nostril Suspension daily as needed for rhinitis FLUTICASONE 2022-0 Yes [id number] 100ug QD Use 2 Shanna PROPIONATE, 3-02 sprays Seybol d NASAL, 00:00: (100 mcg - (Flonase) 00 total) in Exter na 50 MCG/ACT each l nasal nostril Suspension daily as needed for rhinitis FLUTICASONE 2022-0 Yes [id number] 100ug QD Use 2 Shanna PROPIONATE, 3-02 sprays Seybol d NASAL, 00:00: (100 mcg - (Flonase) 00 total) in Exter na 50 MCG/ACT each l nasal nostril Suspension daily as needed for rhinitis FLUTICASONE 2022-0 Yes [id number] 100ug QD Use 2 Shanna PROPIONATE, 3-02 sprays Seybol d NASAL, 00:00: (100 mcg - (Flonase) 00 total) in Exter na 50 MCG/ACT each l nasal nostril Suspension daily as needed for rhinitis Gabapentin 2022-0 202- No [id number] 300mg QD Take 1 Shanna 300 MG oral 3- 05-25 capsule Seyb old Capsule 00:00: 00:00 (300 mg - 00 :00 total) by Externa mouth l nightly as needed Metoprolol 2022-0 Yes 25mg Take 25 mg K elsey Succinate 2-28 by mouth Seybol d 25 MG oral 00:00: daily - TABLET SR 00 Externa 24 HR l Rosuvastati 2022-0 2022- No Kelse y n Calcium 2-28 03-02 Seybold 10 MG oral 00:00: 00:00 - Tablet 00 :00 Externa l Tadalafil 2022-0 Yes [id number] 5mg QD Take 1 K elsey (Cialis) 5 2-17 tablet (5 Seyb old MG oral 00:00: mg total) - Tablet 00 by mouth Externa daily as l needed for erectile dysfunctio n Tadalafil 2022-0 Yes [id number] 5mg QD Take 1 K elsey (Cialis) 5 2-17 tablet (5 Seyb old MG oral 00:00: mg total) - Tablet 00 by mouth Externa daily as l needed for erectile dysfunctio n Tadalafil Yes [id number] 5mg QD Take 1 K elsey (Cialis) 5 2-17 tablet (5 Seyb old MG oral 00:00: mg total) - Tablet 00 by mouth Externa daily as l needed for erectile dysfunctio n Tadalafil Yes [id number] 5mg QD Take 1 K elsey (Cialis) 5 2-17 tablet (5 Seyb old MG oral 00:00: mg total) - Tablet 00 by mouth Externa daily as l needed for erectile dysfunctio n Tadalafil Yes [id number] 5mg QD Take 1 K elsey (Cialis) 5 2-17 tablet (5 Seyb old MG oral 00:00: mg total) - Tablet 00 by mouth Externa daily as l needed for erectile dysfunctio n Tadalafil Yes [id number] 5mg QD Take 1 K elsey (Cialis) 5 2-17 tablet (5 Seyb old MG oral 00:00: mg total) - Tablet 00 by mouth Externa daily as l needed for erectile dysfunctio n ENT 2022- No 1{dose} 1 Dose by Tawny ey COMPOUND 07-12 nasal Seybold MED 06:57: 00:00 route 2 - 59 :00 times Externa daily CA l Tobramycin 300 mg/5 ml via #56 vials-Empt y 1 vial (300 mg) into nasal irrigation system, add distilled water, irrigate-t wice dailyAND DISPENSECM PD Clindamyci n 100 mg-Budeson ahsan 1 mg cap (1900) #56-Empty 1 capsule into nasal irrigation system, add distilled water, [facility] Tizanidine Yes [id number] TAKE 1 Shanna HCl 4 MG 31 TABLET BY Seybol d oral Tablet 00:00: MOUTH ONCE - 00 at bedtime Externa NEEDED l FOR MUSCLE SPASMS CAUTION SEDATION Naproxen Yes [id number] TAKE 1 Ke lsey 500 MG oral -31 TABLET BY Sey bold Tablet 00:00: MOUTH - 00 TWICE Externa DAILY l NEEDED FOR BACK PAIN Naproxen 2022-0 Yes [id number] TAKE 1 Ke lsey 500 MG oral 1-31 TABLET BY Sey bold Tablet 00:00: MOUTH - 00 TWICE Externa DAILY l NEEDED FOR BACK PAIN Naproxen 2022-0 Yes [id number] TAKE 1 Ke lsey 500 MG oral 1-31 TABLET BY Sey bold Tablet 00:00: MOUTH - 00 TWICE Externa DAILY l NEEDED FOR BACK PAIN Naproxen 2022-0 Yes [id number] TAKE 1 Ke lsey 500 MG oral 1-31 TABLET BY Sey bold Tablet 00:00: MOUTH - 00 TWICE Externa DAILY l NEEDED FOR BACK PAIN Naproxen 0 Yes [id number] TAKE 1 Ke lsey 500 MG oral 1-31 TABLET BY Sey bold Tablet 00:00: MOUTH - 00 TWICE Externa DAILY l NEEDED FOR BACK PAIN Naproxen 0 Yes [id number] TAKE 1 Ke lsey 500 MG oral 1-31 TABLET BY Sey bold Tablet 00:00: MOUTH - 00 TWICE Externa DAILY l NEEDED FOR BACK PAIN Naproxen 0 Yes [id number] TAKE 1 Ke lsey 500 MG oral 1-31 TABLET BY Sey bold Tablet 00:00: MOUTH - 00 TWICE Externa DAILY l NEEDED FOR BACK PAIN Tizanidine 2022-0 2022- No [id number] TAKE 1 Shanna HCl 4 MG -09 09-02 TABLET BY Seybo ld oral Tablet 00:00: 00:00 MOUTH ONCE - 00 :00 at bedtime Externa NEEDED l FOR MUSCLE SPASMS CAUTION SEDATION Tadalafil 0 Yes [id number] 5mg QD Take 1 K elsey (Cialis) 5 1-11 tablet (5 Seyb old MG oral 00:00: mg total) - Tablet 00 by mouth Externa daily as l needed for erectile dysfunctio n Omeprazole 2022-0 Yes [id number] 40mg Take 1 Shanna 40 MG oral 1-11 capsule Seybol d Delayed 00:00: (40 mg - Release 00 total) by Externa Capsule mouth l daily Gabapentin 2022-0 Yes [id number] 300mg Take 1 Shanna 300 MG oral 1-11 capsule Seybo ld Capsule 00:00: (300 mg - 00 total) by Externa mouth l every night at bedtime Omeprazole 0 Yes [id number] 40mg Take 1 Shanna 40 MG oral 1-11 capsule Seybol d Delayed 00:00: (40 mg - Release total) by Externa Capsule mouth l daily Omeprazole 2022-0 Yes [id number] 40mg Take 1 Shanna 40 MG oral 1-11 capsule Seybol d Delayed 00:00: (40 mg - Release total) by Externa Capsule mouth l daily Omeprazole 2022-0 Yes [id number] 40mg Take 1 Shanna 40 MG oral 1-11 capsule Seybol d Delayed 00:00: (40 mg - Release total) by Externa Capsule mouth l daily Omeprazole 0 Yes [id number] 40mg Take 1 Shanna 40 MG oral 1-11 capsule Seybol d Delayed 00:00: (40 mg - Release total) by Externa Capsule mouth l daily Omeprazole 0 Yes [id number] 40mg Take 1 Shanna 40 MG oral 1-11 capsule Seybol d Delayed 00:00: (40 mg - Release total) by Externa Capsule mouth l daily Omeprazole 0 Yes [id number] 40mg Take 1 Shanna 40 MG oral 1-11 capsule Seybol d Delayed 00:00: (40 mg - Release total) by Externa Capsule mouth l daily Gabapentin 2022- No [id number] 300mg Take 1 Shanna 300 MG oral 06-22 capsule Seyb old Capsule 00:00: 00:00 (300 mg - 00 :00 total) by Externa mouth l every night at bedtime Bupropion 0 2022- No [id number] 150mg Take 1 Shanna HCL XL 150 06-22 tablet Seybol d MG OR TB24 00:00: 00:00 (150 mg - 00 :00 total) by Externa mouth l daily methylPREDN 2021-06 Yes [id number] 1{jae} Take 1 jae Shanna ISolone 4 2-09 by mouth Seybol d MG oral 00:00: See Admin - Tablet 00 Instructio Externa Therapy ns Use as l Pack directed Azithromyci 2021-06- No [id number] Take 2 Shanna n 250 MG 208-11 tablets by Seyb old oral Tablet 00:00: 00:00 mouth on - 00 :00 day 1 then Externa 1 tablet l by mouth daily for 4 days thereafter . methylPREDN 2021-06- No [id number] 1{jae} Take 1 jae Otero ISolone 4 07-21 by mouth Seybo ld MG oral 00:00: 00:00 See Admin - Tablet 00 :00 Instructio Externa Therapy ns Use as l Pack directed Azithromyci 2021-06- No [id number] Take 2 Shanna n 250 MG 2- 12-15 tablets by Seyb old oral Tablet 00:00: 05:59 mouth on - 00 :00 day 1 then Externa 1 tablet l by mouth daily for 4 days thereafter . ENT 2021-06 Yes 1{dose} 1 Dose by Kelse y COMPOUND - nasal Seybold MED 08:32: route 2 - 20 times Externa daily CA l Tobramycin 300 mg/5 ml via #56 vials-Empt y 1 vial (300 mg) into nasal irrigation system, add distilled water, irrigate-t wice dailyAND DISPENSECM PD Clindamyci n 100 mg-Budeson ahsan 1 mg cap (1900) #56-Empty 1 capsule into nasal irrigation system, add distilled water, [facility] TRIM[facility]OPRI 2021-06- No 1{tbl} Take 1 K elsey M-SULFAMETH 1-17 03-02 tablet by Se ybold OXAZOLE 00:00: 00:00 mouth 2 - 800-160 MG 00 :00 times Externa oral Tablet daily for l 10 days Bupropion 2021-06 Yes [id number] 150mg Take 1 K elsey HCL XL 150 1-16 tablet Seybold MG OR TB24 00:00: (150 mg - 00 total) by Externa mouth l daily Gabapentin 2021-06 Yes [id number] 300mg Take 1 Shanna 300 MG oral 1-15 capsule Seybo ld Capsule 00:00: (300 mg - 00 total) by Externa mouth l every night at bedtime Gabapentin 2021-06 Yes [id number] 300mg Take 1 Shanna 300 MG oral 1-09 capsule Seybo ld Capsule 00:00: (300 mg - 00 total) by Externa mouth l every night at bedtime Escitalopra 2021-06 Yes [id number] 10mg Take 1 Shanna m Oxalate 06-20 tablet (10 Seyb old 10 MG oral 00:00: mg total) - Tablet 00 by mouth Externa daily l Escitalopra 2021-06- No [id number] 10mg Take 1 Shanna m Oxalate 06-20 12 tablet (10 Sey bold 10 MG oral 00:00: 00:00 mg total) - Tablet 00 :00 by mouth Externa daily l Tadalafil 2021-06 Yes [id number] 5mg QD Take 1 K elsey (Cialis) 5 -08 tablet (5 Seyb old MG oral 00:00: mg total) - Tablet 00 by mouth Externa daily as l needed for erectile dysfunctio n Tadalafil 2021-06 Yes [id number] 5mg QD Take 1 K elsey (Cialis) 5 -08 tablet (5 Seyb old MG oral 00:00: mg total) - Tablet 00 by mouth Externa daily as l needed for erectile dysfunctio n Azithromyci 2021-06 Yes [id number] Take 2 Shanna n 250 MG 0-14 tablets by Seybo ld oral Tablet 00:00: mouth on - day 1 then Externa 1 tablet l by mouth daily for 4 days thereafter . Azithromyci 2021-06- No [id number] Take 2 Shanna n 250 MG 0-14 05-20 tablets by Seyb old oral Tablet 00:00: [...] 100ug Use 2 Dariusz sey PROPIONATE, 03-10 03-02 sprays Seybo ld NASAL, 00:00: 00:00 (100 mcg - (Flonase) 00 :00 total) in Exter na 50 MCG/ACT each l nasal nostril Suspension daily FLUTICASONE 2021- No 100ug Use 2 Dariusz martinez PROPIONATE, 03-10 10-30 sprays Seybo ld NASAL, 00:00: 04:59 (100 mcg - (Flonase) 00 :00 total) in Exter na 50 MCG/ACT each l nasal nostril Suspension daily Gabapentin Yes [id number] 300mg Take 1 Shanna 300 MG oral 22 capsule Seybo ld Capsule 00:00: (300 mg - 00 total) by Externa mouth l every night at bedtime predniSONE Yes Start at [facility] (DELTASONE) 9-15 30 mg qd Seyb old 10 MG oral 00:00: x3 days, - tablet 00 Then 20 mg Externa QD x3 l days, then 10 mg QD x3 days, then stop predniSONE Yes Start at [facility] (DELTASONE) 9-15 30 mg qd Seyb old 10 MG oral 00:00: x3 days, - tablet 00 Then 20 mg Externa QD x3 l days, then 10 mg QD x3 days, then stop predniSONE Yes Start at [facility] (DELTASONE) 9-15 30 mg qd Seyb old 10 MG oral 00:00: x3 days, - tablet 00 Then 20 mg Externa QD x3 l days, then 10 mg QD x3 days, then stop predniSONE 2022- No Start at [facility] (DELTASONE) 915 -31 30 mg qd Sey bold 10 MG [...] 11:42: daily. Medica l 58 Center fluticasone 0 Yes 1{spray QD [address] [facility] propionate 02-16 } Nasal [facility] (FLONASE) 11:42: route Medical 50 58 daily. Center mcg/actuati on nasal spray TiZANidine 0 Yes 4mg Q.[id number] Take [address] [facility] (ZANAFLEX) 02-16 [id number] by mouth 3 [facility] 4 MG 11:42: 3D (three) Medical capsule 58 times Center daily. gabapentin 0 Yes 300mg Q.[id number] Take [address] [facility] (NEURONTIN) 02-16 [id number] mg by L ukes 300 MG 11:42: [...] tablet 58 needed for Center Headaches. Acetaminoph 2021-0 Yes 1{tbl} Q.25D Take 1 K elsey en-Codeine - tablet by Memo old 300-30 MG 00:00: mouth - oral Tablet 00 every 6 Exter na hours as l needed for pain Acetaminoph 2021-0 Yes 1{tbl} Q.25D Take 1 K elsey en-Codeine 9-07 tablet by Seyb old 300-30 MG 00:00: mouth - oral Tablet 00 every 6 Exter na hours as l needed for pain Acetaminoph 2-0 Yes 1{tbl} Q.25D Take 1 K elsey en-Codeine 9-07 tablet by Seyb old 300-30 MG 00:00: mouth - oral Tablet 00 every 6 Exter na hours as l needed for pain Acetaminoph 2022-0 3- No 1{tbl} Q.25D Take 1 Shanna en-Codeine - 01-31 tablet by Layton jones 300-30 MG 00:00: 00:00 mouth - oral Tablet 00 :00 every 6 Exter na hours as l needed for pain Tadalafil Yes [id number] 5mg QD Take 1 K elsey (Cialis) 5 8-29 tablet (5 Seyb old MG oral 00:00: mg total) - Tablet 00 by mouth Externa daily as l needed for erectile dysfunctio n Omeprazole Yes [id number] 40mg Take 1 Shanna 40 MG oral 8-29 capsule Seybol d Delayed 00:00: (40 mg - Release 00 total) by Externa Capsule mouth l daily Omeprazole 0 Yes [id number] 40mg Take 1 Shanna 40 MG oral 8-29 capsule Seybol d Delayed 00:00: (40 mg - Release 00 total) by Externa Capsule mouth l daily Omeprazole Yes [id number] 40mg Take 1 Shanna 40 MG oral 8-29 capsule Seybol d Delayed 00:00: (40 mg - Release 00 total) by Externa Capsule mouth l daily Missing or 2021-0 2021- No [facility] Non-Formula 8-15 08-15 [facility] 15:04: 00:00 Medical Medication 57 :00 Center Missing or 2021-0 2021- No [facility] Non-Formula 8-15 08-15 [facility] 15:04: 00:00 Medical Medication 51 :00 [place] Azelastine 0 Yes 1{spray Use 1 Dariusz sey HCl 0.1 % 6-15 } spray in Seybol d nasal 00:00: each - Solution 00 nostril 2 Entertainment Manager a times l daily Azelastine Yes 1{spray Use 1 Dariusz sey HCl 0.1 % 6-15 } spray in Seybol d nasal 00:00: each - Solution 00 nostril 2 Entertainment Manager a times l daily Azelastine 0 Yes 1{spray Use 1 Dariusz sey HCl 0.1 % 6-15 } spray in Seybol d nasal 00:00: each - Solution 00 nostril 2 Entertainment Manager a times l daily Azelastine 0 Yes 1{spray Use 1 Dariusz sey HCl 0.1 % 6-15 } spray in Seybol d nasal 00:00: each - Solution 00 nostril 2 Entertainment Manager a times l daily Azelastine 2022-0 Yes 1{spray Use 1 Dariusz sey HCl 0.1 % 6-15 } spray in Seybol d nasal 00:00: each - Solution 00 nostril 2 Entertainment Manager a times l daily Azelastine Yes 1{spray Use 1 Dariusz sey HCl 0.1 % 6-15 } spray in Seybol d nasal 00:00: each - Solution 00 nostril 2 Entertainment Manager a times l daily Azelastine Yes 1{spray Use 1 Dariusz sey HCl 0.1 % 6-15 } spray in Seybol d nasal 00:00: each - Solution 00 nostril 2 Entertainment Manager a times l daily Azelastine Yes 1{spray Use 1 Dariusz sey HCl 0.1 % 6-15 } spray in Seybol d nasal 00:00: each - Solution 00 nostril 2 Entertainment Manager a times l daily Azelastine Yes 1{spray Use 1 Dariusz sey HCl 0.1 % 6-15 } spray in Seybol d nasal 00:00: each - Solution 00 nostril 2 Entertainment Manager a times l daily Azelastine 202- No 1{spray Use 1 Ke lsey HCl 0.1 % 6-15 07-25 } spray in Seybo ld nasal 00:00: 00:00 each - Solution 00 :00 nostril 2 Entertainment Manager a times l daily Tadalafil Yes [id number] 5mg QD Take 1 K elsey (Cialis) 5 5-26 tablet (5 Seyb old MG oral 00:00: mg total) Tablet 00 by mouth daily as needed for erectile dysfunctio n methylPREDN Yes 1{aje} Take 1 jae Otero ISolone 5-17 by mouth Seybold (Medrol) 4 00:00: See Admin MG oral 00 Instructio Tablet ns Use as Therapy directed. Pack TRIMETHOPRI 202- No 1{tbl} Take 1 K elsey M-SULFAMETH [...] nostril 2 times daily FLUTICASONE 2- No [id number] 50ug Use 1 Shanna PROPIONATE, 4-27 09-29 spray (50 Se ybold NASAL, 00:00: 00:00 mcg total) - (Flonase) 00 :00 in each Externa 50 MCG/ACT nostril l nasal daily Suspension FLUTICASONE 2021- No [id number] 50ug Use 1 Shanna PROPIONATE, 4-27 05-28 spray (50 Se ybold NASAL, 00:00: 04:59 mcg total) (Flonase) 00 :00 in each 50 MCG/ACT nostril nasal daily Suspension FLUTICASONE 2021- No [id number] 50ug Use 1 Shanna PROPIONATE, 4-27 05-28 spray (50 Se ybold NASAL, 00:00: 04:59 mcg total) (Flonase) 00 :00 in each 50 MCG/ACT nostril nasal daily Suspension Omeprazole Yes [id number] 40mg Take 1 Shanna 40 MG oral 4-26 capsule Seybol d Delayed 00:00: (40 mg Release 00 total) by Capsule mouth daily Gabapentin Yes [id number] gabapentin Shanna 300 MG oral 4-26 300 mg Seybol d Capsule 00:00: nightly 00 for three days then one by mouth twice a day for three days, then one AM and two at night until follow up with neurology. Tizanidine Yes [id number] TAKE 1 Shanna HCl 4 MG 4-26 TABLET BY Seybol d oral Tablet 00:00: MOUTH ONCE 00 at bedtime NEEDED FOR MUSCLE SPASMS CAUTION SEDATION Omeprazole Yes [id number] 40mg Take 1 Shanna 40 MG oral 4-26 capsule Seybol d Delayed 00:00: (40 mg Release 00 total) by Capsule mouth daily Gabapentin Yes [id number] gabapentin Shanna 300 MG oral 4-26 300 [...] NEEDED FOR MUSCLE SPASMS CAUTION SEDATION Tizanidine 2021-0 Yes TAKE 1 Shanna HCl 4 MG 4-26 TABLET BY Seybol d oral Tablet 00:00: MOUTH ONCE - 00 at bedtime Externa NEEDED l FOR MUSCLE SPASMS CAUTION SEDATION Tizanidine 0 [...] l FOR MUSCLE SPASMS CAUTION SEDATION Tizanidine 3- No TAKE 1 Shanna HCl 4 MG 4-26 01-31 TABLET BY Seybo ld oral Tablet 00:00: 00:00 MOUTH ONCE - 00 :00 at bedtime Externa NEEDED l FOR MUSCLE SPASMS CAUTION SEDATION methylPREDN Yes [id number] 1{jae} Take 1 jae Shanna ISolone 4 3-24 by mouth Seybol d MG oral 00:00: See Admin Tablet 00 Instructio Therapy ns Use as Pack directed Sumatriptan Yes [id number] Take one Shanna Succinate 3-21 tablet, if Seyb old 50 MG oral 00:00: still Tablet 00 having pain 2 hours later may take one more. No more than 2 pills in a 24 hours period. Sumatriptan 0 Yes [id number] Take one Shanna Succinate 3-21 tablet, if Seyb old 50 MG oral 00:00: still Tablet 00 having pain 2 hours later may take one more. No more than 2 pills in a 24 hours period. Sumatriptan 2021- Yes [id number] Take one Shanna Succinate 3-21 tablet, if Seyb old 50 MG oral 00:00: still Tablet 00 having pain 2 hours later may take one more. No more than 2 pills in a 24 hours period. Sumatriptan 2021- No [id number] Take one Shanna Succinate 3-21 09-29 tablet, if Sey bold 50 MG oral 00:00: 00:00 still - Tablet 00 :00 having Externa pain 2 l hours later may take one more. No more than 2 pills in a 24 hours period. methylPREDN 0 Yes [id number] Take 1 jae Shanna ISolone 4 2-17 by mouth Seybol d MG oral 00:00: See Admin Tablet 00 Instructio Therapy ns Use as Pack directed FLUTICASONE 2021-0 Yes [id number] 50ug Use 1 K elsey PROPIONATE, 2-17 spray (50 Sey bold NASAL, 00:00: mcg total) (Flonase) 00 in each 50 MCG/ACT nostril nasal daily Suspension methylPREDN 2021-0 Yes [id number] Take 1 jae Shanna ISolone 4 2-17 by mouth Seybol d MG oral 00:00: See Admin Tablet 00 Instructio Therapy ns Use as Pack directed methylPREDN 2021-0 Yes [id number] Take 1 jae Shanna ISolone 4 2-17 by mouth Seybol d MG oral 00:00: See Admin Tablet 00 Instructio Therapy ns Use as Pack directed FLUTICASONE 0 2021- No [id number] 50ug Use 1 Shanna PROPIONATE, 2-17 03-20 spray (50 Se ybold NASAL, 00:00: 04:59 mcg total) (Flonase) 00 :00 in each 50 MCG/ACT nostril nasal daily Suspension Azithromyci 0 2021- No [id number] Take 2 Shanna n 250 MG 2-17 02-23 tablets by Seyb old oral Tablet 00:00: 05:59 mouth on 00 :00 day 1 then 1 tablet by mouth daily for 4 days thereafter . Omeprazole 2021-0 Yes [id number] 40mg Take 1 Shanna 40 MG oral 1-04 capsule Seybol d Delayed 00:00: (40 mg Release 00 total) by Capsule mouth daily Tizanidine 2021-0 Yes [id number] TAKE 1 Shanna HCl 4 MG 1-04 TABLET BY Seybol d oral Tablet 00:00: MOUTH ONCE 00 at bedtime NEEDED FOR MUSCLE SPASMS CAUTION SEDATION Omeprazole 2021-0 Yes [id number] 40mg Take 1 Shanna 40 MG oral 1-04 capsule Seybol d Delayed 00:00: (40 mg Release 00 total) by Capsule mouth daily Tizanidine 0 Yes [id number] TAKE 1 Shanna HCl 4 MG 1-04 TABLET BY Seybol d oral Tablet 00:00: MOUTH ONCE 00 at bedtime NEEDED FOR MUSCLE SPASMS CAUTION SEDATION Omeprazole 2021- Yes [id number] 40mg Take 1 Shanna 40 MG oral 1-04 capsule Seybol d Delayed 00:00: (40 mg Release 00 total) by Capsule mouth daily Tizanidine 0 Yes [id number] TAKE 1 Shanna HCl 4 MG 1-04 TABLET BY Seybol d oral Tablet 00:00: MOUTH ONCE 00 at bedtime NEEDED FOR MUSCLE SPASMS CAUTION SEDATION methylPREDN 2020-06 Yes [id number] 1{jae} Take 1 jae Shanna ISolone 4 1-18 by mouth Seybol d MG oral 00:00: See Admin Tablet 00 Instructio Therapy ns Use as Pack directed methylPREDN 2020-06 Yes [id number] 1{jae} Take 1 jae Shanna ISolone 4 1-18 by mouth Seybol d MG oral 00:00: See Admin Tablet 00 Instructio Therapy ns Use as Pack directed methylPREDN 2020-06- No [id number] 1{jae} Take 1 jae Shanna ISolone 4 1-18 02-17 by mouth Seybo ld MG oral 00:00: 00:00 See Admin Tablet 00 :00 Instructio Therapy ns Use as Pack directed Methylpredn 2020-06- No [id number] 40mg Shanna isolone 1-17 -17 Seybold Sodium 17:45: 17:43 (SOLU-MEDRO 00 :00 L) 40 mg Methylpredn 2020-06- No [id number] 40mg 40 mg, Shanna isolone 1-17 -17 intramuscu Seybo ld Sodium 17:45: 17:43 lar, ONCE, (SOLU-MEDRO 00 :00 On Wed L) 40 mg 04/28/21 at 1145, For 1 dose Pseudoeph-B 2020-06 Yes [id number] 10mL Q.25D Take 10 mL Shanna romphen-DM 0-11 by mouth 4 Sey bold (Bromfed 00:00: times DM) - 00 daily as MG/5ML oral needed Syrup Pseudoeph-B 2020-06 Yes [id number] 10mL Q.25D Take 10 mL Shanna romphen-DM 0-11 by mouth 4 Sey bold (Bromfed 00:00: times DM) 302- 00 daily as MG/5ML oral needed Syrup Pseudoeph-B 2020-06 Yes [id number] 10mL Q.25D Take 10 mL Shanna romphen-DM 0-11 by mouth 4 Sey bold (Bromfed :00: times DM) daily as MG/5ML oral needed Syrup Pseudoeph-B 2020-06 Yes [id number] 10mL Q.25D Take 10 mL Shanna romphen-DM 0-11 by mouth 4 Sey bold (Bromfed 00:00: times DM) daily as MG/5ML oral needed Syrup Pseudoeph-B 2020-06 Yes [id number] 10mL Q.25D Take 10 mL Shanna romphen-DM 0-11 by mouth 4 Sey bold (Bromfed :00: times DM) daily as MG/5ML oral needed Syrup Pseudoeph-B 2020-06 Yes [id number] 10mL Q.25D Take 10 mL Shanna romphen-DM 0-11 by mouth 4 Sey bold (Bromfed :00: times DM) - daily as MG/5ML oral needed Syrup Pseudoeph-B 2020-06 Yes [id number] 10mL Q.25D Take 10 mL Shanna romphen-DM 0-11 by mouth 4 Sey bold (Bromfed 00:00: times - DM) 302- 00 daily as Exte rna MG/5ML oral needed l Syrup Pseudoeph-B 2020-06 Yes [id number] 10mL Q.25D Take 10 mL Shanna romphen-DM 0-11 by mouth 4 Sey bold (Bromfed 00:00: times - DM) 302- 00 daily as Exte rna MG/5ML oral needed l Syrup Pseudoeph-B 2020-06 Yes [id number] 10mL Q.25D Take 10 mL Shanna romphen-DM 0-11 by mouth 4 Sey bold (Bromfed 00:00: times - DM) 00 daily as Exte rna MG/5ML oral needed l Syrup Pseudoeph-B 2020-06 Yes [id number] 10mL Q.25D Take 10 mL Shanna romphen-DM 0-11 by mouth 4 Sey bold (Bromfed 00:00: times - DM) 00 daily as Exte rna MG/5ML oral needed l Syrup Pseudoeph-B 2020-06 Yes [id number] 10mL Q.25D Take 10 mL Shanna romphen-DM 0-11 by mouth 4 Sey bold (Bromfed 00:00: times DM) 00 daily as MG/5ML oral needed Syrup Pseudoeph-B 2020-06- No [id number] 10mL Q.25D Take 10 mL Shanna romphen-DM 0-11 03-02 by mouth 4 Se ybold (Bromfed 00:00: 00:00 times - DM) 00 :00 daily as Exte rna MG/5ML oral needed l Syrup Azithromyci 2020-06- No [id number] Take 2 Shanna n 250 MG 0-11 10-17 tablets by Seyb old oral Tablet 00:00: 04:59 mouth on 00 :00 day 1 then 1 tablet by mouth daily for 4 days thereafter . Cetirizine 2020-06 Yes [id number] 10mg Take 1 Shanna (ZyrTEC 0-10 tablet (10 Seybol d Allergy) 10 00:00: mg total) MG oral 00 by mouth Tablet daily Benzonatate 2020-06 Yes [id number] 100mg Q.[id number] Take 1 Shanna (Tessalon 0-10 [id number] capsule S winston Vo) 100 00:00: 3D (100 mg MG oral 00 total) by Capsule mouth 3 times daily as needed for cough Cetirizine 2020-06 Yes [id number] 10mg Take 1 Shanna (ZyrTEC 0-10 tablet (10 Seybol d Allergy) 10 00:00: mg total) MG oral 00 by mouth Tablet daily Benzonatate 2020-06 Yes [id number] 100mg Q.[id number] Take 1 Shanna (Tessalon 0-10 [id number] capsule S eybold Perles) 100 00:00: 3D (100 mg MG oral 00 total) by Capsule mouth 3 times daily as needed for cough Benzonatate 2020-06 Yes [id number] 100mg Q.[id number] Take 1 Shanna (Tessalon 0-10 [id number] capsule S eybold Perles) 100 00:00: 3D (100 mg MG oral 00 total) by Capsule mouth 3 times daily as needed for cough Benzonatate 2020-06 Yes [id number] 100mg Q.[id number] Take 1 Shanna (Tessalon 0-10 [id number] capsule S eybold Perles) 100 00:00: 3D (100 mg MG oral 00 total) by Capsule mouth 3 times daily as needed for cough Benzonatate 2020-06 Yes [id number] 100mg Q.[id number] Take 1 Shanna (Tessalon 0-10 [id number] capsule S eybold Perles) 100 00:00: 3D (100 mg MG oral 00 total) by Capsule mouth 3 times daily as needed for cough Benzonatate 2020-06 Yes [id number] 100mg Q.[id number] Take 1 Shanna (Tessalon 0-10 [id number] capsule S eybold Perles) 100 00:00: 3D (100 mg MG oral 00 total) by Capsule mouth 3 times daily as needed for cough Benzonatate 2020-06 Yes [id number] 100mg Q.[id number] Take 1 Shanna (Tessalon 0-10 [id number] capsule S eybold Perles) 100 00:00: 3D (100 mg - MG oral 00 total) by Externa Capsule mouth 3 l times daily as needed for cough Benzonatate 2020-06 Yes [id number] 100mg Q.[id number] Take 1 Shanna (Tessalon 0-10 [id number] capsule S eybold Perles) 100 00:00: 3D (100 mg - MG oral 00 total) by Externa Capsule mouth 3 l times daily as needed for cough Benzonatate 2020-06 Yes [id number] 100mg Q.[id number] Take 1 Shanna (Tessalon 0-10 [id number] capsule S eybold Perles) 100 00:00: 3D (100 mg - MG oral 00 total) by Externa Capsule mouth 3 l times daily as needed for cough Benzonatate 2020-06 Yes [id number] 100mg Q.[id number] Take 1 Shanna (Tessalon 0-10 [id number] capsule S eybold Perles) 100 00:00: 3D (100 mg - MG oral 00 total) by Externa Capsule mouth 3 l times daily as needed for cough Cetirizine 2020-06 Yes [id number] 10mg Take 1 Shanna (ZyrTEC 0-10 tablet (10 Seybol d Allergy) 10 00:00: mg total) MG oral 00 by mouth Tablet daily Benzonatate 2020-06 Yes [id number] 100mg Q.[id number] Take 1 Shanna (Tessalon 0-10 [id number] capsule S eybold Perles) 100 00:00: 3D (100 mg MG oral 00 total) by Capsule mouth 3 times daily as needed for cough Cetirizine 2020-06 Yes [id number] 10mg Take 1 Shanna (ZyrTEC 0-10 tablet (10 Seybol d Allergy) 10 00:00: mg total) MG oral 00 by mouth Tablet daily Benzonatate 2020-06 Yes [id number] 100mg Q.[id number] Take 1 Shanna (Tessalon 0-10 [id number] capsule S eybold Perles) 100 00:00: 3D (100 mg MG oral 00 total) by Capsule mouth 3 times daily as needed for cough Benzonatate 2020-06- No [id number] 100mg Q.[id number] Take 1 Shanna (Tessalon 0-10 03-02 [id number] capsule Seybold Perles) 100 00:00: 00:00 3D (100 mg - MG oral 00 :00 total) by Externa Capsule mouth 3 l times daily as needed for cough Cetirizine 2020-06- No [id number] 10mg Take 1 Shanna (ZyrTEC 0-10 02-17 tablet (10 Seybo ld Allergy) 10 00:00: 00:00 mg total) MG oral 00 :00 by mouth Tablet daily FLUTICASONE 2020-06- No [id number] 100ug Use 2 Shanna PROPIONATE, 0-10 11-10 sprays Seybo ld NASAL, 00:00: 05:59 (100 mcg (Flonase) 00 :00 total) in 50 MCG/ACT each nasal nostril Suspension daily FLUTICASONE 2020-06- No [id number] 100ug Use 2 Shanna PROPIONATE, 0-10 11-10 sprays Seybo ld NASAL, 00:00: 05:59 (100 mcg (Flonase) 00 :00 total) in 50 MCG/ACT each nasal nostril Suspension daily Tizanidine Yes [id number] TAKE 1 Shanna HCl 4 MG 9-20 TABLET BY Seybol d oral Tablet 00:00: MOUTH ONCE 00 at bedtime NEEDED FOR MUSCLE SPASMS CAUTION SEDATION Albuterol Yes [id number] 2{puff} Q6H Inhale 2 Shanna HFA (PROAIR 9-20 [id number] puffs into Seybold HFA) 108 00:00: the lungs (90 Base) 00 every 6 MCG/ACT IN hours as AERS needed Albuterol Yes [id number] 2{puff} Q6H Inhale 2 Shanna HFA (PROAIR 9-20 [id number] puffs into Seybold HFA) 108 00:00: the lungs (90 Base) 00 every 6 MCG/ACT IN hours as AERS needed Albuterol Yes [id number] 2{puff} Q6H Inhale 2 Shanna HFA (PROAIR 9-20 [id number] puffs into Seybold HFA) 108 00:00: the lungs (90 Base) 00 every 6 MCG/ACT IN hours as AERS needed Albuterol Yes [id number] 2{puff} Q.25D Inhale 2 Shanna HFA (PROAIR 9-20 [id number] puffs into Seybold HFA) 108 00:00: the lungs (90 Base) 00 every 6 MCG/ACT IN hours as AERS needed Albuterol Yes [id number] 2{puff} Q.25D Inhale 2 Shanna HFA (PROAIR 9-20 [id number] puffs into Seybold HFA) 108 00:00: the lungs (90 Base) 00 every 6 MCG/ACT IN hours as AERS needed Albuterol 0 Yes [id number] 2{puff} Q.25D Inhale 2 Shanna HFA (PROAIR 9-20 [id number] puffs into Seybold HFA) 108 00:00: the lungs (90 Base) 00 every 6 MCG/ACT IN hours as AERS needed Tizanidine 0 Yes [id number] TAKE 1 Shanna HCl 4 MG 9-20 TABLET BY Seybol d oral Tablet 00:00: MOUTH ONCE 00 at bedtime NEEDED FOR MUSCLE SPASMS CAUTION SEDATION Albuterol 0 Yes [id number] 2{puff} Q.25D Inhale 2 Shanna HFA (PROAIR 9-20 [id number] puffs into Seybold HFA) 108 00:00: the lungs - (90 Base) 00 every 6 Externa MCG/ACT IN hours as l AERS needed Albuterol 0 Yes [id number] 2{puff} Q6H Inhale 2 Shanna HFA (PROAIR 9-20 [id number] puffs into Seybold HFA) 108 00:00: the lungs (90 Base) 00 every 6 MCG/ACT IN hours as AERS needed Albuterol 0 Yes [id number] 2{puff} Q.25D Inhale 2 Shanna HFA (PROAIR 9-20 [id number] puffs into Seybold HFA) 108 00:00: the lungs - (90 Base) 00 every 6 Externa MCG/ACT IN hours as l AERS needed Albuterol 2020-0 Yes [id number] 2{puff} Q.25D Inhale 2 Shanna HFA (PROAIR 9-20 [id number] puffs into Seybold HFA) 108 00:00: the lungs - (90 Base) 00 every 6 Externa MCG/ACT IN hours as l AERS needed Albuterol 0 Yes [id number] 2{puff} Q.25D Inhale 2 Shanna HFA (PROAIR 9-20 [id number] puffs into Seybold HFA) 108 00:00: the lungs - (90 Base) 00 every 6 Externa MCG/ACT IN hours as l AERS needed Albuterol 0 Yes [id number] 2{puff} Q.25D Inhale 2 Shanna HFA (PROAIR 9-20 [id number] puffs into Seybold HFA) 108 00:00: the lungs - (90 Base) 00 every 6 Externa MCG/ACT IN hours as l AERS needed Albuterol 0 Yes [id number] 2{puff} Q.25D Inhale 2 Shanna HFA (PROAIR 9-20 [id number] puffs into Seybold HFA) 108 00:00: the lungs - (90 Base) 00 every 6 Externa MCG/ACT IN hours as l AERS needed Tizanidine 0 Yes [id number] TAKE 1 Shanna HCl 4 MG 9-20 TABLET BY Seybol d oral Tablet 00:00: MOUTH ONCE 00 at bedtime NEEDED FOR MUSCLE SPASMS CAUTION SEDATION Albuterol 0 Yes [id number] 2{puff} Q.25D Inhale 2 Shanna HFA (PROAIR 9-20 [id number] puffs into Seybold HFA) 108 00:00: the lungs - (90 Base) 00 every 6 Externa MCG/ACT IN hours as l AERS needed Albuterol 0 Yes [id number] 2{puff} Q6H Inhale 2 Shanna HFA (PROAIR 9-20 [id number] puffs into Seybold HFA) 108 00:00: the lungs (90 Base) 00 every 6 MCG/ACT IN hours as AERS needed Albuterol 0 Yes [id number] 2{puff} Q.25D Inhale 2 Shanna HFA (PROAIR 9-20 [id number] puffs into Seybold HFA) 108 00:00: the lungs - (90 Base) 00 every 6 Externa MCG/ACT IN hours as l AERS needed Albuterol 0 Yes [id number] 2{puff} Q.25D Inhale 2 Shanna HFA (PROAIR 9-20 [id number] puffs into Seybold HFA) 108 00:00: the lungs - (90 Base) 00 every 6 Externa MCG/ACT IN hours as l AERS needed Albuterol Yes [id number] 2{puff} Q.25D Inhale 2 Shanna HFA (PROAIR 9-20 [id number] puffs into Seybold HFA) 108 00:00: the lungs - (90 Base) 00 every 6 Externa MCG/ACT IN hours as l AERS needed Tizanidine 0 Yes [id number] TAKE 1 Shanna HCl 4 MG 9-20 TABLET BY Seybol d oral Tablet 00:00: MOUTH ONCE 00 at bedtime NEEDED FOR MUSCLE SPASMS CAUTION SEDATION Albuterol Yes [id number] 2{puff} Q6H Inhale 2 Shanna HFA (PROAIR 9-20 [id number] puffs into Seybold HFA) 108 00:00: the lungs (90 Base) 00 every 6 MCG/ACT IN hours as AERS needed Naproxen 2020-0 Yes [id number] TAKE 1 Ke lsey 500 MG oral 9-09 TABLET BY Sey bold Tablet 00:00: MOUTH 00 TWICE DAILY NEEDED FOR BACK PAIN Naproxen 0 Yes [id number] TAKE 1 Ke lsey 500 MG oral 9-09 TABLET BY Sey bold Tablet 00:00: MOUTH 00 TWICE DAILY NEEDED FOR BACK PAIN Naproxen 2020-0 Yes [id number] TAKE 1 Ke lsey 500 MG oral 9-09 TABLET BY Sey bold Tablet 00:00: MOUTH 00 TWICE DAILY NEEDED FOR BACK PAIN Naproxen 2020-0 Yes [id number] TAKE 1 Ke lsey 500 MG oral 9-09 TABLET BY Sey bold Tablet 00:00: MOUTH 00 TWICE DAILY NEEDED FOR BACK PAIN Naproxen 2020-0 Yes [id number] TAKE 1 Ke lsey 500 MG oral 9-09 TABLET BY Sey bold Tablet 00:00: MOUTH 00 TWICE DAILY NEEDED FOR BACK PAIN Naproxen 2020-0 Yes [id number] TAKE 1 Ke lsey 500 MG oral 9-09 TABLET BY Sey bold Tablet 00:00: MOUTH 00 TWICE DAILY NEEDED FOR BACK PAIN Naproxen 2020-0 Yes [id number] TAKE 1 Ke lsey 500 MG oral 9-09 TABLET BY Sey bold Tablet 00:00: MOUTH 00 TWICE DAILY NEEDED FOR BACK PAIN Naproxen 2020-0 Yes [id number] TAKE 1 [place] 500 MG oral 9 TABLET BY Sey bold Tablet 00:00: MOUTH - 00 TWICE Externa DAILY l NEEDED FOR BACK PAIN Naproxen 2020-0 Yes [id number] TAKE 1 [place] 500 MG oral 9 TABLET BY Sey bold Tablet 00:00: MOUTH - 00 TWICE Externa DAILY l NEEDED FOR BACK PAIN Naproxen 2020-0 Yes [id number] TAKE 1 [place] 500 MG oral 9- TABLET BY Sey bold Tablet 00:00: MOUTH - 00 TWICE Externa DAILY l NEEDED FOR BACK PAIN Naproxen 2020-0 Yes [id number] TAKE 1 [place] 500 MG oral 9- TABLET BY Sey bold Tablet 00:00: MOUTH 00 TWICE DAILY NEEDED FOR BACK PAIN Naproxen 2020-0 Yes [id number] TAKE 1 Ke lsey 500 MG oral 9 TABLET BY Sey bold Tablet 00:00: MOUTH 00 TWICE DAILY NEEDED FOR BACK PAIN Naproxen 2020-0 2023- No [id number] TAKE 1 K elsey 500 MG oral 907-12 TABLET BY Se ybold Tablet 00:00: 00:00 MOUTH - 00 :00 TWICE Externa DAILY l NEEDED FOR BACK PAIN Tizanidine 2020-0 1- No [id number] TAKE 1 Shanna HCl 4 MG -03-01 TABLET BY Seybo ld oral Tablet 00:00: 00:00 MOUTH ONCE 00 :00 at bedtime NEEDED FOR MUSCLE SPASMS CAUTION SEDATION Tadalafil 2020-0 Yes [id number] 5mg Q24H Take 1 K elsey (Cialis) 5 2-08 tablet (5 Seyb old MG oral Tab 00:00: mg total) 00 by mouth daily as needed for erectile dysfunctio n Tadalafil 2020-0 Yes [id number] 5mg Q24H Take 1 K elsey (Cialis) 5 2-08 tablet (5 Seyb old MG oral Tab 00:00: mg total) 00 by mouth daily as needed for erectile dysfunctio n Tadalafil 2020-0 Yes [id number] 5mg QD Take 1 K elsey (Cialis) 5 2-08 tablet (5 Seyb old MG oral Tab 00:00: mg total) 00 by mouth daily as needed for erectile dysfunctio n Tadalafil 2020-0 Yes [id number] 5mg QD Take 1 K elsey (Cialis) 5 2-08 tablet (5 Seyb old MG oral Tab 00:00: mg total) 00 by mouth daily as needed for erectile dysfunctio n Tadalafil 2020-0 Yes [id number] 5mg Q24H Take 1 K elsey (Cialis) 5 2-08 tablet (5 Seyb old MG oral Tab 00:00: mg total) 00 by mouth daily as needed for erectile dysfunctio n Tadalafil 2020-0 Yes [id number] 5mg Q24H Take 1 K elsey (Cialis) 5 2-08 tablet (5 Seyb old MG oral Tab 00:00: mg total) 00 by mouth daily as needed for erectile dysfunctio n Tadalafil 2020-0 Yes [id number] 5mg Q24H Take 1 K elsey (Cialis) 5 2-08 tablet (5 Seyb old MG oral Tab 00:00: mg total) 00 by mouth daily as needed for erectile dysfunctio n Tadalafil 2020-0 Yes [id number] 5mg Q24H Take 1 K elsey (Cialis) 5 2-08 tablet (5 Seyb old MG oral Tab 00:00: mg total) 00 by mouth daily as needed for erectile dysfunctio n Tadalafil 0 2021- No [id number] 5mg QD Take 1 Shanna (Cialis) 5 2-08 05-26 tablet (5 Sey bold MG oral Tab 00:00: 00:00 mg total) 00 :00 by mouth daily as needed for erectile dysfunctio n busPIRone 0 2020- No [id number] 10mg Take 1 K elsey HCl 10 MG 2-08 09-20 tablet (10 Sey bold oral Tab 00:00: 00:00 mg total) 00 :00 by mouth 2 times daily Albuterol 2019-06- No [id number] 2{puff} Q6H Inhale 2 Shanna HFA (PROAIR 2-28 09-20 puffs into S eybold HFA) 108 00:00: 00:00 the lungs (90 Base) 00 :00 every 6 MCG/ACT IN hours as AERS needed Omeprazole 2020-0 Yes [id number] 40mg Take 1 Shanna 40 MG oral 5-17 capsule Seybol d CAPSULE 00:00: (40 mg DELAYED 00 total) by RELEASE mouth daily Omeprazole 2020-0 Yes [id number] 40mg Take 1 Shanna 40 MG oral 5-17 capsule Seybol d CAPSULE 00:00: (40 mg DELAYED 00 total) by RELEASE mouth daily Omeprazole 2020-0 Yes [id number] 40mg Take 1 Shanna 40 MG oral 5-17 capsule Seybol d CAPSULE 00:00: (40 mg DELAYED 00 total) by RELEASE mouth daily Omeprazole 2020-0 Yes [id number] 40mg Take 1 Shanna 40 MG oral 5-17 capsule Seybol d CAPSULE 00:00: (40 mg DELAYED 00 total) by RELEASE mouth daily Saline 0 No 10 mL, Memoria Flush 0.9% 3-14 Route: l 17:19: IVP, Drug Titi 00 Form: INJ, Dosing Weight 102.273, kg, PRN, PRN Line Flush, Start date: 08/24/15 12:19:00, Duration: 30 day, Stop date: 09/23/15 12:18:00 Saline 2015-0 No 10 mL, Memoria Flush 0.9% 3-14 Route: l 17:19: IVP, Drug [place] 00 Form: INJ, Dosing Weight 102.273, kg, PRN, PRN Line Flush, Start date: 08/24/15 12:19:00, Duration: 30 day, Stop date: 09/23/15 12:18:00 Saline 2015-0 No 10 mL, Memoria Flush 0.9% 3-14 Route: l 17:19: IVP, Drug Titi 00 Form: INJ, Dosing Weight 102.273, kg, PRN, PRN Line Flush, Start date: 08/24/15 12:19:00, Duration: 30 day, Stop date: 09/23/15 12:18:00 Saline 2016-0 No 10 mL, Memoria Flush 0.9% 3-14 Route: l 17:19: IVP, Drug [place] 00 Form: INJ, Dosing Weight 102.273, kg, PRN, PRN Line Flush, Start date: 08/24/15 12:19:00, Duration: 30 day, Stop date: 09/23/15 12:18:00 Saline 2016-0 No 10 mL, Memoria Flush 0.9% 3-14 Route: l 17:19: IVP, Drug [place] 00 Form: INJ, Dosing Weight 102.273, kg, PRN, PRN Line Flush, Start date: 08/24/15 12:19:00, Duration: 30 day, Stop date: 09/23/15 12:18:00 tramadol 0 Yes 50 mg = 1 [...] Name Name Influenza Virus 2022-03-25 Completed Shanna Alexander ybold Vaccine, age 6 00:00:00 - External months and up Influenza Virus 2022-03-25 Malina Otero Se ybold Vaccine, age 6 00:00:00 - [...] months and up Influenza Three-TIV 2016-03-18 Completed [facility] 5+ YR 00:00:00 [facility] Influenza Three-TIV 2016-03-18 Completed [facility]00 [facility] Influenza Virus 2016-03-18 Completed Shanna Se ybold [...] Name Observation Time Observation Value Comments Source HEIGHT 2023-02-20 05:21:00 182.9 cm WEIGHT 2023-02-20 05:21:00 102.059 kg HEIGHT 2023-02-20 05:21:00 182.9 cm WEIGHT 2023-02-20 05:21:00 102.059 kg HEIGHT 2023-02-20 05:21:00 182.9 cm WEIGHT 2023-02-20 05:21:00 102.059 kg Body height 2023-01-03 18:20:00 182.9 cm Shanna Conroy eybold - External Body weight 2023-01-03 18:20:00 100.699 kg Shanna Conroy eybold - External BMI 2023-01-03 18:20:00 30.11 kg/m2 Shanna S eybold - External Systolic blood 2022-11-03 18:12:00 106 mm[Hg] Shanna Seybold - pressure External Diastolic blood 2022-11-03 18:12:00 68 mm[Hg] Dariuszse y Seybold - pressure External Heart rate 2022-11-03 18:12:00 75 /min Shanna Conroy eybold - External Body temperature 2022-11-03 18:12:00 35.89 Josiane Tawny ey Seybold - External Respiratory rate 2022-11-03 18:12:00 16 /min Tawny ey Seybold - External Body height 2022-11-03 18:12:00 182.9 cm Shanna Conroy eybold - External Body weight 2022-11-03 18:12:00 100.789 kg Shanna Conroy eybold - External BMI 2022-11-03 18:12:00 30.14 kg/m2 Shanna Conroy eybold - External Systolic blood 2022-08-11 15:07:00 112 mm[Hg] Shanna Seybold - pressure External Diastolic blood 2022-08-11 15:07:00 74 mm[Hg] Kelse y Seybold - pressure External Heart rate 2022-08-11 15:07:00 78 /min Shanna S eybold - External Body temperature 2022-08-11 15:07:00 35.89 Josiane Tawny ey Seybold - External Respiratory rate 2022-08-11 15:07:00 15 /min Tawny ey Seybold - External Body height 2022-08-11 15:07:00 182.9 cm Shanna Conroy eybold - External Body weight 2022-08-11 15:07:00 102.967 kg Shanna S eybold - External BMI 2022-08-11 15:07:00 30.79 kg/m2 Shanna S eybold - External Systolic blood 2022-05-20 19:02:00 108 mm[Hg] Shanna Seybold - pressure External Diastolic blood 2022-05-20 19:02:00 70 mm[Hg] Chris y Seybold - pressure External Heart rate 2022-05-20 19:02:00 64 /min Shanna Conroy eybold - External Body temperature 2022-05-20 19:02:00 36.72 Josiane Tawny ey Seybold - External Respiratory rate 2022-05-20 19:02:00 [...] S eybold Body temperature 2021-08-30 15:17:00 36.22 Ojsiane Tawny ey Seybold Respiratory rate 2021-08-30 15:17:00 [...] Arterial blood by Pulse oximetry Systolic blood 2023-02-20 15:00:00 132 mm[Hg] [facility] Diastolic blood 2023-02-20 15:00:00 83 mm[Hg] [facility] Heart rate 2023-02-20 15:00:00 95 /min [facility] Respiratory rate 2023-02-20 15:00:00 18 /min [facility] Oxygen saturation in 2023-02-20 11:44:00 96 /min [facility] Arterial blood by Medical Ce nter Pulse oximetry Body temperature 2023-02-20 10:34:00 36.17 Josiane [facility] Body height 2023-02-20 05:21:00 182.9 cm [facility] Body weight 2023-02-20 05:21:00 102.059 kg [facility] BMI 2023-02-20 05:21:00 30.52 kg/m2 [facility] Systolic blood 2022-02-16 11:10:00 136 mm[Hg] [facility] Diastolic blood 2022-02-16 11:10:00 71 mm[Hg] [facility] Heart rate 2022-02-16 11:10:00 98 /min [facility] Respiratory rate 2022-02-16 11:10:00 17 /min [facility] Oxygen saturation in 2022-02-16 11:10:00 96 /min [facility] Arterial blood by Medical Ce nter Pulse oximetry Body temperature 2022-02-16 10:28:00 36.11 Josiane [facility] Body height 2022-02-16 06:27:00 182.9 cm [facility] Body weight 2022-02-16 06:27:00 99.791 kg [facility] BMI 2022-02-16 06:27:00 29.84 kg/m2 [facility] Temperature Oral (F) 2015-08-24 18:13:00 98.2 F Hayden [facility] Systolic (mm Hg) 2015-08-24 18:13:00 Nicholas [facility] Diastolic (mm Hg) 2015-08-24 18:13:00 Mem orial [facility] Respitory Rate 2015-08-24 18:13:00 [facility] [place] Heart Rate 2015-08-24 18:13:00 [facility] [place] BMI Calculated 2015-08-24 17:17:00 [facility] [place] Weight 2015-08-24 17:17:00 [facility] [place] Height 2015-08-24 17:17:00 180.34 cm [facility] Temperature Oral (F) 2015-08-24 17:17:00 98.1 F [facility] [place] Heart Rate 2015-08-24 17:17:00 [facility] [place] Respitory Rate 2015-08-24 17:17:00 [facility] [place] Systolic (mm Hg) 2015-08-24 17:17:00 Nicholas rial [facility] Diastolic (mm Hg) 2015-08-24 17:17:00 Mem [facility] Systolic (mm Hg) 2015-02-12 01:09:00 Nicholas [facility] Diastolic (mm Hg) 2015-02-12 01:09:00 Mem o[facility] [place] Heart Rate 2015-02-12 01:09:00 [facility] [place] Respitory Rate 2015-02-12 01:09:00 [facility] [place] Temperature Oral (F) 2015-02-12 01:09:00 98.5 F [facility] Weight 2015-02-11 23:27:00 [facility] BMI Calculated 2015-02-11 23:27:00 [facility] Height 2015-02-11 23:27:00 182.88 cm [facility] Temperature Oral (F) 2015-02-11 23:27:00 98.2 F [facility] [place] Respitory Rate 2015-02-11 23:27:00 [facility] Heart Rate 2015-02-11 23:27:00 [facility] [place] Systolic (mm Hg) 2015-02-11 23:27:00 Nicholas [facility] Diastolic (mm Hg) 2015-02-11 23:27:00 Mem o[facility] [place] Procedures Procedure Date / Time Performed Performing Clinician [facility] e ECG 12-LEAD 2023-02-20 10:53:22 Wiley Askew [facility] ECG 12-LEAD 2023-02-20 10:53:22 Unknown, Hl7 Doctor [facility] POCT-ACT 2023-02-20 09:28:00 [facility] PO[facility]-ACT 2023-02-20 09:01:00 Genny [facility] POCT-ACT 2023-02-20 08:43:00 Genny [facility] ECG 12-LEAD 2023-02-20 05:42:[address] [facility] CARDIAC CATH REPORT - 2023-02-20 00:00:00 Provider, Default [facility] SCAN Scanning [facility] EKG-SCANNED 2023-02-20 00:00:00 Provider, Default [facility] es Scanning [facility] ENDOSCOPIC SINUS 2022-02-16 07:26:00 FranRohan orozcoeri NADYA Saini [facility] SURGERY,SEPTOPLASTY Medical [facility] er MAXILLARY ANTROSTOMY, 2022-02-16 07:26:00 Fran Rohanabhishek Steve [facility] ENDOSCOPIC [facility] ENDOSCOPIC SINUS 2022-02-16 07:26:00 Fran, Rohan Greri [facility] SURGERY,ETHMOIDECTOMY Medical nter ENDOSCOPY, PARANASAL 2022-02-16 07:26:00 Fran, Rohan Greri [facility] SINUS, WITH SPHENOID Medical Angie ter SINUSOTOMY EXPLORATION, FRONTAL 2022-02-16 07:26:00 Fran, Rohan Greri [place] [facility] SINUS, ENDOSCOPIC [facility] EXCISION, NASAL 2022-02-16 07:26:00 [facility] TURBINATE [facility] Plan of Care Planned Activity Planned Date Details Comments Source Future Scheduled 2024-02-[address] [facility] Test 00:00:00 Counseling and Screening [facility] (12+) [code = Tobacco Cessation Counseling and Screening (12+)] Future Scheduled 2023-06-12 DTAP/TDAP/TD VACCINES ([address] [facility] Test 00:00:00 - Td or Tdap) [code = [facility] DTAP/TDAP/TD VACCINES (2 - Td or Tdap)] Future Scheduled 2023-06-12 DTAP/TDAP/TD VACCINES ([address] [facility] Test 00:00:00 - Td or Tdap) [[facility] DTAP/TDAP/TD VACCINES (2 - Td or Tdap)] Future Scheduled 2023-02-[address] [facility] Test 00:00:00 Counseling and Screening Med ica Center (12+) [code = Tobacco Cessation Counseling and Screening (12+)] Future Scheduled 2023-02-10 Influenza Vaccine (#1) [facility] 00:00:00 [code = Influenza Vaccine Me dical Center (#1)] Future Scheduled 2022-06-[address] [facility] 00:00:00 (12+) [code = [facility] (12+)] Future Scheduled 2022-02-10 INFLUENZA VACCINE (#1) [facility] 00:00:00 [code = INFLUENZA VACCINE Me dical Center (#1)] Future Scheduled 2021 SHINGLES VACCINES ([address] [facility] Test 00:00:00 2) [code = SHINGLES Medical Center VACCINES (1 of 2)] Future Scheduled 2021 SHINGLES VACCINES ([address] [facility] Test 00:00:00 2) [code = SHINGLES Medical Center VACCINES (1 of 2)] Future Scheduled 2020-11-09 COVID-19 VACCINE (2 - [facility]00 [facility] series) [code = COVID-19 VACCINE (2 - Booster for Abhije[facility] series)] Future Scheduled 2020-11-03 COVID-19 VACCINE (2 - [facility] 00:00:00 [facility] series) [code = COVID-19 VACCINE (2 - Booster for [facility]ije[facility] series)] Future Scheduled 2006 Lipid panel (procedure) [facility] 00:00:00 [code = 27440104] Medical Ce nter Future Scheduled 2006 Lipid panel (procedure) [facility] Test 00:00:00 [code = 95459435] Medical Ce nter Future Scheduled 1989 HEPATITIS C SCREENING [facility] 00:00:00 [code = HEPATITIS C Medical Center SCREENING] Future Scheduled 1989 HEPATITIS C [facility]CRE[facility]ING [facility] 00:00:00 [code = HEPATITIS C Medical Center SCREENING] Future Scheduled [address] Human immunodeficiency [facility] 00:00:00 virus screening Medical Cent er (procedure) [code = 571541945] Future Scheduled 1971 CT Colonography (combo) [facility] Test 00:00:00 [code = CT Colonography [facility] (combo)] Future Scheduled 1971 Screening for malignant [facility] Test 00:00:00 neoplasm of colon Medical Ce nter (procedure) [code = 836079435] Future Scheduled 1971 Screening for malignant [facility] Test 00:00:00 neoplasm of colon Medical Ce nter (procedure) [code = 871595885] Future Scheduled 1971 Screening for malignant [facility] Test 00:00:00 neoplasm of colon Medical Ce nter (procedure) [code = 268237309] Future Scheduled 1971 Screening for malignant [facility] Test 00:00:00 neoplasm of colon Medical Ce nter (procedure) [code = 680581164] Future Scheduled 1971 Sigmoidoscopy [code = [facility] Sigmoidoscopy] Medical Cente r Future Scheduled 1971 CT Colonography (combo) [facility] 00:00:00 [code = CT Colonography [facility] (combo)] Future Scheduled 1971 Screening for malignant [facility] Test 00:00:00 neoplasm of colon Medical Ce nter (procedure) [code = 574531056] Future Scheduled 1971 Screening for malignant [facility] Test 00:00:00 neoplasm of colon Medical Ce nter (procedure) [code = 522296014] Future Scheduled 1971 Screening for malignant [facility] Test 00:00:00 neoplasm of colon Medical Ce nter (procedure) [code = 216970035] Future Scheduled 1971 Screening for malignant [facility] Test 00:00:00 neoplasm of colon Medical Ce nter (procedure) [code = 508363236] Future Scheduled 1971 Sigmoidoscopy [code = [facility] Sigmoidoscopy] Medical Cente r Encounters Start End Encounter Admission Attending Care Care Encounter Source Date/Time Date/Time Type Type Clinicians Facility Department ID 2023-08-25 2023-08-25 Outpatient MARIASHNANA [id number] Shanna 13:30:00 13:30:00 OTONIEL Seybol d 2023-04-07 2023-04-07 Outpatient SHANNA MATOS [id number] Shanna 14:15:00 14:15:00 JOHANAN Seybol d 2023-03-24 2023-03-24 Outpatient SHANNA MATOS [id number] Shanna 14:15:00 14:15:00 JOHANNA Seybol d 2023-03-02 2023-03-02 Outpatient SHANNA PIEDRA [id number] Shanna 11:00:00 11:00:00 ADDIE Seybo ld 2023-02-28 2023-02-28 Outpatient SHANNA SANTOS [id number] Shanna 00:00:00 00:00:00 YOSELYN Seybol d 2023-02-24 2023-02-24 Outpatient SHANNA SANTOS [id number] Shanna 14:30:00 14:30:00 YOSELYN Seybol d 2023-02-24 2023-02-24 Outpatient 39, HOLTER SHANNA OTERO [id number] Shanna 14:30:00 14:30:00 Seybol d 2023-02-22 2023-02-22 Outpatient SHANNA CORNELL [id number] Shanna 15:40:00 15:40:00 ARABELLA Seybol d 2023-02-21 2023-02-21 Outpatient SHANNA LY [id number] Shanna 00:00:00 00:00:00 MEGAN Seybol d 2023-02-20 2023-02-20 [facility] Genny [facility] [id number] 05:06:00 15:25:00 Encounter [facility] 2023-02-20 2023-02-[address] [facility] Surgery [id number] SLE 05:06:00 15:25:00 [facility] 2023-02-20 2023-02-[address] [facility] [id number] 07:35:00 12:14:00 Mitra [facility] 2023-02-20 2023-02-20 Anesthesia Abhay Perry [facility] [id number] 07:09:00 10:47:00 Event Sukhwinder Mora [facility] 2023-02-20 2023-02-20 Orders [facility] [id number] 00:00:00 00:00:00 Only [facility] 2023-02-20 2023-02-20 Travel [facility] [id number] [facility] 00:[facility] 00:00:00 [facility] 2023-02-16 2023-02-16 Outpatient LAB90 SHANNA OTERO [id number] Shanna 14:35:00 14:35:00 Seybol d 2023-02-15 2023-02-15 Outpatient SHANNA OTERO [id number] Shanna 00:00:00 00:00:00 Seybol d 2023-02-14 2023-02-14 Outpatient LAB47 SHANNA OTERO [id number] Shanna 10:10:00 10:10:00 Seybol d 2023-02-14 2023-02-14 Outpatient SHANNA LY [id number] Shanna 00:00:00 00:00:00 MEGAN Seybol d 2023-02-10 2023-02-10 Outpatient SHANNA NICKERSON [id number] Shanna 00:00:00 00:00:00 LINDA Seybol d 2023-02-10 2023-02-10 Outpatient SHANNA LY [id number] Shanna 00:00:00 00:00:00 MEGAN Seybol d 2023-02-09 2023-02-09 Outpatient SHANNA SIFUENTES [id number] Shanna 00:00:00 00:00:00 OTONIEL Seybol d 2023-02-03 2023-02-03 Outpatient TRED47 SHANNA OTERO [id number] Shanna 11:00:00 11:00:00 Seybol d 2023-02-03 2023-02-03 Outpatient DEMETRICE OTERO [id number] Shanna 00:00:00 00:00:00 MD LUIS Seybol d 2023-02-02 2023-02-02 Outpatient SHANNA OTERO [id number] Shanna 00:00:00 00:00:00 Seybol d 2023-02-01 2023-02-01 Outpatient SHANNA LY [id number] Shanna 14:20:00 14:20:00 MEGAN Seybol d 2023-02-01 2023-02-01 Outpatient SHANNA LY [id number] Shanna 00:00:00 00:00:00 MEGAN Seybol d 2023-01-30 2023-01-30 Outpatient SHANNA SIFUENTES [id number] Shanna 00:00:00 00:00:00 OTONIEL Seybol d 2023-01-17 2023-01-17 Outpatient SHANNA MATOS [id number] Shanna 00:00:00 00:00:00 JOHANNA Seybol d 2023-01-06 2023-01-06 Outpatient SHANNA OTERO [id number] Shanna 00:00:00 00:00:00 Seybol d 2023-01-03 2023-01-03 Outpatient SHANNA MATOS [id number] Shanna 13:30:00 13:30:00 JOHANNA Seybol d 2023-01-03 2023-01-03 Outpatient DEMETRICE OTERO [id number] Shanna 00:00:00 00:00:00 MD LUIS Seybol d 2022-12-07 2022-12-07 Outpatient SHANNA CASILLAS [id number] Shanna 00:00:00 00:00:00 RUBEN Seybol d 2022-12-01 2022-12-01 Outpatient JOHN GARCIA [id number] Shanna 13:30:00 13:30:00 Seybol d 2022-11-20 2022-11-20 Outpatient SHANNA BASHIR [id number] Shanna 18:05:00 18:05:00 MILINDA Seybol d 2022-11-14 2022-11-14 Outpatient SHANNA SIFUENTES [id number] Shanna 00:00:00 00:00:00 OTONIEL Seybol d 2022-11-07 2022-11-07 Outpatient SHANNA NICKERSON [id number] Shanna 00:00:00 00:00:00 LINDA Seybol d 2022-11-07 2022-11-07 Outpatient MALISSA OCHOA SHANNA OTERO [id number] Shanna 00:00:00 00:00:00 Seybol d 2022-11-03 2022-11-03 Outpatient SHANNA CASILLAS [id number] Shanna 13:45:00 13:45:00 RUBEN Seybol d 2022-11-03 2022-11-03 Outpatient LAB47 SHANNA OTERO [id number] Shanna 13:00:00 13:00:00 Seybol d 2022-10-30 2022-10-30 Outpatient SHANNA SIFUENTES [id number] Shanna 00:00:00 00:00:00 OTONIEL Seybol d 2022-10-21 2022-10-21 Outpatient SHANNA COLEMAN [id number] Shanna 00:00:00 00:00:00 SHADY Seybol d 2022-09-25 2022-09-25 Outpatient OCHOA MALISSA SHANNA OTERO [id number] Shanna 21:30:00 21:30:00 Seybol d 2022-09-13 2022-09-13 Outpatient SHANNA CLAROS [id number] Shanna 13:30:00 13:30:00 BAKARI Seybol d 2022-09-12 2022-09-12 Outpatient SHANNA JONES [id number] Shanna 11:15:00 11:15:00 ALEJANDRA Seybo ld 2022-09-06 2022-09-06 Outpatient TRED76 SHANNA OTERO [id number] Shanna 13:45:00 13:45:00 Seybol d 2022-09-06 2022-09-06 Outpatient SHANNA SIFUENTES [id number] Shanna 13:30:00 13:30:00 OTONIEL Seybol d 2022-08-23 2022-08-23 Outpatient SHANNA COLEMAN [id number] Shanna 00:00:00 00:00:00 SHADY Seybol d 2022-08-11 2022-08-11 Outpatient PIEDRASHANNA SANDERS [id number] Shanna 10:20:00 10:20:00 ADDIE Seybo ld 2022-08-11 2022-08-11 Outpatient PREZAMarycarmen, SHANNA OTERO [id number] Shanna 09:15:00 09:15:00 SHADY Seybol d 2022-08-11 2022-08-11 Outpatient PREZASSHANNA [id number] Shanna 09:15:00 09:15:00 SHADY Seybol d 2022-07-28 2022-07-28 Outpatient TERRY MULLINS [id number] Shanna 00:00:00 00:00:00 Seybol d 2022-07-11 2022-07-11 Outpatient MALISSA OCHOA [id number] Shanna 21:25:00 21:25:00 Seybol d 2022-07-11 2022-07-11 Outpatient SHANNA TEIXEIRA [id number] Shanna 21:20:00 21:20:00 EVISIT Seybol d 2022-06-22 2022-06-22 Outpatient SHANNA JOSEPH [id number] Shanna 14:15:00 14:15:00 SIRENA Seybol d 2022-06-22 2022-06-22 Outpatient SHANNA TAYLOR [id number] Shanna 00:00:00 00:00:00 IDRIS Seybol d 2022-06-21 2022-06-21 Outpatient SHANNA TAYLOR [id number] Shanna 00:00:00 00:00:00 IDRIS Seybol d 2022-06-21 2022-06-21 Outpatient TERRY MULLINS [id number] Shanna 00:00:00 00:00:00 Seybol d 2022-06-17 2022-06-17 Emergency EM Jeyson, HCAPM JAMAL [id number] [facility] 19:09:00 21:55:00 Davis 27 [facility] 2022-06-02 2022-06-02 Outpatient JEWELL SHANNA OTERO [id number] Shanna 00:00:00 00:00:00 BRAEDEN Seybol d 2022-06-02 2022-06-02 Outpatient TUNDE SHANNA OTERO [id number] Shanna 00:00:00 00:00:00 IDRIS Seybol d 2022-05-20 2022-05-20 Outpatient JEWELL SHANNA OTERO [id number] Shanna 13:00:00 13:00:00 BRAEDEN Seybol d 2022-05-20 2022-05-20 Outpatient COVID-PFIZE SHANNA OTERO [id number] Shanna 10:00:00 10:00:00 Vandana RODRIGUEZ Seybol rebecca MONTGOMERY 2022-05-19 2022-05-19 Outpatient TA MCCRAY [id number] Shanna 10:15:00 10:15:00 Seybol d 2022-05-03 2022-05-03 Outpatient FRANROHAN Orozco [id number] Shanna 00:00:00 00:00:00 Seybol d 2022-04-28 2022-04-28 Outpatient DEMETRICE OTERO [id number] Shanna 00:00:00 00:00:00 MD LUIS Seybol d 2022-04-27 2022-04-27 Outpatient FRANROHAN Orozco [id number] Shanna 00:00:00 00:00:00 Seybol d 2022-04-26 2022-04-26 Outpatient [id number] SHANNA OTERO [id number] Shanna 15:05:00 15:05:00 Seybol d 2022-04-26 2022-04-26 Outpatient FRANROHAN Orozco [id number] Shanna 11:45:00 11:45:00 Seybol d 2022-04-25 2022-04-25 Outpatient FRANROHAN Orozco [id number] Shanna 00:00:00 00:00:00 Seybol d 2022-04-13 2022-04-13 Outpatient DEMETRICE OTERO [id number] Sahnna 00:00:00 00:00:00 MD LUIS Seybol d 2022-04-13 2022-04-13 Outpatient KAVEHUshaJEOVANNY SHANNA OTERO [id number] Shanna 00:00:00 00:00:00 Seybol d 2022-04-06 2022-04-06 Outpatient MAYRASHANNA SCHROEDER [id number] Shanna 00:00:00 00:00:00 IDRIS Seybol d 2022-03-25 2022-03-25 Outpatient SHANNA TAYLRO [id number] Shanna 14:00:00 14:00:00 IDRIS Seybol d 2022-03-25 2022-03-25 Outpatient FRANROHAN [id number] Shanna 13:30:00 13:30:00 Seybol d 2022-03-16 2022-03-16 Outpatient FRANROHAN [id number] Shanna 00:00:00 00:00:00 Seybol d 2022-03-14 2022-03-14 Outpatient MOORECLIVE [id number] Shanna 16:45:00 16:45:00 Seybol d 2022-03-10 2022-03-10 Outpatient FRANROHAN Orozco [id number] Shanna 09:45:00 09:45:00 Seybol d 2022-03-10 2022-03-10 Outpatient SHANNA CRESPO [id number] Shanna 00:00:00 00:00:00 JOHANNA Seybol d 2022-02-26 2022-02-26 Outpatient SHANNA TAYLOR [id number] Shanna 00:00:00 00:00:00 IDRIS Seybol d 2022-02-25 2022-02-25 Outpatient FRANROHAN Orozco [id number] Shanna 00:00:00 00:00:00 Seybol d 2022-02-24 2022-02-24 Outpatient FRANROHAN Orozco [id number] Shanna 14:00:00 14:00:00 Seybol d 2022-02-16 2022-02-16 Outpatient FRANROHAN [id number] Shanna 12:00:00 12:00:00 Seybol d 2022-02-16 2022-02-16 Outpatient [facility]AN [facility] Surgery [id number] [place] [facility] 06:04:00 11:27:00 2022-02-16 2022-02-16 [facility] Rohan Peters [facility] [id number] [facility] 06:04:00 11:27:00 Encounter [facility] 2022-02-16 2022-02-16 Surgery Rohan Peters [facility] [id number] [facility] 07:30:00 11:00:00 [facility] 2022-02-16 2022-02-16 Outpatient ROHAN PETERS [id number] Shanna 00:00:00 00:00:00 Seybol d 2022-02-16 2022-02-16 [facility] [id number] [facility] 00[facility]00:00 [facility] 2022-02-11 2022-02-11 Outpatient SWAB, CK SHANNA OTERO [id number] Shanna 16:10:00 16:10:00 Seybol d 2022-02-11 2022-02-11 Outpatient [id number]-[id number] SHANNA OTERO [id number] Shanna 14:40:00 14:40:00 Seybol d 2022-02-11 2022-02-11 Outpatient LAB53 SHANNA OTERO [id number] Shanna 14:15:00 14:15:00 Seybol d 2022-02-11 2022-02-11 Outpatient TRED53 SHANNA OTERO [id number] Shanna 13:45:00 13:45:00 Seybol d 2022-02-08 2022-02-08 Outpatient MYKELSEYONL SHANNA OTERO [id number] Shanna 00:00:00 00:00:00 MD LUIS Seybol d 2022-02-07 2022-02-07 Outpatient ROHAN PETERS [id number] Shanna 10:15:00 10:15:00 Seybol d 2022-02-06 2022-02-06 Outpatient FRANROHAN Orozco [id number] Shanna 00:00:00 00:00:00 Seybol d 2022-01-27 2022-01-27 Outpatient [facility] [id number] SL 14:23:39 23:59:00 2022-01-27 2022-01-27 [facility] [id number] [facility] 14:23:39 23:59:00 [facility] 2022-01-27 2022-01-27 Outpatient ROHAN PETERS [id number] Shanna 08:00:00 08:00:00 Seybol d 2021-12-29 2021-12-29 Outpatient SHANNA PARKER [id number] Shanna 10:15:00 10:15:00 MARCOS Seybol d 2021-12-08 2021-12-08 Outpatient DEMETRICE OTERO [id number] Shanna 00:00:00 00:00:00 MD LUIS Seybol d 2021-12-07 2021-12-07 Outpatient ROHAN PETERS [id number] Shanna 10:30:00 10:30:00 Seybol d 2021-12-02 2021-12-02 Outpatient SHANNA TREVINO [id number] Shanna 00:00:00 00:00:00 TERRY Seybol d 2021-12-02 2021-12-02 Outpatient SHANNA MATOS [id number] Shanna 00:00:00 00:00:00 JOHANNA Alexanderybol rebecca 2021-11-23 2021-11-23 Telemed[facility] TABBY Matos [id number] Shanna 15:00:00 15:02:20 md Johanna [facility] 350.1.13.13 ybjah Dashvandana 1.2.7.2.686 [id number] 2021-11-23 2021-11-23 Outpatient DEMETRICE OTERO [id number] Shanna 00:00:00 00:00:00 MD LUIS Seybol d 2021-11-23 2021-11-23 Outpatient SHANNA MATOS [id number] Shanna 00:00:00 00:00:00 JOHANNA Seybol d 2021-11-10 2021-11-10 Outpatient CHERIE SHANNA OTERO [id number] Shanna 00:00:00 00:00:00 JOHANNA Seybol d 2021-11-05 2021-11-05 Outpatient SHANNA OTERO [id number] Shanna 11:00:00 11:00:00 Seybol d 2021-11-05 2021-11-05 Outpatient MARISOL SHANNA OTERO [id number] Shanna 00:00:00 00:00:00 JOHANNA Seybol d 2021-11-04 2021-11-04 Outpatient SHANNA OTERO [id number] Shanna 13:00:00 13:00:00 Seybol d 2021-11-04 2021-11-04 Outpatient LAB39 SHANNA OTERO [id number] Shanna 12:00:00 12:00:00 Seybol d 2021-11-04 2021-11-04 Office Terry Mullins 1.2.840.114 [id number] Shanna 11:30:00 11:45:00 Visit L CAMPUS 350.1.13.13 Se ybold 1.2.7.2.686 [id number] 2021-11-03 2021-11-03 Outpatient TUNDE SHANNA OTERO [id number] Shanna 00:00:00 00:00:00 IDRIS Seybol d 2021-11-02 2021-11-02 Outpatient SHANNA MATOS [id number] Shanna 15:45:00 15:45:00 JOHANNA Seybol d 2021-10-25 2021-10-25 Outpatient SHANNA PIEDRA [id number] Shanna 13:00:00 13:00:00 ADDIE Seybo ld 2021-10-25 2021-10-25 Outpatient SHANNA MATOS [id number] Shanna 00:00:00 00:00:00 JOHANNA Seybol d 2021-10-13 2021-10-13 Office TABBY Matos [id number] Shanna 14:15:00 14:30:00 Visit Johanna [facility] [id number] ybold [facility] 1.2.7.2.686 [id number] 2021-10-13 2021-10-13 Outpatient DEMETRICE SHANNA OTERO [id number] Shanna 00:00:00 00:00:00 MD LUIS Seybol d 2021-10-08 2021-10-08 Outpatient TERRY MULLINS [id number] Shanna 11:30:00 11:30:00 Seybol d 2021-09-17 2021-09-17 Outpatient SHANNA CRESPO [id number] Shanna 00:00:00 00:00:00 JOHANNA Seybol d 2021-09-16 2021-09-16 Outpatient SHANNA CRESPO [id number] Shanna 00:00:00 00:00:00 JOHANNA Seybol d 2021-09-06 2021-09-06 Outpatient SHANNA CRESPO [id number] Shanna 00:00:00 00:00:00 JOHANNA Seybol d 2021-09-03 2021-09-03 Outpatient SHANNA OTERO [id number] Shanna 10:15:00 10:15:00 Seybol d 2021-09-03 2021-09-03 Outpatient LAB47 SHANNA OTERO [id number] Sahnna 09:25:00 09:25:00 Seybol d 2021-09-02 2021-09-02 Outpatient SHANNA OTERO [id number] Shanna 15:45:00 15:45:00 Seybol d 2021-09-02 2021-09-02 Outpatient SHANNA CRESPO [id number] Shanna 00:00:00 00:00:00 JOHANNA Seybol d 2021-09-02 2021-09-02 Outpatient SHANNA CRESPO [id number] Shanna 00:00:00 00:00:00 JOHANNA Seybol d 2021-09-02 2021-09-02 Outpatient SHANNA PROCTOR [id number] Shanna 00:00:00 00:00:00 RICHIE Seybo ld 2021-08-30 2021-08-30 Office LELAND Crespo [id number] Shanna 10:30:00 11:00:00 Visit Johanna [place] 350.1.13.13 Se ybold 1.2.7.2.686 [id number] 2021-08-12 2021-08-12 Outpatient TERRY MULLINS [id number] Shanna 00:00:00 00:00:00 Seybol d 2021-08-11 2021-08-11 Outpatient SHANNA ORDONEZ [id number] Shanna 00:00:00 00:00:00 KAM Seybol d 2021-08-01 2021-08-01 Outpatient SHANNA ORDONEZ [id number] Shanna 00:00:00 00:00:00 KAM Seybol d 2021-07-29 2021-07-29 E-Visit RAQUEL AMAYA [id number] [id number] Shanna 10:15:00 10:15:00 ESPERANZA RODRÍGUEZ 350.1.13.13 Se ybold 1.2.7.2.686 [id number] 2021-07-02 2021-07-02 Telemedici TAYLOR TREVINO 1.2.840.114 [id number] Shanna 11:30:00 11:30:00 ne TERRY 350.1.13.13 Se ybold 1.2.7.2.686 [id number] 2021-07-02 2021-07-02 Outpatient SHANNA TREVINO [id number] Shanna 00:00:00 00:00:00 TERRY Alexanderybol d 2021-07-01 2021-07-01 Outpatient SHANNA TAYLOR [id number] Shanna 00:00:00 00:00:00 IDRIS Seybol d 2021-06-14 2021-06-14 Outpatient SHANNA TAYLOR [id number] Shanna 00:00:00 00:00:00 IDRIS Seybol d 2021-06-14 2021-06-14 Outpatient SHANNA NICKERSON [id number] Shanna 00:00:00 00:00:00 LINDA Seybol d 2021-06-14 2021-06-14 Outpatient JOSÉ LUIS, SHANNA OTERO [id number] Shanna 00:00:00 00:00:00 KAM Seybol d 2021-06-03 2021-06-03 Outpatient ARSLAN SHANNA OTERO [id number] Shanna 14:45:00 14:45:00 PHUONG Seybol d 2021-04-28 2021-04-28 Office TAYLOR Taylor 1.2.840.114 [id number] Shanna 11:06:32 11:21:32 Visit Idris Wood 350.1.13.13 S sravanthibold 1.2.7.2.686 [id number] 2021-03-22 2021-03-22 E-Visit Crespo MAIN 1.2.026.624 [id number] Shanna 12:53:49 12:55:37 [facility] 350.1.13.13 Se ybold 1.2.7.2.686 [id number] 2021-03-22 2021-03-22 E-Visit Crespo, MAIN 1.2.519.986 [id number] 12:53:49 12:55:37 [facility] 350.1.13.13 1.2.7.2.686 [id number] 2021-03-21 2021-03-21 E-Visit Dorcas MAIN 1.2.840.114 [id number] Shanna 11:50:08 11:54:28 [facility] 350.1.13.13 Se ybold 1.2.7.2.686 [id number] 2021-03-21 2021-03-21 E-Visit Ciraangeloneris MAIN 1.2.840.114 [id number] 11:50:08 11:54:28 [facility] 350.1.13.13 1.2.7.2.686 [id number] 2021-03-18 2021-03-18 Outpatient HSANNA OTERO [id number] Shanna 15:15:00 15:15:00 Seybol d 2021-03-18 2021-03-18 Outpatient SHANNA SHANNA [id number] Shanna 14:30:00 14:30:00 Seybol d 2021-03-18 2021-03-18 Outpatient SHANNA NICKERSON [id number] Shanna 00:00:00 00:00:00 LINDA Seybol d 2021-03-01 2021-03-01 Outpatient LAB SHANNA SHANNA [id number] Shanna 13:45:00 13:45:00 Seybol d 2021-03-01 2021-03-01 Office TAYLOR Nickerson 1.2.840.114 [id number] Shanna 12:40:17 13:10:17 Visit Linda 350.1.13.13 Se ybold Lindsay 1.2.7.2.686 [id number] 2021-03-01 2021-03-01 Office TAYLOR Nickerson 1.2.840.114 [id number] 12:40:17 13:10:17 Visit Linda 350.1.13.13 Lindsay 1.2.7.2.686 [id number] 2021-01-13 2021-01-13 Outpatient MAYRAELDA SHANNA SHANNA [id number] Shanna 00:00:00 00:00:00 IDIRS Seybol d 2020-12-23 2020-12-23 Outpatient MAYRAELDA SHANNA SHANNA [id number] Shanna 00:00:00 00:00:00 IDRIS Seybol rebecca 2017-09-18 2017-09-19 [facility] [id number] Memoria 18:22:00 04:59:00 n Patient r Connor Hebertann 2017-09-18 2017-09-19 [facility] [id number] Memoria 18:22:00 04:59:00 n Patient r Connor matamoros [place] 2017-09-18 2017-09-18 Outpatient Physician, 2.16.840. 2.16.840.1 . [id number] 13:22:00 23:59:00 Non [id number] Associated 3.615.54 5.54 2017-09-18 2017-09-18 Outpatient Physician, 2.16.840. 2.16.840.1 . [id number] 13:22:00 23:59:00 Non [id number] Associated 3.615.54 5.54 2015-08-24 2015-08-24 EC nullFlavo [facility] [id number] Memoria 17:03:00 18:43:00 Emergency r Titi 01 l [facility] 2015-08-24 2015-08-24 EC nullFlavo [facility] [id number] Memoria 17:03:00 18:43:00 Emergency r [place] 01 [facility] 2015-08-24 2015-08-24 Outpatient Robert, MHSE MHSE [id number] 12:03:00 13:43:00 Mayura [facility] 2015-02-11 2015-02-12 EC nullFlavo [facility] [id number] Memoria 23:18:00 01:15:00 Emergency r Titi 00 [facility] 2015-02-11 2015-02-12 EC nullFlavo [facility] [id number] Memoria 23:18:00 01:15:00 Emergency r Titi 00 l [facility] 2015-02-11 2015-02-11 Outpatient Nikole Blunt MHSE MHSE [id number] 18:18:00 20:15:00 Jaleel 00 Results Test Description Test Time Test Comments Results Result Comments Source POCT-ACT 2023-02-21 15:12:54 Test Item Value Reference Range Interpretation Comme nts ACTIVATED CLOTTING TIME (BEAKER) 287 sec : 74-137 seconds, Baseline: TESTED AT (test code = 441) [place] [id number] [facility], [address]: Manager Fiber/Techni adolph ID = [id number] for VÍCTOR IZQUIERDO POC ACTIVATED CLOTTING [id number] 15:11:23 Test Item Value Reference Range Interpretation Comments Activated Clotting Time 281 sec : 74 -137 seconds, (test code = 3184-9) Baselin e: TESTED AT [facility] [address] [facility], [address]: Manager Fiber/Techni adolph ID = [id number] for VÍCTOR IZQUIERDO [id number] 15:11:23 Test Item Value Reference Range Interpretation Comments ACTIVATED CLOTTING TIME 281 sec : 74 -137 seconds, (BEAKER) (test code = Baseli ne: TESTED AT 441) [facility] [address] [facility], [address]: Manager Fiber/Techni adolph ID = [id number] for VÍCTOR IZQUIERDO TUDO-[id number] 09:00:00 Test Item Value Reference Range Interpretation Comments ACTIVATED CLOTTING TIME 299 sec : 74 -137 seconds, (BEAKER) (test code = Baseli ne: TESTED AT 441) [place] [id number] [facility], [address]: Manager Fiber/Techni adolph ID = [id number] for VÍCTOR IZQUIERDO [id number] 17:39:00 Test Item Value Reference Range Interpretation Comments RBC (test code = RBC) 5.02 4.70-6.10 [facility] UyiokjoYBRZQGPXTO8390-21-79 17:39:00 Test Item Value Reference Range Interpretation Comments RDW (test code = RDW) 13.6 11.5-14.5 [facility] CenterRrtbigiQOLPOGLFOX2193-08-88 17:39:00 Test Item Value Reference Range Interpretation Comments Platelet (test code = Platelet) 162 133-450 [facility] CenterXqoipqbSPWPVFOSPX7801-46-43 17:39:00 Test Item Value Reference Range Interpretation Comments MPV (test code = MPV) 8.2 7.4-10.4 [facility] CenterPfkgvjhRSSQYWRQQN3429-45-62 17:39:00 Test Item Value Reference Range Interpretation Comments Hgb (test code = Hgb) 15.0 14.0-18.0 [facility] CenterOrvgykoPPCXOAUUFJ2858-10-47 17:39:00 Test Item Value Reference Range Interpretation Comments Hct (test code = Hct) 44.0 42.0-54.0 [facility] CenterQvirfocJHULOFUXVZ7542-97-00 17:39:00 Test Item Value Reference Range Interpretation Comments MCV (test code = MCV) 87.7 80.0-94.0 [facility] CenterannCARDIAC [id number] 17:39:00 Test Item Value Reference Range Interpretation Comments CK MB Index (test 0.4 See_Comment [Automate d message] The code = CK MB Index) system w hich generated this result transmit hudson reference range : <=2.5. The reference range was not used to interpr et this result as missy l/abnormal. [facility] CenterannCARDIAC [id number] 17:39:00 Test Item Value Reference Range Interpretation Comments Total CK (test code = Total CK) 141 12-191 [facility] CenterannCARDIAC [id number] 17:39:00 Test Item Value Reference Range Interpretation Comments CK MB (test code = CK MB) 0.6 0.5-3.6 [facility] CenterannCARDIAC [id number] 17:39:00 Test Item Value Reference Range Interpretation Comments Troponin-I (test code no gt See_Comment [Auto mated message] The = Troponin-I) system which g enerated this result transmit hudson reference range : <=0.40. The reference r ania was not used to interpr et this result as missy l/abnormal. [facility] TeamleaderannDatezr [id number] 17:39:00 Test Item Value Reference Range Interpretation Comments A/G Ratio (test code = A/G Ratio) 0.9 0.7-1.6 [facility] TeamleaderannDatezr [id number] 17:39:00 Test Item Value Reference Range Interpretation Comments eGFR (test code = eGFR) 64 [facility] CenterTlcavpcXBOIPLKBNZ6849-43-86 17:39:00 Test Item Value Reference Range Interpretation Comments MCH (test code = MCH) 29.9 pg 27.0-31.0 [facility] CenterannDatezr [id number] 17:39:00 Test Item Value Reference Range Interpretation Comments B/C Ratio (test code = B/C Ratio) 11 6-25 [facility] CenterannDatezr [id number] 17:39:00 Test Item Value Reference Range Interpretation Comments AGAP (test code = AGAP) 9.0 10.0-20.0 [facility] TeamleaderannCHEM [id number] 17:39:00 Test Item Value Reference Range Interpretation Comments Globulin (test code = Globulin) 4.1 2.0-4.0 [facility]annDatezr [id number] 17:39:00 Test Item Value Reference Range Interpretation Comments Bili Total (test code = Bili Total) 0.5 0.2-1.3 [facility]annDatezr [id number] 17:39:00 Test Item Value Reference Range Interpretation Comments CO2 (test code = CO2) 29 24-32 [facility]2016-03-14 17:39:00 Test Item Value Reference Range Interpretation Comments Calcium Lvl (test code = Calcium Lvl) 8.3 8.5-10.5 [facility]2016-03-14 17:39:00 Test Item Value Reference Range Interpretation Comments Total Protein (test code = Total 7.9 6.4-8.4 Protein) [facility]2016-03-14 17:39:00 Test Item Value Reference Range Interpretation Comments Creatinine Lvl (test code = Creatinine 1.34 0.50-1.40 Lvl) [facility]2016-03-14 17:39:00 Test Item Value Reference Range Interpretation Comments BUN (test code = BUN) 15 7-22 [facility]2016-03-14 17:39:00 Test Item Value Reference Range Interpretation Comments Chloride Lvl (test code = Chloride Lvl) 104 95-109 [facility] HospitalYjxwxwoTVJNOXINRJ6716-82-95 17:39:00 Test Item Value Reference Range Interpretation Comments MCHC (test code = MCHC) 34.1 32.0-36.0 [facility]2016-03-14 17:39:00 Test Item Value Reference Range Interpretation Comments Sodium Lvl (test code = Sodium Lvl) 138 135-145 [facility]2016-03-14 17:39:00 Test Item Value Reference Range Interpretation Comments Potassium Lvl (test code = Potassium 4.0 3.5-5.1 Lvl) [facility]2016-03-14 17:39:00 Test Item Value Reference Range Interpretation Comments Albumin Lvl (test code = Albumin Lvl) 3.8 3.5-5.0 [facility]2016-03-14 17:39:00 Test Item Value Reference Range Interpretation Comments Glucose Lvl (test code = Glucose Lvl) 97 70-99 [facility]2016-03-14 17:39:00 Test Item Value Reference Range Interpretation Comments AST (test code = AST) 28 See_Comment [Auto mated message] The system which ge nerated this result transmit hudson reference range : <=37. The reference range was not used to interpr et this result as missy l/abnormal. [facility]2016-03-14 17:39:00 Test Item Value Reference Range Interpretation Comments Alk Phos (test code = Alk Phos) 94 39-136 [facility] [id number] 17:39:00 Test Item Value Reference Range Interpretation Comments ALT (test code = ALT) 56 See_Comment [Auto mated message] The system which ge nerated this result transmit hudson reference range : <=65. The reference range was not used to interpr et this result as missy l/abnormal. [facility] [id number] 17:39:00 Test Item Value Reference Range Interpretation Comments Magnesium Lvl (test code = Magnesium 2.1 1.8-2.4 Lvl) [id number] 17:39:00 Test Item Value Reference Range Interpretation Comments Segs-Bands # (test code = Segs-Bands #) 7.4 1.5-8.1 [facility] [id number] 17:39:00 Test Item Value Reference Range Interpretation Comments Monocytes (test code = Monocytes) 5.8 2.0-12.0 [facility] [id number] 17:39:00 Test Item Value Reference Range Interpretation Comments CK MB Index (test 0.4 See_Comment [Automate d message] The code = CK MB Index) system w [facility] generated this result transmit hudson reference range : <=2.5. The reference range was not used to interpr et this result as missy l/abnormal. [facility] CypressGnrqtnkMZUCRRYNVE4755-49-55 17:39:00 Test Item Value Reference Range Interpretation Comments Lymphocytes # (test code = Lymphocytes 1.4 1.0-5.5 #) [facility] CypressFmjxhdpBNCJNQGQSC8477-03-99 17:39:00 Test Item Value Reference Range Interpretation Comments Eosinophils (test code = 2.1 See_Comment [A utomated message] The Eosinophils) system which ge nerated this result tra nsmitted reference range : <=4.0. The reference r ania was not used to int erpret this result as normal/abnormal . [facility] CypressBlpmoinDKDFMPMWLR1652-64-16 17:39:00 Test Item Value Reference Range Interpretation Comments Basophils (test code = 0.6 See_Comment [Aut omated message] The Basophils) system which ge nerated this result tra nsmitted reference range : <=1.0. The reference r ania was not used to int erpret this result as normal/abnormal . [facility] CypressAsvqogmKMUJMJIFQX6003-87-28 17:39:00 Test Item Value Reference Range Interpretation Comments Segs (test code = Segs) 76.6 45.0-75.0 [facility] CypressSxjwpvaQISJNTOJTE1930-28-03 17:39:00 Test Item Value Reference Range Interpretation Comments Lymphocytes (test code = Lymphocytes) 14.9 20.0-40.0 [facility] CypressIfpnbtwTEJPGQLGDX8596-16-63 17:39:00 Test Item Value Reference Range Interpretation Comments Monocytes # (test code 0.6 See_Comment [Aut omated message] The = Monocytes #) system which generated this result tra nsmitted reference range : <=0.8. The reference r ania was not used to int erpret this result as normal/abnormal . [facility] CypressQpssvekKQJODYURZB0103-45-13 17:39:00 Test Item Value Reference Range Interpretation Comments Basophils # (test code 0.1 See_Comment [Aut omated message] The = Basophils #) system which generated this result tra nsmitted reference range : <=0.2. The reference r ania was not used to int erpret this result as normal/abnormal . [facility] CypressJwkpzqqSEYWKOFFHE7160-06-71 17:39:00 Test Item Value Reference Range Interpretation Comments Eosinophils # (test code 0.2 See_Comment [A utomated message] The = Eosinophils #) system whic h generated this result tra nsmitted reference range : <=0.5. The reference r ania was not used to int erpret this result as normal/abnormal . [facility] CypressLxebrrhWYVDHETEDM5850-88-01 17:39:00 Test Item Value Reference Range Interpretation Comments WBC (test code = WBC) 9.7 3.7-10.4 [facility] CypressBzwonbyXUZVLQRGSC2471-01-03 17:39:00 Test Item Value Reference Range Interpretation Comments RBC (test code = RBC) 5.02 4.70-6.10 [facility]2016-03-14 17:39:00 Test Item Value Reference Range Interpretation Comments Total CK (test code = Total CK) 141 12-191 [facility] CypressZgwgsmuLPSZCSIART0709-06-37 17:39:00 Test Item Value Reference Range Interpretation Comments RDW (test code = RDW) 13.6 11.5-14.5 [facility] HospitalTxcdblsUVKKFVCYXH9411-62-71 17:39:00 Test Item Value Reference Range Interpretation Comments Platelet (test code = Platelet) 162 133-450 [facility] CypressFbnrfiiXEHLQQIWRY5172-75-68 17:39:00 Test Item Value Reference Range Interpretation Comments MPV (test code = MPV) 8.2 7.4-10.4 [facility] CypressWmoupfbWABIBSMLIZ1556-67-12 17:39:00 Test Item Value Reference Range Interpretation Comments Hgb (test code = Hgb) 15.0 14.0-18.0 [facility] HospitalIblqpnyGKYUKMEIAY1098-22-75 17:39:00 Test Item Value Reference Range Interpretation Comments Hct (test code = Hct) 44.0 42.0-54.0 [facility] CypressFffyrgnQCNJYIMHUR8341-82-28 17:39:00 Test Item Value Reference Range Interpretation Comments MCV (test code = MCV) 87.7 80.0-94.0 [facility] HospitalWhnejpiNWSEJKQQAU2142-68-09 17:39:00 Test Item Value Reference Range Interpretation Comments MCH (test code = MCH) 29.9 pg 27.0-31.0 [facility] HospitalRvgmamvZXCNXAEZUX6577-65-69 17:39:00 Test Item Value Reference Range Interpretation Comments MCHC (test code = MCHC) 34.1 32.0-36.0 [facility]CARHytleAC [id number] 17:39:00 Test Item Value Reference Range Interpretation Comments CK MB (test code = CK MB) 0.6 0.5-3.6 [facility]iscoCARHytle [id number] 17:39:00 Test Item Value Reference Range Interpretation Comments Troponin-I (test code no gt See_Comment [Auto mated message] The = Troponin-I) system which g enerated this result transmit hudson reference range : <=0.40. The reference r ania was not used to interpr et this result as missy l/abnormal. [facility] CenterBahoui [id number] 17:39:00 Test Item Value Reference Range Interpretation Comments A/G Ratio (test code = A/G Ratio) 0.9 0.7-1.6 [facility] CenterBahoui [id number] 17:39:00 Test Item Value Reference Range Interpretation Comments eGFR (test code = eGFR) 64 [facility]2016-03-14 17:39:00 Test Item Value Reference Range Interpretation Comments B/C Ratio (test code = B/C Ratio) 11 6-25 [facility]2016-03-14 17:39:00 Test Item Value Reference Range Interpretation Comments AGAP (test code = AGAP) 9.0 10.0-20.0 [facility]2016-03-14 17:39:00 Test Item Value Reference Range Interpretation Comments Globulin (test code = Globulin) 4.1 2.0-4.0 [facility]2016-03-14 17:39:00 Test Item Value Reference Range Interpretation Comments Bili Total (test code = Bili Total) 0.5 0.2-1.3 [facility]2016-03-14 17:39:00 Test Item Value Reference Range Interpretation Comments CO2 (test code = CO2) 29 24-32 [facility]2016-03-14 17:39:00 Test Item Value Reference Range Interpretation Comments Calcium Lvl (test code = Calcium Lvl) 8.3 8.5-10.5 [facility]2016-03-14 17:39:00 Test Item Value Reference Range Interpretation Comments Total Protein (test code = Total 7.9 6.4-8.4 Protein) [facility]2016-03-14 17:39:00 Test Item Value Reference Range Interpretation Comments Creatinine Lvl (test code = Creatinine 1.34 0.50-1.40 Lvl) [facility]2016-03-14 17:39:00 Test Item Value Reference Range Interpretation Comments BUN (test code = BUN) 15 - [facility]2016-03-14 17:39:00 Test Item Value Reference Range Interpretation Comments Chloride Lvl (test code = Chloride Lvl) 104 95-109 [facility] [facility] 17:[facility]:00 Test Item Value Reference Range Interpretation Comments Sodium Lvl (test code = Sodium Lvl) 138 135-145 [facility]2016-03-14 17:39:00 Test Item Value Reference Range Interpretation Comments Potassium Lvl (test code = Potassium 4.0 3.5-5.1 Lvl) [facility]2016-03-14 17:39:00 Test Item Value Reference Range Interpretation Comments Albumin Lvl (test code = Albumin Lvl) 3.8 3.5-5.0 [place] [id number] 17:39:00 Test Item Value Reference Range Interpretation Comments Glucose Lvl (test code = Glucose Lvl) 97 70-99 [place] 967226-03-14 17:39:00 Test Item Value Reference Range Interpretation Comments AST (test code = AST) 28 See_Comment [Auto mated message] The system which ge nerated this result transmit hudson reference range : <=37. The reference range was not used to interpr et this result as missy l/abnormal. [facility]2016-03-14 17:39:00 Test Item Value Reference Range Interpretation Comments Alk Phos (test code = Alk Phos) 94 39-136 [facility]2016-03-14 17:39:00 Test Item Value Reference Range Interpretation Comments ALT (test code = ALT) 56 See_Comment [Auto mated message] The system which ge nerated this result transmit hudson reference range : <=65. The reference range was not used to interpr et this result as missy l/abnormal. [facility]2016-03-14 17:39:00 Test Item Value Reference Range Interpretation Comments Magnesium Lvl (test code = Magnesium 2.1 1.8-2.4 Lvl) [place] 718776-03-14 17:39:00 Test Item Value Reference Range Interpretation Comments Segs-Bands # (test code = Segs-Bands #) 7.4 1.5-8.1 [facility]ZqrptrfISVSNFKKEN0596-20-74 17:39:00 Test Item Value Reference Range Interpretation Comments Monocytes (test code = Monocytes) 5.8 2.0-12.0 [place] 718776-03-14 17:39:00 Test Item Value Reference Range Interpretation Comments Lymphocytes # (test code = Lymphocytes 1.4 1.0-5.5 #) [place] 718776-03-14 17:39:00 Test Item Value Reference Range Interpretation Comments Eosinophils (test code = 2.1 See_Comment [A utomated message] The Eosinophils) system which ge nerated this result tra nsmitted reference range : <=4.0. The reference r ania was not used to int erpret this result as normal/abnormal . [facility] CypressGznscgzHGNIAXGFTF1068-50-94 17:39:00 Test Item Value Reference Range Interpretation Comments Basophils (test code = 0.6 See_Comment [Aut omated message] The Basophils) system which ge nerated this result tra nsmitted reference range : <=1.0. The reference r ania was not used to int erpret this result as normal/abnormal . [facility] CypressHtxxfmlXBDOEUDNMY7131-02-55 17:39:00 Test Item Value Reference Range Interpretation Comments Segs (test code = Segs) 76.6 45.0-75.0 [facility] CypressWhcmzftLLDFCXBNFJ1238-64-69 17:39:00 Test Item Value Reference Range Interpretation Comments Lymphocytes (test code = Lymphocytes) 14.9 20.0-40.0 [facility] CypressKrtjbbfAEUXQLGAXW3111-32-34 17:39:00 Test Item Value Reference Range Interpretation Comments Monocytes # (test code 0.6 See_Comment [Aut omated message] The = Monocytes #) system which generated this result tra nsmitted reference range : <=0.8. The reference r ania was not used to int erpret this result as normal/abnormal . [facility] CypressTofwjqaJIBZUVOMSV3628-50-92 17:39:00 Test Item Value Reference Range Interpretation Comments Basophils # (test code 0.1 See_Comment [Aut omated message] The = Basophils #) system which generated this result tra nsmitted reference range : <=0.2. The reference r ania was not used to int erpret this result as normal/abnormal . [facility] CypressAumwehbNFSQNSQHBY3893-89-97 17:39:00 Test Item Value Reference Range Interpretation Comments Eosinophils # (test code 0.2 See_Comment [A utomated message] The = Eosinophils #) system whic h generated this result tra nsmitted reference range : <=0.5. The reference r ania was not used to int erpret this result as normal/abnormal . [facility] CypressIpzimiqKJEEOVTHOR2467-75-05 17:39:00 Test Item Value Reference Range Interpretation Comments WBC (test code = WBC) 9.7 3.7-10.4 [facility] CypressVzlzyusVLVRQBCVAR0353-07-79 17:39:00 Test Item Value Reference Range Interpretation Comments RBC (test code = RBC) 5.02 4.70-6.10 [facility]TpogqvtOJVCOSXKWL9345-83-27 17:39:00 Test Item Value Reference Range Interpretation Comments RDW (test code = RDW) 13.6 11.5-14.5 [facility] CypressLrrfhbxMIRLBMQYHK3760-87-20 17:39:00 Test Item Value Reference Range Interpretation Comments Platelet (test code = Platelet) 162 133-450 [facility] CypressHyemyjmXTMLFSXDHK8162-57-96 17:39:00 Test Item Value Reference Range Interpretation Comments MPV (test code = MPV) 8.2 7.4-10.4 [facility] CypressOehbbnfPSDQNEUDDQ9484-17-84 17:39:00 Test Item Value Reference Range Interpretation Comments Hgb (test code = Hgb) 15.0 14.0-18.0 [facility] CypressSjwzxpxGVPNEDRMTT1772-35-92 17:39:00 Test Item Value Reference Range Interpretation Comments Hct (test code = Hct) 44.0 42.0-54.0 [facility] CypressOrvograULTRTEJEUA6556-88-29 17:39:00 Test Item Value Reference Range Interpretation Comments MCV (test code = MCV) 87.7 80.0-94.0 [facility] HospitalMarbrsaABHYCYJCCN9523-25-60 17:39:00 Test Item Value Reference Range Interpretation Comments MCH (test code = MCH) 29.9 pg 27.0-31.0 [facility] HospitalObipwkrJZEWZAQTWP6109-94-38 17:39:00 Test Item Value Reference Range Interpretation Comments MCHC (test code = MCHC) 34.1 32.0-36.0 [facility] [id number] 17:39:00 Test Item Value Reference Range Interpretation Comments CK MB Index (test 0.4 See_Comment [Automate d message] The code = CK MB Index) system w [facility] generated this result transmit hudson reference range : <=2.5. The reference range was not used to interpr et this result as missy l/abnormal. [facility] [id number] 17:39:00 Test Item Value Reference Range Interpretation Comments Total CK (test code = Total CK) 141 12-191 [facility] [id number] 17:39:00 Test Item Value Reference Range Interpretation Comments CK MB (test code = CK MB) 0.6 0.5-3.6 [facility] CenterannCARDIAC [id number] 17:39:00 Test Item Value Reference Range Interpretation Comments Troponin-I (test code no gt See_Comment [Auto mated message] The = Troponin-I) system which g enerated this result transmit hudson reference range : <=0.40. The reference r ania was not used to interpr et this result as missy l/abnormal. [facility] [id number] 17:39:00 Test Item Value Reference Range Interpretation Comments A/G Ratio (test code = A/G Ratio) 0.9 0.7-1.6 [facility] CenterannDatezr [id number] 17:39:00 Test Item Value Reference Range Interpretation Comments eGFR (test code = eGFR) 64 [facility] CenterBahoui [id number] 17:39:00 Test Item Value Reference Range Interpretation Comments B/C Ratio (test code = B/C Ratio) 11 6-25 [facility] CenterBahoui [id number] 17:39:00 Test Item Value Reference Range Interpretation Comments AGAP (test code = AGAP) 9.0 10.0-20.0 [facility] CenterB[facility]ou[facility] [id number] 17:39:00 Test Item Value Reference Range Interpretation Comments Globulin (test code = Globulin) 4.1 2.0-4.0 [facility] [id number] 17:39:00 Test Item Value Reference Range Interpretation Comments Bili Total (test code = Bili Total) 0.5 0.2-1.3 [facility] [id number] 17:39:00 Test Item Value Reference Range Interpretation Comments CO2 (test code = CO2) 29 24-32 [facility] CenterVue TechnologyCHEM [id number] 17:39:00 Test Item Value Reference Range Interpretation Comments Calcium Lvl (test code = Calcium Lvl) 8.3 8.5-10.5 [facility] CenterannDatezr [id number] 17:39:00 Test Item Value Reference Range Interpretation Comments Total Protein (test code = Total 7.9 6.4-8.4 Protein) [facility] CenterB[facility]oui [id number] 17:39:00 Test Item Value Reference Range Interpretation Comments Creatinine Lvl (test code = Creatinine 1.34 0.50-1.40 Lvl) [facility]2016-03-14 17:39:00 Test Item Value Reference Range Interpretation Comments BUN (test code = BUN) 15 7-22 [facility]2016-03-14 17:39:00 Test Item Value Reference Range Interpretation Comments Chloride Lvl (test code = Chloride Lvl) 104 95-109 [facility]2016-03-14 17:39:00 Test Item Value Reference Range Interpretation Comments Sodium Lvl (test code = Sodium Lvl) 138 135-145 [facility]2016-03-14 17:39:00 Test Item Value Reference Range Interpretation Comments Potassium Lvl (test code = Potassium 4.0 3.5-5.1 Lvl) [facility]2016-03-14 17:39:00 Test Item Value Reference Range Interpretation Comments Albumin Lvl (test code = Albumin Lvl) 3.8 3.5-5.0 [facility]2016-03-14 17:39:00 Test Item Value Reference Range Interpretation Comments Glucose Lvl (test code = Glucose Lvl) 97 70-99 [facility]2016-03-14 17:39:00 Test Item Value Reference Range Interpretation Comments AST (test code = AST) 28 See_Comment [Auto mated message] The system which ge nerated this result transmit hudson reference range : <=37. The reference range was not used to interpr et this result as missy l/abnormal. [facility]2016-03-14 17:39:00 Test Item Value Reference Range Interpretation Comments Alk Phos (test code = Alk Phos) 94 39-136 [facility]2016-03-14 17:39:00 Test Item Value Reference Range Interpretation Comments ALT (test code = ALT) 56 See_Comment [Auto mated message] The system which ge nerated this result transmit hudson reference range : <=65. The reference range was not used to interpr et this result as missy l/abnormal. [facility]2016-03-14 17:39:00 Test Item Value Reference Range Interpretation Comments Magnesium Lvl (test code = Magnesium 2.1 1.8-2.4 Lvl) [facility] CypressTnfftslJXXCDKKGIQ1625-25-72 17:39:00 Test Item Value Reference Range Interpretation Comments Segs-Bands # (test code = Segs-Bands #) 7.4 1.5-8.1 [facility] CypressQzijwzaLCWIHVOBTJ8794-84-13 17:39:00 Test Item Value Reference Range Interpretation Comments Monocytes (test code = Monocytes) 5.8 2.0-12.0 [facility] CypressWumttftUWJUZMGQXW1877-75-90 17:39:00 Test Item Value Reference Range Interpretation Comments Lymphocytes # (test code = Lymphocytes 1.4 1.0-5.5 #) [facility] CypressUjvshpnUWNDKZZPQY8410-77-83 17:39:00 Test Item Value Reference Range Interpretation Comments Eosinophils (test code = 2.1 See_Comment [A utomated message] The Eosinophils) system which ge nerated this result tra nsmitted reference range : <=4.0. The reference r ania was not used to int erpret this result as normal/abnormal . [facility] CypressPodpvkkWJOWSXQEZQ6436-63-17 17:39:00 Test Item Value Reference Range Interpretation Comments Basophils (test code = 0.6 See_Comment [Aut omated message] The Basophils) system which ge nerated this result tra nsmitted reference range : <=1.0. The reference r ania was not used to int erpret this result as normal/abnormal . [facility] CypressZjmofjyGQCHHKWXZU8094-57-02 17:39:00 Test Item Value Reference Range Interpretation Comments Segs (test code = Segs) 76.6 45.0-75.0 [facility] CypressXklaicsPZOXYTMJJT5655-56-49 17:39:00 Test Item Value Reference Range Interpretation Comments Lymphocytes (test code = Lymphocytes) 14.9 20.0-40.0 [facility] CypressFpivpqkUIUMQGCDMP4058-72-72 17:39:00 Test Item Value Reference Range Interpretation Comments Monocytes # (test code 0.6 See_Comment [Aut omated message] The = Monocytes #) system which generated this result tra nsmitted reference range : <=0.8. The reference r ania was not used to int erpret this result as normal/abnormal . [facility] CypressMslfvggBLLTQHGDYF3998-16-59 17:39:00 Test Item Value Reference Range Interpretation Comments Basophils # (test code 0.1 See_Comment [Aut omated message] The = Basophils #) system which generated this result tra nsmitted reference range : <=0.2. The reference r ania was not used to int erpret this result as normal/abnormal . [facility] CypressQqgvkdjUXQKOYDIJG0087-30-14 17:39:00 Test Item Value Reference Range Interpretation Comments Eosinophils # (test code 0.2 See_Comment [A utomated message] The = Eosinophils #) system whic h generated this result tra nsmitted reference range : <=0.5. The reference r ania was not used to int erpret this result as normal/abnormal . [facility] CypressKaomcygBVUNNNWDXL6037-78-45 17:39:00 Test Item Value Reference Range Interpretation Comments WBC (test code = WBC) 9.7 3.7-10.4 [facility] CypressBxvsgcwESRAMXSCQE5578-68-02 17:39:00 Test Item Value Reference Range Interpretation Comments RBC (test code = RBC) 5.02 4.70-6.10 [facility] CypressFcwcuniZJWMUSWQDQ2246-86-98 17:39:00 Test Item Value Reference Range Interpretation Comments RDW (test code = RDW) 13.6 11.5-14.5 [facility] CypressZjfsbrrSTBTZFETVG7962-81-37 17:39:00 Test Item Value Reference Range Interpretation Comments Platelet (test code = Platelet) 162 133-450 [facility] CypressTtvcdufOIDIDAXKVZ9067-54-35 17:39:00 Test Item Value Reference Range Interpretation Comments MPV (test code = MPV) 8.2 7.4-10.4 [facility] CypressGaynohdXNPGLYDRCS6750-49-07 17:39:00 Test Item Value Reference Range Interpretation Comments Hgb (test code = Hgb) 15.0 14.0-18.0 [facility] CypressLoxvcpsWAUDBUZRPD3854-51-99 17:39:00 Test Item Value Reference Range Interpretation Comments Hct (test code = Hct) 44.0 42.0-54.0 [facility] CypressUhgcgmqSZLSTQYTUT5444-30-83 17:39:00 Test Item Value Reference Range Interpretation Comments MCV (test code = MCV) 87.7 80.0-94.0 [facility] CypressWshcyylDWQTZYLAMM9376-63-69 17:39:00 Test Item Value Reference Range Interpretation Comments MCH (test code = MCH) 29.9 pg 27.0-31.0 [facility] CypressSnexuwjMFCZEBLZNP1314-86-97 17:39:00 Test Item Value Reference Range Interpretation Comments MCHC (test code = MCHC) 34.1 32.0-36.0 [facility] [id number] 17:39:00 Test Item Value Reference Range Interpretation Comments CK MB Index (test 0.4 See_Comment [Automate d message] The code = CK MB Index) system w [facility] generated this result transmit hudson reference range : <=2.5. The reference range was not used to interpr et this result as missy l/abnormal. [facility] [id number] 17:39:00 Test Item Value Reference Range Interpretation Comments Total CK (test code = Total CK) 141 12-191 [facility] [facility] [id number] 17:39:00 Test Item Value Reference Range Interpretation Comments CK MB (test code = CK MB) 0.6 0.5-3.6 [facility] [id number] 17:39:00 Test Item Value Reference Range Interpretation Comments Troponin-I (test code no gt See_Comment [Auto mated message] The = Troponin-I) system which g enerated this result transmit hudson reference range : <=0.40. The reference r ania was not used to interpr et this result as missy l/abnormal. [employer]2016-03-14 17:39:00 Test Item Value Reference Range Interpretation Comments A/G Ratio (test code = A/G Ratio) 0.9 0.7-1.6 [facility] [employer]2016-03-14 17:39:00 Test Item Value Reference Range Interpretation Comments eGFR (test code = eGFR) 64 [facility] [employer]2016-03-14 17:39:00 Test Item Value Reference Range Interpretation Comments B/C Ratio (test code = B/C Ratio) 11 6-25 [facility] [employer]2016-03-14 17:39:00 Test Item Value Reference Range Interpretation Comments AGAP (test code = AGAP) 9.0 10.0-20.0 [employer]2016-03-14 17:39:00 Test Item Value Reference Range Interpretation Comments Globulin (test code = Globulin) 4.1 2.0-4.0 [facility] [employer]2016-03-14 17:39:00 Test Item Value Reference Range Interpretation Comments Bili Total (test code = Bili Total) 0.5 0.2-1.3 [facility] [employer]2016-03-14 17:39:00 Test Item Value Reference Range Interpretation Comments CO2 (test code = CO2) 29 24-32 [facility]2016-03-14 17:39:00 Test Item Value Reference Range Interpretation Comments Calcium Lvl (test code = Calcium Lvl) 8.3 8.5-10.5 [facility]2016-03-14 17:39:00 Test Item Value Reference Range Interpretation Comments Total Protein (test code = Total 7.9 6.4-8.4 Protein) [facility]2016-03-14 17:39:00 Test Item Value Reference Range Interpretation Comments Creatinine Lvl (test code = Creatinine 1.34 0.50-1.40 Lvl) [facility]2016-03-14 17:39:00 Test Item Value Reference Range Interpretation Comments BUN (test code = BUN) 15 7-22 [facility]2016-03-14 17:39:00 Test Item Value Reference Range Interpretation Comments Chloride Lvl (test code = Chloride Lvl) 104 95-109 [facility]2016-03-14 17:39:00 Test Item Value Reference Range Interpretation Comments Sodium Lvl (test code = Sodium Lvl) 138 135-145 [facility]2016-03-14 17:39:00 Test Item Value Reference Range Interpretation Comments Potassium Lvl (test code = Potassium 4.0 3.5-5.1 Lvl) [facility]2016-03-14 17:39:00 Test Item Value Reference Range Interpretation Comments Albumin Lvl (test code = Albumin Lvl) 3.8 3.5-5.0 [facility]2016-03-14 17:39:00 Test Item Value Reference Range Interpretation Comments Glucose Lvl (test code = Glucose Lvl) 97 70-99 [facility]2016-03-14 17:39:00 Test Item Value Reference Range Interpretation Comments AST (test code = AST) 28 See_Comment [Auto mated message] The system which ge nerated this result transmit hudson reference range : <=37. The reference range was not used to interpr et this result as missy l/abnormal. [facility]2016-03-14 17:39:00 Test Item Value Reference Range Interpretation Comments Alk Phos (test code = Alk Phos) 94 39-136 [facility]2016-03-14 17:39:00 Test Item Value Reference Range Interpretation Comments ALT (test code = ALT) 56 See_Comment [Auto mated message] The system which ge nerated this result transmit hudson reference range : <=65. The reference range was not used to interpr et this result as missy l/abnormal. [facility]2016-03-14 17:39:00 Test Item Value Reference Range Interpretation Comments Magnesium Lvl (test code = Magnesium 2.1 1.8-2.4 Lvl) [facility] CypressBigeanuANYHNMEPTB9054-78-56 17:39:00 Test Item Value Reference Range Interpretation Comments Segs-Bands # (test code = Segs-Bands #) 7.4 1.5-8.1 [facility] CypressUejqnzsCVTFPMVMRO0530-18-01 17:39:00 Test Item Value Reference Range Interpretation Comments Monocytes (test code = Monocytes) 5.8 2.0-12.0 [facility] CypressVrvdgpyKZFPNMEMNO6799-45-54 17:39:00 Test Item Value Reference Range Interpretation Comments Lymphocytes # (test code = Lymphocytes 1.4 1.0-5.5 #) [facility] CypressKxpkbftWEDPBDXGIO5629-25-21 17:39:00 Test Item Value Reference Range Interpretation Comments Eosinophils (test code = 2.1 See_Comment [A utomated message] The Eosinophils) system which ge nerated this result tra nsmitted reference range : <=4.0. The reference r ania was not used to int erpret this result as normal/abnormal . [facility] CypressJevixooQISJXWWECS5623-74-91 17:39:00 Test Item Value Reference Range Interpretation Comments Basophils (test code = 0.6 See_Comment [Aut omated message] The Basophils) system which ge nerated this result tra nsmitted reference range : <=1.0. The reference r ania was not used to int erpret this result as normal/abnormal . [facility] CypressGlwhzhxTGRNVGFWYW7341-12-31 17:39:00 Test Item Value Reference Range Interpretation Comments Segs (test code = Segs) 76.6 45.0-75.0 [facility] CypressKzmwneuMSHWXUCHBF5104-82-39 17:39:00 Test Item Value Reference Range Interpretation Comments Lymphocytes (test code = Lymphocytes) 14.9 20.0-40.0 [place] 718776-03-14 17:39:00 Test Item Value Reference Range Interpretation Comments Monocytes # (test code 0.6 See_Comment [Aut omated message] The = Monocytes #) system which generated this result tra nsmitted reference range : <=0.8. The reference r ania was not used to int erpret this result as normal/abnormal . [facility] CypressUfginxxRJBPDERXRR6700-44-51 17:39:00 Test Item Value Reference Range Interpretation Comments Basophils # (test code 0.1 See_Comment [Aut omated message] The = Basophils #) system which generated this result tra nsmitted reference range : <=0.2. The reference r ania was not used to int erpret this result as normal/abnormal . [facility] CypressJtghlxmQSOVHWICLI6277-34-93 17:39:00 Test Item Value Reference Range Interpretation Comments Eosinophils # (test code 0.2 See_Comment [A utomated message] The = Eosinophils #) system whic h generated this result tra nsmitted reference range : <=0.5. The reference r ania was not used to int erpret this result as normal/abnormal . [facility] CypressKbdwusfYZHSSZURUA4104-59-99 17:39:00 Test Item Value Reference Range Interpretation Comments WBC (test code = WBC) 9.7 3.7-10.4 [facility] CypressOazihuvFPZRGSPVVG3818-91-74 17:39:00 Test Item Value Reference Range Interpretation Comments RBC (test code = RBC) 5.02 4.70-6.10 [facility] CypressKggbshsPGPCGZGZUY8853-32-39 17:39:00 Test Item Value Reference Range Interpretation Comments RDW (test code = RDW) 13.6 11.5-14.5 [facility] CypressKmjzxbwUJAXOVYQGD3814-55-28 17:39:00 Test Item Value Reference Range Interpretation Comments Platelet (test code = Platelet) 162 133-450 [facility] CypressAxnstyiHZMBSSCPOM6785-41-02 17:39:00 Test Item Value Reference Range Interpretation Comments MPV (test code = MPV) 8.2 7.4-10.4 [facility] CypressDenryyyOKOJEPEMLJ7937-47-53 17:39:00 Test Item Value Reference Range Interpretation Comments Hgb (test code = Hgb) 15.0 14.0-18.0 [facility] CypressLimvmpmXOOFEOYVED2471-13-74 17:39:00 Test Item Value Reference Range Interpretation Comments Hct (test code = Hct) 44.0 42.0-54.0 [facility] CenterTmphieoLAOMSNUJHY5998-32-06 17:39:00 Test Item Value Reference Range Interpretation Comments MCV (test code = MCV) 87.7 80.0-94.0 [facility] CenterKwzyfsrRIQDXZMDWC9008-96-28 17:39:00 Test Item Value Reference Range Interpretation Comments MCH (test code = MCH) 29.9 pg 27.0-31.0 [facility] CenterZxuvhemABTNYGVDBG9523-62-40 17:39:00 Test Item Value Reference Range Interpretation Comments MCHC (test code = MCHC) 34.1 32.0-36.0 [facility] TeamleaderannCARDIAC [id number] 17:39:00 Test Item Value Reference Range Interpretation Comments CK MB Index (test 0.4 See_Comment [Automate d message] The code = CK MB Index) system w [facility] generated this result transmit hudson reference range : <=2.5. The reference range was not used to interpr et this result as missy l/abnormal. [facility] TherapeuticsCARDIAC [id number] 17:39:00 Test Item Value Reference Range Interpretation Comments Total CK (test code = Total CK) 141 12-191 [facility] [facility] [id number] 17:39:00 Test Item Value Reference Range Interpretation Comments CK MB (test code = CK MB) 0.6 0.5-3.6 [facility] [id number] 17:39:00 Test Item Value Reference Range Interpretation Comments Troponin-I (test code no gt See_Comment [Auto mated message] The = Troponin-I) system which g enerated this result transmit hudson reference range : <=0.40. The reference r ania was not used to interpr et this result as missy l/abnormal. [facility] [id number] 17:39:00 Test Item Value Reference Range Interpretation Comments A/G Ratio (test code = A/G Ratio) 0.9 0.7-1.6 [facility] [id number] 17:39:00 Test Item Value Reference Range Interpretation Comments eGFR (test code = eGFR) 64 [facility] [id number] 17:39:00 Test Item Value Reference Range Interpretation Comments B/C Ratio (test code = B/C Ratio) 11 6-25 [facility]2016-03-14 17:39:00 Test Item Value Reference Range Interpretation Comments AGAP (test code = AGAP) 9.0 10.0-20.0 [facility]2016-03-14 17:39:00 Test Item Value Reference Range Interpretation Comments Globulin (test code = Globulin) 4.1 2.0-4.0 [facility]2016-03-14 17:39:00 Test Item Value Reference Range Interpretation Comments Bili Total (test code = Bili Total) 0.5 0.2-1.3 [facility]2016-03-14 17:39:00 Test Item Value Reference Range Interpretation Comments CO2 (test code = CO2) 29 -32 [facility]2016-03-14 17:39:00 Test Item Value Reference Range Interpretation Comments Calcium Lvl (test code = Calcium Lvl) 8.3 8.5-10.5 [facility]2016-03-14 17:39:00 Test Item Value Reference Range Interpretation Comments Total Protein (test code = Total 7.9 6.4-8.4 Protein) [facility]2016-03-14 17:39:00 Test Item Value Reference Range Interpretation Comments Creatinine Lvl (test code = Creatinine 1.34 0.50-1.40 Lvl) [facility]2016-03-14 17:39:00 Test Item Value Reference Range Interpretation Comments BUN (test code = BUN) 15 7-22 [facility]2016-03-14 17:39:00 Test Item Value Reference Range Interpretation Comments Chloride Lvl (test code = Chloride Lvl) 104 95-109 [facility]2016-03-14 17:39:00 Test Item Value Reference Range Interpretation Comments Sodium Lvl (test code = Sodium Lvl) 138 135-145 [facility]2016-03-14 17:39:00 Test Item Value Reference Range Interpretation Comments Potassium Lvl (test code = Potassium 4.0 3.5-5.1 Lvl) [facility]2016-03-14 17:39:00 Test Item Value Reference Range Interpretation Comments Albumin Lvl (test code = Albumin Lvl) 3.8 3.5-5.0 [place] [id number] 17:39:00 Test Item Value Reference Range Interpretation Comments Glucose Lvl (test code = Glucose Lvl) 97 70-99 [place] [id number] 17:39:00 Test Item Value Reference Range Interpretation Comments AST (test code = AST) 28 See_Comment [Auto mated message] The system which ge nerated this result transmit hudson reference range : <=37. The reference range was not used to interpr et this result as missy l/abnormal. [place] [id number] 17:39:00 Test Item Value Reference Range Interpretation Comments Alk Phos (test code = Alk Phos) 94 39-136 [place] [id number] 17:39:00 Test Item Value Reference Range Interpretation Comments ALT (test code = ALT) 56 See_Comment [Auto mated message] The system which ge nerated this result transmit hudson reference range : <=65. The reference range was not used to interpr et this result as missy l/abnormal. [place] [id number] 17:39:00 Test Item Value Reference Range Interpretation Comments Magnesium Lvl (test code = Magnesium 2.1 1.8-2.4 Lvl) [place] [id number] 17:39:00 Test Item Value Reference Range Interpretation Comments Segs-Bands # (test code = Segs-Bands #) 7.4 1.5-8.1 [place] [id number] 17:39:00 Test Item Value Reference Range Interpretation Comments Monocytes (test code = Monocytes) 5.8 2.0-12.0 [place] [id number] 17:39:00 Test Item Value Reference Range Interpretation Comments Lymphocytes # (test code = Lymphocytes 1.4 1.0-5.5 #) [place] [id number] 17:39:00 Test Item Value Reference Range Interpretation Comments Eosinophils (test code = 2.1 See_Comment [A utomated message] The Eosinophils) system which ge nerated this result tra nsmitted reference range : <=4.0. The reference r ania was not used to int erpret this result as normal/abnormal . [id number] 17:39:00 Test Item Value Reference Range Interpretation Comments Basophils (test code = 0.6 See_Comment [Aut omated message] The Basophils) system which ge nerated this result tra nsmitted reference range : <=1.0. The reference r ania was not used to int erpret this result as normal/abnormal . [id number] 17:39:00 Test Item Value Reference Range Interpretation Comments Segs (test code = Segs) 76.6 45.0-75.0 [facility] [id number] 17:39:00 Test Item Value Reference Range Interpretation Comments Lymphocytes (test code = Lymphocytes) 14.9 20.0-40.0 [facility] [id number] 17:39:00 Test Item Value Reference Range Interpretation Comments Monocytes # (test code 0.6 See_Comment [Aut omated message] The = Monocytes #) system which generated this result tra nsmitted reference range : <=0.8. The reference r ania was not used to int erpret this result as normal/abnormal . [facility] [id number] 17:39:00 Test Item Value Reference Range Interpretation Comments Basophils # (test code 0.1 See_Comment [Aut omated message] The = Basophils #) system which generated this result tra nsmitted reference range : <=0.2. The reference r ania was not used to int erpret this result as normal/abnormal . [facility] [id number] 17:39:00 Test Item Value Reference Range Interpretation Comments Eosinophils # (test code 0.2 See_Comment [A utomated message] The = Eosinophils #) system whic h generated this result tra nsmitted reference range : <=0.5. The reference r ania was not used to int erpret this result as normal/abnormal . [facility] [id number] 17:39:00 Test Item Value Reference Range Interpretation Comments WBC (test code = WBC) 9.7 3.7-10.4 [facility] Notes Date/Time Note Provider Source 2023-01-03 13:20:55-00:00 Formatting of this note is d ifferent from the original. [facility] Chief Complaint Patient presents with Nose Problem 52 year old male here for n deon congested. Pt states he had polyp removal surgery a year ago. Eula Daily 2022-06-17 19:57:00-00:00 [facility] ([facility]) EMERGENCY PROVIDER REPORT REPORT#:[id number] REPORT STATUS: Signed DATE:06/17/22 TIME:1956 PATIENT: KAYLEE REYNA UNIT #: [id number] ROOM/BED: : 71 AGE: 52 SEX: M PCP PHYS: Undefined Provider SERVICE AUTHOR: Debbie Irizarry SHOPPER MARKETING MANAGER * ALL edits or amendments must be made on the Fly6/computer document * Debbie Irizarry [birth year]: HPI-Should/Arm Prob/Inj Free Text HPI Notes [...] Admin Hydrocodone Bitart/ 1 TAB X1ED STA 06/17 1956 D C 06/17 Acetaminophen PO 06/17 Patient Discharge Departure Clinical Impression Clinical Impression Primary Impression: Biceps tendon rupture Disposition Decision Discharge )( Discharged to Home Yes )( Time 2050 )( Date 06/17/22 Discharge/Care Plan Referrals Provider Referral: Lloyd Jimenez MD Follow-Up: Call for appointment Notes: design specialist Address: [address] [place] [address] Martimatthew,Davis 06/17/222051: Physical Exam Vital Signs Vital Signs [...] Consultation Consultation Referral/Consult Name Lloyd Jimenez MD [employer] Principal Called Orthopedic Requested Call Time 1999 Requested [...] the patient along with involvement of the PA/SHOPPER MARKETING MANAGER. I agree with the PA/SHOPPER MARKETING MANAGER s findings and plan. I have performed all aspects of MDM as documented including: evaluation of the patient/ patient's condition(s), revi ew and analysis of available data, and determination of risk of patient management decisions. Electronically Signed by Davis Benítez MD on 01/01 at 2029 Electronically Signed by Debbie Irizarry NP on at 1057 [facility] #: [id number] END OF REPORT 2015-08-24 12:23:00-00:00 CHEST RADIOGRAPH SINGLE VIEW [facility] INDICATION: Shortness of breath COMPARISON: None IMPRESSION: The lungs are underinflated. Grossly, no acute intrathoracic abnormalities are visible. SL:2015-08-24 12:23:00-00:00 CHEST RADIOGRAPH SINGLE VIEW [facility] INDICATION: Shortness of breath COMPARISON: None IMPRESSION: The lungs are underinflated. Grossly, no acute intrathoracic abnormalities are visible. SL:2015-08-24 12:23:00-00:00 CHEST RADIOGRAPH SINGLE VIEW [facility] INDICATION: Shortness of breath COMPARISON: None IMPRESSION: The lungs are underinflated. Grossly, no acute intrathoracic abnormalities are visible. SL:2015-02-11 18:32:00-00:00 Examination: Left finger, 3 views [facility] History: Pain, injury Comparison: None. Findings: Multiple views of the left index finger show no acute bony fracture or joint dislocation. Mild diffuse soft tissue swelling is present. IMPRESSION: No acute bony abnormality of the lef t index finger. SL: 2015-02-11 18:32:00-00:00 Examination: Left finger, 3 views [facility] History: Pain, injury Comparison: None. Findings: Multiple views of the left index finger show no acute bony fracture or joint dislocation. Mild diffuse soft tissue swelling is present. IMPRESSION: No acute bony abnormality of the lef t index finger. SL: 2015-02-11 18:32:00-00:00 Examination: Left finger, 3 views [facility] History: Pain, injury Comparison: None. Findings: Multiple views of the left index finger show no acute bony fracture or joint dislocation. Mild diffuse soft tissue swelling is present. IMPRESSION: No acute bony abnormality of the lef t index finger. SL: 16
[2023-02-28 15:39] LABS: Absolute Lymphocytes (CBC) 1.4 K/uL (0.7-4.9); Hematocrit 46.1 % (39.6-49.0); Lymphocytes % 26.7 % (15.3-44.8); MCV 86.7 fL (80-100); MPV 8.1 fL (7.6-11.3); Platelets 155 thou/uL (152-406); RBC Red Blood Cell Count 5.32 M/uL (4.33-5.43)
[2023-02-28] MEDS ORDERED: MAGNESIUM SULFATE 1 gm IVPB 1 GM/100 ML BAG IV ONE (15:42)
[2023-02-28 15:43] LABS: Protime INR 1.14
[2023-02-28 15:59] LABS: Potassium 3.9 mEq/L (3.5-5.1); Troponin High Sensitivity 22.5 pg/mL (<58.9)
--- NOTE | 2023-02-28 16:38 | RAD REPORT ---
EXAM DESCRIPTION: RAD - Chest Single View - 02/28/2023 3:58 pm CLINICAL HISTORY: PALPITATIONS Chest pain. COMPARISON: <Comparisons> FINDINGS: Portable technique limits examination quality. Mild interstitial pulmonary edema is present. The heart is mildly enlarged. No displaced fractures. IMPRESSION: Mild CHF.
--- NOTE | 2023-02-28 17:02 | EDPHYS ---
Physician Documentation [facility] Name: Josesito Reyna Age: 52 yrs Sex: Male : 1970 Arrival Date: 02/28/2023 Time: 14:54 Bed 2 Private MD: ED Physician Masood Zuniga HPI: 02/28 16:42 This 52 yrs old Male presents to ER via Ambulatory with complaints of Near Syncope, rn High Pulse. 16:42 The patient presents with a history of heart racing. Context: The symptoms occur at rn rest. Onset: The symptoms/episode began/occurred today. Duration: The patient or guardian reports a single episode, that is now resolved. Modifying factors: The symptoms are aggravated by nothing. The symptoms are alleviated by nothing. Severity of symptoms: At their worst the symptoms were moderate in the emergency department the symptoms have improved. The patient has experienced similar episodes in the past. Patient reports had cardiac ablation 1 week ago, was doing okay, now on flecainide, today had 3-1/2 hours of palpitations and heart racing feeling dizzy. No chest pain, no shortness of breath. Compliant with medication. Called physician's office and told to come here. Already feels much better.. Historical: - Allergies: 15:17 PENICILLINS; mb9 - Home Meds: 15:17 aspirin 81 mg Oral tablet 1 tab daily [Active]; rosuvastatin 10 mg Oral tablet 1 tab mb9 daily [Active]; flecainide oral [Active]; Eliquis 5 mg oral tablet [Active]; - PMHx: 15:17 AFIB; mb9 - PSHx: 15:17 rhinoplasty; Ablation (rhinoplasty); mb9 - Immunization history:: Adult Immunizations up to date. - Social history:: Smoking status: Patient denies any tobacco usage or history of. - Family history:: not pertinent. ROS: 16:42 Constitutional: Negative for fever, chills, and weight loss, Eyes: Negative for injury, rn pain, redness, and discharge, Neck: Negative for injury, pain, and swelling, Cardiovascular: Positive for palpitations Respiratory: Negative for shortness of breath, cough, wheezing, and pleuritic chest pain, Abdomen/GI: Negative for abdominal pain, nausea, vomiting, diarrhea, and constipation, MS/Extremity: Negative for injury and deformity, Skin: Negative for injury, rash, and discoloration, Neuro: Positive for generalized weakness Exam: 15:40 ECG was reviewed by the Attending Physician. rn 16:42 Constitutional: This is a well developed, well nourished patient who is awake, alert, rn and in no acute distress. Vital Signs: 15:15 BP 121 / 94; Pulse 110; Resp 18; Temp 97.5; Pulse Ox 97% ; Weight 99.79 kg; Height 6 mb9 ft. 0 in. ; Pain 0/10; 15:31 BP 129 / 93; Pulse 102; Resp 19; Pulse Ox 96% on R/A; Pain 0/10; ld1 16:00 BP 120 / 76; Pulse 103; Resp 20; Pulse Ox 96% ; jl7 16:30 BP 120 / 83; Pulse 88; Resp 13; Pulse Ox 96% ; jl7 17:00 BP 109 / 84; Pulse 87; Resp 21; Pulse Ox 97% ; jl7 17:30 BP 118 / 84; Pulse 97; Resp 17; Pulse Ox 97% ; jl7 15:15 Body Mass Index 29.84 (99.79 kg, 182.88 cm) mb9 15:15 Pain Scale: Adult mb9 15:31 Pain Scale: Adult ld1 MDM: 15:15 Patient medically screened. rn 16:59 Differential diagnosis: arrythmia, dehydration, stress disorder. Data reviewed: vital rn signs, nurses notes, lab test result(s), EKG, radiologic studies, plain films, and as a result, I will discharge patient. Counseling: I had a detailed discussion with the patient and/or guardian regarding the historical points, exam findings, and any diagnostic results supporting the discharge/admit diagnosis, lab results, radiology results, the need for outpatient follow up, to return to the emergency department if symptoms worsen or persist or if there are any questions or concerns that arise at home. Response to treatment: the patient's symptoms have markedly improved after treatment, and as a result, I will discharge patient. Special discussion: I discussed with the patient/guardian in detail that at this point there is no indication for admission to the hospital. It is understood, however, that if the symptoms persist or worsen the patient needs to return immediately for re-evaluation. Based on the history and exam findings, there is no indication for further emergent testing or inpatient evaluation. I discussed with the patient/guardian the need to see the laboratory geneticist for further evaluation of the symptoms. ED course: Patient now in sinus rhythm. Feels much better. Labs and chest x-ray unremarkable. Will DC home with follow-up with his laboratory geneticist.. 02/28 15:16 Order name: Basic Metabolic Panel; Complete Time: 16:04 rn 02/28 15:16 Order name: CBC with Diff; Complete Time: 16:04 rn 02/28 15:16 Order name: NT PRO-BNP; Complete Time: 16:04 rn 02/28 15:16 Order name: PT-INR; Complete Time: 16:04 rn 02/28 15:16 Order name: Troponin HS; Complete Time: 16:04 rn 02/28 15:16 Order name: XRAY Chest (1 view); Complete Time: 16:42 rn 02/28 15:16 Order name: EKG; Complete Time: 15:17 rn 02/28 15:16 Order name: Cardiac monitoring; Complete Time: 15: rn 02/28 15:16 Order name: EKG - Nurse/Tech; Complete Time: 15: rn 02/28 15:16 Order name: IV Saline Lock; Complete Time: 15: rn 02/28 15:16 Order name: Labs collected and sent; Complete Time: 15: rn 02/28 15:16 Order name: O2 Per Protocol; Complete Time: 15: rn 02/28 15:16 Order name: O2 Sat Monitoring; Complete Time: 15:21 rn EC:40 Rate is 104 beats/min. Rhythm is regular. Left axis deviation noted. QRS is positive in rn lead I and negative in lead aVF. PA interval is normal. QRS interval is normal. QT interval is normal. No Q waves. T waves are Normal. No ST changes noted. Clinical impression: Sinus tachycardia. Interpreted by me. Reviewed by me. Administered Medications: 15:32 Drug: Magnesium Sulfate IVPB 1 grams IVPB once over 1 hrs Route: IVPB; Infused Over: 1 ld1 hrs; Site: right antecubital; 16:30 Follow up: Response: No adverse reaction; IV Status: Completed infusion jl7 Disposition Summary: 02/28/23 17:01 Discharge Ordered Notes: Location: Home rn Problem: new rn Symptoms: have improved rn Condition: Stable rn Diagnosis - Tachycardia, unspecified rn - Palpitations rn Followup: rn - With: Private Physician - When: As needed - Reason: Recheck today's complaints, Re-evaluation by your physician Discharge Instructions: - Discharge Summary Sheet rn - Palpitations rn - Cardiac Ablation, Care After rn Forms: - Medication Reconciliation Form rn - Thank You Letter rn - Antibiotic cvicu rn - Prescription Opioid Use rn - Patient Portal Instructions rn - Leadership Thank You Letter rn Signatures: Dispatcher [employer] EDMasood Shook MD MD rn Sims, Lauren, RN RN ld1 Bonnie Stuart RN RN mb[address] RN jl7 Corrections: (The following items were deleted from the chart) 15:20 15:17 Home Meds: metoprolol; mb9 mb9 15:20 15:17 Home Meds: gabapentin Oral; mb9 mb9
--- NOTE | 2023-02-28 17:02 | ER ---
Nurse's Notes [facility] Name: Josesito Reyna Age: 52 yrs Sex: Male : 1970 Arrival Date: 02/28/2023 Time: 14:54 Bed 2 Private MD: Diagnosis: Tachycardia, unspecified;Palpitations Presentation: 02/28 15:15 Chief complaint: Patient states: "I had a ablation last Monday. I've felt fine until mb9 today. The last 3 hrs I felt, dizzy, SOB, sweating, headache, and having palpations like I do when I'm in AFIB. Dr. Jose told me to come to the ER". Coronavirus screen: Vaccine status: Patient reports being unvaccinated. Ebola Screen: No symptoms or risks identified at this time. Initial Sepsis Screen: Does the patient meet any 2 criteria? No. Patient's initial sepsis screen is negative. Does the patient have a suspected source of infection? No. Patient's initial sepsis screen is negative. Risk Assessment: Do you want to hurt yourself or someone else? Patient reports no desire to harm self or others. Onset of symptoms was February 28, 2023. 15:15 Method Of Arrival: Ambulatory mb9 15:15 Acuity: ALISON 2 mb9 Triage Assessment: 15:20 General: Appears in no apparent distress. Behavior is calm, cooperative. Pain: Denies mb9 pain. Neuro: Level of Consciousness is awake, alert, obeys commands, Oriented to person, place, time, situation, Appropriate for age Reports dizziness, headache. Cardiovascular: Reports lightheadedness, palpitations. Respiratory: Airway is patent Respiratory effort is even, unlabored, Respiratory pattern is regular, symmetrical. Derm: Skin is pink, warm \\T\\ dry. Musculoskeletal: Range of motion: intact in all extremities. Historical: - Allergies: 15:17 PENICILLINS; mb9 - Home Meds: 15:17 aspirin 81 mg Oral tablet 1 tab daily [Active]; rosuvastatin 10 mg Oral tablet 1 tab mb9 daily [Active]; flecainide oral [Active]; Eliquis 5 mg oral tablet [Active]; - PMHx: 15:17 AFIB; mb9 - PSHx: 15:17 rhinoplasty; Ablation (rhinoplasty); mb9 - Immunization history:: Adult Immunizations up to date. - Social history:: Smoking status: Patient denies any tobacco usage or history of. - Family history:: not pertinent. Screenin:31 [facility] ED Fall Risk Assessment (Adult) History of falling in the last 3 months, ld1 including since admission No falls in past 3 months (0 pts). Abuse screen: Denies threats or abuse. Denies injuries from another. Nutritional screening: No deficits noted. Tuberculosis screening: No symptoms or risk factors identified. Assessment: 15:31 General: Appears in no apparent distress. comfortable, Behavior is cooperative, ld1 appropriate for age, anxious. Pain: Denies pain. Neuro: Level of Consciousness is awake, alert, obeys commands, Oriented to person, place, time, situation. Cardiovascular: Capillary refill < 3 seconds Patient's skin is warm and dry. Rhythm is sinus tachycardia. Respiratory: Airway is patent Respiratory effort is even, unlabored. GI: Abdomen is round non-distended. : No signs and/or symptoms were reported regarding the genitourinary system. EENT: No signs and/or symptoms were reported regarding the EENT system. Derm: No signs and/or symptoms reported regarding the dermatologic system. Musculoskeletal: No signs and/or symptoms reported regarding the musculoskeletal system. 16:30 Reassessment: Patient appears in no apparent distress at this time. No changes from jl7 previously documented assessment. Patient and/or family updated on plan of care and expected duration. Pain level reassessed. Patient is alert, oriented x 3, equal unlabored respirations, skin warm/dry/pink. 16:55 Reassessment: Dr. Zuniga at bedside discussing results and POC. jl7 Vital Signs: 15:15 BP 121 / 94; Pulse 110; Resp 18; Temp 97.5; Pulse Ox 97% ; Weight 99.79 kg; Height 6 mb9 ft. 0 in. ; Pain 0/10; 15:31 BP 129 / 93; Pulse 102; Resp 19; Pulse Ox 96% on R/A; Pain 0/10; ld1 16:00 BP 120 / 76; Pulse 103; Resp 20; Pulse Ox 96% ; jl7 16:30 BP 120 / 83; Pulse 88; Resp 13; Pulse Ox 96% ; jl7 17:00 BP 109 / 84; Pulse 87; Resp 21; Pulse Ox 97% ; jl7 17:30 BP 118 / 84; Pulse 97; Resp 17; Pulse Ox 97% ; jl7 15:15 Body Mass Index 29.84 (99.79 kg, 182.88 cm) mb9 15:15 Pain Scale: Adult mb9 15:31 Pain Scale: Adult ld1 ED Course: 14:57 Patient arrived in ED. mg5 15:15 Masood Zuniga MD is Attending Physician. rn 15:17 Triage completed. mb9 15:17 Arm band placed on. mb9 15:27 Basic Metabolic Panel Sent. bc6 15:27 CBC with Diff Sent. bc6 15:27 NT PRO-BNP Sent. bc6 15:28 PT-INR Sent. bc6 15:28 Troponin HS Sent. bc6 15:28 Inserted saline lock: 20 gauge in right antecubital area, using aseptic technique. bc6 Blood collected. 15:30 Germaine West, RN is Primary Nurse. ld1 15:31 Patient has correct armband on for positive identification. Placed in gown. Bed in low ld1 position. Call light in reach. Side rails up X2. nib inspector on. Pulse ox on. NIBP on. Door closed. Noise minimized. Warm blanket given. 16:00 XRAY Chest (1 view) In Process Unspecified. EDMS 16:00 Provided Education on: use of call parker. jl7 17:53 No provider procedures requiring assistance completed. IV discontinued, intact, jl7 bleeding controlled, No redness/swelling at site. Pressure dressing applied. Administered Medications: 15:32 Drug: Magnesium Sulfate IVPB 1 grams IVPB once over 1 hrs Route: IVPB; Infused Over: 1 ld1 hrs; Site: right antecubital; 16:30 Follow up: Response: No adverse reaction; IV Status: Completed infusion jl7 Medication: 15:31 VIS not applicable for this client. ld1 Outcome: 17:01 Discharge ordered by . rn 17:53 Discharged to home ambulatory, jl7 17:53 Condition: stable 17:53 Discharge instructions given to patient, family, Instructed on discharge instructions, follow up and referral plans. Demonstrated understanding of instructions, follow-up care, 17:54 Patient left the ED. jl7 Signatures: Dispatcher [employer] EDMS Masood Zuniga MD MD rn Leal, Jahala, RN RN jl7 Germaine West RN RN ld1 Bonnie Stuart RN RN mb9 Lani Drake 6 [facility] Corrections: (The following items were deleted from the chart) 15: 15:17 Home Meds: metoprolol; mb9 mb9 15:20 15:17 Home Meds: gabapentin Oral; mb9 mb9
[2023-02-28 19:08] VITALS: TEMP 97.5
[2023-02-28 19:12] VITALS: O2SAT 97
[2023-02-28 19:13] VITALS: BP 118/84
--- NOTE | 2023-03-01 14:32 | EKG ---
Test Date: 2023-02-28 Test Time: 15:28:27 Dielectric Embossing Machine Operator: Mica RIOS MEASUREMENT RESULTS: Intervals: Rate: 104 WV: 144 QRSD: 78 QT: 330 QTc: 433 [place]: P: 35 WV: 144 QRS: -73 T: 70 INTERPRETIVE STATEMENTS: Sinus tachycardia Left axis deviation Abnormal ECG Compared to ECG 01/30/2023 00:53:47 Left-axis deviation now present Sinus rhythm no longer present Electronically Signed On 03-01-23 14:30:40 CDT by Dex Zambrano
== END 2023-02-28 17:54 | disposition home or self-care (01) ==
LOC: ER 14:54
DX: R00.0 Tachycardia, unspecified (principal); I48.91 Unspecified atrial fibrillation; Z79.01 Long term (current) use of anticoagulants; Z88.0 Allergy status to penicillin; Z79.82 Long term (current) use of aspirin
CPT/HCPCS: 85025; 80048; 36415; 85610; 84484; 83880; 71045; J3475; 93005